=== PATIENT | female | born 1945 | race Caucasian/White ===

== ENCOUNTER → 2017-10-18 16:51 | Outpatient (CLI) | payer MEDICARE, OTHER, SELFPAY ==
--- NOTE | 2017-10-18 17:02 | XR_ITS ---
XR chest 2V Ordering Physician: Shama Field MD Patient Age: 72 years: Female HISTORY: ITS.REASON: BRONCHITIS TECHNIQUE: PA and lateral chest COMPARISON :April 2014 CXR FINDINGS Left chest. Stable no new findings. Right chest Mild accentuation markings right infrahilar region towards right lower lobe. There are chronic changes here but I question there possible very minimal wispy infiltrate distribution correlation clinically required. Question some mild airway thickening at the right suprahilar region as well which may reflect mild bronchitis.- Equivocal No pleural effusion. No pneumothorax Heart normal size. . T-spine Prominent marginal osteophytes progressed throughout the lower T-spine 2013. Now no particularly prominent focal marginal osteophyte T9/10 anteriorly into the right noted. This also is to the density posteriorly towards RLL IMPRESSION: ======== No prominent findings. No dense consolidation. No pleural effusion Only question possible very subtle wispy infiltrate towards RLL, superimposed upon chronic changes. Requires correlation Progressive degenerative changes T-spine Generous marginal osteophytes
== END ==
PROVIDERS: PCP Family Medicine; Visit Provider Family Medicine
DX: J40 Bronchitis, not specified as acute or chronic (principal)
CPT/HCPCS: 71046

== ENCOUNTER → 2018-01-17 06:11 | Outpatient (CLI) | payer MEDICARE, OTHER, SELFPAY ==
--- NOTE | 2018-01-17 06:23 | NM_ITS ---
CARDIOLITE SPECT MYOCARDIAL PERFUSION SCAN, REST AND STRESS: EXERCISE STRESS LOWER [facility] REVIEW QGS EF AND WALL MOTION EVALUATION: QPS - PERFUSION EVALUATION HISTORY: Chest pain, SOB, Palpitations DOSE: 10.30 mCi technetium 99m mibi intravenously at rest followed by 31.7 mCi technetium 99m mibi following the intravenous ministration of 0.4 mg of Lexiscan. Resting blood pressure is 192/85. Stress blood pressure 177/89. FINDINGS: Ejection fraction is calculated to be 71%. Stress images reveal severely decreased activity in the anterior and inferior wall while rest images reveal no significant change. Gated images calculated ejection fraction is 71% with normal wall motion. IMPRESSION: This is a high risk abnormal stress test. Although there is normal wall motion clearly anterior and inferior wall have severe decreased tracer activity suggesting significant pathology.. Clinical correlation is advised however this remains a high risk abnormal stress test
== END ==
PROVIDERS: Family Provider Family Medicine; PCP Family Medicine; Visit Provider Family Medicine
DX: R07.2 Precordial pain (principal)
CPT/HCPCS: 78452; 93017; A9502; J2785

== ENCOUNTER → 2018-05-27 15:47 | Outpatient (CLI) | payer MEDICARE, OTHER, SELFPAY ==
--- NOTE | 2018-05-27 15:54 | XR_ITS ---
XR chest 2V HISTORY: ITS.REASON: BRONCHITIS ORDERING PHYSICIAN: AUGIE Hansen PATIENT AGE: 73 years COMPARISON: None FINDINGS: The cardiomediastinal silhouette and pulmonary vascularity are within normal limits. The lungs are clear without infiltrates, suspicious nodules, or pleural effusions. The left hilum is slightly more prominent compared to the previous exam. This is of questionable clinical significance and could be related to some minimal patient rotation. Follow-up may confirm. There are degenerative changes in the right shoulder with subacromial stenosis. Degenerative change thoracic spine. IMPRESSION: 1. No acute finding. 2. Mild prominence of the left hilum. Consider follow-up to confirm stability
== END ==
PROVIDERS: PCP Family Medicine; Visit Provider Physician Assistant
DX: J40 Bronchitis, not specified as acute or chronic (principal)
CPT/HCPCS: 71046

== ENCOUNTER → 2018-06-07 15:02 | Outpatient (CLI) | payer MEDICARE, OTHER, SELFPAY ==
--- NOTE | 2018-06-07 15:09 | XR_ITS ---
XR chest 2V HISTORY: ITS.REASON: ABNORMAL CXR ORDERING PHYSICIAN: AUGIE Hansen PATIENT AGE: 73 years Technique: PA and lateral chest COMPARISON: 10/18/2017 PA and lateral chest. September 2017, May 27, 2018 FINDINGS: Lungs are well expanded and clear with no significant new findings. The previous question infiltrate at the right infrahilar region more so than left is no longer apparent.. Chest film is returned to baseline. Today's CXR compatible with prior studies from September 2017, May 27, 2018. Stable Tiny calcified granuloma towards left lung base.. . Heart owen and mediastinal structures satisfactory and stable. Chest wall T-spine unchanged stable. No pleural effusion or pneumothorax no focal pneumonia. Arthritic changes at both shoulders right greater than left. IMPRESSION. . Nothing definitely acute. Lungs clear. Minor chronic changes . Chest film has return to baseline with no significant findings
== END ==
PROVIDERS: PCP Family Medicine; Visit Provider Physician Assistant
DX: R93.89 Abnormal findings on diagnostic imaging of other specified body structures (principal)
CPT/HCPCS: 71046

== ENCOUNTER → 2019-07-11 12:17 | Outpatient (CLI) | payer MEDICARE, OTHER, SELFPAY ==
[2019-07-11 12:49] LABS: Erythrocyte Sedimentation Rate 57 mm/hr (0-30)
[2019-07-11 15:21] LABS: Aspartate Amino Transferase 23 U/L (15-37); Potassium 4.8 mmoL/L (3.5-5.1); Sodium 141 mmol/L (136-145); Total Protein,Serum 7.3 gm/dL (6.4-8.2)
[2019-07-11 16:00] LABS: Alanine Aminotransferase 19 U/L (12-78); Albumin Level 3.3 gm/dL (3.4-5.0); Albumin/Globulin Ratio 0.8 (1.1-1.8); Alkaline Phosphatase 128 U/L (46-116); Anion Gap 20.8 mEq/L (5-15); Bilirubin,Total 0.2 mg/dL (0.2-1.0); Blood Urea Nitrogen 26 mg/dL (7-18); Calcium 9.3 mg/dL (8.5-10.1); Carbon Dioxide 20 mmol/L (21.0-32.0); Chloride 105 mmol/L (98-107); Creatinine,Serum 0.93 mg/dL (0.55-1.02); Estimated Glomerular Filt Rate 59 ml/min (>60); GFR (African American) 72 ML/MIN (>60); Glucose 82 mg/dL (74-106)
== END ==
PROVIDERS: Visit Provider Family Medicine
DX: M06.9 Rheumatoid arthritis, unspecified (principal); K21.9 Gastro-esophageal reflux disease without esophagitis
CPT/HCPCS: 36415; 80053; 85651

== ENCOUNTER → 2019-07-11 13:48 | Outpatient (POV) | payer MEDICARE, OTHER, SELFPAY | PROVIDERS: Visit Provider Dermatology | DX: Z00.00 Encounter for general adult medical examination without abnormal findings (principal) ==

== ENCOUNTER → 2020-05-06 11:46 | Outpatient (CLI) | payer MEDICARE, OTHER, SELFPAY ==
--- NOTE | 2020-05-06 12:05 | ECG_ITS ---
APPROVED REPORT Exam: Resting ECG HR:78 bpm ECG Measurements Heart Rate 78 AXES WV 128 P 0 QRSd 74 QRS -7 QT 370 T 42 QTc 421 Conclusion Normal sinus rhythm Normal ECG Electronically signed by : Alexis Cano, 05/06/2020 21:06:04
== END ==
PROVIDERS: PCP Family Medicine; Visit Provider Nurse Practitioner Family
DX: I49.9 Cardiac arrhythmia, unspecified (principal)
CPT/HCPCS: 93005; 93225; 93226

== ENCOUNTER → 2020-05-22 09:47 | Outpatient (CLI) | payer MEDICARE, OTHER, SELFPAY | PROVIDERS: PCP Family Medicine; Visit Provider Urology | DX: M06.9 Rheumatoid arthritis, unspecified (principal); R00.2 Palpitations; R06.00 Dyspnea, unspecified; R55 Syncope and collapse; R94.31 Abnormal electrocardiogram [ECG] [EKG]; Z86.11 Personal history of tuberculosis | CPT/HCPCS: 93270 ==

== ENCOUNTER → 2020-05-30 07:11 | Outpatient (CLI) | payer MEDICARE, OTHER, SELFPAY ==
--- NOTE | 2020-05-30 | CA_ITS ---
APPROVED REPORT Exam: Pharmacologic Technologist: Audra Cherry, Ht: 5 ft 4 in Wt: 213 lbs BSA: 2.01 m2 HR: 79 bpm BP: 140/72 mmHg Rhythm: NSR,NORMAL Indications: SOA/FATIGUE Medical History Medical History: Hyperlipidemia Medications: Tramadol,,,,, MeLOXICAM,,,,, Esomeprazole,,,,, ICOSAPENT,,,,, RIfampin,,,,, Allergies: No known drug allergies Cardiac Risk Factors: FHX of CAD Stress Test Details Test: LEXISCAN HR Resting HR: 77 bpm Max Heart Rate (APMHR): 146 bpm Max HR Achieved: 104 bpm Target HR (85% APMHR): 124 bpm % of APMHR: 71 Recovery HR: 83 bpm BP Resting BP: 140.0/72 mmHg Max BP: 153/66 mmHg Recovery BP: 127.0/72.0 mmHg ECG Resting ECG: NSR,NORMAL Clinical Exercise duration: 04:03 min Highest Stage Achieved: Exercise capacity: 1.0 METs Stress ECG Conclusion DURING INFUSION PATIENT HAD SOA,MALAISE,HEADACHE, NO CP. OCC ISOLATED PVC, ONE VENTRICULAR COUPLET. NO SIGNIFICANT ST-T CHANGES. UNREMARKABLE LEXISCAN STRESS. MYOVIEW IMAGES REPORTED SEPARATELY. Electronically signed by : Chester Miller, 05/30/2020 12:07:59
--- NOTE | 2020-05-30 07:11 | NM_ITS ---
APPROVED REPORT Exam: Nuclear Stress Test Indication: SHORT OF BREATH..FATIGUE Patient Location: Outpatient Stress Tech: Wendi Lozoyankson NM Tech:TANJA Jones RT(R)(N) Ht: 5 ft 4 in Wt: 215 lbs Bra Size: 40C HR: 79 bpm BP: 140/72 mmHg BSA: 2.02 m2 BMI: 36.9 History: SHORT OF BREATH..FATIGUE Procedure: Patient received a 0.4 mg of intravenous Lexiscan, resting heart rate 79 bpm, resting blood pressure 140/72 mmHg, with Lexiscan maximum heart rate achived was 101 bpm which is Less than 85 resting electrocardiogram showed sinus rhythm, with Lexiscan % of the maximum predicted heart rate and blood pressure was 153/66 mmHg. With Lexiscan, patient denied any complaint of chest pain. Electrocardiogram Resting electrocardiogram showed sinus rhythm, with the Lexiscan there is less than 1.[address] segment depression noted from the baseline EKG. The EKG portion of the Lexiscan is nondiagnostic. Cardiac Stress and Resting SPECT Images: Cardiac Stress and Resting SPECT images were obtained using technetium 99m Myoview 31.7 mCi stress and 10.91 mCi at rest. Gated SPECT for analysis of segmental wall motion and calculation of the ejection fraction also done. Prone images were also obtained. Cardiac stress and rest SPECT images show uniform myocardial activity without segmental perfusion abnormality of ventricular ejection fraction is 58% with no regional wall motion abnormality, right ventricle is normal size and contractility. Conclusion: 1. The EKG portion of the Lexiscan is nondiagnostic. 2. No scintigraphic evidence of reversible ischemia seen, computer derived ejection fraction is 58% with no regional wall motion abnormality, right ventricle is normal size and contractility. 3. Normal Lexiscan Myoview study. Electronically signed by : Chester Miller, 05/30/2020 12:12:29
--- NOTE | 2020-05-30 09:04 | CA_ITS ---
APPROVED REPORT EXAM: Comprehensive 2D, Doppler, and color-flow Echocardiogram Public Health Assistant: Moriah Syed, RT(R) Ht: 5 ft 4 in Wt: 213lbs BSA: 2.01 BP: 174/88 mmHg Indications: SOA, palpitations, ABN holter, near syncope, SARABIA 2D Dimensions LVOT 2.10 cm (M/F) 1.5-2.5 M-Mode Dimensions RVDd 2.55 cm (0.9-2.6) LA Diam 2.44 cm (1.9-4.0) LVDd 3.65 cm (3.5-5.7) Ao Diam 2.25 cm (2.0-3.7) LVDs 2.43 cm (3.5-5.7) IVSd 0.87 cm (0.6-1.1) PWd 1.03 cm (0.6-1.1) EF (Teich) 63.10% FS 33.40% EDV (Teich) 56.30 mL ESV (Teich) 20.80 mL LV Diastology E Decel Time 150.00 (160-240 msec) E/A Ratio 0.8 MED E' 8.10 (< 7 cm/sec) E'/MED E' Ratio 8.05 (>14) LAT E' 6.90 (<10 cm/sec) E/LAT E' Ratio 9.45 (>14) Mitral Valve MV E Max Calderon. 65.00 (40-130 cm/s) MV A Velocity 83.00 (40-130 cm/s) E/A Ratio 0.79 MV Decel. Time 150.00 (160-240 ms) MV PHT 44.00 ms Left Ventricle Left atrium is mildly enlarged, left ventricle is normal size, left ventricle wall thickness is upper limit of normal, there is preserved left ventricular systolic function, visually estimated ejection fraction 55% with no regional wall motion abnormality, grade 1 diastolic dysfunction seen without tissue Doppler evidence of raise left atrial pressure. Right Ventricle Right atrium and right ventricle are normal size and contractility. Aortic Valve Aortic valve is minimally thickened and fibrosed, there is no aortic stenosis or aortic insufficiency. Mitral Valve Mitral valve is grossly normal, there is mild mitral regurgitation. Tricuspid Valve Tricuspid valve is grossly normal, there is mild tricuspid regurgitation. Tricuspid regurgitation jet velocity is inadequate for calculation of the right ventricular systolic pressure. Pulmonic Valve Pulmonic valve is poorly visualized. Great Vessels Aortic root is normal size. Inferior vena cava is not well-visualized. Pericardium No significant pericardial effusion noted. Conclusion 1. Mildly enlarged left atrium, normal left ventricular size, visually estimated ejection fraction 55% with no regional wall motion abnormality, grade 1 diastolic dysfunction seen without tissue Doppler evidence of raise left atrial pressure. 2. Mild mitral and tricuspid regurgitation. 3. No significant pericardial effusion noted. Electronically signed by : Chester Miller, 05/30/2020 16:34:29
== END ==
PROVIDERS: PCP Family Medicine; Visit Provider Urology
DX: M06.9 Rheumatoid arthritis, unspecified (principal); R00.2 Palpitations; R06.00 Dyspnea, unspecified; R55 Syncope and collapse; R94.31 Abnormal electrocardiogram [ECG] [EKG]; Z86.11 Personal history of tuberculosis
CPT/HCPCS: 78452; 93017; 93306; A9502; J2785

== ENCOUNTER → 2020-10-03 08:06 | Outpatient (CLI) | payer MEDICARE, OTHER, SELFPAY ==
--- NOTE | 2020-10-03 08:10 | MM_ITS ---
PROCEDURE: MM DIG SCREENING MAMM BI W/CAD Digital Breast Tomosynthesis Included CLINICAL INDICATION: SCREENING There breast cancer in the patient's paternal aunt there has been a previous biopsy left breast for benign disease. Diagnosed age 37 COMPARISON: MG DMSB DIGITAL MAMM-SCREEN BILATERAL from 12/07/2011 MG DMSB DIG MAMM-SCREEN TEE from 10/15/2015 MG DMSB DIG MAMM-SCREEN TEE W/CAD from 11/11/2016 TECHNIQUE: Standard CC and MLO images and 3D Tomosynthesis was obtained. R2 CAD reviewed. FINDINGS: Mild scattered fibroglandular densities are seen in both breast on a background of primarily fatty breast parenchyma. Again noted is the tiny metallic lower central portion right breast at the 6 o'clock position probably a broken piece of localizer wire previous biopsy. This was noted previously. CAD markings are seen in both breast and due to vascular calcification except for 1 marking projecting over a normal appearing node in the left axilla. There are scattered benign-appearing microcalcifications in each breast. There is no suspicious lesion and no suspicious microcalcifications. IMPRESSION: Fibrofatty parenchyma with no suspicious lesions seen BI-RAD Category: 2 Benign Finding(s) FOLLOW-UP: 1YR 1 Year Follow-up (A letter has been sent to the patient regarding results of the study.) Dictated by: Dr. Dalton Hall MD 10/04/2020 12:53 Dr. Dalton Hall MD in [place] 10/04/2020 12:53
--- NOTE | 2020-10-03 08:12 | XR_ITS ---
PROCEDURE: XR DEXA AXIAL SKELETON CLINICAL HISTORY: POST MENOPAUSAL COMPARISON: No exams were available for comparison FINDINGS: The right hip BMD is 0.779 with a T-score of -0.6. The left hip BMD is 0.801 with a T-score of -0.4. The left forearm BMD is 0.647 with a T-score of -0.8. IMPRESSION: Based on these results a follow-up exam is recommended in year. Dictated by: Hero Dillon MD 10/04/2020 01:53 Hero Dillon MD in [place] 10/04/2020 11:46
== END ==
PROVIDERS: PCP Family Medicine; Visit Provider Family Medicine
DX: Z12.31 Encounter for screening mammogram for malignant neoplasm of breast (principal); Z78.0 Asymptomatic menopausal state
CPT/HCPCS: 77063; 77067; 77080

== ENCOUNTER → 2020-11-06 11:18 | Outpatient (CLI) | payer MEDICARE, OTHER, SELFPAY | PROVIDERS: Visit Provider Internal Medicine Gastroenterology | DX: Z01.812 Encounter for preprocedural laboratory examination (principal); Z20.822 Contact with and (suspected) exposure to COVID-19; Z13.810 Encounter for screening for upper gastrointestinal disorder; Z12.11 Encounter for screening for malignant neoplasm of colon | CPT/HCPCS: U0003 ==

== ENCOUNTER 2020-11-08 06:58 | Day surgery (SDC) | payer MEDICARE, OTHER, SELFPAY ==
[2020-11-05 10:15] VITALS: BMI 34.3
[2020-11-08] VITALS (8 sets, daily range): BP systolic 95–137; BP diastolic 57–82; PULSE 68–89; RESP 18; TEMP 36.1–36.2; O2SAT 94–98
--- NOTE | 2020-11-08 07:56 | P.PCN_ITS ---
[facility] Procedure Note Procedure Note:: Upper Endoscopy Procedure Report: Esophagogastroduodenoscopy with cold biopsies and TTS balloon dilation Endoscopost: Joesph Aleman II, MD Referring Physician: Bartolo Yu MD Date of Procedure: November 08, 2020 Equipment: Olympus GIF 190 standard upper endoscope Sedation: MAC sedation Indications: Mrs. Sutton is a 75-year-old female with dysphagia and some dyspepsia. She has ongoing heartburn and acid reflux. She does take pantoprazole which does not fully control her symptoms. She reports epigastric abdominal discomfort and early satiety. She does report dysphagia primarily to solids (breads and meats) with some intermittent painful swallowing. She does feel that food hangs up in the lower retrosternal region. She reports no bloating, nausea or belching. She reports no melena or weight loss. She reports regular bowel function. Her recent hemoglobin 13.1 and hematocrit 39.4 were normal. Procedure: Prior to the procedure, a history and physical exam was performed, and patient's medications and allergies were reviewed. The risks, benefits and alternatives of the sedation and procedure were discussed with the patient. All questions were answered and informed consent was obtained. The patient was brought to the procedure room. Patient identification and proposed procedure were verified by the physician and the nurse. The patient was placed in a left lateral decubitus position and the scope was passed under direct vision. Throughout the procedure, the patient's blood pressure, pulse, and oxygen saturations were monitored continuously. The upper GI endoscopy was accomplished without difficulty. The patient tolerated the procedure well. Findings: The scope was passed directly into the upper esophagus and advanced to the third portion of the duodenum. The post bulbar duodenum and duodenal bulb were normal with normal mucosa and conniventes. The scope was withdrawn through a normal duodenal bulb and pylorus into the stomach. There was linear reactive gastropathy of the antrum of the stomach with some bile reflux. The remainder of the body and fundus of the stomach were grossly normal. Upon retroflexion there was a small sliding 1 to 2 cm hiatal hernia. 2 biopsies were taken in the antrum and along the lesser curvature for histology to rule out gastritis and/or H pylori. The scope was then withdrawn into the esophagus. There was no evidence of reflux esophagitis, Deshpande's or Schatzki's ring. There was some squamous mucosal changes with very mild corrugation within the esophagus. Cold biopsies were taken from the distal and proximal esophagus. There was evidence of moderate esophageal dysmotility. The entire esophagus was dilated to 54 F rench/18 mm with a TTS hydrostatic balloon. The remainder of the esophageal mucosa was normal. Impression: 1. Nonerosive GERD with moderate esophageal dysmotility and very small sliding hiatal hernia status post dilation to 18 mm 2. Mild linear reactive gastropathy with bile reflux Plan: I will follow-up the biopsies. The patient does have functional dyspepsia and functional GERD. We will discuss additional dietary measures and treatment options. I will proceed with diagnostic colonoscopy.
--- NOTE | 2020-11-08 08:26 | P.PCN_ITS ---
[facility] Procedure Note Procedure Note:: Colonoscopy Procedure Report: Colonoscopy with cold snare polypectomy Endoscopist: Joesph Aleman II, MD Referring physician: Bartolo Yu MD Date of Procedure: November 08, 2020 Equipment: Olympus 190 variable stiffness pediatric colonoscope Sedation: MAC sedation Indication: Mrs. Sutton is a 75-year-old female who is here for diagnostic colonoscopy secondary to dyspepsia and generalized abdominal pain. The patient reports no rectal bleeding, weight loss, change in her bowel habits or family history of colon cancer. She did have a colonoscopy with Dr. Gurmeet Santana in November 2015. She did have colon polyps. Her recent hemoglobin 13.1 and hematocrit 39.4 were normal. Procedure: Prior to the procedure, a history and physical exam was performed, and patient's medications and allergies were reviewed. The risks, benefits and alternatives of the sedation and procedure were discussed with the patient. All questions were answered and informed consent was obtained. The patient was brought to the procedure room. Patient identification and proposed procedure were verified by the physician and the nurse. The patient was placed in a left lateral decubitus position and the scope was passed under direct vision. Throughout the procedure, the patient's blood pressure, pulse, and oxygen saturations were monitored continuously. The colonoscopy was accomplished without difficulty. The patient tolerated the procedure well. Findings: On digital rectal examination there was normal rectal tone. There were no external hemorrhoids. The colonoscope was introduced through the anal canal to the rectum and advanced to the cecum. The ileocecal valve and appendiceal orifice were identified. The scope was advanced a short distance into the ileum which appeared grossly normal. The scope was then withdrawn into the colon. There were 3 polyps (cecum x1 (5 mm) and descending x2 (both 3 mm)) which were all removed via cold snare polypectomy. The remaining cecum, ascending and transverse colon and mucosa were grossly normal. There were scattered diverticuli throughout the descending and sigmoid colon (LEFT colon). The rectum itself was normal. Upon retroflexion within the rectum there were grade 1 internal hemorrhoids. The preparation was excellent throughout with [place] Preparation Score of 9. The cecal time was 12 minutes. Impression: 1. Diminutive colonic polyps x3 2. Left-sided diverticulosis 3. Grade 1 internal hemorrhoids Plan: I will follow up the polyp pathology and determine whether further surveillance is warranted. I would encourage a fiber bowel regimen on a long-term daily maintenance basis.
--- NOTE | 2020-11-08 17:24 | P.PN_ITS ---
[facility] Anesthesia Checklist - Patient Identification Patient Identification: Arm Band - Structural Data Admitted From: Home Planned Operative Procedure/s: EGD Consent for Planned Operative Procedure(s) Verified: Yes Verified Documents: Surgical Consent, History and Physical - NPO Status Verified Time NPO: 00:00 - Airway Assessment C-Spine Mobility Assessed: Yes TMJ Mobility Assessed: Yes Dentition: Good Dentition - Neurological Assessment Level of Consciousness: Awake, Alert - Anesthesia Plan Anesthesia Risk discussed: Yes Anesthesia Plan: Verified ASA Class: II Anesthesia Type: MAC [facility] History Medical History: Reports:: Cancer (skin cancer face and arms), Gastroesophageal Reflux Disease(GERD), Heart Murmur, Hyperlipidemia Denies:: Diabetes Mellitus Type 1, Diabetes Mellitus Type 2, Internal Pacemaker, MRSA, Seizures *Have you ever received a pneumonia vaccine?: No *Have you received a flu vaccine this season?: Yes Anesthesia experience/problems:: None Other Surgeries: Yes: Cardiac Catheterization. No: Pacemaker Amputation: No Fractures: No - *Social History Last grade of school completed: High school graduate Smoking Status: Never smoker Alcohol Intake: never Substance Use Type: denies use *Occupational Status:: employed, disabled Housing: house Household Members: none *Travel in the last 8 weeks: None Family Hx:: Coronary Artery Disease, Heart Attack, Stroke
== END 2020-11-08 09:35 | disposition home or self-care (01) ==
LOC: OUTP 07:00
PROVIDERS: PCP Family Medicine; Visit Provider Internal Medicine Gastroenterology
PROC: 0DJ08ZZ Inspection of Upper Intestinal Tract, Via Natural or Artificial Opening Endoscopic (ICD-10-PCS; CPT 43235; principal; 2020-11-08 08:00)
DX: K21.9 Gastro-esophageal reflux disease without esophagitis (principal); K44.9 Diaphragmatic hernia without obstruction or gangrene; K22.4 Dyskinesia of esophagus; K31.9 Disease of stomach and duodenum, unspecified; K63.5 Polyp of colon; K57.30 Diverticulosis of large intestine without perforation or abscess without bleeding; K64.0 First degree hemorrhoids; Z85.828 Personal history of other malignant neoplasm of skin; E78.5 Hyperlipidemia, unspecified; R01.1 Cardiac murmur, unspecified; Z82.3 Family history of stroke; Z82.49 Family history of ischemic heart disease and other diseases of the circulatory system
CPT/HCPCS: 43239; 43249; 45385; 88305; C1726

== ENCOUNTER → 2021-12-29 11:05 | Outpatient (CLI) | payer MEDICARE, OTHER, SELFPAY ==
--- NOTE | 2021-12-29 11:13 | XR_ITS ---
FINAL REPORT CLINICAL HISTORY: Pain in Rt calcaneus x 1 yr, worsened x 2-3 wks. NKT FINDINGS: RIGHT FOOT Three views of the right foot were obtained. There is no acute fracture or dislocation. Visualized joint spaces are normally aligned. There is a moderate size plantar spur. Soft tissues are unremarkable. IMPRESSION: No acute bony abnormality. Reviewed, Interpreted and Dictated by Arslan Jefferson MD Transcribed by Kristin Norman Authenticated and [facility][1]
== END ==
PROVIDERS: PCP Family Medicine; Visit Provider Nurse Practitioner Family
DX: M79.671 Pain in right foot (principal)
CPT/HCPCS: 73630

== ENCOUNTER → 2022-01-07 08:04 | Outpatient (CLI) | payer MEDICARE, OTHER, SELFPAY ==
--- NOTE | 2022-01-07 08:08 | MM_ITS ---
PROCEDURE INFORMATION: Exam: MG Bilateral Screening 3D Mammography Exam date and time: 01/07/2022 8:19 AM Age: 76 years old Clinical indication: Screening examination TECHNIQUE: Imaging protocol: Bilateral Screening tomosynthesis and 2D mammography including computer-aided detection (CAD) when performed. COMPARISON: 1. MG MM DIG SCREENING MAMM BI W/CAD 10/03/2020 8:29 AM 2. MG DMSB DIG MAMM-SCREEN TEE W/CAD 11/11/2016 4:24 PM 3. MG DMSB DIG MAMM-SCREEN TEE 10/15/2015 9:07 AM 4. MG DMSB DIGITAL MAMM-SCREEN BILATERAL 12/07/2011 4:03 PM FINDINGS: MAMMOGRAPHY: Breast composition: There are scattered areas of fibroglandular density. Mass: None. Architectural distortion: No new or suspicious architectural distortion. Calcifications: Stable benign-appearing calcifications are present. No new or suspicious cluster of microcalcifications have developed. Asymmetric density: No new or suspicious asymmetric density is present Skin thickening: None. Axillary adenopathy: None. IMPRESSION: No mammographic evidence of malignancy. Recommend annual screening mammography unless otherwise clinically indicated. ASSESSMENT: BI-RADS category 2: Benign
--- NOTE | 2022-01-07 08:09 | XR_ITS ---
FINAL REPORT TECHNIQUE: Bone mineral density was calculated of the left forearm and hip. CLINICAL HISTORY: . post menopausal screening COMPARISON: 10/03/2020 FINDINGS: DEXA BONE DENSITY AXIAL SKELETON Using the left forearm, the bone mineral density of the distal 1/3 is 0.636 g/cm2, corresponding to T-score of -1.0. Previously measured 0.647 g/cm2, corresponding to T-score of -0.8. Using the left hip, the bone mineral density of the femoral neck is 0.774 g/cm2, corresponding to a T-score of -0.7. Previously measured 0.801 g/cm2, corresponding to T-score of -0.4. NOTE: T-score: Standard deviation compared with peak bone mass of young adult mean. *Following the recommendations of the International Society of Bone densitometry, classification of hip BMD is based on the lower of two T-scores; total hip or femoral neck. IMPRESSION: Normal bone mineral density of the left forearm and hip. Reviewed, Interpreted and Dictated by Gabriele Ramírez III, MD Transcribed by Jeri Shaw Authenticated and [facility]
== END ==
PROVIDERS: PCP Family Medicine; Visit Provider Nurse Practitioner Family
DX: Z12.31 Encounter for screening mammogram for malignant neoplasm of breast (principal); Z78.0 Asymptomatic menopausal state
CPT/HCPCS: 77063; 77067; 77080

== ENCOUNTER → 2022-03-30 13:05 | Outpatient (CLI) | payer MEDICARE, OTHER, SELFPAY ==
[2022-03-30 15:10] LABS: Basophils # 0.1 K/mm3 (0-0.2); Basophils % 0.9 % (0.1-2.0); Eosinophils # 0.3 K/mm3 (0.0-0.4); Eosinophils % 2.7 % (0.1-12.0); Hematocrit 36.5 % (37.0-47.0); Hemoglobin 12.1 g/dL (12.2-16.2); Lymphocytes # 1.9 K/mm3 (0.7-4.5); Lymphocytes % 19.4 % (10-50); Mean Corpuscular HGB Conc 33.2 g/dL (31.8-35.4); Mean Corpuscular Hemoglobin 27.2 pg (27.0-31.2); Monocytes # 0.5 K/mm3 (0.1-1.0); Monocytes % 5.5 % (1.7-9.3); Neutrophils # 7.1 K/mm3 (1.8-7.8); Neutrophils % 71.6 % (37.0-80.0); Platelet Count 263 K/mm3 (142-424); Red Blood Count 4.45 M/mm3 (4.20-5.40); Red Cell Distribution Width 14.2 % (11.5-17.5); White Blood Count 9.9 K/mm3 (4.8-10.8)
[2022-03-30 15:14] LABS: Strep Scrn Group A (Rapid) Positive (Negative)
== END ==
PROVIDERS: PCP Family Medicine; Visit Provider Nurse Practitioner Family
DX: Z20.822 Contact with and (suspected) exposure to COVID-19 (principal); J02.0 Streptococcal pharyngitis; B95.0 Streptococcus, group A, as the cause of diseases classified elsewhere
CPT/HCPCS: 36415; 85025; 87275; 87276; 87430; C9803; U0003; U0005

== ENCOUNTER 2022-12-29 09:17 | Day surgery (SDC) | payer MEDICARE, OTHER, SELFPAY ==
[2022-12-29 09:40] VITALS: BP 136/62; PULSE 61; RESP 18; TEMP 36.6; O2SAT 94; BMI 32.5
[2022-12-29 10:15] VITALS: O2SAT 100
--- NOTE | 2022-12-29 10:46 | HMH.SCOPE ---
Procedure: Date: 12/29/22 Patient Date of :: 1945 Procedure Performed:: Colonoscopy Indications:: History of colon polyps Performing Provider:: Gurmeet Santana MD Referring Provider:: . Sedation:: Monitored anesthesia care Procedure:: After informed consent was obtained the patient was taken to the endoscopy suite. Sedation ensued after the patient was transferred to the left lateral decubitus position. Pulse, blood pressure, and oxygen saturation were monitored throughout the procedure. Digital rectal exam revealed no significant abnormality. The colonoscope was placed in position. The entire colon was evaluated. The colonoscope was carefully removed and the patient was transferred to recovery in stable condition. Please see findings and specimens below for detail. Findings:: Bowel preparation moderate Scattered diverticulosis Moderate spasticity/lack of relaxation Specimens:: None Recommendations:: Repeat colonoscopy in 3-5 years Complications:: No immediate Estimated blood obtained (mL): 0 Colonoscopy Component Colonoscopy Component Was a colonoscopy performed during today's procedure?: Yes Recommended follow up colonoscopy of at least 10 years?: No If no, follow up colonoscopy recommended in ___ years?: 3-5 years Reason for not recommending >/= 10 yr follow-up interval?: Moderate bowel prep; history of polyps
[2022-12-29 10:49] VITALS: BP 89/51; PULSE 56; RESP 14; TEMP 36.4; O2SAT 95
--- NOTE | 2022-12-29 10:55 | P.PN_ITS ---
[facility] Disclaimer: The information contained in this section may have been updated after the patient was seen, as this information can be updated by other users. Medical History (Updated 12/29/22 @ 09:38 by Garry Culver RN) HLD (hyperlipidemia) Morbid obesity Surgical History (Updated 12/29/22 @ 09:38 by Garry Culver RN) History of knee replacement History of lumbar surgery Family History (Updated 12/29/22 @ 09:39 by Garry Culver RN) Other Family history of cancer Family history of heart disease Social History (Updated 12/29/22 @ 09:39 by Garry Culver RN) Smoking Status: Never smoker second hand exposure: No alcohol intake: never substance use type: denies use current occupational status: retired and disabled Travel in the last 8 weeks: None household members: none housing: house caffeine: Yes [facility] Anesthesia Checklist Patient Identification Patient Identification: Arm Band and Family Structural Data Admitted From: Home Planned Operative Procedure/s: Colonocopy Consent for Planned Operative Procedure(s) Verified: Yes Verified Documents: Surgical Consent and History and Physical Additional verifications Anesthesia Reactions: No Blood Transfusion Reaction: No Cephalosporin Allergy: No Previous Colonoscopy: No Airway Assessment C-Spine Mobility Assessed: Yes TMJ Mobility Assessed: Yes Dentition: Edentulous Neurological Assessment Level of Consciousness: Awake, Alert, Appropriate and Follows Commands Hx Seizures: No Numbness or tingling in extremities: No Anesthesia Plan Anesthesia Risk discussed: Yes ASA Class: II Anesthesia Type: MAC Preoperative Comments Pre-Operative Comments: History of polyps years ago.
[2022-12-29 10:59] VITALS: BP 95/54; PULSE 57; RESP 14; O2SAT 95
[2022-12-29 11:09] VITALS: BP 100/72; PULSE 61; RESP 16; O2SAT 96
[2022-12-29 11:19] VITALS: BP 103/70; PULSE 64; RESP 16; TEMP 36.6; O2SAT 97
== END 2022-12-29 11:20 | disposition home or self-care (01) ==
PROVIDERS: PCP Family Medicine; Visit Provider Surgery
PROC: 0DJD8ZZ Inspection of Lower Intestinal Tract, Via Natural or Artificial Opening Endoscopic (ICD-10-PCS; principal; 2022-12-29 10:30)
DX: Z12.11 Encounter for screening for malignant neoplasm of colon (principal); Z86.010 Personal history of colon polyps; K57.90 Diverticulosis of intestine, part unspecified, without perforation or abscess without bleeding
CPT/HCPCS: G0105

== ENCOUNTER → 2023-01-08 12:53 | Outpatient (CLI) | payer MEDICARE, OTHER, SELFPAY ==
--- NOTE | 2023-01-08 12:57 | MM_ITS ---
PROCEDURE INFORMATION: Exam: MG Bilateral Screening 3D Mammography Exam date and time: 01/08/2023 12:52 PM Age: 77 years old Clinical indication: Screening examination; personal history of skin cancer. Family history of premenopausal breast cancer in aunt; Additional info: Routine screening TECHNIQUE: Imaging protocol: Bilateral Screening tomosynthesis and 2D mammography including computer-aided detection (CAD) when performed. COMPARISON: 1. MG MM DIG SCREENING MAMM BI W/CAD 01/07/2022 8:19 AM 2. MG MM DIG SCREENING MAMM BI W/CAD 10/03/2020 8:29 AM 3. MG DMSB DIG MAMM-SCREEN TEE W/CAD 11/11/2016 4:24 PM FINDINGS: MAMMOGRAPHY: Breast composition: The breasts are heterogeneously dense, which may obscure small masses. Mass: No suspicious masses. Architectural distortion: No suspicious distortion. Calcifications: No suspicious calcifications. Asymmetric density: None. Skin thickening: None. Axillary adenopathy: None. IMPRESSION: 1. No mammographic evidence of malignancy. Annual screening is recommended unless otherwise clinically indicated. 2. Given the reported risk factors for this patient, a breast cancer risk assessment may prove useful for further evaluation. ASSESSMENT: BI-RADS Category 1: Negative
== END ==
PROVIDERS: PCP Family Medicine; Visit Provider Family Medicine
DX: Z12.31 Encounter for screening mammogram for malignant neoplasm of breast (principal)
CPT/HCPCS: 77063; 77067

== ENCOUNTER 2023-09-22 15:30 | Outpatient (CLI) | payer MEDICARE, OTHER, SELFPAY ==
--- NOTE | 2023-09-22 15:40 | ECG_ITS ---
APPROVED REPORT Exam: Resting ECG HR:84 bpm ECG Measurements Heart Rate 84 AXES [place] 130 P 26 QRSd 88 QRS 20 QT 339 T 60 QTc 380 Conclusion SINUS RHYTHM NORMAL ECG UNCONFIRMED REPORT Electronically signed by : Alexis Cano MD 09/23/2023 13:46:44
[2023-09-22 16:03] LABS: Basophils # 0.1 K/mm3 (0-0.2); Basophils % 1.1 % (0.1-2.0); Eosinophils # 0.3 K/mm3 (0.0-0.4); Eosinophils % 4.5 % (0.1-12.0); Hematocrit 32.5 % (37.0-47.0); Hemoglobin 11.6 g/dL (12.2-16.2); Lymphocytes # 2.7 K/mm3 (0.7-4.5); Lymphocytes % 36.7 % (10-50); Mean Corpuscular HGB Conc 35.5 g/dL (31.8-35.4); Mean Corpuscular Hemoglobin 28.4 pg (27.0-31.2); Mean Corpuscular Volume 79.9 fl (81-99); Mean Platelet Volume 8.4 fl (7.4-10.4); Monocytes # 0.4 K/mm3 (0.1-1.0); Neutrophils # 3.9 K/mm3 (1.8-7.8); Neutrophils % 52.7 % (37.0-80.0); Platelet Count 267 K/mm3 (142-424); Red Blood Count 4.08 M/mm3 (4.20-5.40); Red Cell Distribution Width 15.8 % (11.5-17.5); White Blood Count 7.4 K/mm3 (4.8-10.8)
[2023-09-22 16:11] LABS: Chloride 110 mmol/L (98-107); Potassium 4.3 mmoL/L (3.5-5.1); Sodium 140 mmol/L (136-145)
[2023-09-22 16:13] LABS: Blood Urea Nitrogen 25 mg/dl (7-17)
[2023-09-22 16:14] LABS: Alanine Aminotransferase 22 U/L (12-78); Albumin/Globulin Ratio 1.1 (1.1-1.8); Alkaline Phosphatase 114 U/L (38-126); Anion Gap 10.3 mEq/L (5-15); Aspartate Amino Transferase 45 U/L (14-36); Bilirubin,Total 0.2 mg/dl (0.2-1.3); Calcium 9.5 mg/dl (8.4-10.2); Carbon Dioxide 24 mmol/L (22.0-30.0); Estimated Glomerular Filt Rate 44 ml/min (>60); GFR (African American) 53 ML/MIN (>60); Globulin 3.6 g/dL (1.3-3.2); Glucose 100 mg/dl (74-100); Total Protein,Serum 7.6 g/dl (6.3-8.2)
[2023-09-22 16:27] LABS: Troponin I < 0.01 ng/ml (0.00-0.034)
== END 2023-09-22 23:59 ==
LOC: RT 15:32
PROVIDERS: PCP Family Medicine; Visit Provider Physician Assistant
DX: R07.9 Chest pain, unspecified (principal)
CPT/HCPCS: 36415; 80053; 84484; 85025; 93005

== ENCOUNTER 2023-10-01 06:36 | Outpatient (CLI) | payer MEDICARE, OTHER, SELFPAY ==
--- NOTE | 2023-10-01 06:41 | NM_ITS ---
APPROVED REPORT Exam: Nuclear Stress Test Indication: HYPERLIPIDEMIA, FM HX, C.P., SOB, FATIGUE Patient Location: Outpatient Stress Tech: Breonna Tran MI Tech:TANJA Yusuf RT (R)(N)(M) Ht: 5 ft 4 in Wt: 194 lbs Bra Size: 40C HR: 66 bpm BP: 145/69 mmHg BSA: 1.93 m2 Rhythm: NSR TID: 1.13 BMI: 33.2 History: HYPERLIPIDEMIA, FM HX, C.P., SOB, FATIGUE Procedure: Patient received 0.4 mg of intravenous Lexiscan, resting heart rate 66 bpm, resting blood pressure 145/69 mmHg, with Lexiscan maximum heart rate achieved was 84 bpm which is % of the maximum predicted heart rate and blood pressure was 159/74 mmHg. With Lexiscan, patient denied any complaint of chest pain. Cardiac Stress and Resting SPECT Images: Cardiac Stress and Resting SPECT images were obtained using technetium 99m Myoview 31.7 mCi stress and 10.26 mCi at rest. Technically difficult study. This may affect the diagnostic interpretation of the study findings. Resting and stress imaging in supine and prone positions demonstrate a medium sized, moderate, predominantly fixed perfusion defect in the basal to mid anterior LV wall. There is also a medium sized, mild, predominantly fixed perfusion defect in the inferior LV wall. Regions of surrounding perfusion reversibility are also noted. Gated imaging demonstrates low normal global LV systolic function. There is mild hypokinesis of the basal anterior and inferior LV azar. LVEF is calculated at 53%. Conclusion: Medium sized, moderate, predominantly fixed perfusion defect in the basal to mid anterior LV wall. There is also a medium sized, mild, predominantly fixed perfusion defect in the inferior LV wall. Regions of surrounding perfusion reversibility are also noted. Gated imaging demonstrates low normal global LV systolic function. There is mild hypokinesis of the basal anterior and inferior LV azar. LVEF is calculated at 53%. Electronically signed by : Rhonda Quiroz MD 10/04/2023 14:25:03
[2023-10-01] MEDS: SODIUM CHLORIDE 0.9% 10ML SYR (RAD ONLY) 10 ML IV ×2 (06:50→08:30)
--- NOTE | 2023-10-01 07:25 | CA_ITS ---
APPROVED REPORT EXAM: Comprehensive 2D, Doppler, and color-flow Echocardiogram Salon Sales Consultant: Malissa Madsen CRT Ht: 5 ft 4 in Wt: 192lbs BSA: 1.92 BP: 180/96 mmHg Indications: Chest Pain, Obesity, Hyperlipidemia 2D Dimensions LA Volume 53.70 mL LA Volume Index 27.30 mL/m2 (M/F) 16-34 M-Mode Dimensions RVDd 2.83 cm (0.9-2.6) LA Diam 2.96 cm (1.9-4.0) LVDd 4.01 cm (3.5-5.7) LVDs 2.58 cm (3.5-5.7) IVSd 1.25 cm (0.6-1.1) PWd 1.22 cm (0.6-1.1) EF (Teich) 65.80% FS 35.70% EDV (Teich) 70.40 mL TAPSE 2.27 (<1.7) ESV (Teich) 24.10 mL LV Diastology E Decel Time 173 (160-240 msec) E/A Ratio 1.23 MED A' 9.70 cm/s LAT A' 8.80 cm/s Aortic Valve AO Peak GR. 3.80 mmHg Mitral Valve MV A Velocity 67.0 (40-130 cm/s) E/A Ratio 1.23 Pulmonary Valve PV Peak Velocity 122.0 (50-150 cm/s) Tricuspid Valve TR P. Velocity 249.00 cm/s RAP Estimate 10.00 mmHg RVSP 34.80 mmHg Left Ventricle The left ventricle is normal size. The left ventricular systolic function is normal. The left ventricular ejection fraction is within the normal range. There is normal left ventricular wall thickness. There is normal LV segmental wall motion. The left ventricular diastolic function is normal. LVEF is 60%. Right Ventricle Right ventricle is mildly dilated. The right ventricular systolic function is normal. Atria The left atrium size is normal. The right atrium size is normal. There is no Doppler evidence of interatrial shunt. Aortic Valve The aortic valve is mildly thickened. There is no aortic valvular stenosis. No aortic regurgitation is present. Mitral Valve The mitral valve leaflets are mildly thickened. No evidence of mitral valve stenosis. Trace mitral regurgitation. Tricuspid Valve The tricuspid valve leaflets are thin and pliable. Trace tricuspid regurgitation. There is insufficient TR jet to estimate RVSP. Pulmonic Valve The pulmonary valve is normal in structure. Trace pulmonic regurgitation. Great Vessels The aortic root is normal in size. The ascending aorta is not well-visualized. IVC is normal in size and collapses >50% with inspiration. Pericardium There is no pericardial effusion. Other Information Study Quality: Fair Conclusion Normal biventricular systolic function. Mild RV dilation. No significant valvular stenosis or regurgitation. Electronically signed by : Rhonda Quiroz MD 10/04/2023 12:52:10
[2023-10-01] MEDS: REGADENOSON 0.4MG/5ML SYRINGE 0.400000000000000022 MG IV (08:30)
--- NOTE | 2023-10-01 09:04 | CA_ITS ---
APPROVED REPORT Exam: Pharmacologic Technologist: Breonna Noyola, Ht: 5 ft 4 in Wt: 192 lbs BSA: 1.92 m2 HR: 62 bpm BP: 145/69 mmHg Rhythm: NSR Medical History Medications: Pantoprazole,,,,, Tramadol,,,,, Ibuprofen,,,,, Ezetimbe,,,,, Stress Test Details Test: LEXISCAN Reason for pharmacologic stress test: physical limitation. HR Resting HR: 66 bpm Max Heart Rate (APMHR): 143 bpm Max HR Achieved: 84 bpm Target HR (85% APMHR): 122 bpm % of APMHR: 59 Recovery HR: 72 bpm BP Resting BP: 145.0/69.0 mmHg Max BP: 159.0/74.0 mmHg Recovery BP: 159.0/74.0 mmHg ECG Resting ECG: NSR Stress ECG: No significant ST changes Arrhythmia: PVCs Clinical Exercise duration: 04:01 min Highest Stage Achieved: Stress ECG Conclusion Symptoms: Mild SOA, head discomfort. No CP. Arrhythmias/Ectopy: Occasional PVC. ST-T Changes: No significant ST changes. Conclusion: Unremarkable Lexiscan stress. Myoview images reported separately. Test Summary REST 03:18 . . 66 . 145/ 69 . . Stage 1 01:00 . . 74 . . . . Stage 2 01:00 . . 72 . 147/ 70 . . Stage 3 01:00 . . 74 . 143/ 70 . . Stage 4 01:00 . . 69 . 142/ 63 . . Stage 4 01:01 . . 70 . 142/ 63 . Stop exercise at 04:01 RECOVERY 01:00 . . 72 . . . . RECOVERY 02:00 . . 69 . 151/ 72 . . RECOVERY 03:00 . . 73 . 159/ 74 . . RECOVERY 03:23 . . 69 . 159/ 74 . . Electronically signed by : Rhonda Quiroz MD 10/04/2023 14:21:49
[2023-10-01] MEDS: ISOTOPE MYOVIEW (PER STUDY) 1 DOSE IV (10:00)
== END 2023-10-01 23:59 ==
LOC: RAD 06:36
PROVIDERS: PCP Family Medicine; Visit Provider Physician Assistant
DX: R07.9 Chest pain, unspecified (principal); R53.1 Weakness; M54.9 Dorsalgia, unspecified; G89.29 Other chronic pain; Z82.49 Family history of ischemic heart disease and other diseases of the circulatory system
CPT/HCPCS: 78452; 93017; 93018; 93306; A9502; J2785

== ENCOUNTER 2023-10-19 08:19 | Day surgery (SDC) | payer MEDICARE, OTHER, SELFPAY ==
[2023-10-19] VITALS (13 sets, daily range): BP systolic 126–151; BP diastolic 62–86; PULSE 53–67; RESP 16–18; TEMP 36.9; O2SAT 93–96; BMI 32.9
--- NOTE | 2023-10-19 07:14 | IR_ITS ---
APPROVED REPORT Patient Location: Outpatient PROCEDURES Left heart catheterization Left ventriculogram Selective coronary angiogram FFR angiogram to the LAD INDICATION Abnormal stress test, Proximal LAD disease Informed consent was obtained prior to the procedure. COMPLICATIONS NONE Estimated Blood Loss: LESS THAN 10 ML TECHNIQUE One percent lidocaine used to anesthetize the right anterior aspect of the wrist. The right radial artery was accessed via the Seldinger technique. A 6 [place] sheath was placed in the right radial artery. 2.5 mg of Verapamil, 800 mcg of nitroglycerin, 1mg Lidocaine and 5000 U Heparin were given through the arterial sheath. The papa catheter was also used to perform left heart catheterization, left ventriculogram and selective coronary angiogram. At the end the diagnostic angiogram cath works FFR angiography was performed. This revealed an FFR index of 0.95. At the end of the procedure the sheath was removed good hemostasis was achieved using Traclet band, patient was transferred to the postop holding area in stable condition. ANGIOGRAPHIC RESULTS The left main artery Normal The left anterior descending artery Has proximal eccentric 40% stenosis with remaining vessel being normal The circumflex artery Nondominant normal The right coronary artery Dominant normal The OCAMPO ventriculogram reveals Normal 65% The left ventricular end-diastolic pressure 20 to 22 mmHg IMPRESSION Moderate proximal LAD disease with hemodynamically insignificant FFR of 0.95 Normal ejection fraction Elevated LVEDP consistent with diastolic dysfunction PLAN 1. Risk factor modification Electronically signed by : Jonathon Orellana MD 10/19/2023 11:23:10
[2023-10-19 08:53] LABS: Basophils # 0.1 K/mm3 (0-0.2); Basophils % 0.9 % (0.1-2.0); Eosinophils # 0.4 K/mm3 (0.0-0.4); Hematocrit 33.9 % (37.0-47.0); Hemoglobin 10.9 g/dL (12.2-16.2); Lymphocytes # 2.3 K/mm3 (0.7-4.5); Lymphocytes % 38.3 % (10-50); Mean Corpuscular HGB Conc 32.1 g/dL (31.8-35.4); Mean Corpuscular Hemoglobin 25.3 pg (27.0-31.2); Mean Platelet Volume 8.3 fl (7.4-10.4); Monocytes # 0.3 K/mm3 (0.1-1.0); Monocytes % 4.9 % (1.7-9.3); Neutrophils # 2.9 K/mm3 (1.8-7.8); Neutrophils % 49.9 % (37.0-80.0); Platelet Count 251 K/mm3 (142-424); Red Cell Distribution Width 15.5 % (11.5-17.5); White Blood Count 5.9 K/mm3 (4.8-10.8)
[2023-10-19 09:03] LABS: Chloride 108 mmol/L (98-107); Sodium 138 mmol/L (136-145)
[2023-10-19 09:06] LABS: Blood Urea Nitrogen 17 mg/dl (7-17); Carbon Dioxide 25 mmol/L (22.0-30.0); Creatinine Clearance Estimated 65 mL/min (50-200); Estimated Glomerular Filt Rate 61 ml/min (>60); GFR (African American) 73 ML/MIN (>60)
[2023-10-19 09:07] LABS: Calcium 9.1 mg/dl (8.4-10.2); Glucose 92 mg/dl (74-100)
[2023-10-19] MEDS: 0.9 % SODIUM CHLORIDE 500 ML 25 ML IV (10:39)
[2023-10-19] MEDS: HEPARIN 1,000 UNITS/500ML NS (CATH LAB) 3000 UNIT IV (10:39)
[2023-10-19] MEDS: HEPARIN 1,000 UNITS/ML 10ML VIAL (CATH LAB) 10000 UNIT IV (10:40)
[2023-10-19] MEDS: NITROGLYCERIN 800MCG/8ML SYR (CATH LAB) 800 MCG IA (10:40)
[2023-10-19] MEDS: LIDOCAINE 1% 10ML MDV 20 ML IJ (10:40)
[2023-10-19] MEDS: VERAPAMIL 2.5MG/ML 2ML VIAL 2.5 MG IV (10:40)
[2023-10-19] MEDS: diphenhydrAMINE 50MG/ML VIAL 50 MG IV (10:40)
[2023-10-19] MEDS: FENTANYL 100MCG/2ML VIAL 50 MCG IV (11:07)
[2023-10-19] MEDS: MIDAZOLAM HCL 1MG/1ML 5ML VIAL 1 MG IV (11:07)
[2023-10-19] MEDS: IOPAMIDOL-370 (76%);100ML BOTTLE 50 ML IV (12:51)
== END 2023-10-19 14:37 | disposition home or self-care (01) ==
PROVIDERS: PCP Family Medicine; Visit Provider Internal Medicine
DX: R93.1 Abnormal findings on diagnostic imaging of heart and coronary circulation (principal); R07.9 Chest pain, unspecified; Z82.49 Family history of ischemic heart disease and other diseases of the circulatory system; I20.89 Other forms of angina pectoris; R53.1 Weakness; I10 Essential (primary) hypertension; Z79.899 Other long term (current) drug therapy
CPT/HCPCS: 80048; 85025; 93458; 93571; 99152; C1725; C1769; J1644; Q9967

== ENCOUNTER 2024-12-06 08:51 | Outpatient (CLI) | payer MEDICARE, OTHER, SELFPAY ==
--- OUTSIDE RECORDS SUMMARY | 2024-10-18 06:00 | XMS_ITS ---
Author Organization [facility] Address [address] [place] [id number] Care Team Providers Care Wood Casket Assembler Name Role Phone Alfonso Claire Primary Care Provider Cecelia Suazo Unavailable [phone] Allergies Allergen (clinical drug ingredient) Drug/Non Drug Allergy documented on EMR Reaction Allergy Type Onset Date Status gabapentin Neurontin weakness/trouble breathing Drug Allergy Active Substance with 2-zcmydbk-4-methylg lutaryl-coenzyme A reductase inhibitor mechanism of action [...] Normal Performing Lab: Notes/Report: Test performed by [employer], [employer] [address] [place] [address] , [address], [place] [address] Gabriel Gregory MD, Labor And Delivery Registered Nurse CLIA: [id number] Vitamin B12 110 354-4046 pg/mL P-Lyme Disease (B. burgodorf la), IgG/IgM, SOILA, Serum Reviewed date:10/20/2024 12:06:10 PM Interpretation: Normal Performing Lab: Notes/Report: Test performed by [employer] , [facility] C, [place] [address] Gabriel Gregory MD, Labor And Delivery Registered Nurse CLIA: [id number] B burgdorferi (Lyme Disease) IgG Negative Negative B burgdorferi (Lyme Disease) IgM Negative Negative P-Folate Reviewed date:10/20/2024 12:06:10 PM Interpretation: Normal Performing Lab: Notes/Report: Test performed by [facility] [employer] , [facility] C, [place] [address] Gabriel Gregory MD, Labor And Delivery Registered Nurse CLIA: [id number] Folate 18.40 >4.59 ng/mL P-Ferritin Reviewed date:10/20/2024 12:06:10 PM Interpretation: Normal Performing Lab: Notes/Report: Test performed by [facility] , [address], [place] [address] Gabriel Gregory MD, Labor And Delivery Registered Nurse CLIA: [id number] Ferritin 15.2 13.0-301.0 ng/mL P-Iron Reviewed date:10/20/2024 12:06:10 PM Interpretation:29 Performing Lab: Notes/Report: Test performed by [facility] , [facility] [place] [address] Gabriel Gregory MD, Labor And Delivery Registered Nurse CLIA: [id number] Iron 29 37-145 ug/dL P-Vitamin D 25-Hydroxy Reviewed date:10/20/2024 12:06:10 PM Interpretation: Normal Performing Lab: Notes/Report: Test performed by [facility], [facility] [address], [place] [address] Gabriel Gregory MD, Labor And Delivery Registered Nurse CLIA: [id number] Vitamin D 25-Hydroxy 36.7 30.0-100.0 ng/mL Interpretation [...] 81 MG 1 tablet Orally Once a day for 30 day(s) Active traMADol HCl 50 MG 1 tab(s) orally ever y 8 hours prn Active Ezetimibe 10 MG 1 tablet Orally Once a day 09/19/2023 Active Zithromax Z-Eduar 250 MG 2 pills first day then one daily for 4 days orally as directed for 5 days 10/18/2024 Active Benzonatate 200 MG 1 capsule Orally Thr ee times a day 10/18/2024 Active Ibuprofen 600 MG TAKE 1 TABLET BY JULIANO TH THREE TIMES DAILY for 90 Active Esomeprazole Magnesium 40 MG Take 1 capsule by mouth once daily for 90 Active Feosol Bifera 28 MG 1 tablet Orally Once a day for 30 day(s) 05/27/2024 Active Vital Signs Blood pressure systolic 128 mm Hg 10/19/19 25 Blood pressure diastolic 72 mm Hg 025 Heart Rate 81 /min 10/18/2024 Height 63 in 10/18/2024 Weight 193.0 lbs 10/18/2024 BMI 34.18 kg/m2 10/18/2024 Encounters Encounter Location Date Provider Diagnosis [facility] [address] [facility] [address] [place], [place] [id number] 10/18/2024 Cecelia Crowdy Bronchitis J40 ; Ane [...] one daily for 4 days orally as directed for 5 days 10/18/2024 Benzonatate 200 MG 1 capsule Orally Thr ee times a day 10/18/2024 Pending Test Test Name Order Date Hemoccult- IFOBT (in house) 10/18/2024 Next Appt Details Follow Up: via phone to repo rt test results, Reason: Progress Notes * LOINEENADOB:1945 (79 yo F)Acc No.[id number]:10/18/2024 Progress Notes Patient: NEENA MANZANO Provider: AUGIE Felix :1945 A ge:79 Y S ex:Female Date:10/18/2024 Address:[address] [place] [address], [facility], [id number] Pcp:Alfonso Claire Subjective: * Chief Complaints: * [...] Examination: E NT/Respiratory: General Appearance: N AD. Eyes: P ERRLA, sclera clear. Ears: a uditory canals normal bilaterally, TM's WNL. Nose : turbinates red, congested. Sinuses : tender maxillary sinuses bilaterally. Oral cavity : erythema without exudate on pharynx. Neck : n o cervical lymphadenopathy. Heart : R RR, normal S1 S2, no murmurs. Lungs: expiratory wheezes, no rales. Abdomen : BS present, soft, nontender. Extremities : no edema. Skin : bite naomy in the mid back. [...] p lat 326 100 - 400 * NoviMaeve rosario 10/18/2024 10 :04:53 AM > Provider reviewed results while patient in office.Cecelia Suazo 10/19/2024 08:23:56 AM > 2.?Anemia, unspecified type?LAB: Hemoccult- IFOBT (in house) ?LAB: P-Vitamin B12 (Collection Date & Time - 10/18/2024 09:26 AM)?Normal* Value Reference Range V itamin B12 024 914-6038 - pg/mL * Cassi De La O [...] G 2211 Complex e/[place], [address] Flu Test- Nasal Swab, Modifiers: QW , 64462 CAPILLARY BLOOD DRAW, 96545 CBC WITH AUTO DIFF, 3074F SYST BP LT 130 MM HG, 3078F DIAST BP < 80 MM HG * Follow Up: v ia phone to report test results * Billing Information: * Visit Code: 54363 Office Visit, Est Pt., Level 4. * Procedure Codes: G2211 Complex e/[place]. [address] Flu Test- Nasal Swab. Modifiers: QW 98952 CAPILLARY BLOOD DRAW. 49317 CBC WITH AUTO DIFF. 3074F SYST BP LT 130 MM HG. 3078F DIAST BP < 80 MM HG. * Electronic signature of AUGIE Douglas on 12/06/2024 at 08:56 AM EDT Sign off status: Pending * Provider: AUGIE Felix Date: 0 10/18/2024 Generated for Printi ng/Faxing/eTransmitting on: 0 12/06/2024 08:56 AM EDT History and Physical Notes [...]
--- OUTSIDE RECORDS SUMMARY | 2024-10-20 11:05 | XMS_ITS ---
Author Organization [facility] Address [address] [place] [phone] Care Team Providers Care State [employer] Police Officer Name Role Phone Alfonso Claire Primary Care Provider Cecelia Suazo Unavailable [phone] Results Component Value Reference Range Notes Hemoccult- [...] by mouth once daily for 90 Active Ibuprofen 600 MG TAKE 1 TABLET BY JULIANO TH THREE TIMES DAILY for 90 Active Albuterol Sulfate HFA 108 (90 Base) MCG/ACT 1 puff as needed Inhalation every 4 hrs, prn 10/18/2024 Active traMADol HCl 50 MG 1 tab(s) orally ever y 8 hours prn Active Feosol Bifera 28 MG 1 tablet Orally Once a day for 30 day(s) 05/27/2024 Active Ezetimibe 10 MG 1 tablet Orally Once a day 09/19/2023 Active Aspirin 81 81 MG 1 tablet Orally Once a day for 30 day(s) Active Vitamin D3 50 MCG (2000 UT) 1 capsule Or ally Once a day Active Encounters Encounter Location Date Provider Diagnosis Sal [address] [place] [phone] 10/20/2024 Cecelia Suazo Anemia D64.9 Assessments Encounter Date Diagnosis (ICD Code) Assessment Notes Treatment Notes Treatment Clinical Notes Section Notes 10/20/2024 Anemia (ICD-10 - D64.9) Plan Of Treatment No Information Progress Notes * NEENA SUTTONDOB:1945 (79 yo F)Acc No.[id number]:10/20/2024 Patient: NEENA MANZANO Provider: AUGIE Felix :1945 A ge:79 Y S ex:Female Date:10/20/2024 Address:[address] [place] [address], [place], [id number] Pcp:Alfonso Claire Subjective: * Chief Complaints: * [...] TEST FOR BLOOD, FECAL, Modifiers: QW * Billing Information: * Visit Code: * Procedure Codes: 34373 ASSAY TEST FOR BLOOD, FECAL. Modifiers: QW * Electronic signature of AUGIE Douglas on 12/06/2024 at 08:56 AM EDT Sign off status: Pending * Provider: AUGIE Felix Date: 0 10/20/2024 Generated for Florinda phan/Johnie/eTransmitting on: 0 12/06/2024 08:56 AM EDT
--- OUTSIDE RECORDS SUMMARY | 2024-11-09 11:45 | XMS_ITS ---
Author Organization [facility] Address [address] [facility] [address] [place] [phone] Care Team Providers Care In Flight Refueling System Repairer Name Role Phone Alfonso Claire Primary Care Provider Jordon Yu [phone] Allergies Allergen (clinical drug ingredient) Drug/Non Drug Allergy documented on EMR Reaction Allergy Type Onset Date Status gabapentin Neurontin weakness/trouble breathing Drug Allergy Active Substance with 8-jacxpem-4-methylg lutaryl-coenzyme A reductase inhibitor mechanism of action [...] Growth Performing Lab: Notes/Report: Test performed by [facility] [address] [place] [address] , [address], [place] [address] Gabriel Gregory MD, Dough Brake Machine Operator CLIA: [id number] Specimen Source Urine - Void Culture, Urine See Below Final Report : No Significant Growth REASON FOR VISIT referral for bone density [...] a day for 30 day(s) 05/27/2024 Active Benzonatate 200 MG 1 capsule Orally Thr ee times a day 10/18/2024 Not-Taking Zithromax Z-Eduar 250 MG 2 pills first day then one daily for 4 days orally as directed for 5 days 10/18/2024 Not-Taking Albuterol Sulfate HFA 108 (90 Base) MCG/ACT 1 puff as needed Inhalation every 4 hrs, prn 10/18/2024 Active Aspirin 81 81 MG 1 tablet Orally Once a day for 30 day(s) Active Ciprofloxacin HCl 500 MG 1 tablet Orally every 12 hrs 11/09/2024 Active Ibuprofen 600 MG TAKE 1 TABLET BY JULIANO TH THREE TIMES DAILY for 90 Active Vital Signs Blood pressure systolic 120 mm Hg 11/10/19 25 Blood pressure diastolic 64 mm Hg 025 Heart Rate 54 /min 11/09/2024 Height 63 in 11/09/2024 Weight 193.2 lbs 11/09/2024 BMI 34.22 kg/m2 11/09/2024 Encounters Encounter Location Date Provider Diagnosis [facility] [address] [facility] [address] [place] [id number] 11/09/2024 Jordno Yu UTI (lower urinary tract infection) N39.0 [...] 1 tablet Orally every 12 hrs 10/20 Pending Test Test Name Order Date Bone density 11/09/2024 Next Appt Details Follow Up: via phone to repo rt test results, Reason: Progress Notes * NEENA SUTTONDOB:1945 (79 yo F)Acc No.[id number]:11/09/2024 Progress Notes Patient: NEENA MANZANO Provider: Jordon Yu M.D. :1945 A ge:79 Y S ex:Female Date:11/09/2024 Address:[address] [place] [address], [place], [id number] Pcp:Alfonso Claire Subjective: * Chief Complaints: * 1 . Referral for bone density. * HPI: R heumatology: She continues to follow with rheumatology for her rheumatoid arthritis. They have requested that she have a bone density test but she did not want to return to [place] for the study and would like to have it arranged at [facility]. U rology: She recently started with urinary [...] with Cancer. M other: 70 yrs, of [place], diagnosed with Heart Disease. P aternal Grand [...] Temp: p97.9, BP: 120/64, HR: 54, Nurse: [facility], Ht: 63, BMI:34.22. * Examination: G eneral Examination: General Appearance: N AD. Abdomen: s oft , not distended , soft and nontender , no CVA tenderness. Assessment: * Assessment: 1. U TI (lower urinary tract infection) - N39.0 (Primary) 2 . S creening for osteoporosis - Z13.820 3 . D yslipidemia - E78.5 4 . R heumatoid arthritis - M06.9 5 . B [place] 34.0-34.9,adult - Z68.34 Plan: * Treatment: Value [...] ysabel neg * G leni neg * Pushpa Na 11/09/2024 03:3 9:09 PM > Provider reviewed results while patient in office. 2.?Screening for osteoporosis?Imaging: Bone density* Brandy Spence 11/10/2024 08:2 1:07 AM > faxed to [facility] Scheduling * Procedure Codes: G 2211 Complex e/[place], [address] Urinalysis, no micro, 3074F SYST BP LT 130 MM HG, 3078F DIAST BP < 80 MM HG * Follow Up: v ia phone to report test results * Billing Information: * Visit Code: 49464 Office Visit, Est Pt., Level 4. * Procedure Codes: G2211 Complex e/[place]. [address] Urinalysis, no micro. 3074F SYST BP LT 130 MM HG. 3078F DIAST BP < 80 MM HG. * Electronic signature of Jordon Yu MD on 12/06/2024 at 08:55 AM EDT Sign off status: Pending * Provider: Jordon Yu M.D. Date: 0 11/09/2024 Generated for Florinda phan/Johnie/Paula on: 0 12/06/2024 08:55 AM EDT History and Physical Notes [...] she did not want to return to [place] for the study and would like to have it arranged at [facility]. Examination Category Sub-Category Detail Notes Category Not es General Examination Abdomen: soft , not d istended , soft and nontender , no CVA tenderness General Appearance: NAD
--- OUTSIDE RECORDS SUMMARY | 2024-12-06 08:55 | XMS_ITS | Data Portability ---
Author Organization [facility] LOLI Woodson DAPHNE CLOSED Address [address] [address] [place] [address] Care Team Providers Care Superintendent Job Name Role Phone SUSAN CHRIS Primary Care Provider [phone] Assessment Encounter Date Assessment Date Assessment LastModified by Organization Details LastModified Time 08/04/2016 08/04/2016 Ms. Sutton continues to do well 6 months post-op from her L4-S1 fusion. Her films look good. A copy of the images were given to her to take home. While she gets occassional right leg pain, it is tolerable. Suspect this will continue to improve with time. Discussed that she may follow up with us now as needed, but we could have her come back for a 12 month post-op visit if she wants. She will plan for PRN follow up. She may call us at anytime for any changes in her back or leg symptoms. Not available 08/04/2016 13:23:34 Plan of Treatment Reminders Order Date Submit Date Provider Last Modified By Organization Details Last Modified Time Details Appointments None recorded. Lab None recorded. Referral None recorded. Procedures None recorded. Surgeries None recorded. Imaging XR, knee, 3 view 2019 020 [facility] Radiology [facility], [address] [place], [address], 0 10:18:22 XR, joint, multiple, 1 view 2019 020 [facility]iology [facility], [address] [place], [address], 0 10:16:32 Medication Orders Celebrex 200 mg capsule 2019 020 INTERFACE [facility], [address], [place], [address], 0 09:19:01 Patient TargetsNo targets recorded. Patient Instructions Encounter Date Encounter Id Patient Instructions Last Modified By Organization Details Last Modified Time 08/04/2016 [id number] AP/Lat Lumbar XR -s/p L4-S1 fusion -No breakage of rods or screws -No evidence of loosening of screws Not available 08/04/2016 13:05:40 12/06/2019 [id number] osteoarthritis: care instructions [email or web address] Not available 12/06/2019 09:18:45 Reason for Referral None Reported. Results Created Date Observation Date Name Description Value Unit Range Abnormal Flag Note LastModifiedBy Organization Detail LastModifiedTime 08/04/19 17 08/04/2016 XR, lumbo sacra l spine , 2 or [address] [address] Sunny carlton Name: LONA carlton : [birth year] [place] 7 Orderi ng Provid er: TRI PEREZ PS EXAM DATE: 2016 EXAM: XR LUMBAR AP/LAT CLINIC AL INFORM ATION: Postop erativ e. IMAGES PROVID ED: AP, latera l, and coned- down views of the lumbar spine. COMPAR JEAN PIERRE: None. FINDIN GS AND IMPRES MARY: Spinal fusion is noted at L4-S1 level with pedicu lar screws and connec ting rods. Surgic al hardwa re is satisf actori ly placed . No eviden ce of loosen ing or infect ion is seen. Other levels are normal . Interp reted By: Lucretia Townsend MD Electr onical ly Signed By: Lucretia Townsend MD on 017 1:44 PM [email or web address] [facility] Radiology [address], [address], 08/05/2016 09:18:24 12/06/19 20 12/06/2019 XR, joint , multi ple, [address] [place] [address] Pat[place]azanin t Name: LONA carlton : [birth year] [place] 7 Orderi ng Provid er: [facility] EXAM DATE: 2019 EXAM: XR TEE HANDS, AP VIEW HISTOR Y: Bilate ral hand pain COMPAR JEAN PIERRE: 014 FINDIN GS: Regard ing right hand, there is diffus e arthro wan most notabl e at the first carpom etacar pal joint. There is also signif icant findin gs at the PIP joint fifth finger . No gross change from prior study. No fractu re is noted. Orderi ng left hand, there is diffus e arthro wan which is severe at the first carpom etacar pal joint or thumb base. No fractu re or disloc ation is presen t. IMPRES MARY: 1. Little change from prior exam. There is diffus e osteoa rthrit is of the hands, severe at the thumb base region Interp reted By: Garry Dean MD Electr onical ly Signed By: Garry Dean MD on 020 10:[address] Radiology [facility] [address] [place] [address], [place], [address], 12/06/2019 10:40:06 12/06/19 20 12/06/2019 [facility] [address] [place] [address] Patinazanin t Name: LONA carlton : [birth year] Pat[place] t 7 Orderi ng Provid er: [facility] EXAM DATE: 2019 EXAM: XR TEE KNEES 3 VIEWS HISTOR Y: Bilate ral knee pain COMPAR JEAN PIERRE: None. FINDIN GS: Narrow ing the medial compar tments bilate rally, greate r on the left. Bilate ral degene rative spurri ng. Alignm ent normal includ ing the patell ofemor al joints . No fractu re or disloc ation. IMPRES MARY: 1. Severe DJD left knee, modera te DJD right knee Interp reted By: Garry Dean MD Electr onical ly Signed By: Garry Dean MD on 020 10:13 AM [email or web address] [facility] Radiology [address], [address], 12/06/2019 10:40:05 Result Notes Documentation Provider Name and Address Organization Details Recorded Time Xr, Lumbosacral Spine, 2 Or 3 View : [place] [address] Patient Name: LONA SUTTON Patient : 1945 Patient Ordering Provider: VIRGIL COSME EXAM DATE: 08/04/2016 EXAM: XR LUMBAR AP/LAT CLINICAL INFORMATION: Postoperative. IMAGES PROVIDED: AP, lateral, and coned-down views of the lumbar spine. COMPARISON: None. FINDINGS AND IMPRESSION: Spinal fusion is noted at L4-S1 level with pedicular screws and connecting rods. Surgical hardware is satisfactorily placed. No evidence of loosening or infection is seen. Other levels are normal. Interpreted By: David Townsend MD [place] COSME MD [address] [place] [address], [address], [facility] 08/05/2016 09:18:24 Xr, Joint, Multiple, 1 View : [place] [address] Patient Name: LONA SUTTON Patient : 1945 Patient Ordering Provider: DONNA CH EXAM DATE: 12/06/2019 EXAM: XR TEE HANDS, AP VIEW HISTORY: Bilateral hand pain COMPARISON: 01/17/2014 FINDINGS: Regarding right hand, there is diffuse arthropathy most notable at the first carpometacarpal joint. There is also significant findings at the PIP joint fifth finger. No gross change from prior study. No fracture is noted. Ordering left hand, there is diffuse arthropathy which is severe at the first carpometacarpal joint or thumb base. No fracture or dislocation is present. IMPRESSION: 1. Little change from prior exam. There is diffuse osteoarthritis of the hands, severe at the thumb base region Interpreted By: Garry Dean MD CH MD [address] [place] [address], [address], [facility] 12/06/2019 10:40:06 Xr, Knee, 3 View : [address] [address] Patient Name: LONA SUTTON Patient : 1945 Patient Ordering Provider: DONNA CH EXAM DATE: 12/06/2019 EXAM: XR TEE KNEES 3 VIEWS HISTORY: Bilateral knee pain COMPARISON: None. FINDINGS: Narrowing the medial compartments bilaterally, greater on the left. Bilateral degenerative spurring. Alignment normal including the patellofemoral joints. No fracture or dislocation. IMPRESSION: 1. Severe DJD left knee, moderate DJD right knee Interpreted By: Garry Dean MD CH MD [address] [place] [address], [phone], [facility] 12/06/2019 10:40:05 Problems Name Problem SNOMED Code Status Onset Date Resolution Date Notes Provider Name and Address Organization Details Recorded Time Lumbosacr al radiculop athy 9111348 Active 2015 From Automated Load;Provi geneva: Virgil Cosme;St atus: Active Not Available [facility] 6 00:28:20 Spondylol isthesis 786797668 Active 2015 From Automated Load;Provi geneva: Virgil Cosme;St atus: Active Not Available [facility] 6 00:28:20 Spinal stenosis of lumbar region 23272504 Active 2015 From Automated Load;Provi geneva: Virgil Cosme;St atus: Active Not Available [facility] 6 00:28:20 Spondylol ysis 350423145 Active 2015 From Automated Load;Provi geneva: Virgil Cosme;St atus: Active Not Available [facility] 6 00:28:20 Low back pain 506122404 Active 2015 Provider: Molly CosmeSt atus: Active Not Available [facility] 6 00:28:20 Problem Notes None recorded. Procedures Surgical History Date Name Laterality Status Provider Name and Address Organization Details Recorded Time 0 Injection Joint/Bursa, Major, w/o US completed ROLO CH MD [address] [place], [address], [place] [facility] 12/06/2019 09:30:24 Imaging Results None recorded. Procedure Notes None recorded. Medical Equipment None Reported. Allergies Allergen ID Allergen Name Allergen Category Reaction Reaction Severity Criticality Documentation Date Start Date Code Code System Note Provider Name and Address Organization Details Recorded Time 932682 Product containin g 3-hydroxy -3-methyl glutaryl- coenzyme A reductase inhibitor (product) medicatio n dizziness severe Not available 12/06/2019 56877 009 SNOMED Brenda Retana [facility] 0 08:54:44 Medications Name Sig Start Date Stop Date Status Note LastModified by Organization Details LastModified Time Percocet 7.5 mg-325 mg tablet Every six to eight hours 12/05 completed Duration : 30 days;Ins truction s: Take with URBAN 250mg BID;Freq uency: q6-8h;Al t Frequenc y: prn pain;Med ication Descript ion: acetamin ophen-ox ycodone; Dosage:1 ; Route:or al; refills: 0; Quantity :90 tablet Not Available Not Available Not Available ibuprofen 800 mg tablet Take 1 tablet 3 times a day by oral route. 12/05 completed Not Available Not Available Not Available Celebrex 200 mg capsule Take 1 capsule twice a day by oral route for 30 days. 2019 active Not Available Not Available Not Avai lable Valium 5 mg tablet Two times a day 12/05 completed Duration : 20 days;Abrahan quency: bid;Medi cation Descript ion: diazepam ; Dosage:1 ; Route:or al; refills: 0; Quantity :40 tablet Not Available Not Available Not Available esomepraz ole magnesium 40 mg capsule,d elayed release Take 1 capsule every day by oral route. active Not Available Not Available No t Available omeprazol e 12/05 completed Medicati on Descript ion: omeprazo le; refills: 0 Not Available Not Available Not Available tramadol ER 300 mg tablet,ex tended release 24 hr 12/05 completed Medicati on Descript ion: tramadol ; Route:or al; refills: 0 Not Available Not Available Not Available Vitals Date Recorded Body height Body weight Body mass index (BMI) Heart rate Systolic blood pressure Diastolic blood pressure Provider Name and Address Organization Details Last Updated DateTime 7 162.56 cm 21493.4 g 36 kg/m2 78 /min 140 mm[Hg] 78 mm[Hg] Christine Smith [facility] 7 13:11:59 Date Recorded Body weight Heart rate Respiratory rate Systolic blood pressure Diastolic blood pressure Provider Name and Address Organization Details Last Updated DateTime 12/06/2019 107334. 69 g 80 /min 18 /min 156 mm[Hg] 92 mm[Hg] Brenda Retana [facility] 0 08:54:18 Social History Question Answer Notes LastModified by Organizat ion Details LastModified Time Tobacco Smoking Status Never Smoker Brenda Retana [facility] 12/06/2019 08:56:24 How Much Tobacco Do You Chew? None Information not available 12/06/2019 What Was The Date Of Your Most Recent Tobacco Screening? 12/06/2019 Information not available 12/06/2019 How Much Tobacco Do You Smoke? No Information not available 12/06/2019 How Many Years Have You Smoked Tobacco? 0 Information not available 12/06/2019 Sex: Unknown Functional Status Question Answer Note LastModified by Organizat [employer] Details LastModified Time Do you or have you ever used smokeless tobacco? Never used smokeless tobacco Information not available 12/06/2019 Do you or have you ever used e-cigarettes or vape? Never used electronic cigarettes Information not available 12/06/2019 Mental Status None recorded. Family History Nothing Reported. Medical History No medical history recorded. Gynecological HistoryNo gynecological history recorded. Obstetrics History GPAL:G 0 P 0 0 0 0 Past Encounters Encounter ID Performer Location Encounter Start Date Encounter Closed Date Diagnosis/Indication Diagnosis SNOMED-CT Code Diagnosis ICD10 Code Diagnosis Note [id number] TATIANNA HAQ PA-C [facility] CLOSED [address] [place] [address] 08/04/2016 12:46:15 08/04/2016 14:07:45 Postoperative visit [id number] Z09 [id number] ROLO CH MD RHEUMATOL [facility] [address] [place] [address] 12/06/2019 08:47:21 12/06/2019 10:00:35 Generalized osteoarthritis 643991435 M15.9 74-year-ol d female with generalize d osteoarthr itis. Severe deformitie s of the hands especially the right hand with Jorge Luis and Heberden nodules along with severe first CMC osteoarthr itis. 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 Severe deformitie s of bilateral knee joints. Further restricted mobility of the lumbosacra l spine without any radiculopa thy or myelopathy . Proximal muscle strength is physiologi c. No features of inflammato ry joint disease such as rheumatoid noted. I have reviewed the medical records from 2013 and 2014. She has had negative rheumatoid factor and a negative anti-CCP antibodies . Inflammato ry studies including ESR and C-reactive proteins were physiologi c. Imaging studies were significan t for diffuse degenerati ve arthritis. Discussed with the patient in detail. I suggested her to discontinu e ibuprofen because of the gastrointe stinal side effects. Especially with her age the risk for GI bleed is much higher. She can take Celebrex 200 mg twice a day. I also encouraged her to work on weight loss. Today both knees were given intra-samina cular steroid injection. I have also obtained x-rays of bilateral hands and knees. We plan to see her in 3 months. Health Concerns Section Related Observation LastModified by Organization Detai ls LastModified Time None Recorded Concern Status LastModified by Organization Details LastModified Time None Recorded Advance Directives Directive None Recorded Payers Insurance Date Sequence Insurance Name Policy Number Policy Cuellar Covered Member ID Cuellar Member ID Guarantor Name 12/03/2019 2 [facility] [id number] Holamelonie Flory Sutton [id number] Holamelonie Flory Sutton 12/06/2019 1 [place] Lona Flory Sutton [id number] Lona Sutton 08/13/2016 2 [facility] Lona Sutton Notes Date Note Type Note Provider Name and Address Organization Details Recorded Time 08/04/2016 text/html Ms. Sutton presents for 6 month post-op visit. She is s/p L4-S1 fusion on 02/27/[address] Cosme. She continues to do well. Has occassional right leg pain, but is infrequent and tolerable. She continues to walk for exercise without issue. TATIANNA HAQ PA-C [address] [place] [address], [phone], [facility] 08/04/2016 13:23:46 12/06/2019 text/html 74-year-old fema le seen today as a new patient. She has chronic joint pains. She has had evaluation with the rheumatology clinic about 5 years ago and was followed by Dr. Randolph. She has had negative rheumatoid profile including negative rheumatoid factor and a negative anti-CCP antibodies. The inflammatory studies were also physiologic. Imaging studies were consistent with degenerative joint disease. She is currently on ibuprofen 800 mg 3 times a day. She also takes a PPI. She denies any recent rashes, fevers, chills, chest pain or shortness of breath. She does not smoke cigarettes. She does not drink alcohol. Currently she has pain in her hands, lower back and bilateral knee joints. ROLO CH MD [address] [place] [address], [phone], [facility] 12/06/2019 09:35:05 OBGyn Episode No OBEpisode recorded.
--- NOTE | 2024-12-06 08:56 | XR_ITS ---
FINAL REPORT CLINICAL HISTORY: SCREENING COMPARISON: 01/07/2022 FINDINGS: Using right forearm, the bone mineral density of the mid is 0.4-0 g/cm2, corresponding to T-score of -3.4. Using the left hip, the bone mineral density of the femoral neck is 0.925 g/cm2, corresponding to a T-score of -0.1. Using the right hip, the bone mineral density of the femoral neck is 0.769 g/cm2, corresponding to a T-score of -0.7. NOTE: T-score: Standard deviation compared with peak bone mass of young adult mean. *Following the recommendations of the International Society of Bone densitometry, classification of hip BMD is based on the lower of two T-scores; total hip or femoral neck. IMPRESSION: Normal bone mineral density of the bilateral hips. Diminished bone mineral density of the right forearm, consistent with osteoporosis. Reviewed, Interpreted and Dictated by Arslan Jefferson MD Transcribed by Arminda eMza Authenticated and [facility]
--- OUTSIDE RECORDS SUMMARY | 2024-12-06 08:56 | XMS_ITS ---
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
--- OUTSIDE RECORDS SUMMARY | 2024-12-06 08:56 | XMS_ITS | Referral Summary ---
Author Organization [employer] Address [address] [place] [address] Care Team Providers Care Marina Manager Name Role Phone Unavailable Primary Care Provider Unavailabl e Social History Tobacco Use Types Packs/Day Years Used Date Smoking Tobacco: Never Assessed Comments Unknown Sex and Gender Information Value Date Recorded Sex Assigned at Not on file Legal Sex Female 3:14 PM CDT Gender Identity Not on file Sexual Orientation Not on file Plan of Treatment Not on file
--- OUTSIDE RECORDS SUMMARY | 2024-12-06 08:56 | XMS_ITS | Patient Health Record ---
Author Organization [facility] Address [address] [facility] [address] [place] [id number] Care Team Providers Care Director Of Strategic Communications Name Role Phone Alethea Alfonso Primary Care Provider [phone] Jordon Yu Unavailable [phone] Urvashi Ibrahim Unavailable [phone] Cecelia Suazo Unavailable [phone] Allergies Allergen (clinical drug ingredient) Drug/Non Drug Allergy documented on EMR Reaction Allergy Type Onset Date Status gabapentin Neurontin weakness/trouble breathing Drug Allergy Active Substance with 7-cjgutqe-4-methylg lutaryl-coenzyme A reductase inhibitor mechanism of action [...] Growth Performing Lab: Notes/Report: Test performed by [facility] [address] [place] [address] , [address], [place] [address] Gabriel Gregory MD, Instrumentation And Controls Designer CLIA: [id number] Specimen Source Urine - Void Culture, Urine See Below Final Report : No Significant Growth Hemoccult- IFOBT (in house) Reviewed date:10/27/2024 10:24:51 AM Interpretation: Performing Lab: Notes/Report: results Neg P-Culture, Urine Reviewed date:05/25/2024 01:36:17 PM Interpretation: Performing Lab: Notes/Report: Test performed by [facility] [address] [facility] , [address], [place] [address] Gabriel Gregory MD, Instrumentation And Controls Designer REJI: [id number] Specimen Source Urine - Void Culture, Urine See Below See Microbiol ogy Report Escherichia coli 25,000-50,000 CFU/ml Escherichia coli Sensitivity Panel See Below Organism E. coli Antibiotic INTERP Amikacin S Ampicillin R Aztreonam S Cefepime S Cefoxitin S Ceftazidime S Ceftriaxone S Cefuroxime S Ciprofloxacin S Ertapenem S Gentamicin S Imipenem S Levofloxacin S Meropenem S Nitrofurantoin S Piperacillin/Tazo S Tetracycline S Tobramycin S Trimeth/Sulfa S S=SUSCEPTIBLE I=INTERMEDIATE R=RESISTANT Urinalysis - Inhouse Reviewed date:05/22/2024 07:54:58 PM Interpretation: Performing Lab: Notes/Report: Color/Clarity yellow/clear Leuk 1+ Nitrite neg Urobili 3.2 Protein 2+ pH 6.0 Blood trace intact Sp. Gr. 1.020 Ketone neg Bili neg Gluc neg P-Vitamin D 25-Hydroxy Reviewed date:05/07/2024 07:59:27 PM Interpretation: Performing Lab: Notes/Report: Test performed by [facility] [address] [place] [address] [address], [place] [address] Gabriel Gregory MD, Instrumentation And Controls Designer CLIA: [id number] Vitamin D 25-Hydroxy 40.1 30.0-100.0 ng/mL Interpretation of Vitamin D 25 OH: < 20 ng/mL - Deficiency 20 - 29 ng/mL - Insufficiency 30 - 100 ng/mL - Sufficiency > 100 ng/mL - Super-therapeutic- toxicity may occur above this level. Clinical correlation required. P-Lipid Panel Reviewed date:05/07/2024 07:59:27 PM Interpretation: Performing Lab: Notes/Report: Test performed by [facility] [address] [place] [address] , [address], [place] [address] Gabriel Gregory MD, Instrumentation And Controls Designer CLIA: [id number] Cholesterol 211 <200 mg/dL Triglycerides 192 <150 [...] Results: 138 Units: mg/dL % Change: -8% P-Comprehensive Metabolic Pa german (CMP) Reviewed date:05/07/2024 07:59:27 PM Interpretation: Performing Lab: Notes/Report: Test performed by [facility] [address] [place] [address] , [address], [place] [address] Gabriel Gregory MD, Instrumentation And Controls Designer CLIA: [id number] Sodium 139 135-145 mmol/L Potassium 4.6 3.5-5.3 [...] <0.2 <0.2-1.2 mg/dL A/G Ratio 1.3 1.1-2.5 Glycohemoglobin A1c (in hous e) Reviewed date:05/07/2024 07:59:27 PM Interpretation:6.1% Performing Lab: Notes/Report: 6.1% glycohemoglobin 6.1% 5 - 6.5 % P-Urine Drug Screen with Ref aj to Confirmation Reviewed date:12/15/2023 10:34:30 AM Interpretation:Negative Performing Lab: Notes/Report: Test performed by [facility] [address] [place] [address] , [address], [place] [address] Gabriel Gregory MD, Instrumentation And Controls Designer CLIA: [id number] Amphetamines NEGATIVE NEGATIVE Barbiturates NEGATIVE NEGATIVE Benzodiazepines NEGATIVE NEGATIVE Cannabinoids NEGATIVE NEGATIVE Cocaine Metabolites NEGATIVE NEGATIVE Oxycodone NEGATIVE NEGATIVE Methadone NEGATIVE NEGATIVE Opiates NEGATIVE NEGATIVE Phencyclidine NEGATIVE NEGATIVE Propoxyphene NEGATIVE NEGATIVE Immunoassay Drug Screen [place] Values See Below Please see the Directory of Services for cut-off concentrations. Urine drug screen results are for medical decision making and are not to be used for medical/legal evaluation. Influenza Screen (in house) Reviewed date:10/19/2024 08:23:46 [...] Normal Performing Lab: Notes/Report: Test performed by [facility] [address] [place] [address] [address], [address], [place] [address] Gabriel Gregory MD, Instrumentation And Controls Designer CLIA: [id number] Vitamin B12 914 996-9450 pg/mL P-Lyme Disease (B. burgodorf la), IgG/IgM, SOILA, Serum Reviewed date:10/20/2024 12:06:10 PM Interpretation: Normal Performing Lab: Notes/Report: Test performed by [facility] [address] [place] [address] , [address], [place] [address] Gabriel Gregory MD, Instrumentation And Controls Designer CLIA: [id number] B burgdorferi (Lyme Disease) IgG Negative Negative B burgdorferi (Lyme Disease) IgM Negative Negative P-Folate Reviewed date:10/20/2024 12:06:10 PM Interpretation: Normal Performing Lab: Notes/Report: Test performed by [facility] [address] , [address], [place] [address] Gabriel Gregory MD, Instrumentation And Controls Designer CLIA: [id number] Folate 18.40 >4.59 ng/mL P-Ferritin Reviewed date:10/20/2024 12:06:10 PM Interpretation: Normal Performing Lab: Notes/Report: Test performed by [facility] [address] , [address], [place] [address] Gabriel Gregory MD, Instrumentation And Controls Designer CLIA: [id number] Ferritin 15.2 13.0-301.0 ng/mL P-Iron Reviewed date:10/20/2024 12:06:10 PM Interpretation:29 Performing Lab: Notes/Report: Test performed by [facility] [address] , [address], [place] [address] Gabriel Gregory MD, Instrumentation And Controls Designer CLIA: [id number] Iron 29 37-145 ug/dL P-Vitamin D 25-Hydroxy Reviewed date:10/20/2024 12:06:10 PM Interpretation: Normal Performing Lab: Notes/Report: Test performed by [facility] [address] , [address], [place] [address] Gabriel Gregroy MD, Instrumentation And Controls Designer CLIA: [id number] Vitamin D 25-Hydroxy 36.7 30.0-100.0 ng/mL Interpretation of Vitamin D 25 OH: < 20 ng/mL - Deficiency 20 - 29 ng/mL - Insufficiency 30 - 100 ng/mL - Sufficiency > 100 ng/mL - Super-therapeutic- toxicity may occur above this level. Clinical correlation required. Influenza Screen (in house) Reviewed date:05/29/2024 09:03:54 [...] AM Interpretation: Performing Lab: Notes/Report: Result: Neg Rapid Strep- Inhouse Reviewed date:05/29/2024 03:28:49 PM [...] - 38 plat 255 100 - 400 Medications Medication SIG (Take, Route, Frequency, Duration) Notes Start Date End Date Status Benzonatate 200 MG 1 capsule Orally Thr ee times a day 10/18/2024 Not-Taking Zithromax Z-Eduar 250 MG 2 pills first day then one daily for 4 days orally as directed for 5 days 10/18/2024 Not-Taking Esomeprazole Magnesium 40 MG Take 1 capsule by mouth once daily for 90 Active Albuterol Sulfate HFA 108 (90 Base) MCG/ACT 1 puff as needed Inhalation every 4 hrs, prn 10/18/2024 Active Vitamin D3 50 MCG (2000 UT) 1 capsule Orally Once a day Active Aspirin 81 81 MG 1 tablet Orally Once a day for 30 day(s) Active traMADol HCl 50 MG 1 tab(s) orally ever y 8 hours prn Active Ciprofloxacin HCl 500 MG 1 tablet Orally every 12 hrs 11/09/2024 Active Ezetimibe 10 MG 1 tablet Orally Once a day 09/19/2023 Active Feosol Bifera 28 MG 1 tablet Orally Once a day for 30 day(s) 05/27/2024 Active Ibuprofen 600 MG TAKE 1 TABLET BY THREE TIMES DAILY for 90 Active Immunizations Vaccine Route Administration Date Status Comme nts uQnagdqf-fhpwhzqhe-cbhdelv e pts. IM Intramuscular 02/25/2011 Administered nUynunjm-wyukwgumi-voaasel e pts. IM Intramuscular 02/10/2012 Administered xFluzone High Dose-private (65yr&older) Unknown 03/01/2017 Administered xFluzone High Dose-private (65yr&older) Unknown 03/11/2019 Administered xFluzone (6mos and older)-trivalent IM Intramuscular 03/27/2010 Administered xFluzone (6mos and older)-trivalent IM Intramuscular 05/12/2013 Administered xFlu shot-36 months and older IM Intramuscular 04/09/2008 Administered xFlu shot-36 months and older IM Intramuscular 02/28/2009 Administered xAdministration of injection im 06/20/2010 Administered Tetanus Tdap-Adacel (over 7yrs) IM Intramuscular 02/10/2012 Administered Tetanus Tdap-Adacel (over 7yrs) Unknown 10/20/2022 Administered Shingrix Unknown 10/20/2022 Administered Shingrix Unknown 01/27/2023 Administered Prevnar (PCV13) IM Intramuscular 01/14/2015 Administered PNEUMOVAX 23 VACCINE IM Intramuscular 04/25/2021 Administe red Fluzone PF Quad (6-35 months) Unknown 02/29/2016 Administered Fluzone High Dose (65yr and older) IM Intramuscular 05/01/2014 Administered Fluzone High Dose (65yr and older) Unknown 02/23/2020 Administered Fluzone High Dose (65yr and older) IM Intramuscular 04/25/2021 Administered Fluzone High Dose (65yr and older) Unknown 03/23/2023 Administered DT, 7 YEARS OR OLDER Unknown 04/22/1999 Administered COVID 19 Moderna Unknown 07/24/2020 Administered COVID 19 Moderna Unknown 08/21/2020 Administered COVID 19 Moderna Unknown 05/30/2021 Administered Problems Problem Type SNOMED Code ICD Code Onset Dates Problem Status W/U Status Risk Notes Problem Gastroesophageal reflux disease (041206592) GERD (gastroesophageal reflux disease) (K21.9) Active confirmed Problem Vitamin D deficiency (59681882) Vitamin D deficiency (E55.9) Active confirmed Problem Cardiac dysrhythmia (202830081) Cardiac dysrhythmia (I49.9) Active confirmed Problem Osteoarthritis (718019089) Osteoarthritis (M19.90) Active confirmed Problem 155020796 Impaired fasting glucose (R73.01) Active confirmed Problem 017131784 Primary generalized (osteo)arthritis (M15.0) Active confirmed Problem Dysphagia (94580508) Dysphagia (R13.10) Active confirmed Problem 163639671 Mixed hyperlipidemia (E78.2) Active confirmed Problem Presbycusis (79785119) Presbycusis, bilateral (H91.13) Active confirmed Problem 580190973517 Presence of left artificial knee joint (Z96.652) Active confirmed Problem Gastroesophageal reflux disease (359096876) GERD without esophagitis (K21.9) Active confirmed Problem Obese class II (204531510733744) BMI 35.0-35.9,adult (Z68.35) Active confirmed Problem Obesity (085894580) Non morbid o besity due to excess calories (E66.09) Active confirmed Problem History of polyp of colon (situation) (068198922) Hx of colonic polyps (Z86.010) Active confirmed Problem 714907253 Gastroesophageal reflux disease, esophagitis presence not specified (K21.9) Active confirmed Problem 92283099 Spinal stenosis, lumbar (M48.06) Active confirmed Problem 998462392 Lumbar facet arthropathy (M46.96) Active confirmed Problem Polyarthritis (585495181) Polyarthritis (M13.0) Active confirmed Problem 954231157 Anemia, unspecified type (D64.9) Active confirmed Problem Rheumatoid arthritis (57356692) Rheumatoid arthritis (M06.9) Active confirmed Problem 035248985 Rheumatoid arthritis involving multiple sites, unspecified rheumatoid factor presence (M06.9) Active confirmed Problem Body mass index 30.00 to 34.99 (141951682255683) BMI 34.0-34.9,adult (Z68.34) Active confirmed Problem 116855269 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) Active confirmed Problem 629144421 Dyslipidemia (E78.5) Active confirmed Problem 14062013 Seasonal allergi c rhinitis due to pollen (J30.1) Active confirmed Problem 859889675 Aftercare following joint replacement surgery, unspecified joint (Z47.1) Active confirmed Vital Signs Heart Rate 54 /min 11/09/2024 Blood pressure diastolic 64 mm Hg 11/09/2024 Height 63 in 11/09/2024 Blood pressure systolic 120 mm Hg 11/09/2024 Weight 193.2 lbs 11/09/2024 BMI 34.22 kg/m2 11/09/2024 Encounters Encounter Location Date Provider Diagnosis Sal [address] [facility] [address] [place] [id number] 12/10/2023 Alfonso Hillister Opioid use F11.90 [facility] [address] [place] [id number] 05/04/2024 R Bartolo Yu Cardiac dysrhythmia I49.9 ; Impaired fasting glucose R73.01 ; Dyslipidemia E78.5 ; GERD (gastroesophageal reflux disease) K21.9 ; Iron deficiency E61.1 ; Vitamin D deficiency E55.9 ; Presence of left artificial knee joint Z96.652 ; Rheumatoid arthritis involving multiple sites, unspecified rheumatoid factor presence M06.9 and Presbycusis, bilateral H91.13 [facility] [address] [place] [id number] 05/22/2024 Urvashi Irbahim Right shoulder pain M25.511 and Urinary [facility] R35.0 [facility] [address] [place] [id number] 05/27/2024 Alfonso Hillister Acute UTI N39.0 ; Fever, unspecified R50.9 and Anemia, unspecified type D64.9 [facility] 0 [facility] [address] [place] [id number] 05/29/2024 Urvashi Ibrahim Bronchitis J40 [facility] [facility] [address] [place], [place] [id number] 10/18/2024 Cecelia Crowdy Bronchitis J40 ; Anemia, unspecified type D64.9 ; Insect bite (nonvenomous) of lower back and pelvis, initial encounter S30.860A ; Bitten or stung by nonvenomous insect and other nonvenomous arthropods, initial encounter W57.XXXA and BMI 34.0-34.9,adult Z68.34 [facility] 0 [facility] [address] [place] [id number] 10/20/2024 Cecelia Crowdy Anemia D64.9 [facility] [address] [facility] [address] [place] [id number] 11/09/2024 R Bartolo Gigi UTI (lower urinary tract infection) N39.0 ; Screening for osteoporosis Z13.820 ; Dyslipidemia E78.5 ; Rheumatoid arthritis M06.9 and BMI 34.0-34.9,adult Z68.34 [facility] 1210 [facility] [address] [place] [id number] 05/07/2024 R Bartolo Jineet [facility] 12[address] [facility] [address] [place] [id number] 05/25/2024 [facility]ashi Ibrahim [facility] [address] [place] [id number] 10/20/2024 Cecelia Crowdy Anemia, unspecified type D64.9 Assessments Encounter Date Diagnosis (ICD Code) Assessment Notes Treatment Notes Treatment Clinical Notes Section Notes 05/04/2024 Cardiac dysrhythmia (ICD-10 - I49.9) 05/04/2024 Impaired fasting glucose (ICD-10 - R73.01) 05/22/2024 Urinary frequency (ICD-10 - R35.0) good water intake; pending culture 05/22/2024 Right shoulder pain (ICD-10 - M25.511) orthoped referral 05/27/2024 Fever, unspecified (ICD-10 - R50.9) 05/27/2024 Acute UTI (ICD-10 - N39.0) Patient needs to start Macrobid today 05/29/2024 Bronchitis (ICD-10 - J40) fluids, rest, supportive measures for fever/symptom relief 10/20/2024 Anemia, unspecified type (ICD-10 - D64.9) 10/20/2024 Anemia (ICD-10 - D64.9) 11/09/2024 UTI (lower urinary tract infection) (ICD-10 - N39.0) 11/09/2024 Screening for osteoporosis (ICD-10 - Z13.820) 10/18/2024 Bronchitis (ICD-10 - J40) 10/18/2024 Anemia, unspecified type (ICD-10 - D64.9) 11/09/2024 Dyslipidemia (ICD-10 - E78.5) 10/18/2024 Insect bite (nonvenomous) of lower back and pelvis, initial encounter (ICD-10 - S30.860A) 05/27/2024 Anemia, unspecified type (ICD-10 - D64.9) Plan to recheck H/H at f/u visit 05/04/2024 Dyslipidemia (ICD-10 - E78.5) 12/10/2023 Opioid use (ICD-10 - F11.90) 05/04/2024 GERD (gastroesophageal reflux disease) (ICD-10 - K21.9) 10/18/2024 Bitten or stung by nonvenomous insect and other nonvenomous arthropods, initial encounter (ICD-10 - W57.XXXA) 11/09/2024 Rheumatoid arthritis (ICD-10 - M06.9) 11/09/2024 BMI 34.0-34.9,adult (ICD-10 - Z68.34) 10/18/2024 BMI 34.0-34.9,adult (ICD-10 - Z68.34) 05/04/2024 Iron deficiency (ICD-10 - E61.1) 05/04/2024 Vitamin D deficiency (ICD-10 - E55.9) 05/04/2024 Presence of left artificial knee joint (ICD-10 - Z96.652) 05/04/2024 Rheumatoid arthritis involving multiple sites, unspecified rheumatoid factor presence (ICD-10 - M06.9) 05/04/2024 Presbycusis, bilateral (ICD-10 - H91.13) Plan Of Treatment Pending Test Test Name Order Date Bone density 11/09/2024 Hemoccult- IFOBT (in house) 10/18/2024 Insurance Providers Payer Name Payer Address Payer Phone Subscriber Number Group Number Insured Name Patient Relationship to Insured Coverage Start Date Coverage End Date MEDICARE PART B [address] [address] [place] [address] [id number] NEENA SUTTON Self - patient is the insured [facility] [address] [place] [id number] NEENA SUTTON Self - patient is the insured Medications Administered Medication Instructions Date of Administration Dosage Notes Dexamethasone 08/19/2005 1 mL Medical (General) History Medical History History ICD Code Rheumatoid Arthritis hyperlipidemia, patient declines treatme nt 2013 Gastroesophageal reflux disease, esophag itis presence not specified K21.9 Chronic right-sided low back pain with r ight-sided sciatica M54.41 Impaired fasting glucose R73.01 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 Love 02/2016 Total Knee Replacement, Left / Dr. Merritt tt 03/2021
--- OUTSIDE RECORDS SUMMARY | 2024-12-06 08:56 | XMS_ITS | Clinical Summary ---
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 R76.12 (ICD-10-CM ) Active Hoa Levi 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 Medications Medication Instructions Start Date Stop Date Generic Name ND Provider RIFAMPIN 300 MG CAPS 2 by mouth daily 4 months RIFAMPIN [id number] David Jordan MD FLUCONAZOLE 150 MG TABS TAKE ONE TABLET BY MOUTH A ONE TIME DOSE 01/25 FLUCONAZOLE [id number] Douglas Echeverria CELECOXIB 200 MG CAPS TAKE 1 CAPSULE BY MOUTH TWICE DAILY FOR 30 DAYS 12/05 CELECOXIB [id number] Douglas D VITAMIN D (ERGOCALCIFEROL) 1.25 MG (95151 UT) CAPS TAKE 1 CAPSULE BY MOUTH ONCE A WEEK 03/20 ERGOCALCIFEROL [id number] Douglas Echeverria VASCEPA 1 GM CAPS TAKE 2 CAPSULES BY MOUTH TWICE DAILY 01/30 ICOSAPENT ETHYL [id number] Douglas Echeverria FLUZONE HIGH-DOSE QUADRIVALENT 0.7 ML INTRAMUSCULAR SUSPENSION PREFILLED SYRINGE PHARMACIST ADMINISTERED IMMUNIZATION ADMINISTERED AT TIME OF DISPENSING 02/22 INFLUENZA VAC HIGH-DOSE QUAD [id number] Douglas D ESOMEPRAZOLE MAGNESIUM 40 MG CPDR TAKE 1 CAPSULE BY MOUTH ONCE DAILY 10/18 ESOMEPRAZOLE MAGNESIUM [id number] Douglas D TRAMADOL HCL 50 MG TABS TAKE 1 TABLET BY MOUTH 4 TIMES DAILY NEEDED 03/07 TRAMADOL HCL [id number] Douglas D MELOXICAM 15 MG TABS TAKE 1 TABLET BY MOUTH ONCE DAILY 02/21 MELOXICAM [id number] Douglas D HYDROXYCHLOROQUINE SULFATE 200 MG TABS TAKE 1 TABLET BY MOUTH TWICE DAILY 03/20 HYDROXYCHLOROQUINE SULFATE [id number] Douglas D Medications Administered No information available. Allergies, Adverse Reactions, Alerts Allergy Name Reaction Description Start Date Severity Statu s Provider GABAPENTIN Mild Active Douglas D CHOLESTIN Mild Active Douglas D STATINS Mild Active Douglas D Results Date Name Value Unit Range Flag Description Lab Report: COMPREHENSIVE ME TABOLIC PANEL, CBC (INCLUDES DIFF/PLT), C-RE ... CRP 22.0 MG/L <8.0 H C reactive pr otein [Mass/volume] in Serum or Plasma BASOPHIL % 0.6 % N Basophils/ 100 leukocytes in Blood by Manual count EOSINOPHIL % 3.5 % N Eosinoph ils/100 leukocytes in Blood by Manual count LYMPHS % 40.0 % N Lymphocytes/ 100 leukocytes in Blood by Automated count PMN % 48.7 % N Neutrophils/1 00 leukocytes in Blood by Automated count MPV 11.4 fL 7.5-12.5 N Platelet lilia n volume [Entitic volume] in Blood by Myriam A/G RATIO 1.1 (calc) 1.0-2.5 N Albumin/ Globulin [Mass Ratio] in Serum or Plasma GLOBULIN 3.6 1.9-3.7 N Globulin [Mass/volume] in Serum EGFR IF AFA 54 mL/min/1. 73m2 > OR = 60 L Glomerular filtration rate/1.73 sq M.predicted among blacks [Volume Rate/Area] in Serum, Plasma or Blood by Creatinine-based formula (MDRD) EGFR 46 mL/min/1. 73m2 > OR = 60 L Glomerular filtration rate/1.73 sq M.predicted [Volume Rate/Area] in Serum, Plasma or Blood by Creatinine-based formula (MDRD) Lab Report: CBC WITH AUTO DI FFERENTIAL ZZ-GE-[id number] 0.0 /100 WBC 0.0-0.2 GE use only - fo r [employer] import when terms are not otherwise specified IMMATUREGRAN 0.04 10*3/MM3 0.00-0.05 Immature granulocytes [#/volume] in Blood BASO# 0.05 10*3/mm3 0.00-0.20 Basophils [#/vol ume] in Blood EOS ABSLT 0.18 10*3/uL 0.00-0.40 Eosinophi ls [#/volume] in Blood MONOSCT AUTO 0.38 10*3/uL 0.10-0.90 Monocy mahogany [#/volume] in Blood by Automated count LYMPHCT AUTO 2.17 10*3/mm3 0.70-3.10 Lymph ocytes [#/volume] in Blood by Automated count ABS NEUTROPH 4.35 10*3/uL 1.70-7.00 Neutro phils [#/volume] in Blood IMM GRANU % 0.6 % 0.0-0.5 H Immature granulocytes/100 leukocytes in Blood % EOS AUTO 2.5 % 0.3-6.2 Eosinophil s/100 leukocytes in Blood by Automated count MONOCYTE % 5.3 % 5.0-12.0 Monocytes /100 leukocytes in Blood by Automated count LYMPHOCY BF 30.3 % 19.6-45.3 lymphoc ytes as percent of body fluid leukocytes NEUTROP BF 60.6 % 42.7-76.0 Neutroph ils/100 leukocytes in Body fluid PLATELETS 264 10*3/mm3 140-450 Platelets [#/volume] in Blood by Automated count RDW_ 16.7 12.3-15.4 H RDW, no uni ts MCHC 30.8 G/DL 31.5-35.7 L MCHC [Mass/ volume] by Automated count MCH 24.2 pg 26.6-33.0 L MCH [Entiti c mass] by Automated count MCV 78.5 fL 79.0-97.0 L MCV [Entiti c volume] by Automated count HCT 40.2 % 34.0-46.6 Hematocrit [Volume Fraction] of Blood by Automated count HGB 12.4 g/dL 12.0-15.9 Hemoglobin [Mass/volume] in Blood RBC 5.12 10*6/mm3 3.77-5.28 Erythrocyt es [#/volume] in Blood by Automated count WBC 7.17 10*3/mm3 3.40-10.8 0 Leukocytes [#/volume] in Blood by Automated count Lab Report: COMPREHENSIVE ME TABOLIC PANEL ANIONGAP 11.0 mmol/L 5.0-15.0 anion gap, serum BUN/CREAT 21.3 7.0-25.0 Urea nitrogen/Creatinine [Mass Ratio] in Serum or Plasma GFRC 70 mL/min/1. 73m2 >60 Glomerular Filtration Rate Calculation BILI TOTAL <0.2 mg/dL 0.0-1.2 Bilirubin. total [Mass/volume] in Serum or Plasma ALK PHOS 136 U/L 39-117 H Alkaline rosalio sphatase [Enzymatic activity/volume] in Blood SGOT (AST) 21 U/L 1-32 Aspartate aminotransferase [Enzymatic activity/volume] in Serum or Plasma SGPT (ALT) 19 U/L 1-33 Alanine aminotransferase [Enzymatic activity/volume] in Serum or Plasma ALBUMIN 3.70 g/dL 3.50-5.20 Albumin [Mass/volume] in Serum or Plasma PROTEIN, TOT 7.5 g/dL 6.0-8.5 Protein [Mass/volume] in Serum or Plasma CALCIUM 9.6 mg/dL 8.6-10.5 Calcium [Moles/volume] in Serum or Plasma CO2 23.0 mmol/L 22.0-29.0 Carbon diox victorino, total [Moles/volume] in Venous blood CHLORIDE 103 mmol/L 98-107 Chloride [Moles/volume] in Serum or Plasma POTASSIUM 4.3 mmol/L 3.5-5.2 Potassium [Moles/volume] in Serum or Plasma SODIUM 137 mmol/L 136-145 Sodium [Moles/volume] in Serum or Plasma CREATININE 0.80 mg/dL 0.57-1.00 Creatini ne [Mass/volume] in Serum or Plasma BUN 17 mg/dL 8-23 Urea nitrogen [Mass/volume] in Serum or Plasma GLUCOSE SER 91 mg/dL 65-99 Glucose [Mass/volume] in Serum or Plasma Office Visit: 4 MEDS REVIEW Done Documenta tion of current medications (procedure) ORALTOBACUSE Never Tobacco smoking status SMOK STATUS Never smoker Tobacco smoking status Plan of Care Type Date Detail Pending order STAT Labs Pending order Continue oral an tibiotics Pending order CMP Pending order CBC with Differe ntial Pending order Continue oral an tibiotics Pending order STAT Labs Pending order CMP Pending order CBC with Differe ntial Pending order Continue oral an tibiotics Pending order STAT Labs Pending order CMP Pending order CBC with Differe ntial Pending order C- reactive prot ein Pending order New Oral Antibio tic Patient education Medications Procedures Code Procedure Name Date Entry Date CPT-sl STAT Labs CPT-Cooral Continue oral antibiotics 11/07/19 CPT-52024 CMP [id number] CBC with Differential 2019 CPT-Cooral Continue oral antibiotics 09/06/16 CPT-sl STAT Labs CPT-81358 CMP [id number] CBC with Differential 2019 CPT-Cooral Continue oral antibiotics 10/05/18 CPT-sl STAT Labs CPT-49989 CMP [id number] CBC with Differential 2019 CPT-74996 C- reactive protein CPT-farzaneh New Oral Antibiotic Vital Signs Date Name Value Unit Description BMI (Body Mass Index) 36.04 kg/m2 Bod y Mass Index (Ratio) Body Temperature 96.9 [degF] temperat ure E&M BP Diastolic 76 mm[Hg] blood pressu re, diastolic BP Systolic 130 mm[Hg] blood pressur e, systolic Heart Rate 80 /min pulse rate Respiratory Rate 16 /min respirat ory rate E&M Weight Measured 210 [lb_av] weight E& M Weight Measured 210 [lb_av] weight E& M Height 64 [in_us] height E&M Immunizations No information available. Advance Directives Directive Description Start Date LIVING WILL ON FILE
--- OUTSIDE RECORDS SUMMARY | 2024-12-06 08:57 | XMS_ITS | Clinical Summary ---
Author Organization [facility] Address [address] [place] [id number] Care Team Providers Care Campus Ambassador Name Role Phone Unavailable Primary Care Provider Unavailabl e Social History Tobacco Use Types Packs/Day Years Used Date Smoking Tobacco: Never Assessed Comments Unknown Sex and Gender Information Value Date Recorded Sex Assigned at Not on file Legal Sex Female 3:14 PM CDT Gender Identity Not on file Sexual Orientation Not on file Plan of Treatment Health Maintenance Due Date Last Done Comments DXA SCAN 1945 Depression Screening (12+) 1958 Tobacco Cessation Counseling and Screening (12+) 1958 Hepatitis C Screening 01/21/1964 Respiratory Syncytial Virus (RSV) Adult or (1 - 1-dose 75+ series) 2021 Pneumococcal 50+ years (2 of 2 - PCV) 04/25/2022 04/25/2021 COVID-19 VACCINE ( - 2023-2 5 season) 2024 05/30/2021, 08/21/2020, 08/08/2020, Additional history exists Falls Risk Screening 06/21/2024 Influenza Vaccine (Season Ended) 2025 03/23/2023, 04/25/2021, 02/23/2020 DTAP/TDAP/TD VACCINES (3 - T d or Tdap) 10/20/2032 10/20/2022, 04/22/1999 Shingles Vaccine (Zoster) Completed 01/27/2023, 07/2022
== END 2024-12-06 23:59 | disposition home or self-care (01) ==
LOC: RAD 08:52
PROVIDERS: PCP Family Medicine; Visit Provider Family Medicine
DX: M81.0 Age-related osteoporosis without current pathological fracture (principal)
CPT/HCPCS: 77080

== ENCOUNTER 2025-03-12 15:39 | Outpatient (CLI) | payer MEDICARE, OTHER, SELFPAY ==
--- OUTSIDE RECORDS SUMMARY | 2024-05-29 10:30 | XMS_ITS ---
Author Organization [facility] Address [address] [facility] [address] [place] [phone] Care Team Providers Care Fire Observer Name Role Phone Alfonso Claire Primary Care Provider Urvashi Ibrahim Unavailable [phone] Allergies Allergen (clinical drug ingredient) Drug/Non Drug Allergy documented on EMR Reaction Allergy Type Onset Date Status gabapentin Neurontin weakness/trouble breathing Drug Allergy Active Substance with 1-hrotwji-1-methylg lutaryl-coenzyme A reductase inhibitor mechanism of action [...] 05/29/2024 Encounters Encounter Location Date Provider Diagnosis [facility] [address] [facility] [address] [place] [id number] 05/29/2024 Urvashi Ibrahim Bronchitis J4 0 Assessments [...] Follow Up: prn, Reason: Provider Name:Urvashi kumar, 03/19/2025 01:30:00 PM, [address] [facility], [address], [place], [phone], Progress Notes * NEENA SUTTONDOB:1945 (80 yo F)Acc No.[id number]:05/29/2024 Progress Notes Patient: NEENA MANZANO Provider: LARISSA Daigle :1945 A ge:79 Y S ex:Female Date:05/29/2024 Address:[address] [place] [address] D[place] J[place]OME, [id number] Pcp:Alfonso Claire Subjective: * Chief Complaints: * [...] with Cancer. M other: 70 yrs, of [place], diagnosed with Heart Disease. P aternal Grand [...] G 2211 Complex e/[place], [address] STREP A ASSAY W/OPTIC, Modifiers: QW , 20143 CAPILLARY BLOOD DRAW, 34455 CBC WITH AUTO DIFF * Follow Up: p rn * Images: Billing Information: * Visit Code: 82409 Office Visit, Est Pt., Level 3. * Procedure Codes: G2211 Complex e/[place]. [address] STREP A ASSAY W/OPTIC. Modifiers: QW 39191 CAPILLARY BLOOD DRAW. 71362 CBC WITH AUTO DIFF. 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
--- OUTSIDE RECORDS SUMMARY | 2024-10-18 06:00 | XMS_ITS ---
Author Organization [facility] Address [address] [facility] [address] [place] [id number] Care Team Providers Care Marble Mason Name Role Phone Alfonso Claire Primary Care Provider Cecelia uSazo Unavailable [phone] Allergies Allergen (clinical drug ingredient) Drug/Non Drug Allergy documented on EMR Reaction Allergy Type Onset Date Status gabapentin Neurontin weakness/trouble breathing Drug Allergy Active Substance with 1-kxmunmc-2-methylg lutaryl-coenzyme A reductase inhibitor mechanism of action [...] 12:06:10 PM Interpretation: Normal Performing Lab: Notes/Report: CLIA: [id number] Gabriel Gregory MD, Transformer Assembler [address] [place] [address] , [address], [place] [address] Test performed by [facility], [employer] Vitamin B12 347 755-9455 pg/mL P-Lyme Disease (B. burgodorf la), IgG/IgM, SOILA, Serum Reviewed date:10/20/2024 12:06:10 PM Interpretation: Normal Performing Lab: Notes/Report: Test performed by [facility] , [facility] C, [place] [address] Gabriel Gregory MD, Transformer Assembler CLIA: [id number] B burgdorferi (Lyme Disease) IgG Negative Negative B burgdorferi (Lyme Disease) IgM Negative Negative P-Folate Reviewed date:10/20/2024 12:06:10 PM Interpretation: Normal Performing Lab: Notes/Report: Test performed by [facility] , [facility] C, [place] [address] Gabriel Gregory MD, Transformer Assembler CLIA: [id number] Folate 18.40 >4.59 ng/mL P-Ferritin Reviewed date:10/20/2024 12:06:10 PM Interpretation: Normal Performing Lab: Notes/Report: Test performed by [facility] , [address], [place] [address] Gabriel Gregory MD, Transformer Assembler CLIA: [id number] Ferritin 15.2 13.0-301.0 ng/mL P-Iron Reviewed date:10/20/2024 12:06:10 PM Interpretation:29 Performing Lab: Notes/Report: Test performed by [facility] , [facility] [place] [address] Gabriel Gregory MD, Transformer Assembler CLIA: [id number] Iron 29 37-145 ug/dL P-Vitamin D 25-Hydroxy Reviewed date:10/20/2024 12:06:10 PM Interpretation: Normal Performing Lab: Notes/Report: Test performed by [facility], [facility] C, [place] [address] Gabriel Gregory MD, Transformer Assembler CLIA: [id number] Vitamin D 25-Hydroxy 36.7 30.0-100.0 ng/mL Interpretation [...] 10/18/2024 Encounters Encounter Location Date Provider Diagnosis [facility] [address], [place] [id number] 10/18/2024 Cecelia Crowdy Bronchitis J40 ; Ane [...] rt test results, Reason: Provider Name:Urvashi santossavana, 03/19/2025 01:30:00 PM, [address] [facility] 36 [facility], [address], [place], [place], [id number], Progress Notes * LOI NEENADOB:1945 (80 yo F)Acc No.[id number]:10/18/2024 Progress Notes Patient: NEENA MANZANO Provider: AUGIE Felix :1945 A ge:79 Y S ex:Female Date:10/18/2024 Address:[address] [place] [address], [place], [id number] Pcp:Alfonso Claire Subjective: * Chief Complaints: [...] with Cancer. M other: 70 yrs, of [place], diagnosed with Heart Disease. P aternal Grand [...] initial encounter - W57.XXXA 5 . B [place] 34.0-34.9,adult - Z68.34 Plan: * Treatment: Value [...] AM)?Normal* Value Reference Range V itamin B12 554 658-5670 - pg/mL * Cassi De La O [...] G 2211 Complex e/[place], [address] Flu Test- Nasal Swab, Modifiers: QW , 50645 CAPILLARY BLOOD DRAW, 45758 CBC WITH AUTO DIFF, 3074F SYST BP LT 130 MM HG, 3078F DIAST BP < 80 MM HG * Follow Up: v ia phone to report test results * Images: Billing Information: * Visit Code: 41089 Office Visit, Est Pt., Level 4. * Procedure Codes: G2211 Complex e/[place]. [address] Flu Test- Nasal Swab. Modifiers: QW 19273 CAPILLARY BLOOD DRAW. 69383 CBC WITH AUTO DIFF. 3074F SYST BP LT 130 MM HG. 3078F DIAST BP < 80 MM HG. * Electronic signature of AUGIE Douglas on 03/12/2025 at 03:42 PM EDT Sign off status: Pending * Provider: AUGIE Felix Date: 0 10/18/2024 Generated for Florinda ng/Faxing/eTransmitting on: 0 03/12/2025 03:42 PM EDT History and Physical Notes * [...]
--- OUTSIDE RECORDS SUMMARY | 2024-10-20 11:05 | XMS_ITS ---
Author Organization [facility] Address [address] [place] [phone] Care Team Providers Care [facility] Name Role Phone Alfonso Claire Primary Care Provider Cecelia Suazo Unavailable [phone] Results Component Value Reference Range Notes Hemoccult- [...] Provider Diagnosis Sal [address] [facility] [address] [place] [id number] 10/20/2024 Cecelia Lakeisha Anemia D64.9 Assessments Encounter Date Diagnosis (ICD Code) Assessment Notes Treatment Notes Treatment Clinical Notes Section Notes 10/20/2024 Anemia (ICD-10 - D64.9) Plan Of Treatment Next Appt Details Provider Name:Urvashi kumar, 03/19/2025 01:30:00 PM, [facility] [facility], [address], [place], [phone], Progress Notes * NEENA SUTTONDOB:1945 (80 yo F)Acc No.[id number]:10/20/2024 Patient: NEENA MANZANO Provider: AUGIE Felix :1945 A ge:79 Y S ex:Female Date:10/20/2024 Address:[address] [place] [address], [place], [id number] Pcp:Alfonso Claire Subjective: * Chief Complaints: [...] Information: * Visit Code: * Procedure Codes: 12043 ASSAY TEST FOR BLOOD, FECAL. Modifiers: QW * Electronic signature of AUGIE Douglas on 03/12/2025 at 03:42 PM EDT Sign off status: Pending * Provider: AUGIE Felix Date: 0 10/20/2024 Generated for Florinda phan/Johnie/Paula on: 0 03/12/2025 03:42 PM EDT
--- OUTSIDE RECORDS SUMMARY | 2024-11-09 11:45 | XMS_ITS ---
Author Organization [facility] Address [address] [facility] [address] [place] [phone] Care Team Providers Care Health And Wellness Director Name Role Phone Alfonso Claire Primary Care Provider Jordon Yu [phone] Allergies Allergen (clinical drug ingredient) Drug/Non Drug Allergy documented on EMR Reaction Allergy Type Onset Date Status gabapentin Neurontin weakness/trouble breathing Drug Allergy Active Substance with 5-clsoyix-2-methylg lutaryl-coenzyme A reductase inhibitor mechanism of action [...] PM Interpretation:No Significant Growth Performing Lab: Notes/Report: CLIA: [id number] Gabriel Gregory MD, Ball Assembler [address] [place] [address] , [address], [place] [address] Test performed by [facility] Specimen Source Urine - Void Culture, Urine [...] Encounter Location Date Provider Diagnosis [facility] [address] [id number] 11/09/2024 Jordon Yu UTI (lower urinary tract [...] rt test results, Reason: Provider Name:Urvashi kumar, 03/19/2025 01:30:00 PM, [address], [address], [place], [place], [phone], Progress Notes * NEENA SUTTONDOB:1945 (80 yo F)Acc No.[id number]:11/09/2024 Progress Notes Patient: NEENA MANZANO Provider: Jordon Yu M.D. :1945 A ge:79 Y S ex:Female Date:11/09/2024 Address:[address] [place] [address], [facility], [id number] Pcp:Alfonso Claire Subjective: * Chief Complaints: * 1 . Referral for bone density. * HPI: R heumatology: She continues to follow with rheumatology for her rheumatoid arthritis. They have requested that she have a bone density test but she did not want to return to [place] for the study and would like to have it arranged at [facility]. U rology: She recently started with [...] heumatoid arthritis - M06.9 5 . B [place] 34.0-34.9,adult - Z68.34 Plan: * Treatment: Value [...] 11/10/2024 08:2 1:07 AM > faxed to [facility] Jordon Tinoco 12/28/2024 05:22:10 PM EDT > please fax this report to her railroad worker, Cassi Calderon 01/19/2025 11:28:32 AM EDT > faxed report to [phone] * Procedure Codes: G 2211 Complex e/[place], [address] Urinalysis, no micro, 3074F SYST BP LT 130 MM HG, 3078F DIAST BP < 80 MM HG * Follow Up: v ia phone to report test results * Images: Billing Information: * Visit Code: 68957 Office Visit, Est Pt., Level 4. * Procedure Codes: G2211 Complex e/[place]. [address] Urinalysis, no micro. 3074F SYST BP LT 130 MM HG. 3078F DIAST BP < 80 MM HG. * Electronic signature of Jordon Yu MD on 03/12/2025 at 03:42 PM EDT Sign off status: Pending * Provider: Jordon Yu M.D. Date: 11/09/2024 Generated for Maricarmeni emilie/Johnie/eTransmitting on: 0 03/12/2025 03:42 PM EDT History [...] she did not want to return to [place] for the study and would like to have it arranged at [facility]. Examination Category Sub-Category Detail Notes Category Not es General Examination Abdomen: soft , not d istended , soft and nontender , no CVA tenderness General Appearance: NAD
--- OUTSIDE RECORDS SUMMARY | 2025-03-12 15:42 | XMS_ITS | Clinical Summary ---
Author Organization [facility] Address [address] [place] [address] Care Team Providers Care Screen Printing Stencil Preparer Name Role Phone Gagan Yu MD Primary Care Provider Allergies Active Allergy Reactions Criticality Noted Date Comments Gabapentin Myalgia Low 12/06/2023 Hydroxychloroquine Sulfate Itching,Rash Low 024 DRY MOUTH ALSO Oxycodone Itching Low 04/07/2021 Itching on face and nose Statins Unknown - Low Severity 10/14/2023 Medications aspirin 81 MG EC tablet Take 1 tablet by mouth Every 12 (Twelve) Hours. For 1 month 60 tablet 1 Active ibuprofen (ADVIL,MOTRIN) 600 MG tablet Take 200 mg by mouth Every 8 (Eight) Hours As Needed for Mild Pain. Active Ferrous Sulfate (IRON PO) Take 1 tablet by mouth Daily. Active esomeprazole (nexIUM) 40 MG capsule Take 1 capsule by mouth Daily. 4 Active traMADol (ULTRAM) 50 MG tabletIndications:S eropositive rheumatoid arthritis,Primary osteoarthritis involving multiple joints,Encounter for therapeutic drug monitoring,Positive QuantiFERON-TB Gold test Take 1 tablet by mouth Every 6 (Six) Hours As Needed for Moderate Pain. 120 tablet 5 5 Active alendronate (FOSAMAX) 70 MG tablet Take 1 tablet by mouth Every 7 (Seven) Days. 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 Jameel Ryan (Field Associate) in 2007, Tylenol, etodolac, indomethacin, Celebrex, ibuprofen, shoulder injection, back surgery, she has done some physical therapy, prednisone, gabapentin, She saw Dr. Randolph (Field Associate), she saw Dr. Perera (Field Associate), cortisone injections in her knees, meloxicam, Plaquenil, Tramadol, Arava * 12/06/19: Knee x-rays: Severe DJD left knee, moderate right knee DJD * 12/06/19 hand x-rays: Diffuse osteoarthritis of the hands, severe at the thumb base region. * 01/26/20: KYUNG positive, CMP was fine, ESR 5.0, RF weak positive, Uric acid * 07/11/19: ESR 57.0 * 03/07/20 RF test positive 1. She tried and failed Plaquenil. This caused rash and itching. 2. Continue Tramadol PRN/refill today 3. She stopped Arava mid-2020 due to side effects. 4. She does not want to go back on DMARD or biologic agents at this time. 5. Follow up in 6 months 6. Today she rates her pain as 5/10 in severity. 7. We gave her a handout on OA to take home and review Assessment & Plan (04/20/2024 2:29 PM EDT): * Medications/treatments/interventions tried include: She saw Dr. Jameel Ryan (Field Associate) in 2007, Tylenol, etodolac, indomethacin, Celebrex, ibuprofen, shoulder injection, back surgery, she has done some physical therapy, prednisone, gabapentin, She saw Dr. Randolph (Field Associate), she saw Dr. Perera (Field Associate), cortisone injections in her knees, meloxicam, Plaquenil, Tramadol, Arava * 12/06/19: Knee x-rays: Severe DJD left knee, moderate right knee DJD * 12/06/19 hand x-rays: Diffuse osteoarthritis of the hands, severe at the thumb base region. * 01/26/20: KYUNG positive, CMP was fine, ESR 5.0, RF weak positive, Uric acid * 07/11/19: ESR 57.0 * 03/07/20 RF test positive 1. She tried and failed Plaquenil. This caused rash and itching. 2. Continue Tramadol PRN/refill today 3. She stopped Arava mid-2020 due to side effects. 4. She does not want to go back on DMARD or biologic agents at this time. 5. Follow up in 6 months 6. Today she rates her pain as 5.5/10 in severity. 7. We gave her a handout on RA to take home and review Assessment & Plan (12/08/2023 4:42 PM EDT): * Medications/treatments/interventions tried include: She saw Dr. Jameel Ryan (Field Associate) in 2007, Tylenol, etodolac, indomethacin, Celebrex, ibuprofen, shoulder injection, back surgery, she has done some physical therapy, prednisone, gabapentin, She saw Dr. Randolph (Field Associate), she saw Dr. Perera (Field Associate), cortisone injections in her knees, meloxicam, Plaquenil, Tramadol, Arava * 12/06/19: Knee x-rays: Severe DJD left knee, moderate right knee DJD * 12/06/19 hand x-rays: Diffuse osteoarthritis of the hands, severe at the thumb base region. * 01/26/20: KYUNG positive, CMP was fine, ESR 5.0, RF weak positive, Uric acid * 07/11/19: ESR 57.0 * 03/07/20 RF test positive 1. She tried and failed Plaquenil. This caused rash and itching. 2. Continue Tramadol PRN/refill today 3. She stopped Arava mid-2020 due to side effects. 4. She does not want to go back on DMARD or biologic agents at this time. 5. Follow up in 6 months 6. Today she rates her pain as 8/10 in severity. Her prognosis seems guarded 7. We gave her a handout on RA to take home and review Encounter for therapeutic drug monitoring 2023 Assessment & Plan (10/18/2024 3:48 PM EDT): * Tramadol 50 mg every 6 hours PRN for pain * Controlled substance agreement updated 12/08/23 Check RICK and Drug screen as required. Drug screen ordered today Assessment & Plan (04/20/2024 2:29 PM EDT): * Tramadol 50 mg every 6 hours PRN for pain * Controlled substance agreement updated 12/08/23 Check RICK and Drug screen as required. Drug screen ordered today Assessment & Plan (12/08/2023 4:42 PM EDT): * Tramadol 50 mg every 6 hours PRN for pain * Controlled substance agreement signed 12/08/23 Check RICK and Drug screen as required. Drug screen ordered today Positive QuantiFERON-TB Gold test 12/08/2023 Assessment & Plan (10/18/2024 3:48 PM EDT): * 03/07/20 TB test positive Her TB test was positive 02/2020. 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 CXR was clear Assessment & Plan (04/20/2024 2:29 PM EDT): * 03/07/20 TB test positive Her TB test was positive 02/2020. 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 CXR was clear Assessment & Plan (12/08/2023 4:42 PM EDT): * 03/07/20 TB test positive Her TB test was positive 02/2020. 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 CXR was clear Osteoarthritis 12/06/2023 Assessment & Plan (10/18/2024 3:48 PM EDT): 1. Tylenol PRN is ok as directed. 2. She has taken NSAIDS like ibuprofen PRN 3. She had a cortisone injection in her shoulder. 4. She has had cortisone injections in her knees. 5. Weight loss would be helpful. 6. She has done some physical therapy. 7. She has had back surgery. 8. Continue/refill Tramadol PRN every 6 hours Assessment & Plan (04/20/2024 2:29 PM EDT): 1. Tylenol PRN is ok as directed. 2. She has taken NSAIDS like ibuprofen PRN 3. She had a cortisone injection in her shoulder. 4. She has had cortisone injections in her knees. 5. Weight loss would be helpful. 6. She has done some physical therapy. 7. She has had back surgery. 8. Continue/refill Tramadol PRN every 6 hours Assessment & Plan (12/08/2023 4:42 PM EDT): 1. Tylenol PRN is ok as directed. 2. She has taken NSAIDS like ibuprofen PRN 3. She had a cortisone injection in her shoulder. 4. She has had cortisone injections in her knees. 5. Weight loss would be helpful. 6. She has done some physical therapy. 7. She has had back surgery. 8. Continue/refill Tramadol PRN every 6 hours Status post total left knee replacement 04/02/20 21 GERD (gastroesophageal reflux disease) 1 Elevated hemoglobin A1c 04/02/2021 Primary osteoarthritis of both knees 01/31/2021 Resolved Problems Problem Noted Date Diagnosed Date Resolved Date KYUNG positive 12/06/2023 10/18/2024 Encounters Date Type Department Care Team Description 01/22/2025 Results Follow-Up [facility] [address] [place] [phone] Mor Dash DO from Last 3 Months Immunizations Immunization Administration Dates Next Due COVID-19 (UNSPECIFIED) 08/08/2020 Influenza, Unspecified 04/08/2020 Family History Medical History Relation Name Comments Aneurysm Father BRAIN Cancer Father Cancer Mother Heart attack Mother Osteoarthritis Mother Gout Sister Hypertension Sister Osteoporosis Sister Scleroderma Sister Scoliosis Sister Relation Name Status Comments Father Mother Sister Social History Tobacco Use Types Packs/Day Years Used Date Smoking Tobacco: Never Smokeless Tobacco: Never Tobacco Cessation:Counseling Given: Not Answered Alcohol Use Standard Drinks/Week Comments Never 0 (1 standard drink = 0.6 oz pur e alcohol) AUDIT-C Answer Date Recorded Q1: How often do you have a drink containing alcohol? Never 08/18/2024 Q2: How many drinks containi ng alcohol do you have on a typical day when you are drinking? Patient does not drink Q3: How often do you have si x or more drinks on one occasion? Never 08/18/2024 Abuse Screen Answer Date Recorded Feels Unsafe at Home or Work/School no 08/18/2024 Feels Threatened by Someone no 07/23 Does Anyone Try to Keep You From Having Contact with Others or Doing Things Outside Your Home? no 08/18/2024 Physical Signs of Abuse Present no 08/18/2024 Housing Stability Answer Date Recorded Current Living Arrangements home 07/23 Potentially Unsafe Housing Conditions Not on bruce e 08/18/2024 Disabilities Answer Date Recorded Difficulty Concentrating, Remembering or Making Decisions no 08/18/2024 Difficulty Managing Errands Independently no 08/18/2024 Education Answer Date Recorded Help with school or training? Not on file Preferred Language Malawian 08/08/2024 Comments No Sex and Gender Information Value Date Recorded Sex Assigned at Not on file Legal Sex Female 12:49 PM EST Gender Identity Not on file Sexual Orientation Not on file Last Filed Vital Signs Vital Sign Reading Time Taken Comments Blood Pressure 134/70 10/18/2024 3:33 PM EDT Pulse 78 10/18/2024 3:33 PM EDT Temperature 36.2 C (97.1 F) 10/18/2024 3:33 PM EDT Respiratory Rate 16 08/19/2024 6:54 AM EST Oxygen Saturation 95% 08/19/2024 6:54 AM EST Inhaled Oxygen Concentration - - Weight 87.8 kg (193 lb 9.6 oz) 10/18/2024 3:33 P M EDT Height 162.6 cm (5' 4.02 ) 10/18/2024 3:33 PM ED T Body Mass Index 33.21 10/18/2024 3:33 PM EDT Plan of Treatment Upcoming Encounters Date Type Department Care Team (Late st Contact Info) Description 04/19/2025 3:45 PM EDT Office Visit [facility] [address] [place] [phone] Mor Dash, [address] [place] [address] Health Maintenance Due Date Last Done Comments RSV Vaccine - Adults (1 - 1- dose 75+ series) 2021 ANNUAL WELLNESS VISIT 01/31/2021 HEPATITIS C SCREENING 01/31/2021 INFLUENZA VACCINE 01/19/2025 04/05/2024, , 04/25/2021, Additional history exists COVID-19 Vaccine (2023-2 5 season) 2025 04/10/2024, 04/06/2023, 05/30/2021, Additional history exists DXA SCAN 12/06/2026 12/06/2024 TDAP/TD VACCINES (3 - Td or Tdap) 10/20/2032 023, 04/22/1999 ZOSTER VACCINE Completed 01/27/2023, 10/20/2022 Pneumococcal Vaccine 50+ Completed 08/11/2024, 10/2020 Medical Devices Implanted Type Area Surveyor Rod Helper Device Identifier Shelf Expiration Date Model / Serial / Lot Pat Triath Tritanium [id number] - [id number] Implanted:Qt y: 1 on 04/02/2021 by Jonathon Tobin MD at [facility] Implant Left: Knee MARIANELA KAELA 01/18/2026 [id number] / / [id number] Comp Fem Triath Cr Cmtls Sz4 Lt - [id number] Implanted:Qt y: 1 on 04/02/2021 by Jonathon Tobin MD at [facility] Implant Left: Knee MARIANELA KAELA 08/30/2025 [id number] / / [id number] Baseplt Tib Triath Tritanium Sz5 - [id number] Implanted:Qt y: 1 on 04/02/2021 by Jonathon Tobin MD at [facility] Implant Left: Knee MARIANELA KAELA 12/08/2025 [id number] / / [id number] Insrt Tib/Kn Triathlon Condy/Stbl X3 Sz5 9mm - [id number] Implanted:Qt y: 1 on 04/02/2021 by Jonathon Tobin MD at [facility] Implant Left: Knee MARIANELA KAELA 01/06/2026 [id number] / / [id number] Dev Contrl Tiss Stratafix Spiral Pdo Bidir 1 [id number] - [id number] Implanted:Qt y: 1 on 04/02/2021 by Jonathon Tobin MD at [facility] Implant Left: Knee [employer] DIV OF J AND J [id number] / / Cap Total Kn Cmtls 4 Pc - [id number] Implanted:Qt y: 1 on 04/02/2021 by Jonathon Tobin MD at [facility] Implant Left: Knee MARIANELA KAELA CAPKNCEMENTLESS4 P IECE / / Baseplt Shldr Aequalis 1/2 Wedge Aug 35d 25mm - [id number] - [id number] Implanted:Qt y: 1 on 08/18/2024 by Marcelo Howard MD at [facility] Implant Right: Shoulder TORNIER [id number] 11/26/2027 [id number] / [id number] / LR Glenosphere Shldr Aequalis Perform Lat Pls3mm 36mm - [id number] - [id number] Implanted:Qt y: 1 on 08/18/2024 by Marcelo Howard MD at [facility] Implant Right: Shoulder TORNIER [id number] 10/17/2028 [id number] / [id number] / Scrw Aequalis Perform Centrl 6.5x30mm - [id number] Implanted:Qt y: 1 on 08/18/2024 by Marcelo Howard MD at [facility] Implant Right: Shoulder TORNIER [id number] / / N/A Scrw Aequalis Perform Periph 5x22mm - [id number] Implanted:Qt y: 2 on 08/18/2024 by Marcelo Howard MD at [facility] Implant Right: Shoulder TORNIER [id number] / / N/A Scrw Aequalis Perform Periph 5x30mm - [id number] Implanted:Qt y: 1 on 08/18/2024 by Marcelo Howard MD at [facility] Implant Right: Shoulder TORNIER [id number] / / N/A Scrw Periph 5x34mm - [id number] Implanted:Qt y: 1 on 08/18/2024 by Marcelo Howard MD at [facility] Implant Right: Shoulder TORNIER [id number] / / N/A Insrt Hum/Shldr Rev Preform Sz1/2 Pls0 10deg 36mm - [id number] - [id number] Implanted:Qt y: 1 on 08/18/2024 by Marcelo Howard MD at [facility] Implant Right: Shoulder TORNIER [id number] 06/08/2028 [id number] / [id number] / Stem Hum/Shldr Preform Lng Pls Sz2 [id number] - [id number] - [id number] Implanted:Qt y: 1 on 08/18/2024 by Marcelo Howard MD at [facility] Implant Right: Shoulder TORNIER [id number] 01/26/2029 [id number] / [id number] / Cp Totl Rev Shldr Perform Stem Rsa Perf Rev Lat/Aug - [id number] Implanted:Qt y: 1 on 08/18/2024 by Marcelo Howard MD at [facility] Implant Right: Shoulder TORNIER CAPTORNIERTOTLSH L DREVPERFSTEMRSAPE RFLATAUG / / Cp Shldr Modifier Lng Stem - [id number] Implanted:Qt y: 1 on 08/18/2024 by Marcelo Howard MD at [facility] Implant Right: Shoulder TORNIER CAPTORNIERSHLDRM O DLONGSTEM / / Hemost Abs Surgicel Orig 4x8in Strl - [id number] Implanted:Qt y: 1 on 08/18/2024 by Marcelo Howard MD at [facility] Implant Right: Shoulder ETHICON DIV OF J AND J [id number] 12/18/2028 [id number] / / [id number] Back Hardware From Spinal Surgery Explanted Type Area Surveyor Rod Helper Device Identifier Shelf Expiration Date Model / Serial / Lot Guidepin Hum Preform [id number] - [id number] Explanted:Qty : 1 on 08/18/2024 by Marcelo Howard MD at [facility] Implant Right: Shoulder TORNIER [id number] 06/09/2029 [id number] / / [id number] Procedures Procedure Name Priority Date/Time Associated Diagnosis Comments SCANNED - DEXA 12/06/2024 from Last 3 Months or Most Recently Relevant to Health Maintenance Results * DEXA Scan (12/06/2024) Anatomical Region Laterality Modality Other Mor Dash DO CHART REVIEW TABS F inal Result from Last 3 Months or Most Recently Relevant to Health Maintenance Insurance MEDICARE A & B Member Subscriber Plan / Payer (Ef fective 2011-Present) Name:Lona Sutton Member ID:[id number] Relation to Subscriber:Self Name:Lona Sutton Subscriber ID:[id number] Payer ID:[id number] Group ID:Not on file Type:Not on file Address: [address] [place] [id number] [facility] Advance Directives * CPR (Attempt to Resuscitate) (Latest Code Status on File) Date Activated Date Inactivated Comments 04/02/2021 2:08 PM 04/02/2021 8:10 PM Question Answer Comments Code Status (Patient has no pulse and is not breathing): CPR (Attempt to Resuscitate) Medical Interventions (Patie nt has pulse or is breathing): Full Healthcare Agents on File Name Relationship Healthcare Agent [facility] p Communication [facility] Surrogate Care Teams Screen Printing Stencil Preparer Relationship Specialty Start Date End Date Gagan Yu MD [address] [place] [address] [address] [facility] [address] [place] [id number] PCP - General Family Medicine 07/10/20
--- OUTSIDE RECORDS SUMMARY | 2025-03-12 15:42 | XMS_ITS | Encounter Summary ---
Author Organization [facility] Address [address] [place] [address] Care Team Providers Care Transfusion Aide Name Role Phone Gagan Yu MD Primary Care Provider Encounter Details Date Type Department Care Team (Late st Contact Info) Description 01/22/2025 Results Follow-Up [facility] [address] [phone] Mor Dash, [address] [place] [address] Social History Tobacco Use Types Packs/Day Years Used Date Smoking Tobacco: Never Smokeless Tobacco: Never Alcohol Use Standard Drinks/Week Comments Never 0 [...] or training? Not on file Preferred Language Cymraes 08/08/2024 Comments No Sex and Gender Information Value Date Recorded Sex Assigned at Not on file Legal Sex Female 12:49 PM EST Gender Identity Not on file Sexual Orientation Not on file documented as of this encounter Plan of Treatment Upcoming Encounters Date Type Department Care Team (Late st Contact Info) Description 04/19/2025 3:45 PM EDT Office Visit [facility] [address] [phone] Mor Dash DO [address] [address] documented as of this encounter Visit Diagnoses Not on filedocumented in this encounter Care Teams Transfusion Aide Relationship Specialty Start Date End Date Gagan Yu MD [address] [facility] [address] [facility] [address] [place] [address] PCP - General Family Medicine 07/10/20 documented as of this encounter
--- OUTSIDE RECORDS SUMMARY | 2025-03-12 15:43 | XMS_ITS | Patient Health Record ---
Author Organization [facility] Address [address] [place] [id number] Care Team Providers Care Securities Clerk Name Role Phone Sanjiv Claireian Primary Care Provider [phone] Jordon Yu Unavailable [phone] Urvashi Ibrahim Unavailable [phone] Cecelia Suazo Unavailable [phone] Allergies Allergen (clinical drug ingredient) Drug/Non Drug Allergy documented on EMR Reaction Allergy Type Onset Date Status gabapentin Neurontin weakness/trouble breathing Drug Allergy Active Substance with 8-iyqmfgc-0-methylg lutaryl-coenzyme A reductase inhibitor mechanism of action [...] date:05/25/2024 01:36:17 PM Interpretation: Performing Lab: Notes/Report: CLIA: [id number] Gabriel Gregory MD, Medical Dermatologist [facility]0 [facility] , [place] [address] Test performed by [facility] Specimen Source Urine - Void Culture, Urine [...] Tobramycin S Trimeth/Sulfa S S=SUSCEPTIBLE I=INTERMEDIATE R=RESISTANT Rapid Strep- Inhouse Reviewed date:05/29/2024 03:28:49 PM [...] - 38 plat 255 100 - 400 Influenza Screen (in house) Reviewed date:10/19/2024 08:23:46 [...] Normal Performing Lab: Notes/Report: Test performed by [facility] [address] , [address], [place] [address] Gabrile Gregory MD, Medical Dermatologist CLIA: [id number] Vitamin B12 965 921-3848 pg/mL P-Lyme Disease (B. burgodorf la), IgG/IgM, SOILA, Serum Reviewed date:10/20/2024 12:06:10 PM Interpretation: Normal Performing Lab: Notes/Report: Test performed by [facility] [address] , [place] [address] Gabriel Gregory MD, Medical Dermatologist CLIA: [id number] B burgdorferi (Lyme Disease) IgG Negative Negative B burgdorferi (Lyme Disease) IgM Negative Negative P-Folate Reviewed date:10/20/2024 12:06:10 PM Interpretation: Normal Performing Lab: Notes/Report: Test performed by [facility] [address] , [place] [address] Gabriel Gregory MD, Medical Dermatologist CLIA: [id number] Folate 18.40 >4.59 ng/mL P-Ferritin Reviewed date:10/20/2024 12:06:10 PM Interpretation: Normal Performing Lab: Notes/Report: Test performed by [facility] [address] [place] [address] , [address], [place] [address] Gabriel Gregory MD, Medical Dermatologist CLIA: [id number] Ferritin 15.2 13.0-301.0 ng/mL P-Iron Reviewed date:10/20/2024 12:06:10 PM Interpretation:29 Performing Lab: Notes/Report: Test performed by [facility] [address] , [address], [place] [address] Gabriel Gregory MD, Medical Dermatologist CLIA: [id number] Iron 29 37-145 ug/dL P-Vitamin D 25-Hydroxy Reviewed date:10/20/2024 12:06:10 PM Interpretation: Normal Performing Lab: Notes/Report: Test performed by [facility] [address] [place] [address] , [address], [place] [address] Gabriel Greogry MD, Medical Dermatologist CLIA: [id number] Vitamin D 25-Hydroxy 36.7 30.0-100.0 ng/mL Interpretation of Vitamin D 25 OH: < 20 ng/mL - Deficiency 20 - 29 ng/mL - Insufficiency 30 - 100 ng/mL - Sufficiency > 100 ng/mL - Super-therapeutic- toxicity may occur above this level. Clinical correlation required. Urinalysis - Inhouse Reviewed date:11/10/2024 09:46:25 AM Interpretation: Performing Lab: Notes/Report: Color/Clarity yellow/clear Leuk 1+ Nitrite neg Urobili 3.2 Protein neg pH 6.5 Blood neg Sp. Gr. 1.010 Ketone neg Bili neg Gluc neg P-Culture, Urine Reviewed date:11/16/2024 10:04:55 PM Interpretation:No Significant Growth Performing Lab: Notes/Report: Test performed by [facility] [address] [place] [address] , [address] , [place] [address] Gabriel Gregory MD, Medical Dermatologist CLIA: [id number] Specimen Source Urine - Void Culture, Urine See Below Final Report : No Significant Growth Bone density Reviewed date:01/19/2025 11:28:45 AM Interpretation:osteoporosis Performing Lab: Notes/Report: osteoporosis CBC Venipuncture (in house) (Not yet reviewed by provider) Interpretation: Performing Lab: Notes/Report: wbc 6.0 3.5 - 10 lymph 31.4% 15 - 50 mid 6.8% 2 - 15 gran 61.8% 35 - 80 rbc 4.31 3.5 - 5.5 hgb 9.4 11.5 - 16.5 hct 29.3 35 - 55 mcv 68.1 75 - 100 mch 21.8 25 - 35 mchc 32.0 31 - 38 platlet 303 100 - 400 Hemoccult- IFOBT (in house) Reviewed date:10/27/2024 10:24:51 AM Interpretation: Performing Lab: Notes/Report: results Neg Covid test (in house) Reviewed date:05/29/2024 09:04:09 AM Interpretation: Performing Lab: Notes/Report: Result: Neg CBC Fingerstick (in house) Reviewed date:05/29/2024 [...] - 38 plat 238 100 - 400 Influenza Screen (in house) Reviewed date:05/29/2024 09:03:54 AM Interpretation: Performing Lab: Notes/Report: results Neg Glycohemoglobin A1c (in hous e) Reviewed date:05/07/2024 07:59:27 PM Interpretation:6.1% Performing Lab: Notes/Report: 6.1% glycohemoglobin 6.1% 5 - 6.5 % P-Comprehensive Metabolic Pa german (CMP) Reviewed date:05/07/2024 07:59:27 PM Interpretation: Performing Lab: Notes/Report: Test performed by [facility] [address] [place] [address] , [address], [place] [address] Gabriel Gregory MD, Medical Dermatologist CLIA: [id number] Sodium 139 135-145 mmol/L Potassium 4.6 3.5-5.3 [...] Interpretation: Performing Lab: Notes/Report: Test performed by [facility] [address], [place] [address] Gabriel Gregory MD, Medical Dermatologist CLIA: [id number] Cholesterol 211 <200 mg/dL Triglycerides 192 <150 [...] Interpretation: Performing Lab: Notes/Report: Test performed by [facility], [address] , [address] , [place] [address] Gabriel Gregory MD, Medical Dermatologist CLIA: [id number] Vitamin D 25-Hydroxy 40.1 30.0-100.0 ng/mL Interpretation of Vitamin D 25 OH: < 20 ng/mL - Deficiency 20 - 29 ng/mL - Insufficiency 30 - 100 ng/mL - Sufficiency > 100 ng/mL - Super-therapeutic- toxicity may occur above this level. Clinical correlation required. Medications Medication SIG (Take, Route, Frequency, Duration) [...] Once a day; Duration: 30 day(s) Active Esomeprazole Magnesium 40 MG Take 1 capsule by mouth once daily; Duration: 90 Active Ibuprofen 600 MG 1 tablet with food o r milk as needed Orally Three times a day; Duration: 90 days Active Immunizations Vaccine Route Administration Date Status Comme nts COVID 19 Moderna Unknown 07/24/2020 Administered COVID 19 Moderna Unknown 08/21/2020 Administered COVID 19 Moderna Unknown 05/30/2021 Administered DT, 7 YEARS OR OLDER Unknown 04/22/1999 Administered Fluzone High Dose (65yr and older) IM Intramuscular 05/01/2014 Administered Fluzone High Dose (65yr and older) Unknown 02/23/2020 Administered Fluzone High Dose (65yr and older) IM Intramuscular 04/25/2021 Administered Fluzone High Dose (65yr and older) Unknown 03/23/2023 Administered Fluzone PF Quad (6-35 months) Unknown 02/29/2016 Administered PNEUMOVAX 23 VACCINE IM Intramuscular 04/25/2021 Administe red Prevnar (PCV13) IM Intramuscular 01/14/2015 Administered Shingrix Unknown 10/20/2022 Administered Shingrix Unknown 01/27/2023 Administered Tetanus Tdap-Adacel (over 7yrs) IM Intramuscular 02/10/2012 Administered Tetanus Tdap-Adacel (over 7yrs) Unknown 10/20/2022 Administered xAdministration of injection im 06/20/2010 Administered xFlu shot-36 months and older IM Intramuscular 04/09/2008 Administered xFlu shot-36 months and older IM Intramuscular 02/28/2009 Administered xFluzone (6mos and older)-trivalent IM Intramuscular 03/27/2010 Administered xFluzone (6mos and older)-trivalent IM Intramuscular 05/12/2013 Administered xFluzone High Dose-private (65yr&older) Unknown 03/01/2017 Administered xFluzone High Dose-private (65yr&older) Unknown 03/11/2019 Administered zBcrnizy-vmjytrnpg-hwinmto e pts. IM Intramuscular 02/25/2011 Administered gMhjuntq-ralexzxqh-pcopbwh e pts. IM Intramuscular 02/10/2012 Administered Problems Problem Type SNOMED Code ICD Code Onset Dates Problem Status W/U Status Risk Notes Problem Gastroesophageal reflux disease (545800915) GERD (gastroesophageal reflux disease) (K21.9) Active confirmed Problem Vitamin D deficiency (19914163) Vitamin D deficiency (E55.9) Active confirmed Problem Anemia (905669446) Anemia (D64.9) Active confir med Problem Cardiac dysrhythmia (493316568) Cardiac dysrhythmia (I49.9) Active confirmed Problem Osteoarthritis (867408604) Osteoarthritis (M19.90) Active confirmed Problem Impaired fasting glucose (708782390) Impaired fasting glucose (R73.01) Active confirmed Problem Primary generalised osteoarthritis (046747545) Primary generalized (osteo)arthritis (M15.0) Active confirmed Problem Dysphagia (32958722) Dysphagia (R13.10) Active confirmed Problem Mixed hyperlipidemia (448726365) Mixed hyperlipidemia (E78.2) Active confirmed Problem Presbycusis (32313129) Presbycusis, bilateral (H91.13) Active confirmed Problem Artificial knee joint present (183694905509) Presence of left artificial knee joint (Z96.652) Active confirmed Problem Gastroesophageal reflux disease (817388062) GERD without esophagitis (K21.9) Active confirmed Problem Obese class II (999098713744528) BMI 35.0-35.9,adult (Z68.35) Active confirmed Problem Obesity (145536958) Non morbid o besity due to excess calories (E66.09) Active confirmed Problem History of polyp of colon (situation) (209617712) Hx of colonic polyps (Z86.010) Active confirmed Problem Gastroesophageal reflux disease (017906328) Gastroesophageal reflux disease, esophagitis presence not specified (K21.9) Active confirmed Problem Lumbar spinal stenosis (79739202) Spinal stenosis, lumbar (M48.06) Active confirmed Problem Arthropathy of lumbar facet joint (913132707) Lumbar facet arthropathy (M46.96) Active confirmed Problem Polyarthritis (815679441) Polyarthritis (M13.0) Active confirmed Problem Anemia (106628464) Anemia, unspecified type (D64.9) Active confirmed Problem Rheumatoid arthritis (69457419) Rheumatoid arthritis (M06.9) Active confirmed Problem Rheumatoid arthritis (41443148) Rheumatoid arthritis involving multiple sites, unspecified rheumatoid factor presence (M06.9) Active confirmed Problem Body mass index 30.00 to 34.99 (351801209891068) BMI 34.0-34.9,adult (Z68.34) Active confirmed Problem Sciatica (43775865) 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) Active confirmed Problem Dyslipidemia (339720115) Dyslipidemia (E78.5) Active confirmed Problem Allergic rhinitis caused by pollen (97421086) Seasonal allergic rhinitis due to pollen (J30.1) Active confirmed Problem Aftercare following joint replacement surgery, unspecified joint (Z47.1) Active confirmed Vital Signs Heart Rate 81 /min 03/12/2025 Blood pressure diastolic 60 mm Hg 03/12/2025 Height 63 in 03/12/2025 Blood pressure systolic 102 mm Hg 03/12/2025 Weight 183.2 lbs 03/12/2025 BMI 32.45 kg/m2 03/12/2025 Encounters Encounter Location Date Provider Diagnosis [place] [place] [facility] [address] [place], [place] [id number] 05/04/2024 Jordon Yu Cardiac dysrhythmia I49.9 ; Impaired fasting glucose R73.01 ; Dyslipidemia E78.5 ; GERD (gastroesophageal reflux disease) K21.9 ; Iron deficiency E61.1 ; Vitamin D deficiency E55.9 ; Presence of left artificial knee joint Z96.652 ; Rheumatoid arthritis involving multiple sites, unspecified rheumatoid factor presence M06.9 and Presbycusis, bilateral H91.[address] [facility] [address] [facility] [address] [place], [place] [id number] 05/22/2024 Urvashi Ibrahim Right shoulder pain M25.511 and Urinary frequency R35.0 [facility] [address] [facility] [address] [place], [place] [id number] 05/27/2024 Alfonso Naponee Acute UTI N39.0 ; Fever, unspecified R50.9 and Anemia, unspecified type D64.9 [facility] [address] [facility] [address] [place], [place] [id number] 05/29/2024 Urvashi Ibrahim Bronchitis J40 [facility] [address] [facility] [address] [place], [place] [id number] 10/18/2024 Cecelia Crowdy Bronchitis J40 ; Anemia, unspecified type D64.9 ; Insect bite (nonvenomous) of lower back and pelvis, initial encounter S30.860A ; Bitten or stung by nonvenomous insect and other nonvenomous arthropods, initial encounter W57.XXXA and BMI 34.0-34.9,adult Z68.34 [facility] [address] [facility] [address] [place], [place] [id number] 10/20/2024 Cecelia Crowdy Anemia D64.9 [facility] [address] [facility] [address] [place], [place] [id number] 11/09/2024 Jordno Yu UTI (lower urinary tract infection) N39.0 ; Screening for osteoporosis Z13.820 ; Dyslipidemia E78.5 ; Rheumatoid arthritis M06.9 and BMI 34.0-34.9,adult Z68.34 [facility] [address] [facility] [address] [place], [place] [id number] 03/12/2025 Urvashi Ibrahim Shortness of breath R06.02 ; Itching L29.9 ; Fatigue 780.79 ; Anemia D64.9 and Iron deficiency E61.1 [facility] [address] [place], [place] [id number] 05/07/2024 Jordon Yu [facility] [address] [facility] [place], [place] [id number] 05/25/2024 Urvashi Ibrahim [facility] [address] [place], [place] [id number] 10/20/2024 Cecelia Suazo Anemia, unspecified type D64.9 Assessments Encounter Date [...] 10/18/2024 Anemia, unspecified type (ICD-10 - D64.9) 03/12/2025 Shortness of breath (ICD-10 - R06.02) 03/12/2025 Itching (ICD-10 - L29.9) antihistamin of choice 11/09/2024 Dyslipidemia (ICD-10 - E78.5) 03/12/2025 Fatigue (ICD9-CM - 780.79) feel cause may be her persistent anemia; Iron study pending 10/18/2024 Insect bite (nonvenomous) of lower back and pelvis, initial encounter (ICD-10 - S30.860A) 05/27/2024 Anemia, unspecified type (ICD-10 - D64.9) Plan to recheck H/H at f/u visit 05/04/2024 Dyslipidemia (ICD-10 - E78.5) 05/04/2024 GERD (gastroesophageal reflux disease) (ICD-10 - K21.9) 10/18/2024 Bitten or stung by nonvenomous insect and other nonvenomous arthropods, initial encounter (ICD-10 - W57.XXXA) 03/12/2025 Anemia (ICD-10 - D64.9) 11/09/2024 Rheumatoid arthritis (ICD-10 - M06.9) 11/09/2024 BMI 34.0-34.9,adult (ICD-10 - Z68.34) 10/18/2024 BMI 34.0-34.9,adult (ICD-10 - Z68.34) 03/12/2025 Iron deficiency (ICD-10 - E61.1) 05/04/2024 Iron deficiency (ICD-10 - E61.1) 05/04/2024 Vitamin D deficiency (ICD-10 - E55.9) 05/04/2024 Presence of left artificial knee joint (ICD-10 - Z96.652) 05/04/2024 Rheumatoid arthritis involving multiple sites, unspecified rheumatoid factor presence (ICD-10 - M06.9) 05/04/2024 Presbycusis, bilateral (ICD-10 - H91.13) Plan Of Treatment Pending Test Test Name Order Date EKG 03/12/2025 CXR 03/12/2025 CBC Venipuncture (in house) 03/12/2025 Hemoccult- IFOBT (in house) 10/18/2024 P-Comprehensive Metabolic Panel (CMP) P-Iron 03/12/2025 Next Appt Details Provider Name:Urvashi kumar, 03/19/2025 01:30:00 PM, [address], [address], [place], [id number], Insurance Providers Payer Name Payer Address Payer Phone Subscriber Number Group Number Insured Name Patient Relationship to Insured Coverage Start Date Coverage End Date MEDICARE PART B [address] [address] [place] [id number] NEENA SUTTON Self - patient is the insured [facility] [address] [place] [id number] NEENA SUTTON Self - patient is the [...] months of rifampin treatment per infectious disease ASCVD Surgical History Surgery Date(Month/Year) L4-5,L5-S1 posterior lumbar fusion/ Dr. Love 02/2016 Total Knee Replacement, Left / Dr. Merritt tt 03/2021
--- NOTE | 2025-03-12 15:59 | ECG_ITS ---
APPROVED REPORT Exam: Resting ECG HR:72 bpm ECG Measurements Heart Rate 72 AXES VA 135 P 2 QRSd 85 QRS -9 QT 389 T 46 QTc 413 Conclusion SINUS RHYTHM WITH FREQUENT SUPRAVENTRICULAR PREMATURE COMPLEXES LOW QRS VOLTAGE IN PRECORDIAL LEADS [QRS DEFLECTION < 1.0 mV IN CHEST LEADS] ABNORMAL RHYTHM ECG UNCONFIRMED REPORT Electronically signed by : Alexis Cano MD 03/13/2025 20:26:19
--- NOTE | 2025-03-12 16:05 | XR_ITS ---
FINAL REPORT CLINICAL HISTORY: Shortness of breath COMPARISON: 03/18/2020 FINDINGS: PA and lateral views of the chest were obtained. The cardiac and mediastinal silhouettes are within normal limits. The lungs are clear. There is no pleural effusion or pneumothorax. No acute osseous abnormality is identified. IMPRESSION: No radiographic evidence of acute cardiac or pulmonary disease. Reviewed, Interpreted and Dictated by Lakshmi Mohan MD Transcribed by Lori Platt Authenticated and [facility]
== END 2025-03-12 23:59 | disposition home or self-care (01) ==
LOC: RT 15:40
PROVIDERS: PCP Nurse Practitioner Family; Visit Provider Nurse Practitioner Family
DX: I49.1 Atrial premature depolarization (principal); R94.31 Abnormal electrocardiogram [ECG] [EKG]
CPT/HCPCS: 71046; 93005

== ENCOUNTER 2025-03-19 10:42 | Outpatient (CLI) | payer MEDICARE, OTHER, SELFPAY ==
--- OUTSIDE RECORDS SUMMARY | 2024-05-29 10:30 | XMS_ITS ---
Author Organization [facility] Address [address] [facility] [address] [place] [place] [phone] Care Team Providers Care Homemaking Rehabilitation Consultant Name Role Phone Alfonso Claire Primary Care Provider Urvashi Ibrahim Unavailable [phone] Allergies Allergen (clinical drug ingredient) Drug/Non Drug Allergy documented on EMR Reaction Allergy Type Onset Date Status gabapentin Neurontin weakness/trouble breathing Drug Allergy Active Substance with 8-matupgs-3-methylg lutaryl-coenzyme A reductase inhibitor mechanism of action [...] 05/29/2024 Encounters Encounter Location Date Provider Diagnosis [facility] [address] [facility] [address] [place] [id number] 05/29/2024 Urvashi Ibrahim Bronchitis J4 0 Assessments [...] Follow Up: prn, Reason: Provider Name:Urvashi kumar, 03/26/2025 10:30:00 AM, [address] [facility], [address], [place], [phone], Progress Notes * NEENA SUTTONDOB:1945 (80 yo F)Acc No.[id number]:05/29/2024 Progress Notes Patient: NEENA MANZANO Provider: LARISSA Daigle :1945 A ge:79 Y S ex:Female Date:05/29/2024 Address:[address] [place] [address] DION[place] J[place]OME, [id number] Pcp:Alfonso Claire Subjective: * Chief Complaints: * [...] G 2211 Complex e/[place], [address] STREP A ASSAY W/OPTIC, Modifiers: QW , 60617 CAPILLARY BLOOD DRAW, 21419 CBC WITH AUTO DIFF * Follow Up: p rn * Images: Billing Information: * Visit Code: 02257 Office Visit, Est Pt., Level 3. * Procedure Codes: G2211 Complex e/[place]. [address] STREP A ASSAY W/OPTIC. Modifiers: QW 60143 CAPILLARY BLOOD DRAW. 08076 CBC WITH AUTO DIFF. 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
--- OUTSIDE RECORDS SUMMARY | 2024-10-18 06:00 | XMS_ITS ---
Author Organization [facility] Address [address] [facility] [address] [place] [id number] Care Team Providers Care Home Stager Name Role Phone Alfonso Claire Primary Care Provider Cecelia Suazo Unavailable [phone] Allergies Allergen (clinical drug ingredient) Drug/Non Drug Allergy documented on EMR Reaction Allergy Type Onset Date Status gabapentin Neurontin weakness/trouble breathing Drug Allergy Active Substance with 2-egqfdre-4-methylg lutaryl-coenzyme A reductase inhibitor mechanism of action [...] PM Interpretation: Normal Performing Lab: Notes/Report: CLIA: [id number] Gabriel Gregory MD, Electrician Maintenance [address] [place] [address] , [address], [place] [address] Test performed by [employer], [email or web address] Vitamin B12 302 028-6998 pg/mL P-Lyme Disease (B. burgodorf la), IgG/IgM, SOILA, Serum Reviewed date:10/20/2024 12:06:10 PM Interpretation: Normal Performing Lab: Notes/Report: Test performed by [facility] , [facility] C, [place] [address] Gabriel Gregory MD, Electrician Maintenance CLIA: [id number] B burgdorferi (Lyme Disease) IgG Negative Negative B burgdorferi (Lyme Disease) IgM Negative Negative P-Folate Reviewed date:10/20/2024 12:06:10 PM Interpretation: Normal Performing Lab: Notes/Report: Test performed by [facility] [employer] , [facility] C, [place] [address] Gabriel Gregory MD, Electrician Maintenance CLIA: [id number] Folate 18.40 >4.59 ng/mL P-Ferritin Reviewed date:10/20/2024 12:06:10 PM Interpretation: Normal Performing Lab: Notes/Report: Test performed by [facility] , [address], [place] [address] Gabriel Gregory MD, Electrician Maintenance CLIA: [id number] Ferritin 15.2 13.0-301.0 ng/mL P-Iron Reviewed date:10/20/2024 12:06:10 PM Interpretation:29 Performing Lab: Notes/Report: Test performed by [facility] , [facility] [place] [address] Gabriel Gregory MD, Electrician Maintenance CLIA: [id number] Iron 29 37-145 ug/dL P-Vitamin D 25-Hydroxy Reviewed date:10/20/2024 12:06:10 PM Interpretation: Normal Performing Lab: Notes/Report: Test performed by [facility], [facility] C, [place] [address] Gabriel Gregory MD, Electrician Maintenance CLIA: [id number] Vitamin D 25-Hydroxy 36.7 30.0-100.0 ng/mL Interpretation [...] 10/18/2024 Encounters Encounter Location Date Provider Diagnosis [facility] [address], [place] [id number] 10/18/2024 Cecelia Crowdy Bronchitis J40 ; Ane [...] rt test results, Reason: Provider Name:Urvashi santossavana, 03/26/2025 10:30:00 AM, [address] [facility] [address] [facility], [address], [place], [place], [id number], Progress Notes * LOI NEENADOB:1945 (80 yo F)Acc No.[id number]:10/18/2024 Progress Notes Patient: NEENA MANZANO Provider: AUGIE Felix :1945 A ge:79 Y S ex:Female Date:10/18/2024 Address:[address] [place] [address], [place], [id number] Pcp:Alfonso Claire Subjective: * Chief Complaints: [...] initial encounter - W57.XXXA 5 . B [place] 34.0-34.9,adult - Z68.34 Plan: * Treatment: Value [...] AM)?Normal* Value Reference Range V itamin B12 189 573-6704 - pg/mL * Cassi De La O [...] G 2211 Complex e/[place], [address] Flu Test- Nasal Swab, Modifiers: QW , 70133 CAPILLARY BLOOD DRAW, 08252 CBC WITH AUTO DIFF, 3074F SYST BP LT 130 MM HG, 3078F DIAST BP < 80 MM HG * Follow Up: v ia phone to report test results * Images: Billing Information: * Visit Code: 75557 Office Visit, Est Pt., Level 4. * Procedure Codes: G2211 Complex e/[place]. [address] Flu Test- Nasal Swab. Modifiers: QW 95421 CAPILLARY BLOOD DRAW. 96942 CBC WITH AUTO DIFF. 3074F SYST BP LT 130 MM HG. 3078F DIAST BP < 80 MM HG. * Electronic signature of AUGIE Douglas on 03/19/2025 at 10:59 AM EDT Sign off status: Pending * Provider: AUGIE Felix Date: 0 10/18/2024 Generated for Florinda ng/Faxing/eTransmitting on: 0 03/19/2025 10:59 AM EDT History and Physical Notes * [...]
--- OUTSIDE RECORDS SUMMARY | 2024-10-20 11:05 | XMS_ITS ---
Author Organization [facility] Address [address] [place] [phone] Care Team Providers Care Manager Case Management Name Role Phone Alfonso Claire Primary Care Provider Cecelia Suazo Unavailable [phone] Results Component Value Reference Range Notes Hemoccult- [...] Diagnosis Sal [address] [facility] [address] [place] [id number] 10/20/2024 Cecelia Lakeisha Anemia D64.9 Assessments Encounter Date Diagnosis (ICD Code) Assessment Notes Treatment Notes Treatment Clinical Notes Section Notes 10/20/2024 Anemia (ICD-10 - D64.9) Plan Of Treatment Next Appt Details Provider Name:Urvashi kumar, 03/26/2025 10:30:00 AM, [facility], [address], [place], [phone], Progress Notes * NEENA SUTTONDOB:1945 (80 yo F)Acc No.[id number]:10/20/2024 Patient: NEENA MANZANO Provider: AUGIE Felix :1945 A ge:79 Y S ex:Female Date:10/20/2024 Address:[address] [place] [address], [place], [id number] Pcp:Alfonso Claire Subjective: * Chief Complaints: [...] Information: * Visit Code: * Procedure Codes: 59760 ASSAY TEST FOR BLOOD, FECAL. Modifiers: QW * Electronic signature of AUGIE Douglas on 03/19/2025 at 11:00 AM EDT Sign off status: Pending * Provider: AUGIE Felix Date: 0 10/20/2024 Generated for Florinda phan/Johnie/Paula on: 0 03/19/2025 11:00 AM EDT
--- OUTSIDE RECORDS SUMMARY | 2024-11-09 11:45 | XMS_ITS ---
Author Organization [facility] Address [address] [facility] [address] [place] [phone] Care Team Providers Care Manufacturing Plant Controller Name Role Phone Alfonso Claire Primary Care Provider Jordon Yu [phone] Allergies Allergen (clinical drug ingredient) Drug/Non Drug Allergy documented on EMR Reaction Allergy Type Onset Date Status gabapentin Neurontin weakness/trouble breathing Drug Allergy Active Substance with 7-yqhjhfa-7-methylg lutaryl-coenzyme A reductase inhibitor mechanism of action [...] Growth Performing Lab: Notes/Report: Test performed by [facility] [address] [place] [address] , [address], [place] [address] Gabriel Gregory MD, Provider Network Mgr CLIA: [id number] Specimen Source Urine - Void Culture, Urine [...] Encounter Location Date Provider Diagnosis [facility] [address] [id number] 11/09/2024 Jordon Yu UTI (lower urinary tract [...] rt test results, Reason: Provider Name:Urvashi kumar, 03/26/2025 10:30:00 AM, [address], [address], [place], [place], [id number], Progress Notes * NEENA SUTTONDOB:1945 (80 yo F)Acc No.[id number]:11/09/2024 Progress Notes Patient: NEENA MANZANO Provider: Jordon Yu M.D. :1945 A ge:79 Y S ex:Female Date:11/09/2024 Address:[address] [place] [address], [place], [place] Pcp:Alfonso Claire Subjective: * Chief Complaints: * 1 . Referral for bone density. * HPI: R heumatology: She continues to follow with rheumatology for her rheumatoid arthritis. They have requested that she have a bone density test but she did not want to return to [place] for the study and would like to have it arranged at [facility]. U rology: She recently started with [...] heumatoid arthritis - M06.9 5 . B [place] 34.0-34.9,adult - Z68.34 Plan: * Treatment: Value [...] 11/10/2024 08:2 1:07 AM > faxed to [facility] Jordon Tinoco 12/28/2024 05:22:10 PM EDT > please fax this report to her java programmer, Cassi Calderon 01/19/2025 11:28:32 AM EDT > faxed report to [phone] * Procedure Codes: G 2211 Complex e/[place], [address] Urinalysis, no micro, 3074F SYST BP LT 130 MM HG, 3078F DIAST BP < 80 MM HG * Follow Up: v ia phone to report test results * Images: Billing Information: * Visit Code: 64105 Office Visit, Est Pt., Level 4. * Procedure Codes: G2211 Complex e/[place]. [address] Urinalysis, no micro. 3074F SYST BP LT 130 MM HG. 3078F DIAST BP < 80 MM HG. * Electronic signature of Jordon Yu MD on 03/19/2025 at 10:59 AM EDT Sign off status: Pending * Provider: Jordon Yu M.D. Date: 0 11/09/2024 Generated for Maricarmeni emilie/Johnie/eTransmitting on: 0 03/19/2025 10:59 AM EDT History [...] she did not want to return to [place] for the study and would like to have it arranged at [facility]. Examination Category Sub-Category Detail Notes Category Not es General Examination Abdomen: soft , not d istended , soft and nontender , no CVA tenderness General Appearance: NAD
--- OUTSIDE RECORDS SUMMARY | 2025-03-12 09:45 | XMS_ITS ---
Author Organization [facility] Address [address] [place] [id number] Care Team Providers Care Tow Operator Name Role Phone Alfonso Claire Primary Care Provider Urvashi Ibrahim Unavailable [phone] Allergies Allergen (clinical drug ingredient) Drug/Non Drug Allergy documented on EMR Reaction Allergy Type Onset Date Status gabapentin Neurontin weakness/trouble breathing Drug Allergy Active Substance with 7-qxyneuq-0-methylg lutaryl-coenzyme A reductase inhibitor mechanism of action [...] date:03/15/2025 04:10:53 PM Interpretation: Performing Lab: Notes/Report: CLIA: [id number] Gabriel Gregory MD, Loss Prevention And Safety Manager [facility] , [address], [place] [address] Test performed by [employer], [facility] Sodium 141 135-145 mmol/L Potassium 4.9 3.5-5.3 [...] Interpretation:18 Performing Lab: Notes/Report: Test performed by [employer], [employer] [address] [place] [address] , [address], [place] [address] Gabriel Gregory MD, Loss Prevention And Safety Manager CLIA: [id number] Iron 18 37-145 ug/dL EKG Reviewed date:03/15/2025 [...] Status W/U Status Risk Notes Problem Anemia (668717850) Anemia (D64.9) Active confirmed Vital Signs Blood pressure systolic 102 mm Hg 03/12/20 25 Blood pressure diastolic 60 mm Hg 025 Heart Rate 81 /min 03/12/2025 Height 63 in 03/12/2025 Weight 183.2 lbs 03/12/2025 BMI 32.45 kg/m2 03/12/2025 Encounters Encounter Location Date Provider Diagnosis [facility] [address] [facility] [address] [facility] [address] [place] [id number] 03/12/2025 Urvashisana Ibrahim Shortness of breath R06.02 ; Itching L29.9 ; Fatigue 780.79 ; Anemia D64.9 and Iron deficiency E61.1 Assessments Encounter Date Diagnosis (ICD Code) Assessment Notes Treatment Notes Treatment Clinical Notes Section Notes 03/12/2025 Shortness of breath (ICD-10 - R06.02) 03/12/2025 Itching (ICD-10 - L29.9) antihistamin of choice 03/12/2025 Fatigue (ICD9-CM - 780.79) feel cause may be her persistent anemia; Iron study pending 03/12/2025 Anemia (ICD-10 - D64.9) 03/12/2025 Iron deficiency (ICD-10 - E61.1) Plan Of Treatment Treatment Notes Assessment Notes Itching antihistamin of ashraf ce Fatigue feel cause may be he r persistent anemia; Iron study pending Next Appt Details Follow Up: 1 Week, Reason: Provider Name:Urvashi kumar, 03/26/2025 10:30:00 AM, 12[address] [facility] [address] [facility], [address], [place], [phone], Progress Notes * NEENA SUTTONDOB:1945 (80 yo F)Acc No.[id number]:03/12/2025 Progress Notes Patient: NEENA MANZANO Provider: ALRISSA Daigle :1945 A ge:80 Y S ex:Female Date:03/12/2025 Address:[address] [place] [address], [id number] Pcp:Alfonso Claire Subjective: * Chief Complaints: * [...] OK; nothing tastes right; did go to [employer] last week and walked alot; shortness of [...] 08/18/2024. * Hospitalization/Major Diagno stic Procedure: B [facility]-right reverse total shoulder TSA 08/18/2024. * Family [...] :chest,arms,back and all over 3 . F atigue - 780.79 4 . A nemia - D64.9 5 [...] > See phone encounter Notes: antihistamin of choice??3.?Fatigue? Notes: feel cause may be her persistent anemia; Iron study pending??4.?Iron deficiency?LAB: P-Iron (Collection Date & Time - 03/12/2025 01:52 PM)?18* Value Reference Range I chilango 18 L 37-145 - ug/dL * Urvashi Ibrahim 03/15/2025 04:09:56 PM EDT > See phone encounter * Procedure Codes: 8 5025 CBC WITH AUTO DIFF, 00387 VENIPUNCT, ROUTINE* * Follow Up: 1 Week * Images: Billing Information: * Visit Code: 34465 Office Visit, Est Pt., Level 4. * Procedure Codes: 38449 CBC WITH AUTO DIFF. 50570 VENIPUNCT, ROUTINE*. * Electronic signature of Aubrie Ibrahim APRN on 03/19/2025 at 10:59 AM EDT Sign off status: Pending * Provider: LARISSA Daigle Date: 0 03/12/2025 Generated for Florinda phan/Johnie/eTransmitting on: 0 03/19/2025 10:59 AM EDT History [...]
--- OUTSIDE RECORDS SUMMARY | 2025-03-19 10:59 | XMS_ITS | Clinical Summary ---
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 (ICD-10-CM ) Active Hoa Levi 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 Medications Medication Instructions Start Date Stop Date Generic Name ND Provider RIFAMPIN 300 MG CAPS 2 by mouth daily 4 months RIFAMPIN [id number] David Jordan MD FLUCONAZOLE 150 MG TABS TAKE ONE TABLET BY MOUTH A ONE TIME DOSE 01/25 FLUCONAZOLE [id number] Douglas Echeverria CELECOXIB 200 MG CAPS TAKE 1 CAPSULE BY MOUTH TWICE DAILY FOR 30 DAYS 12/05 CELECOXIB [id number] Douglas D VITAMIN D (ERGOCALCIFEROL) 1.25 MG (20963 UT) CAPS TAKE 1 CAPSULE BY MOUTH ONCE A WEEK 03/20 ERGOCALCIFEROL [id number] Douglas Echeverria VASCEPA 1 GM CAPS TAKE 2 CAPSULES BY MOUTH TWICE DAILY 01/30 ICOSAPENT ETHYL 89871979415 Douglas Echeverria FLUZONE HIGH-DOSE QUADRIVALENT 0.7 ML INTRAMUSCULAR SUSPENSION PREFILLED SYRINGE PHARMACIST ADMINISTERED IMMUNIZATION ADMINISTERED AT TIME OF DISPENSING 02/22 INFLUENZA VAC HIGH-DOSE QUAD [id number] Douglas D ESOMEPRAZOLE MAGNESIUM 40 MG CPDR TAKE 1 CAPSULE BY MOUTH ONCE DAILY 10/18 ESOMEPRAZOLE MAGNESIUM [id number] Douglas D TRAMADOL HCL 50 MG TABS TAKE 1 TABLET BY MOUTH 4 TIMES DAILY NEEDED 03/07 TRAMADOL HCL 24716275005 Douglas D MELOXICAM 15 MG TABS TAKE 1 TABLET BY MOUTH ONCE DAILY 02/21 MELOXICAM [id number] Douglas D HYDROXYCHLOROQUINE SULFATE 200 MG TABS TAKE 1 TABLET BY MOUTH TWICE DAILY 03/20 HYDROXYCHLOROQUINE SULFATE 97209757997 Douglas D Medications Administered No information available. [...] STAT Labs CPT-Cooral Continue oral antibiotics 11/07/19 CPT-40119 CMP [id number] CBC with Differential 2019 CPT-[facility]oor[facility] Continue oral antibiotics 09/06/16 CPT-sl STAT Labs CPT-38355 CMP [id number] CBC with Differential 2019 CPT-[place]ooral Continue oral antibiotics 10/05/18 CPT-sl STAT Labs CPT-89127 CMP [id number] CBC with Differential 2019 CPT-74197 C- reactive protein CPT-farzaneh New Oral Antibiotic [...]
--- OUTSIDE RECORDS SUMMARY | 2025-03-19 11:00 | XMS_ITS | Clinical Summary ---
[facility] Organization [facility] Address [address] [place] [address] Care Team Providers Care Credit Review Manager Name Role Phone Gagan Yu MD Primary [...] tried include: She saw Dr. Jameel Ryan (Video Specialist) in 2007, Tylenol, etodolac, indomethacin, Celebrex, ibuprofen, shoulder injection, back surgery, she has done some physical therapy, prednisone, gabapentin, She saw Dr. Randolph (Video Specialist), she saw Dr. Perera (Video Specialist), cortisone injections in her knees, meloxicam, Plaquenil, [...] tried include: She saw Dr. Jameel Ryan (Video Specialist) in 2007, Tylenol, etodolac, indomethacin, Celebrex, ibuprofen, shoulder injection, back surgery, she has done some physical therapy, prednisone, gabapentin, She saw Dr. Randolph (Video Specialist), she saw Dr. Perera (Video Specialist), cortisone injections in her knees, meloxicam, Plaquenil, [...] tried include: She saw Dr. Jameel Ryan (Video Specialist) in 2007, Tylenol, etodolac, indomethacin, Celebrex, ibuprofen, shoulder injection, back surgery, she has done some physical therapy, prednisone, gabapentin, She saw Dr. Randolph (Video Specialist), she saw Dr. Perera (Video Specialist), cortisone injections in her knees, meloxicam, Plaquenil, [...] Department Care Team Description 01/22/2025 Results Follow-Up [facility] [address] [place] [phone] Mor Dash DO from Last 3 [...] or training? Not on file Preferred Language Welsh 08/08/2024 Comments No Sex and Gender Information [...] Description 04/19/2025 3:45 PM EDT Office Visit [facility] [address] [place] [phone] Mor Dash, [address] [place] [address] Health Maintenance Due Date Last Done Comments [...] 08/11/2024, 10/2020 Medical Devices Implanted Type Area Bindery Leadperson Device Identifier Shelf Expiration Date Model / Serial / Lot Pat Triath Tritanium [id number] - [id number] Implanted:Qt y: 1 on 04/02/2021 by Jonathon Tobin MD at [facility] Implant Left: Knee MARIANELA KAELA 01/18/2026 [id number] / / [id number] Comp Fem Triath Cr Cmtls Sz4 Lt - [id number] Implanted:Qt y: 1 on 04/02/2021 by Jonathon Tobin MD at [facility] Implant Left: Knee MARIANELA KAELA 08/30/2025 [id number] / / [id number] Baseplt Tib Triath Tritanium Sz5 - [id number] Implanted:Qt y: 1 on 04/02/2021 by Jonathon Tobin MD at [facility] Implant Left: Knee MARIANELA KAELA 12/08/2025 [id number] / / [id number] Insrt Tib/Kn Triathlon Condy/Stbl X3 Sz5 9mm - [id number] Implanted:Qt y: 1 on 04/02/2021 by Jonathon Tobin MD at [facility] Implant Left: Knee MARIANELA KAELA 01/06/2026 [id number] / / [id number] Dev Contrl Tiss Stratafix Spiral Pdo Bidir 1 89x35vo - [id number] Implanted:Qt y: 1 on 04/02/2021 by Jonathon Tobin MD at [facility] Implant Left: Knee [employer] DIV OF J AND J [id number] / / Cap Total Kn Cmtls 4 Pc - [id number] Implanted:Qt y: 1 on 04/02/2021 by Jonathon Tobin MD at [facility] Implant Left: Knee MARIANELA KAELA CAPKNCEMENTLESS4 P IECE / / Baseplt Shldr Aequalis 1/2 Wedge Aug 35d 25mm - [id number] - [id number] Implanted:Qt y: 1 on 08/18/2024 by Marcelo Howard MD at [facility] Implant Right: Shoulder TORNIER [id number] 11/26/2027 [id number] / [id number] / LR Glenosphere Shldr Aequalis Perform Lat Pls3mm 36mm - [id number] - [id number] Implanted:Qt y: 1 on 08/18/2024 by Marcelo Howard MD at [facility] Implant Right: Shoulder TORNIER [id number] 10/17/2028 [id number] / [id number] / Scrw Aequalis Perform Centrl 6.5x30mm - [id number] Implanted:Qt y: 1 on 08/18/2024 by Marcelo Howard MD at [facility] Implant Right: Shoulder TORNIER [id number] / / N/A Scrw Aequalis Perform Periph 5x22mm - [id number] Implanted:Qt y: 2 on 08/18/2024 by Marcelo Howard MD at [facility] Implant Right: Shoulder TORNIER [id number] / / N/A Scrw Aequalis Perform Periph 5x30mm - [id number] Implanted:Qt y: 1 on 08/18/2024 by Marcelo Howard MD at [facility] Implant Right: Shoulder TORNIER [id number] / / N/A Scrw Periph 5x34mm - [id number] Implanted:Qt y: 1 on 08/18/2024 by Marcelo Howard MD at [facility] Implant Right: Shoulder TORNIER [id number] / / N/A Insrt Hum/Shldr Rev Preform Sz1/2 Pls0 10deg 36mm - [id number] - [id number] Implanted:Qt y: 1 on 08/18/2024 by Marcelo Howard MD at [facility] Implant Right: Shoulder TORNIER [id number] 06/08/2028 [id number] / [id number] / Stem Hum/Shldr Preform Lng Pls Sz2 00n48d5aj - [id number] - [id number] Implanted:Qt y: 1 on 08/18/2024 by Marcelo Howard MD at [facility] Implant Right: Shoulder TORNIER [id number] 01/26/2029 [id number] / [id number] / Cp Totl Rev Shldr Perform Stem Rsa Perf Rev Lat/Aug - [id number] Implanted:Qt y: 1 on 08/18/2024 by Marcelo Howard MD at [facility] Implant Right: Shoulder TORNIER CAPTORNIERTOTLSH L DREVPERFSTEMRSAPE RFLATAUG / / Cp Shldr Modifier Lng Stem - [id number] Implanted:Qt y: 1 on 08/18/2024 by Marcelo Howard MD at [facility] Implant Right: Shoulder TORNIER CAPTORNIERSHLDRM O DLONGSTEM / / Hemost Abs Surgicel Orig 4x8in Strl - [id number] Implanted:Qt y: 1 on 08/18/2024 by Marcelo Howard MD at [facility] Implant Right: Shoulder ETHICON DIV OF J AND J [id number] 12/18/2028 [id number] / / [id number] Back Hardware From Spinal Surgery Explanted Type Area Bindery Leadperson Device Identifier Shelf Expiration Date Model / Serial / Lot Guidepin Hum Preform 6a208tc - [id number] Explanted:Qty : 1 on 08/18/2024 by Marcelo Howard MD at [facility] Implant Right: Shoulder TORNIER [id number] 06/09/2029 [id number] / / [id number] Procedures Procedure Name Priority Date/Time Associated Diagnosis [...] Payer (Ef fective 2011-Present) Name:Lona Sutton Member ID:[id number] Relation to Subscriber:Self Name:Lona Sutton Subscriber ID:[id number] Payer ID:[id number] Group ID:Not on file Type:Not on file Address: [address] [place] [id number] [facility] Advance Directives * CPR (Attempt to Resuscitate) (Latest Code Status on File) Date Activated Date Inactivated Comments 04/02/2021 2:08 PM 04/02/2021 8:10 PM Question Answer Comments Code Status (Patient has no pulse and is not breathing): CPR (Attempt to Resuscitate) Medical Interventions (Patie nt has pulse or is breathing): Full Healthcare Agents on File Name Relationship Healthcare Agent [facility] p Communication [facility] Surrogate Care Teams Credit Review Manager Relationship Specialty Start Date End Date Gagan Yu MD [address] [place] [address] [address] [facility] [address] [place] [address] PCP - General Family Medicine 07/10/20
--- OUTSIDE RECORDS SUMMARY | 2025-03-19 11:00 | XMS_ITS | Encounter Summary ---
Author Organization [facility] Address [address] [place] [address] Care Team Providers Care Sustainability Coach Name Role Phone Gagan Yu MD Primary Care Provider Encounter Details Date Type Department Care Team (Late st Contact Info) Description 01/22/2025 Results Follow-Up [facility] [address] [phone] Mor Dash, [address] [place] [address] Social History Tobacco Use Types Packs/Day Years [...] or training? Not on file Preferred Language Tristanian 08/08/2024 Comments No Sex and Gender Information Value Date Recorded Sex Assigned at Not on file Legal Sex Female 12:49 PM EST Gender Identity Not on file Sexual Orientation Not on file documented as of this encounter Plan of Treatment Upcoming Encounters Date Type Department Care Team (Late st Contact Info) Description 04/19/2025 3:45 PM EDT Office Visit [facility] [address] [phone] Mor Dash DO [address] [address] documented as of this encounter Visit Diagnoses Not on filedocumented in this encounter Care Teams Sustainability Coach Relationship Specialty Start Date End Date Gagan Yu MD [address] [facility] [address] [facility] [address] [place] [address] PCP - General Family Medicine 07/10/20 documented as of this encounter
--- OUTSIDE RECORDS SUMMARY | 2025-03-19 11:01 | XMS_ITS | Patient Health Record ---
Author [facility] Address [address] [place] [id number] Care Team Providers Care Financial Services Associate Name Role Phone Alfonso Claire Primary Care Provider Jordon Yu Unavailable [phone] Urvashi Ibrahim Unavailable [phone] Cecelia Suazo Unavailable [phone] Allergies Allergen (clinical drug ingredient) Drug/Non Drug Allergy documented on EMR Reaction Allergy Type Onset Date Status gabapentin Neurontin weakness/trouble breathing Drug Allergy Active Substance with 5-nufstvo-8-methylg lutaryl-coenzyme A reductase inhibitor mechanism of action [...] Normal Performing Lab: Notes/Report: Test performed by [facility] [address] [place] [address] , [address], [place] [address] Gabriel Gregory MD, [facility] CLIA: [id number] Vitamin B12 899 428-3156 pg/mL P-Lyme Disease (B. burodetterf la), IgG/IgM, SOILA, Serum Reviewed date:10/20/2024 12:06:10 PM Interpretation: Normal Performing Lab: Notes/Report: Test performed by [facility] [address] , [address], [place] [address] Gabriel Gregory MD, [facility]cher CLIA: [id number] B burgdorferi (Lyme Disease) IgG Negative Negative B burgdorferi (Lyme Disease) IgM Negative Negative P-Folate Reviewed date:10/20/2024 12:06:10 PM Interpretation: Normal Performing Lab: Notes/Report: Test performed by [facility] [address] [place] [address] , [address], [place] [address] Gabriel Gregory MD, [facility]cher CLIA: [id number] Folate 18.40 >4.59 ng/mL P-Ferritin Reviewed date:10/20/2024 12:06:10 PM Interpretation: Normal Performing Lab: Notes/Report: Test performed by [facility] [address] [place] [address] [address], [address], [place] [address] Gabriel Gregory MD, [facility]cher CLIA: [id number] Ferritin 15.2 13.0-301.0 ng/mL P-Iron Reviewed date:10/20/2024 12:06:10 PM Interpretation:29 Performing Lab: Notes/Report: Test performed by [facility], [address] , [address], [place] [address] Gabriel Gregory MD, Centerpuncher CLIA: [id number] Iron 29 37-145 ug/dL P-Vitamin D 25-Hydroxy Reviewed date:10/20/2024 12:06:10 PM Interpretation: Normal Performing Lab: Notes/Report: Test performed by [facility] [address] [place] [address] , [address], [place] [address] Gabriel Gregory MD, [facility]cher CLIA: [id number] Vitamin D 25-Hydroxy 36.7 30.0-100.0 ng/mL Interpretation [...] Growth Performing Lab: Notes/Report: Test performed by [facility] [address] [place] [address] , [address], [place] [id number] Gabriel Gregory MD, [facility]cher CLIA: [id number] Specimen Source Urine - Void Culture, Urine See Below Final Report : No Significant Growth Bone density Reviewed date:01/19/2025 11:28:45 AM Interpretation:osteoporosis Performing Lab: Notes/Report: osteoporosis CBC Venipuncture (in house) Reviewed date:03/15/2025 04:10:20 [...] Interpretation: Performing Lab: Notes/Report: Test performed by [facility] [address] [place] [address] , [address], [place] [address] Gabriel Gregory MD, [facility]cher CLIA: [id number] Sodium 141 135-145 mmol/L Potassium 4.9 3.5-5.3 [...] Interpretation:18 Performing Lab: Notes/Report: Test performed by [facility] [address] [place] [address] , [address], [place] [address] Gabriel Gregory MD, Centerpuncher CLIA: [id number] Iron 18 37-145 ug/dL EKG Reviewed date:03/15/2025 04:09:45 PM Interpretation:NSR with frequent SV premature beats Performing Lab: Notes/Report: NSR with frequent SV premature beats CXR Reviewed date:03/15/2025 04:09:18 PM Interpretation:no acute CP disese Performing Lab: Notes/Report: no acute CP disese Covid test (in house) Reviewed date:05/29/2024 09:04:09 [...] - 6.5 % P-Comprehensive Metabolic Pa german ([facility]) Reviewed date:05/07/2024 07:59:27 PM Interpretation: Performing Lab: Notes/Report: CLIA: [id number] Gabriel Gregory MD, [facility]cher [address] [place] [address] , [address], [place] [address] Test performed by [facility] Sodium 139 135-145 mmol/L Potassium 4.6 3.5-5.3 [...] Interpretation: Performing Lab: Notes/Report: Test performed by [facility] [address] [place] [address] , [address], [place] [address] Gabriel Gregory MD, [facility]cher CLIA: [id number] Cholesterol 211 <200 mg/dL Triglycerides 192 <150 [...] Interpretation: Performing Lab: Notes/Report: Test performed by [facility] [address] [place] [address] , [address], [place] [address] Gabriel Gregory MD, [facility]cher CLIA: [id number] Vitamin D 25-Hydroxy 40.1 30.0-100.0 ng/mL Interpretation of Vitamin D 25 OH: < 20 ng/mL - Deficiency 20 - 29 ng/mL - Insufficiency 30 - 100 ng/mL - Sufficiency > 100 ng/mL - Super-therapeutic- toxicity may occur above this level. Clinical correlation required. Urinalysis - Inhouse Reviewed date:05/22/2024 07:54:58 PM Interpretation: Performing Lab: Notes/Report: Color/Clarity yellow/clear Leuk 1+ Nitrite neg Urobili 3.2 Protein 2+ pH 6.0 Blood trace intact Sp. Gr. 1.020 Ketone neg Bili neg Gluc neg P-Culture, Urine Reviewed date:05/25/2024 01:36:17 PM Interpretation: Performing Lab: Notes/Report: Test performed by [facility] [address] [place] [address] [address], [place] [address] Gabriel Gregory MD, [facility] CLIA: [id number] Specimen Source Urine - Void Culture, Urine [...] Tobramycin S Trimeth/Sulfa S S=SUSCEPTIBLE I=INTERMEDIATE R=RESISTANT Hemoccult- IFOBT (in house) Reviewed date:10/27/2024 10:24:51 AM Interpretation: Performing Lab: Notes/Report: results Neg Medications Medication SIG (Take, Route, Frequency, Duration) Notes Start Date End Date Status Feosol Bifera 28 MG 1 tablet Orally Once a day; Duration: 30 day(s) 05/27/2024 Active traMADol HCl 50 MG 1 tab(s) orally ever y 8 hours prn Active Vitamin D3 50 MCG (2000 UT) [...] xFluzone High Dose-private (65yr&older) Unknown 03/11/2019 Administered kCmrckic-bcrojgwpk-letehwa e pts. IM Intramuscular 02/25/2011 Administered xTllvdyg-nuhacgzrb-zplcvvz e pts. IM Intramuscular 02/10/2012 Administered Problems Problem Type SNOMED Code ICD Code Onset Dates Problem Status W/U Status Risk Notes Problem Gastroesophageal reflux disease (931842088) GERD (gastroesophageal reflux disease) (K21.9) Active confirmed Problem Vitamin D deficiency (63038878) Vitamin D deficiency (E55.9) Active confirmed Problem Anemia (107313347) Anemia (D64.9) Active confir med Problem Cardiac dysrhythmia (358762354) Cardiac dysrhythmia (I49.9) Active confirmed Problem Osteoarthritis (060459132) Osteoarthritis (M19.90) Active confirmed Problem Impaired fasting glucose (452609435) Impaired fasting glucose (R73.01) Active confirmed Problem Primary generalised osteoarthritis (590793558) Primary generalized (osteo)arthritis (M15.0) Active confirmed Problem Dysphagia (55343875) Dysphagia (R13.10) Active confirmed Problem Mixed hyperlipidemia (996142010) Mixed hyperlipidemia (E78.2) Active confirmed Problem Presbycusis (61690866) Presbycusis, bilateral (H91.13) Active confirmed Problem Artificial knee joint present (544333408071) Presence of left artificial knee joint (Z96.652) Active confirmed Problem Gastroesophageal reflux disease (650658742) GERD without esophagitis (K21.9) Active confirmed Problem Obese class II (337683021814618) BMI 35.0-35.9,adult (Z68.35) Active confirmed Problem Obesity (264342468) Non morbid o besity due to excess calories (E66.09) Active confirmed Problem History of polyp of colon (situation) (071286447) Hx of colonic polyps (Z86.010) Active confirmed Problem Gastroesophageal reflux disease (554223534) Gastroesophageal reflux disease, esophagitis presence not specified (K21.9) Active confirmed Problem Lumbar spinal stenosis (22189804) Spinal stenosis, lumbar (M48.06) Active confirmed Problem Arthropathy of lumbar facet joint (125167514) Lumbar facet arthropathy (M46.96) Active confirmed Problem Polyarthritis (302117261) Polyarthritis (M13.0) Active confirmed Problem Anemia (452807287) Anemia, unspecified type (D64.9) Active confirmed Problem Rheumatoid arthritis (06392090) Rheumatoid arthritis (M06.9) Active confirmed Problem Rheumatoid arthritis (29551214) Rheumatoid arthritis involving multiple sites, unspecified rheumatoid factor presence (M06.9) Active confirmed Problem Body mass index 30.00 to 34.99 (312535564695054) BMI 34.0-34.9,adult (Z68.34) Active confirmed Problem Sciatica (71615897) 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) Active confirmed Problem Dyslipidemia (959596730) Dyslipidemia (E78.5) Active confirmed Problem Allergic rhinitis caused by pollen (03477057) Seasonal allergic rhinitis due to pollen (J30.1) Active confirmed Problem Aftercare following joint replacement surgery, unspecified joint (Z47.1) Active confirmed Vital Signs Heart Rate 81 /min 03/12/2025 Blood pressure diastolic 60 mm Hg 03/12/2025 Height 63 in 03/12/2025 Blood pressure systolic 102 mm Hg 03/12/2025 Weight 183.2 lbs 03/12/2025 BMI 32.45 kg/m2 03/12/2025 Encounters Encounter Location Date Provider Diagnosis [facility] [address] [place] [id number] 05/04/2024 R Bartolo Yu Cardiac dysrhythmia I49.9 ; Impaired fasting glucose R73.01 ; Dyslipidemia E78.5 ; GERD (gastroesophageal reflux disease) K21.9 ; Iron deficiency E61.1 ; Vitamin D deficiency E55.9 ; Presence of left artificial knee joint Z96.652 ; Rheumatoid arthritis involving multiple sites, unspecified rheumatoid factor presence M06.9 and Presbycusis, bilateral H91.13 [facility] [address] [facility] [address] [place], [place] [id number] 05/22/2024 Urvashi Ibrahim Right shoulder pain M25.511 and Urinary frequency R35.0 [facility] [address] [place], [place] [id number] 05/27/2024 Alfonso [place] Acute UTI N39.0 ; Fever, unspecified R50.9 and Anemia, unspecified type D64.9 [facility] [address] [place], [place] [id number] 05/29/2024 Urvashi Ibrahim Bronchitis J40 [facility] [address] [place] [address] [place] [id number] 10/18/2024 Cecelia Crowdy Bronchitis J40 ; Anemia, unspecified type D64.9 ; Insect bite (nonvenomous) of lower back and pelvis, initial encounter S30.860A ; Bitten or stung by nonvenomous insect and other nonvenomous arthropods, initial encounter W57.XXXA and BMI 34.0-34.9,adult Z68.34 [facility] [address] [place] [id number] 10/20/2024 Cecelia Crowdy Anemia D64.9 [facility] [address] [facility] [address] [place], [place] [id number] 11/09/2024 R Bartolo Yu UTI (lower urinary tract infection) N39.0 ; Screening for osteoporosis Z13.820 ; Dyslipidemia E78.5 ; Rheumatoid arthritis M06.9 and BMI 34.0-34.9,adult Z68.34 [facility] [address] [facility] [address] [place], [place] [id number] 03/12/2025 Urvashi Ibrahim Shortness of breath R06.02 ; Itching L29.9 ; Fatigue 780.79 ; Anemia D64.9 and Iron deficiency E61.1 [facility] [address] [facility] [address] [place] [id number] 05/07/2024 Jordno Yu [facility] [address] [facility] [address] [place], [place] [id number] 05/25/2024 Urvashi Ibrahim [facility] [address] [facility] [address] [place], [place] [id number] 10/20/2024 Cecelia Crowdy Anemia, unspecified type D64.9 [facility] [address] [facility] [address] [place], [place] [id number] 03/15/2025 Urvashi Ibrahim Assessments Encounter Date Diagnosis (ICD Code) Assessment [...] fluids, rest, supportive measures for fever/symptom relief 10/18/2024 Bronchitis (ICD-10 - J40) 10/18/2024 Anemia, unspecified type (ICD-10 - D64.9) 10/20/2024 Anemia, unspecified type (ICD-10 - D64.9) 10/20/2024 Anemia (ICD-10 - D64.9) 11/09/2024 UTI (lower urinary tract infection) (ICD-10 - N39.0) 11/09/2024 Screening for osteoporosis (ICD-10 - Z13.820) 03/12/2025 Shortness of breath (ICD-10 - R06.02) 03/12/2025 Itching (ICD-10 - L29.9) antihistamin of choice 11/09/2024 Dyslipidemia (ICD-10 - E78.5) 03/12/2025 Fatigue (ICD9-CM - 780.79) feel cause may be her persistent anemia; Iron study pending 05/04/2024 Dyslipidemia (ICD-10 - E78.5) 10/18/2024 Insect bite (nonvenomous) of lower back and pelvis, initial encounter (ICD-10 - S30.860A) 05/27/2024 Anemia, unspecified type (ICD-10 - D64.9) Plan to recheck H/H at f/u visit 05/04/2024 GERD (gastroesophageal reflux disease) (ICD-10 - K21.9) 10/18/2024 Bitten or stung by nonvenomous insect and other nonvenomous arthropods, initial encounter (ICD-10 - W57.XXXA) 03/12/2025 Anemia (ICD-10 - D64.9) 11/09/2024 Rheumatoid arthritis (ICD-10 - M06.9) 11/09/2024 BMI 34.0-34.9,adult (ICD-10 - Z68.34) 03/12/2025 Iron deficiency (ICD-10 - E61.1) 10/18/2024 BMI 34.0-34.9,adult (ICD-10 - Z68.34) 05/04/2024 Iron deficiency (ICD-10 - E61.1) 05/04/2024 Vitamin D deficiency (ICD-10 - E55.9) 05/04/2024 Presence of left artificial knee joint (ICD-10 - Z96.652) 05/04/2024 Rheumatoid arthritis involving multiple sites, unspecified rheumatoid factor presence (ICD-10 - M06.9) 05/04/2024 Presbycusis, bilateral (ICD-10 - H91.13) Plan Of Treatment Pending Test Test Name Order Date Hemoccult- IFOBT (in house) 10/18/2024 Event Recorder 03/16/2025 Next Appt Details Provider Name:Urvashi Rosales stacy, 03/26/2025 10:30:00 AM, [address], [address], [place], [id number], Insurance Providers Payer Name Payer Address Payer Phone Subscriber Number Group Number Insured Name Patient Relationship to Insured Coverage Start Date Coverage End Date MEDICARE PART B [address] [address] [place] [address] [id number] NEENA SUTTON Self - patient is the insured [facility] [address] [place] [address] [id number] NEENA SUTTON Self - patient is the [...] Replacement, Left / Dr. Merritt tt 03/2021 right reverse total shoulder TSA 08/18/19 25 Hospitalization History Reason Date(Month/Year) [facility]-right reverse total shoul [place] [facility]SA 08/18/2024
== END 2025-03-19 23:59 | disposition home or self-care (01) ==
LOC: RT 10:53
PROVIDERS: PCP Nurse Practitioner Family; Visit Provider Nurse Practitioner Family
DX: I49.1 Atrial premature depolarization (principal); I49.3 Ventricular premature depolarization; I47.19 Other supraventricular tachycardia; I47.20 Ventricular tachycardia, unspecified; R94.31 Abnormal electrocardiogram [ECG] [EKG]
CPT/HCPCS: 93270

== ENCOUNTER 2025-03-27 08:31 | Outpatient (CLI) | payer MEDICARE, OTHER, SELFPAY ==
--- OUTSIDE RECORDS SUMMARY | 2024-05-29 10:30 | XMS_ITS ---
Author [facility] Address [address] [facility] [address] [place] [place] [phone] Care Team Providers Care Visual Stylist Name Role Phone Alfonso Claire Primary Care Provider Urvashi Ibrahim Unavailable [phone] Allergies Allergen (clinical drug ingredient) Drug/Non Drug Allergy documented on EMR Reaction Allergy Type Onset Date Status gabapentin Neurontin weakness/trouble breathing Drug Allergy Active Substance with 6-wqcvfgj-1-methylg lutaryl-coenzyme A reductase inhibitor mechanism of action [...] 05/29/2024 Encounters Encounter Location Date Provider Diagnosis [facility] [address] [facility] [address] [place] [phone] 05/29/2024 Urvashi Ibrahim Bronchitis J4 0 Assessments [...] Next Appt Details Follow Up: prn, Reason: Provider Name:Urvashi kumar, 04/02/2025 09:45:00 AM, [address] [facility], [address], [place], [phone], Progress Notes * NEENA SUTTONDOB:1945 (80 yo F)Acc No.[id number]:05/29/2024 Progress Notes Patient: NEENA MANZANO Provider: LARISSA Daigle :1945 A ge:79 Y S ex:Female Date:05/29/2024 Address:[address] [place] [address] D[place] J[place], [id number] Pcp:Alfonso Claire Subjective: * Chief Complaints: * [...] with Cancer. M other: 70 yrs, of [place], diagnosed with Heart Disease. P aternal Grand [...] left crackles posteriorly. Assessment: * Assessment: 1. Yolanda Elizabeth (Primary) Plan: * Treatment: * Labs: * [...] G 2211 Complex e/[place], [address] STREP A ASSAY W/OPTIC, Modifiers: QW , 22936 CAPILLARY BLOOD DRAW, 72554 CBC WITH AUTO DIFF * Follow Up: p rn * Images: Billing Information: * Visit Code: 52618 Office Visit, Est Pt., Level 3. * Procedure Codes: G2211 Complex e/[place]. [address] STREP A ASSAY W/OPTIC. Modifiers: QW 43085 CAPILLARY BLOOD DRAW. 83787 CBC WITH AUTO DIFF. 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
--- OUTSIDE RECORDS SUMMARY | 2024-10-18 06:00 | XMS_ITS ---
Author Organization [facility] Address [address] [place] [id number] Care Team Providers Care Cook Fish And Chips Name Role Phone Alfonso Claire Primary Care Provider Cecelia Suazo Unavailable [phone] Allergies Allergen (clinical drug ingredient) Drug/Non Drug Allergy documented on EMR Reaction Allergy Type Onset Date Status gabapentin Neurontin weakness/trouble breathing Drug Allergy Active Substance with 0-udivswa-9-methylg lutaryl-coenzyme A reductase inhibitor mechanism of action [...] Normal Performing Lab: Notes/Report: Test performed by [employer] [employer] [address] [place] [address] , [address], [place] [address] Gabriel Gregory MD, Director Of Instrumental Music CLIA: [id number] Vitamin B12 682 008-0998 pg/mL P-Lyme Disease (B. burgodorf la), IgG/IgM, SOILA, Serum Reviewed date:10/20/2024 12:06:10 PM Interpretation: Normal Performing Lab: Notes/Report: Test performed by [facility] , [facility], [place] [address] Gabriel Gregory MD, Director Of Instrumental Music CLIA: [id number] B burgdorferi (Lyme Disease) IgG Negative Negative B burgdorferi (Lyme Disease) IgM Negative Negative P-Folate Reviewed date:10/20/2024 12:06:10 PM Interpretation: Normal Performing Lab: Notes/Report: Test performed by [facility] [employer] , [facility], [place] [address] Gabriel Gregory MD, Director Of Instrumental Music CLIA: [id number] Folate 18.40 >4.59 ng/mL P-Ferritin Reviewed date:10/20/2024 12:06:10 PM Interpretation: Normal Performing Lab: Notes/Report: [facility] , [address], [place] [address] Gabriel Gregory MD, Director Of Instrumental Music CLIA: [id number] Ferritin 15.2 13.0-301.0 ng/mL P-Iron Reviewed date:10/20/2024 12:06:10 PM Interpretation:29 Performing Lab: Notes/Report: [facility] , [facility] [place] [address] Gabriel Gregory MD, Director Of Instrumental Music CLIA: [id number] Iron 29 37-145 ug/dL P-Vitamin D 25-Hydroxy Reviewed date:10/20/2024 12:06:10 PM Interpretation: Normal Performing Lab: Notes/Report: [facility], [facility], [place] [address] Gabriel Gregory MD, Director Of Instrumental Music CLIA: [id number] Vitamin D 25-Hydroxy 36.7 30.0-100.0 ng/mL Interpretation [...] 30 day(s) 05/27/2024 Active Vital Signs Weight 193.0 lbs 10/18/2024 Blood pressure systolic 128 mm Hg 10/19/19 25 Blood pressure diastolic 72 mm Hg 025 Heart Rate 81 /min 10/18/2024 Height 63 in 10/18/2024 BMI 34.18 kg/m2 10/18/2024 Encounters Encounter Location Date Provider Diagnosis [facility] [address], [place] [id number] 10/18/2024 Cecelia Crowdy Bronchitis J40 ; Ane [...] phone to repo rt test results, Reason: Provider Name:Urvashi santossavana, 04/02/2025 09:45:00 AM, [address] [facility] 36 [facility], [address], [place], [place], [phone], Progress Notes * LOI NEENADOB:1945 (80 yo F)Acc No.[id number]:10/18/2024 Progress Notes Patient: NEENA MANZANO Provider: AUGIE Felix :1945 A ge:79 Y S ex:Female Date:10/18/2024 Address:[address] [place] [address], [place], [id number] Pcp:Alfonso Claire Subjective: * Chief Complaints: * [...] with Cancer. M other: 70 yrs, of [place], diagnosed with Heart Disease. P aternal Grand [...] mid back. Assessment: * Assessment: 1. B malissatis - J40 (Primary) 2 . A nemia, unspecified type - D64.9 ? 3 . I nsect bite (nonvenomous) of lower back and pelvis, initial encounter - S30.860A? 4. B itten or stung by nonvenomous insect and other nonvenomous arthropods, initial encounter - W57.XXXA 5 . B [place] 34.0-34.9,adult - Z68.34 Plan: * Treatment: Value [...] AM)?Normal* Value Reference Range V itamin B12 568 339-6734 - pg/mL * Cassi De La O [...] G 2211 Complex e/[place], [address] Flu Test- Nasal Swab, Modifiers: QW , 74793 CAPILLARY BLOOD DRAW, 68165 CBC WITH AUTO DIFF, 3074F SYST BP LT 130 MM HG, 3078F DIAST BP < 80 MM HG * Follow Up: v ia phone to report test results * Images: Billing Information: * Visit Code: 27814 Office Visit, Est Pt., Level 4. * Procedure Codes: G2211 Complex e/[place]. [address] Flu Test- Nasal Swab. Modifiers: QW 21873 CAPILLARY BLOOD DRAW. 81823 CBC WITH AUTO DIFF. 3074F SYST BP LT 130 MM HG. 3078F DIAST BP < 80 MM HG. * Electronic signature of AUGIE Douglas on 03/27/2025 at 08:46 AM EDT Sign off status: Pending * Provider: AUGIE Felix Date: 0 10/18/2024 Generated for Florinda ng/Fayfng/eTransmitting on: 1 08:46 AM EDT History and [...]
--- OUTSIDE RECORDS SUMMARY | 2024-10-20 11:05 | XMS_ITS ---
Author Organization [facility] Address [address] [place] [phone] Care Team Providers Care Medical Nurse Name Role Phone Alfonso Claire Primary Care Provider Cecelia Suazo Unavailable [phone] Results Component Value Reference Range Notes Hemoccult- [...] Provider Diagnosis Sal [address] [facility] [address] [place] [id number] 10/20/2024 Cecelia Lakeisha Anemia D64.9 Assessments Encounter Date Diagnosis (ICD Code) Assessment Notes Treatment Notes Treatment Clinical Notes Section Notes 10/20/2024 Anemia (ICD-10 - D64.9) Plan Of Treatment Next Appt Details Provider Name:Urvashi kumar, 04/02/2025 09:45:00 AM, [address] [facility], [address], [place], [phone], Progress Notes * NEENA SUTTONDOB:1945 (80 yo F)Acc No.[id number]:10/20/2024 Patient: NEENA MANZANO Provider: AUGIE Felix :1945 A ge:79 Y S ex:Female Date:10/20/2024 Address:[address] [place] [address], [place], [id number] Pcp:Alfonso Claire Subjective: * Chief Complaints: [...] Information: * Visit Code: * Procedure Codes: 18401 ASSAY TEST FOR BLOOD, FECAL. Modifiers: QW * Electronic signature of AUGIE Douglas on 03/27/2025 at 08:47 AM EDT Sign off status: Pending * Provider: AUGIE Felix Date: 0 10/20/2024 Generated for Florinda phan/Johnie/Paula on: 1 08:47 AM EDT
--- OUTSIDE RECORDS SUMMARY | 2024-11-09 11:45 | XMS_ITS ---
Author Organization [facility] Address [address] [facility] [address] [place] [phone] Care Team Providers Care Airplane Charter Clerk Name Role Phone Alfonso Claire Primary Care Provider [phone] Jordon Yu [phone] Allergies Allergen (clinical drug ingredient) Drug/Non Drug Allergy documented on EMR Reaction Allergy Type Onset Date Status gabapentin Neurontin weakness/trouble breathing Drug Allergy Active Substance with 1-ludyood-1-methylg lutaryl-coenzyme A reductase inhibitor mechanism of action [...] Growth Performing Lab: Notes/Report: Test performed by [facility] [address] [place] [address] , [address], [place] [address] Gabriel Gregory MD, Patient Assistant CLIA: [id number] Specimen Source Urine - Void Culture, Urine [...] Encounter Location Date Provider Diagnosis [facility] [address] [id number] 11/09/2024 Jordon Yu UTI (lower urinary tract [...] repo rt test results, Reason: Provider Name:Urvashi kumar, 04/02/2025 09:45:00 AM, [address], [address], [place], [place], [id number], Progress Notes * NEENA SUTTONDOB:1945 (80 yo F)Acc No.[id number]:11/09/2024 Progress Notes Patient: NEENA MANZANO Provider: Jordon Yu M.D. :1945 A ge:79 Y S ex:Female Date:11/09/2024 Address:[address] [place] [address], [place], [place] Pcp:Alfonos Claire Subjective: * Chief Complaints: * 1 . Referral for bone density. * HPI: R heumatology: She continues to follow with rheumatology for her rheumatoid arthritis. They have requested that she have a bone density test but she did not want to return to [place] for the study and would like to have it arranged at [facility]. U rology: She recently started with urinary [...] heumatoid arthritis - M06.9 5 . B [place] 34.0-34.9,adult - Z68.34 Plan: * Treatment: Value [...] 11/10/2024 08:2 1:07 AM > faxed to [facility] Jordon Tinoco 12/28/2024 05:22:10 PM EDT > please fax this report to her dry heat room attendant, Cassi Calderon 01/19/2025 11:28:32 AM EDT > faxed report to [phone] * Procedure Codes: G 2211 Complex e/[place], [address] Urinalysis, no micro, 3074F SYST BP LT 130 MM HG, 3078F DIAST BP < 80 MM HG * Follow Up: v ia phone to report test results * Images: Billing Information: * Visit Code: 53017 Office Visit, Est Pt., Level 4. * Procedure Codes: G2211 Complex e/[place]. [address] Urinalysis, no micro. 3074F SYST BP LT 130 MM HG. 3078F DIAST BP < 80 MM HG. * Electronic signature of Jordon Yu MD on 03/27/2025 at 08:46 AM EDT Sign off status: Pending * Provider: Jordon Yu M.D. Date: 0 11/09/2024 Generated for Florinda phan/Johnie/eTransmitting on: 1 08:46 AM EDT History and [...] she did not want to return to [place] for the study and would like to have it arranged at [facility]. Examination Category Sub-Category Detail Notes Category Not es General Examination Abdomen: soft , not d istended , soft and nontender , no CVA tenderness General Appearance: NAD
--- OUTSIDE RECORDS SUMMARY | 2025-03-12 09:45 | XMS_ITS ---
Author Organization [facility] Address [address] [place] [phone] Care Team Providers Care Operator Vacuum Name Role Phone Alfonso Claire Primary Care Provider Urvashi Ibrahim Unavailable [phone] Allergies Allergen (clinical drug ingredient) Drug/Non Drug Allergy documented on EMR Reaction Allergy Type Onset Date Status gabapentin Neurontin weakness/trouble breathing Drug Allergy Active Substance with 5-hqnlpis-1-methylg lutaryl-coenzyme A reductase inhibitor mechanism of action [...] Interpretation: Performing Lab: Notes/Report: Test performed by [facility], [facility] [address] [place] [address] , [address], [place] [address] Gabriel Gregory MD, Applications Development Consultant CLIA: [id number] Sodium 141 135-145 mmol/L Potassium 4.9 3.5-5.3 [...] Interpretation:18 Performing Lab: Notes/Report: Test performed by [employer], [facility] [address] [place] [address] , [address], [place] [address] Gabriel Gregory MD, Applications Development Consultant CLIA: [id number] Iron 18 37-145 ug/dL EKG Reviewed date:03/15/2025 [...] Status W/U Status Risk Notes Problem Anemia (544064934) Anemia (D64.9) Active confirmed Vital Signs Weight 183.2 lbs 03/12/2025 Blood pressure systolic 102 mm Hg 03/12/20 25 Blood pressure diastolic 60 mm Hg 025 Heart Rate 81 /min 03/12/2025 Height 63 in 03/12/2025 BMI 32.45 kg/m2 03/12/2025 Encounters Encounter Location Date Provider Diagnosis [facility] [address] [facility] [address] [facility] [address] [place] [phone] 03/12/2025 Urvashi Rosalesond Shortness of breath R06.02 ; Itching L29.9 [...] Treatment Notes Assessment Notes Itching antihistamin of ahsraf ce Other feel cause may be he r persistent anemia; Iron study pending Next Appt Details Follow Up: 1 Week, Reason: Provider Name:Urvashi kumar, 04/02/2025 09:45:00 AM, [address] [facility] [address] [facility], [address], [place], [place], [phone], Progress Notes * NEENA SUTTONDOB:1945 (80 yo F)Acc No.[id number]:03/12/2025 Progress Notes Patient: NEENA MANZANO Provider: LARISSA Daigle :1945 A ge:80 Y S ex:Female Date:03/12/2025 Address:[address] [place] [address], [id number] Pcp:Alfonso Claire Subjective: * Chief Complaints: * [...] OK; nothing tastes right; did go to [employer] last week and walked alot; shortness of [...] Nocturia. * ROS: G ASTROENTEROLOGY: Positive for abelino ast colonoscopy 2022/Dr Santana and was negative; [...] 08/18/2024. * Hospitalization/Major Diagno stic Procedure: B [facility]-right reverse total shoulder TSA 08/18/2024. * Family History: F ather: 54 yrs, diagnosed with Cancer. M other: 69 yrs, of [place], diagnosed with Heart Disease. 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 * Procedure Codes: G2211 Complex e/[place]. [address] CBC WITH AUTO DIFF. 86081 VENIPUNCT, ROUTINE*. 1036F TOBACCO NON-USER. G8783 BP [...] 03/12/2025 Generated for Florinda phan/Johnie/Paula on: 1 08:46 [...]
[2025-03-27] MEDS: IRON SUCROSE COMPLEX 200 MG in 0.9 % SODIUM CHLORIDE 100 ML 220 MG IV (08:45)
--- OUTSIDE RECORDS SUMMARY | 2025-03-27 08:46 | XMS_ITS | Clinical Summary ---
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 (ICD-10-CM ) Active Hoa Levi 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 Medications Medication Instructions Start Date Stop Date Generic Name ND Provider RIFAMPIN 300 MG CAPS 2 by mouth daily 4 months RIFAMPIN [id number] David Jordan MD FLUCONAZOLE 150 MG TABS TAKE ONE TABLET BY MOUTH A ONE TIME DOSE 01/25 FLUCONAZOLE [id number] Douglas Echeverria CELECOXIB 200 MG CAPS TAKE 1 CAPSULE BY MOUTH TWICE DAILY FOR 30 DAYS 12/05 CELECOXIB [id number] Douglas D VITAMIN D (ERGOCALCIFEROL) 1.25 MG (62586 UT) CAPS TAKE 1 CAPSULE BY MOUTH ONCE A WEEK 03/20 ERGOCALCIFEROL 52797515613 Douglas Echeverria VASCEPA 1 GM CAPS TAKE 2 CAPSULES BY MOUTH TWICE DAILY 01/30 ICOSAPENT ETHYL [id number] Douglas Echeverria FLUZONE HIGH-DOSE QUADRIVALENT 0.7 ML INTRAMUSCULAR SUSPENSION PREFILLED SYRINGE PHARMACIST ADMINISTERED IMMUNIZATION ADMINISTERED AT TIME OF DISPENSING 02/22 INFLUENZA VAC HIGH-DOSE QUAD [id number] Douglas D ESOMEPRAZOLE MAGNESIUM 40 MG CPDR TAKE 1 CAPSULE BY MOUTH ONCE DAILY 10/18 ESOMEPRAZOLE MAGNESIUM [id number] Douglas D TRAMADOL HCL 50 MG TABS TAKE 1 TABLET BY MOUTH 4 TIMES DAILY NEEDED 03/07 TRAMADOL HCL 08175047509 Douglas D MELOXICAM 15 MG TABS TAKE 1 TABLET BY MOUTH ONCE DAILY 02/21 MELOXICAM [id number] Douglas D HYDROXYCHLOROQUINE SULFATE 200 MG TABS TAKE 1 TABLET BY MOUTH TWICE DAILY 03/20 HYDROXYCHLOROQUINE SULFATE 15612125514 Douglas D Medications Administered No information available. [...] STAT Labs CPT-Cooral Continue oral antibiotics 11/07/19 CPT-28279 CMP [id number] CBC with Differential 2019 CPT-Cooral Continue oral antibiotics 09/06/16 CPT-sl STAT Labs CPT-91683 CMP [id number] CBC with Differential 2019 CPT-[facility]ooral Continue oral antibiotics 10/05/18 CPT-sl STAT Labs CPT-69038 CMP [id number] CBC with Differential 2019 CPT-95095 C- reactive protein CPT-farzaneh New Oral Antibiotic [...]
--- OUTSIDE RECORDS SUMMARY | 2025-03-27 08:47 | XMS_ITS | Referral Summary ---
Author Organization [employer] ([place], [place]) Address [address] [place] [address] Care Team Providers Care Classroom Assistant Name Role Phone Unavailable Primary Care Provider [...]
--- OUTSIDE RECORDS SUMMARY | 2025-03-27 08:47 | XMS_ITS | Patient Health Record ---
Author Organization [facility] Address [address] [place] [id number] Care Team Providers Care Long Term Care Pharmacist Name Role Phone Alfonso Claire Primary Care Provider Jordon Yu Unavailable [phone] Urvashi Ibrahim Unavailable [phone] Cecelia Suazo Unavailable [phone] Allergies Allergen (clinical drug ingredient) Drug/Non Drug Allergy documented on EMR Reaction Allergy Type Onset Date Status gabapentin Neurontin weakness/trouble breathing Drug Allergy Active Substance with 9-obvtxqf-1-methylg lutaryl-coenzyme A reductase inhibitor mechanism of action [...] Normal Performing Lab: Notes/Report: Test performed by [facility] [address] [place] [address] , [address], [place] [address] Gabriel Gregory MD, Floor Layer Helper CLIA: [id number] Vitamin B12 892 329-3447 pg/mL P-Lyme Disease (B. burodetterf la), IgG/IgM, SOILA, Serum Reviewed date:10/20/2024 12:06:10 PM Interpretation: Normal Performing Lab: Notes/Report: Test performed by [facility] [address] , [address], [place] [address] Gabriel Gregory MD, Floor Layer Helper CLIA: [id number] B burgdorferi (Lyme Disease) IgG Negative Negative B burgdorferi (Lyme Disease) IgM Negative Negative P-Folate Reviewed date:10/20/2024 12:06:10 PM Interpretation: Normal Performing Lab: Notes/Report: Test performed by [facility] [address] [place] [address] , [address], [place] [address] Gabriel Gregory MD, Floor Layer Helper CLIA: [id number] Folate 18.40 >4.59 ng/mL P-Ferritin Reviewed date:10/20/2024 12:06:10 PM Interpretation: Normal Performing Lab: Notes/Report: Test performed by [facility] [address] [place] [address] [address], [address], [place] [address] Gabriel Gregory MD, Floor Layer Helper CLIA: [id number] Ferritin 15.2 13.0-301.0 ng/mL P-Iron Reviewed date:10/20/2024 12:06:10 PM Interpretation:29 Performing Lab: Notes/Report: Test performed by [facility], [address] , [address], [place] [address] Gabriel Gregory MD, Floor Layer Helper CLIA: [id number] Iron 29 37-145 ug/dL P-Vitamin D 25-Hydroxy Reviewed date:10/20/2024 12:06:10 PM Interpretation: Normal Performing Lab: Notes/Report: Test performed by [facility] [address] [place] [address] , [address], [place] [address] Gabriel Gregory MD, Floor Layer Helper CLIA: [id number] Vitamin D 25-Hydroxy 36.7 30.0-100.0 ng/mL Interpretation [...] Growth Performing Lab: Notes/Report: Test performed by [facility] [address] [place] [address] , [address], [place] [id number] Gabriel Gregory MD, Floor Layer Helper CLIA: [id number] Specimen Source Urine - Void Culture, Urine [...] Interpretation: Performing Lab: Notes/Report: Test performed by [facility] [address] [place] [address] , [address], [place] [address] Gabriel Gregory MD, Floor Layer Helper CLIA: [id number] Sodium 141 135-145 mmol/L Potassium 4.9 3.5-5.3 [...] Interpretation:18 Performing Lab: Notes/Report: Test performed by [facility] [address] [place] [address] , [address], [place] [address] Gabriel Gregory MD, Floor Layer Helper CLIA: [id number] Iron 18 37-145 ug/dL EKG Reviewed date:03/15/2025 04:09:45 PM Interpretation:NSR with frequent SV premature beats Performing Lab: Notes/Report: NSR with frequent SV premature beats CXR Reviewed date:03/15/2025 04:09:18 PM Interpretation:no acute CP disese Performing Lab: Notes/Report: no acute CP disese P-Culture, Urine Reviewed date:05/25/2024 01:36:17 PM Interpretation: Performing Lab: Notes/Report: Test performed by [facility] [address] [place] [address] , [address], [place] [address] Gabriel Gregory MD, Floor Layer Helper CLIA: [id number] Specimen Source Urine - Void Culture, Urine [...] 1.020 Ketone neg Bili neg Gluc neg Glycohemoglobin A1c (in hous e) Reviewed date:05/07/2024 07:59:27 PM Interpretation:6.1% Performing Lab: Notes/Report: 6.1% glycohemoglobin 6.1% 5 - 6.5 % P-Comprehensive Metabolic Pa german (CMP) Reviewed date:05/07/2024 07:59:27 PM Interpretation: Performing Lab: Notes/Report: CLIA: [id number] Gabriel Gregory MD, Floor Layer Helper [address] [place] [address] , [address], [place] [address] Test performed by [facility] Sodium 139 135-145 mmol/L Potassium 4.6 3.5-5.3 [...] Interpretation: Performing Lab: Notes/Report: Test performed by [facility] [address] [place] [address] , [address], [place] [address] Gabriel Gregory MD, Floor Layer Helper CLIA: [id number] Cholesterol 211 <200 mg/dL Triglycerides 192 <150 [...] Interpretation: Performing Lab: Notes/Report: Test performed by [facility] [address] [place] [address] , [place] [address] Gabriel Gregory MD, Floor Layer Helper CLIA: [id number] Vitamin D 25-Hydroxy 40.1 30.0-100.0 ng/mL Interpretation of Vitamin D 25 [place]: < 20 ng/mL - Deficiency 20 - 29 ng/mL - Insufficiency 30 - 100 ng/mL - Sufficiency > 100 ng/mL - Super-therapeutic- toxicity may occur above this level. Clinical correlation required. Hemoccult- IFOBT (in house) Reviewed date:10/27/2024 10:24:51 AM Interpretation: Performing Lab: Notes/Report: results Neg Influenza Screen (in house) Reviewed date:05/29/2024 09:03:54 [...] AM Interpretation: Performing Lab: Notes/Report: Result: Neg Medications Medication SIG (Take, Route, Frequency, [...] Vaccine Route Administration Date Status Comme nts nRauurgu-hpuuxojdo-dzwtrve e pts. IM Intramuscular 02/25/2011 Administered cWfrafoy-fnbubofck-dsmmgln e pts. IM Intramuscular 02/10/2012 Administered xFluzone High Dose-private (65yr&older) Unknown 03/01/2017 Administered xFluzone High Dose-private (65yr&older) Unknown 03/11/2019 Administered xFluzone High Dose-private (65yr&older) Unknown 03/19/2025 Administered xFluzone (6mos and older)-trivalent IM Intramuscular [...] Status Risk Notes Problem Gastroesophageal reflux disease (609767046) GERD (gastroesophageal reflux disease) (K21.9) Active confirmed Problem Vitamin D deficiency (04078084) Vitamin D deficiency (E55.9) Active confirmed Problem Anemia (304239264) Anemia (D64.9) Active confir med Problem Cardiac dysrhythmia (928873269) Cardiac dysrhythmia (I49.9) Active confirmed Problem Osteoarthritis (508983478) Osteoarthritis (M19.90) Active confirmed Problem Impaired fasting glucose (537892988) Impaired fasting glucose (R73.01) Active confirmed Problem Primary generalised osteoarthritis (700896862) Primary generalized (osteo)arthritis (M15.0) Active confirmed Problem Dysphagia (89008001) Dysphagia (R13.10) Active confirmed Problem Mixed hyperlipidemia (832510531) Mixed hyperlipidemia (E78.2) Active confirmed Problem Presbycusis (32529594) Presbycusis, bilateral (H91.13) Active confirmed Problem Artificial knee joint present (698295562049) Presence of left artificial knee joint (Z96.652) Active confirmed Problem Gastroesophageal reflux disease (668269047) GERD without esophagitis (K21.9) Active confirmed Problem Obese class II (793447720696894) BMI 35.0-35.9,adult (Z68.35) Active confirmed Problem Obesity (201943480) Non morbid o besity due to excess calories (E66.09) Active confirmed Problem History of polyp of colon (situation) (219560662) Hx of colonic polyps (Z86.010) Active confirmed Problem Gastroesophageal reflux disease (857237324) Gastroesophageal reflux disease, esophagitis presence not specified (K21.9) Active confirmed Problem Lumbar spinal stenosis (52527244) Spinal stenosis, lumbar (M48.06) Active confirmed Problem Arthropathy of lumbar facet joint (947198402) Lumbar facet arthropathy (M46.96) Active confirmed Problem Polyarthritis (948679998) Polyarthritis (M13.0) Active confirmed Problem Anemia (485934816) Anemia, unspecified type (D64.9) Active confirmed Problem Rheumatoid arthritis (32012089) Rheumatoid arthritis (M06.9) Active confirmed Problem Rheumatoid arthritis (53765744) Rheumatoid arthritis involving multiple sites, unspecified rheumatoid factor presence (M06.9) Active confirmed Problem Body mass index 30.00 to 34.99 (612810172814353) BMI 34.0-34.9,adult (Z68.34) Active confirmed Problem Sciatica (24483574) 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) Active confirmed Problem Dyslipidemia (784603143) Dyslipidemia (E78.5) Active confirmed Problem Allergic rhinitis caused by pollen (46169590) Seasonal allergic rhinitis due to pollen (J30.1) [...] Provider Diagnosis [facility] [address] [facility] [address] [place], [place] [id number] 05/04/2024 Jordon Yu Cardiac dysrhythmia I49.9 ; Impaired fasting glucose R73.01 ; Dyslipidemia E78.5 ; GERD (gastroesophageal reflux disease) K21.9 ; Iron deficiency E61.1 ; Vitamin D deficiency E55.9 ; Presence of left artificial knee joint Z96.652 ; Rheumatoid arthritis involving multiple sites, unspecified rheumatoid factor presence M06.9 and Presbycusis, bilateral H91.13 [facility] [address] [facility] [address] [place], [place] [id number] 05/22/2024 Urvashi Ibrahim Right shoulder pain M25.511 and Urinary frequency R35.0 [facility] [address] [facility] [address] [place], [place] [id number] 05/27/2024 Alfonso Fromberg Acute UTI N39.0 ; Fever, unspecified R50.9 and Anemia, unspecified type D64.9 [facility] [address] [facility] [address] [place], [place] [id number] 05/29/2024 Urvashi Ibrahim Bronchitis J40 [facility] [address] [facility] [address] [place], [place] [id number] 10/18/2024 Cecelia Crowdy Bronchitis J40 ; Anemia, unspecified type D64.9 ; Insect bite (nonvenomous) of lower back and pelvis, initial encounter S30.860A ; Bitten or stung by nonvenomous insect and other nonvenomous arthropods, initial encounter W57.XXXA and BMI 34.0-34.9,adult Z68.34 [facility] [address] [facility] [address] [place], [place] [id number] 10/20/2024 Cecelia Crowdy Anemia D64.9 [facility] [address] [facility] [address] [place], [place] [id number] 11/09/2024 R Bartolo Yu UTI (lower urinary tract infection) N39.0 ; Screening for osteoporosis Z13.820 ; Dyslipidemia E78.5 ; Rheumatoid arthritis M06.9 and BMI 34.0-34.9,adult Z68.34 [facility] [address] [facility] [address] [place], [place] [id number] 03/12/2025 Urvashi Ibrahim Shortness of breath R06.02 ; Itching L29.9 ; Fatigue, unspecified type R53.83 ; Anemia D64.9 and Iron deficiency E61.1 [facility] [address] [facility] [address] [place], [place] [id number] 05/07/2024 Jordon Yu [facility] [address] [facility] [address] [place], [place] [id number] 05/25/2024 Urvashi Rosalesond [facility] [address] [facility] [address] [place], [place] [id number] 10/20/2024 Cecelia Crowdy Anemia, unspecified type D64.9 [facility] [address] [place], [place] [id number] 03/15/2025 Urvashi Ibrahim Assessments Encounter Date Diagnosis [...] 03/12/2025 Fatigue, unspecified type (ICD-10 - R53.83) 11/09/2024 Dyslipidemia (ICD-10 - E78.5) 10/18/2024 Insect [...] M06.9) 05/04/2024 Presbycusis, bilateral (ICD-10 - H91.13) 03/12/2025 Other feel cause may be her persistent anemia; Iron study pending Plan Of Treatment Pending Test Test Name Order Date Hemoccult- IFOBT (in house) 10/18/2024 Event Recorder 03/16/2025 Next Appt Details Provider Name:Urvashi kumar, 04/02/2025 09:45:00 AM, [address], [address], [place], [id number], Insurance Providers Payer Name Payer Address Payer Phone Subscriber Number Group Number Insured Name Patient Relationship to Insured Coverage Start Date Coverage End Date MEDICARE PART B [address] [address] [place] [id number] [phone] [id number] NEENA SUTTON Self - patient is the insured [facility] [address] [place] [id number] LOI NEENA Self - patient is the insured Medications [...] TSA 08/18/19 25 Hospitalization History Reason Date(Month/Year) [facility]-right reverse total shoul geneva TSA 08/18/2024
--- OUTSIDE RECORDS SUMMARY | 2025-03-27 08:47 | XMS_ITS | Clinical Summary ---
[facility] Organization [facility] Address [address] [place] [address] Care Team Providers Care Dispatcher Tugboat Name Role Phone Gagan Yu MD Primary [...] tried include: She saw Dr. Jameel Ryan (Bag [place]cher) in 2007, Tylenol, etodolac, indomethacin, Celebrex, ibuprofen, shoulder injection, back surgery, she has done some physical therapy, prednisone, gabapentin, She saw Dr. Randolph (Bag Patcher), she saw Dr. Perera (Bag Patcher), cortisone injections in her knees, meloxicam, Plaquenil, [...] tried include: She saw Dr. Jameel Ryan (Bag Patcher) in 2007, Tylenol, etodolac, indomethacin, Celebrex, ibuprofen, shoulder injection, back surgery, she has done some physical therapy, prednisone, gabapentin, She saw Dr. Randolph (Bag Patcher), she saw Dr. Perera (Bag Patcher), cortisone injections in her knees, meloxicam, Plaquenil, [...] tried include: She saw Dr. Jameel Ryan (Bag Patcher) in 2007, Tylenol, etodolac, indomethacin, Celebrex, ibuprofen, shoulder injection, back surgery, she has done some physical therapy, prednisone, gabapentin, She saw Dr. Randolph (Bag Patcher), she saw Dr. Perera (Bag Patcher), cortisone injections in her knees, meloxicam, Plaquenil, [...] Department Care Team Description 01/22/2025 Results Follow-Up [facility] [address] [place] [phone] Mor Dash DO from Last 3 [...] or training? Not on file Preferred Language Albanian 08/08/2024 Comments No Sex and Gender Information [...] Description 04/19/2025 3:45 PM EDT Office Visit [facility] [address] [place] [phone] Mor Dash, [address] [place] [address] Health Maintenance Due Date Last Done Comments [...] 08/11/2024, 10/2020 Medical Devices Implanted Type Area Digital Publishing Specialist Device Identifier Shelf Expiration Date Model / Serial / Lot Pat Triath Tritanium [id number] - [id number] Implanted:Qt y: 1 on 04/02/2021 by Jonathon Tobin MD at [facility] Implant Left: Knee MARIANELA KAELA 01/18/2026 [id number] / / [id number] Comp Fem Triath Cr Cmtls Sz4 Lt - [id number] Implanted:Qt y: 1 on 04/02/2021 by Jonathon Tobin MD at [facility] Implant Left: Knee MARIANELA KAELA 08/30/2025 [id number] / / [id number] Baseplt Tib Triath Tritanium Sz5 - [id number] Implanted:Qt y: 1 on 04/02/2021 by Jonathon Tobin MD at [facility] Implant Left: Knee MARIANELA KAELA 12/08/2025 [id number] / / [id number] Insrt Tib/Kn Triathlon Condy/Stbl X3 Sz5 9mm - [id number] Implanted:Qt y: 1 on 04/02/2021 by Jonathon Tobin MD at [facility] Implant Left: Knee MARIANELA KAELA 01/06/2026 [id number] / / [id number] Dev Contrl Tiss Stratafix Spiral Pdo Bidir 1 [id number] - [id number] Implanted:Qt y: 1 on 04/02/2021 by Jonathon Tobin MD at [facility] Implant Left: Knee [employer] ENDO SURG[employer] DIV OF J AND J [id number] / / Cap Total Kn Cmtls 4 Pc - [id number] Implanted:Qt y: 1 on 04/02/2021 by Jonathon Tobin MD at [facility] Implant Left: Knee MARIANELA KAELA CAPKNCEMENTLESS4 P IECE / / Baseplt Shldr Aequalis 1/2 Wedge Aug 35d 25mm - [id number] - [id number] Implanted:Qt y: 1 on 08/18/2024 by Marcelo Howard MD at [facility] Implant Right: Shoulder TORNIER [id number] 11/26/2027 [id number] / [id number] / LR Glenosphere Shldr Aequalis Perform Lat Pls3mm 36mm - [id number] - [id number] Implanted:Qt y: 1 on 08/18/2024 by Marcelo Howard MD at [facility] Implant Right: Shoulder TORNIER [id number] 10/17/2028 [id number] / [id number] / Scrw Aequalis Perform Centrl 6.5x30mm - [id number] Implanted:Qt y: 1 on 08/18/2024 by Marcelo Howard MD at [facility] Implant Right: Shoulder TORNIER [id number] / / N/A Scrw Aequalis Perform Periph 5x22mm - [id number] Implanted:Qt y: 2 on 08/18/2024 by Marcelo Howard MD at [facility] Implant Right: Shoulder TORNIER [id number] / / N/A Scrw Aequalis Perform Periph 5x30mm - [id number] Implanted:Qt y: 1 on 08/18/2024 by Marcelo Howard MD at [facility] Implant Right: Shoulder TORNIER [id number] / / N/A Scrw Periph 5x34mm - [id number] Implanted:Qt y: 1 on 08/18/2024 by Marcelo Howard MD at [facility] Implant Right: Shoulder TORNIER [id number] / / N/A Insrt Hum/Shldr Rev Preform Sz1/2 Pls0 10deg 36mm - [id number] - [id number] Implanted:Qt y: 1 on 08/18/2024 by Marcelo Howard MD at [facility] Implant Right: Shoulder TORNIER [id number] 06/08/2028 [id number] / [id number] / Stem Hum/Shldr Preform Lng Pls Sz2 [id number] - [id number] - [id number] Implanted:Qt y: 1 on 08/18/2024 by Marcelo Howard MD at [facility] Implant Right: Shoulder TORNIER [id number] 01/26/2029 [id number] / [id number] / Cp Totl Rev Shldr Perform Stem Rsa Perf Rev Lat/Aug - [id number] Implanted:Qt y: 1 on 08/18/2024 by Marcelo Howard MD at [facility] Implant Right: Shoulder TORNIER CAPTORNIERTOTLSH L DREVPERFSTEMRSAPE RFLATAUG / / Cp Shldr Modifier Lng Stem - [id number] Implanted:Qt y: 1 on 08/18/2024 by Marcelo Howard MD at [facility] Implant Right: Shoulder TORNIER CAPTORNIERSHLDRM O DLONGSTEM / / Hemost Abs Surgicel Orig 4x8in Strl - [id number] Implanted:Qt y: 1 on 08/18/2024 by Marcelo Howard MD at [facility] Implant Right: Shoulder ETHICON DIV OF J AND J [id number] 12/18/2028 [id number] / / [id number] Back Hardware From Spinal Surgery Explanted Type Area Digital Publishing Specialist Device Identifier Shelf Expiration Date Model / Serial / Lot Guidepin Hum Preform [id number] - [id number] Explanted:Qty : 1 on 08/18/2024 by Marcelo Howard MD at [facility] Implant Right: Shoulder TORNIER [id number] 06/09/2029 [id number] / / [id number] Procedures Procedure Name Priority Date/Time Associated Diagnosis [...] Payer (Ef fective 2011-Present) Name:Lona Sutton Member ID:[id number] Relation to Subscriber:Self Name:Lona Sutton Subscriber ID:[id number] Payer ID:[id number] Group ID:Not on file Type:Not on file Address: [address] [place] [id number] [facility] Advance Directives * CPR (Attempt to Resuscitate) (Latest Code Status on File) Date Activated Date Inactivated Comments 04/02/2021 2:08 PM 04/02/2021 8:10 PM Question Answer Comments Code Status (Patient has no pulse and is not breathing): CPR (Attempt to Resuscitate) Medical Interventions (Patie nt has pulse or is breathing): Full Healthcare Agents on File Name Relationship Healthcare Agent [facility] p Communication [facility] Surrogate Care Teams Dispatcher Tugboat Relationship Specialty Start Date End Date Gagan Yu MD [address] [place] [address] [address] [facility] [address] [place] [address] PCP - General Family Medicine 07/10/20
--- OUTSIDE RECORDS SUMMARY | 2025-03-27 08:48 | XMS_ITS | Clinical Summary ---
Author Organization [employer] ([place], [place], [place], [place]) Address [address] [place] [address] Care Team Providers Care Casting Operator Helper Name Role Phone Unavailable Primary Care Provider [...] (2 of 2 - PCV) 04/25/2022 04/25/2021 Falls Risk Screening 06/21/2024 COVID-19 VACCINE (5 - 2024-2 6 season) 2025 05/30/2021, 08/21/2020, 08/08/2020, Additional history exists Influenza Vaccine (#1) 2025 3, 04/25/2021, 02/23/2020 DTAP/TDAP/TD VACCINES (3 - T d or Tdap) 10/20/2032 10/20/2022, 04/22/1999 Shingles Vaccine (Zoster) Completed 01/27/2023, 07/2022
[2025-03-27 08:54] VITALS: BP 138/68; PULSE 82; RESP 20; TEMP 36.9; O2SAT 98
[2025-03-27] MEDS: SODIUM CHLORIDE 0.9% 10ML FLUSH SYRINGE 10 ML IV (08:54)
[2025-03-27 09:20] VITALS: BP 133/73; PULSE 72; RESP 20; O2SAT 98
== END 2025-03-27 23:59 | disposition home or self-care (01) ==
LOC: INF 08:32
PROVIDERS: PCP Family Medicine; Visit Provider Nurse Practitioner Family
DX: D50.9 Iron deficiency anemia, unspecified (principal)
CPT/HCPCS: 96365; J1756

== ENCOUNTER 2025-04-03 08:30 | Outpatient (CLI) | payer MEDICARE, OTHER, SELFPAY ==
--- OUTSIDE RECORDS SUMMARY | 2024-10-18 06:00 | XMS_ITS ---
Author Organization [facility] Address [address] [place] [id number] Care Team Providers Care Watch Inspector Name Role Phone Alfonso Claire Primary Care Provider [phone] Cecelia Suazo Unavailable [phone] Allergies Allergen (clinical drug ingredient) Drug/Non Drug Allergy documented on EMR Reaction Allergy Type Onset Date Status gabapentin Neurontin weakness/trouble breathing Drug Allergy Active Substance with 5-qvlehnj-9-methylg lutaryl-coenzyme A reductase inhibitor mechanism of action [...] Normal Performing Lab: Notes/Report: Test performed by [employer] [place] [address] [place] [address] , [address], [place] [address] Gabriel Gregory MD, Business Development Coordinator CLIA: [id number] Vitamin B12 259 721-1905 pg/mL P-Lyme Disease (B. burgodorf la), IgG/IgM, SOILA, Serum Reviewed date:10/20/2024 12:06:10 PM Interpretation: Normal Performing Lab: Notes/Report: Test performed by [employer] , [facility], [place] [address] Gabriel Gregory MD, Business Development Coordinator CLIA: [id number] B burgdorferi (Lyme Disease) IgG Negative Negative B burgdorferi (Lyme Disease) IgM Negative Negative P-Folate Reviewed date:10/20/2024 12:06:10 PM Interpretation: Normal Performing Lab: Notes/Report: Test performed by [facility] [employer] , [facility], [place] [address] Gabriel Gregory MD, Business Development Coordinator CLIA: [id number] Folate 18.40 >4.59 ng/mL P-Ferritin Reviewed date:10/20/2024 12:06:10 PM Interpretation: Normal Performing Lab: Notes/Report: [facility] , [address], [place] [address] Gabriel Gregory MD, Business Development Coordinator CLIA: [id number] Ferritin 15.2 13.0-301.0 ng/mL P-Iron Reviewed date:10/20/2024 12:06:10 PM Interpretation:29 Performing Lab: Notes/Report: Test [facility] , [facility] [place] [address] Gabriel Gregory MD, Business Development Coordinator CLIA: [id number] Iron 29 37-145 ug/dL P-Vitamin D 25-Hydroxy Reviewed date:10/20/2024 12:06:10 PM Interpretation: Normal Performing Lab: Notes/Report: Test [facility], [facility], [place] [address] Gabriel Gregory MD, Business Development Coordinator CLIA: [id number] Vitamin D 25-Hydroxy 36.7 30.0-100.0 ng/mL Interpretation [...] 10/18/2024 Encounters Encounter Location Date Provider Diagnosis [facility] [address], [place] [phone] 10/18/2024 Cecelia Crowdy Bronchitis J40 ; Ane [...] Notes * NEENA SUTTONDOB:1945 (80 yo F)Acc No.[id number]:10/18/2024 Progress Notes Patient: NEENA MANZANO Provider: AUGIE Felix :1945 A ge:79 Y S ex:Female Date:10/18/2024 Address:[address] [place] [address] [id number] Pcp:Alfonso Claire Subjective: * Chief Complaints: * [...] with Cancer. M other: 70 yrs, of [place], diagnosed with Heart Disease. P aternal Grand [...] initial encounter - W57.XXXA 5 . B [place] 34.0-34.9,adult - Z68.34 Plan: * Treatment: Value [...] AM)?Normal* Value Reference Range V itamin B12 060 606-6080 - pg/mL * Cassi De La O [...] G 2211 Complex e/[place], [address] Flu Test- Nasal Swab, Modifiers: QW , 64344 CAPILLARY BLOOD DRAW, 46136 CBC WITH AUTO DIFF, 3074F SYST BP LT 130 MM HG, 3078F DIAST BP < 80 MM HG * Follow Up: v ia phone to report test results * Images: Billing Information: * Visit Code: 83524 Office Visit, Est Pt., Level 4. * Procedure Codes: G2211 Complex e/[place]. [address] Flu Test- Nasal Swab. Modifiers: QW 74986 CAPILLARY BLOOD DRAW. 81152 CBC WITH AUTO DIFF. 3074F SYST BP LT 130 MM HG. 3078F DIAST BP < 80 MM HG. * Electronic signature of AUGIE Douglas on 04/03/2025 at 08:53 AM EDT Sign off status: Pending * Provider: AUGIE Felix Date: 0 10/18/2024 Generated for Florinda phan/Johnie/eTransmitting on: 1 08:53 AM EDT History and Physical Notes [...]
--- OUTSIDE RECORDS SUMMARY | 2024-10-20 11:05 | XMS_ITS ---
Author Organization [facility] Address [address] [place] [phone] Care Team Providers Care Shell Coremaker Name Role Phone Alfonso Claire Primary Care Provider [phone] Cecelia Suazo Unavailable [phone] Results Component Value Reference Range Notes Hemoccult- [...] Provider Diagnosis Sal [address] [place] [phone] 10/20/2024 Cecelia Suazo Anemia D64.9 Assessments Encounter Date Diagnosis (ICD Code) Assessment Notes Treatment Notes Treatment Clinical Notes Section Notes 10/20/2024 Anemia (ICD-10 - D64.9) Plan Of Treatment No Information Progress Notes * NEENA SUTTONDOB:1945 (80 yo F)Acc No.[id number]:10/20/2024 Patient: NEENA MANZANO Provider: AUGIE Felix :1945 A ge:79 Y S ex:Female Date:10/20/2024 Address:[address] [place] [address], [place], [id number] Pcp:Alfonso Claire Subjective: * Chief Complaints: * [...] Information: * Visit Code: * Procedure Codes: 88720 ASSAY TEST FOR BLOOD, FECAL. Modifiers: QW * Electronic signature of AUGIE Douglas on 04/03/2025 at 08:53 AM EDT Sign off status: Pending * Provider: AUGIE Felix Date: 0 10/20/2024 Generated for Florinda phan/Johnie/Royaitting on: 1 08:53 AM EDT
--- OUTSIDE RECORDS SUMMARY | 2024-11-09 11:45 | XMS_ITS ---
Author Organization [facility] Address [address] [facility] [address] [place] [phone] Care Team Providers Care Legal Support Assistant Name Role Phone Alfonso Claire Primary Care Provider Jordon Yu [phone] Allergies Allergen (clinical drug ingredient) Drug/Non Drug Allergy documented on EMR Reaction Allergy Type Onset Date Status gabapentin Neurontin weakness/trouble breathing Drug Allergy Active Substance with 7-hsmkhkf-4-methylg lutaryl-coenzyme A reductase inhibitor mechanism of action [...] Growth Performing Lab: Notes/Report: Test performed by [facility] [address] [place] [address] , [address], [place] [address] Gabriel Gregory MD, Lawn Sprinkler Installer CLIA: [id number] Specimen Source Urine - Void Culture, Urine [...] ee times a day 10/18/2024 Not-Taking Zithromax Z-Eudar 250 MG 2 pills first day then [...] Encounter Location Date Provider Diagnosis [facility] [address] [id number] 11/09/2024 Jordon Yu UTI (lower urinary tract [...] Notes * NEENA SUTTONDOB:1945 (80 yo F)Acc No.[id number]:11/09/2024 Progress Notes Patient: NEENA MANZANO Provider: Jordon Yu M.D. :1945 A ge:79 Y S ex:Female Date:11/09/2024 Address:[address] [place] [address], [place], [id number] Pcp:Alfonos Claire Subjective: * Chief Complaints: * 1 . Referral for bone density. * HPI: R heumatology: She continues to follow with rheumatology for her rheumatoid arthritis. They have requested that she have a bone density test but she did not want to return to [place] for the study and would like to have it arranged at [facility]. U rology: She recently started with urinary [...] heumatoid arthritis - M06.9 5 . B [place] 34.0-34.9,adult - Z68.34 [...] 11/10/2024 08:2 1:07 AM > faxed to [facility] Jordon Tinoco 12/28/2024 05:22:10 PM EDT > please fax this report to her curb and gutter laborer, Cassi Calderon 01/19/2025 11:28:32 AM EDT > faxed report to [phone] * Procedure Codes: G 2211 Complex e/[place], [address] Urinalysis, no micro, 3074F SYST BP LT 130 MM HG, 3078F DIAST BP < 80 MM HG * Follow Up: v ia phone to report test results * Images: Billing Information: * Visit Code: 33014 Office Visit, Est Pt., Level 4. * Procedure Codes: G2211 Complex e/[place]. [address] Urinalysis, no micro. 3074F SYST BP LT 130 MM HG. 3078F DIAST BP < 80 MM HG. * Electronic signature of Jordon Yu MD on 04/03/2025 at 08:52 AM EDT Sign off status: Pending * Provider: Jordon Yu M.D. Date: 0 11/09/2024 Generated for Florinda phan/Johnie/Paula on: 1 08:52 AM EDT History and Physical Notes * [...] she did not want to return to [place] for the study and would like to have it arranged at [facility]. Examination Category Sub-Category Detail Notes Category Not es General Examination Abdomen: soft , not d istended , soft and nontender , no CVA tenderness General Appearance: NAD
--- OUTSIDE RECORDS SUMMARY | 2025-03-12 09:45 | XMS_ITS ---
Author Organization [facility] Address [address] [place] [id number] Care Team Providers Care Direct Support Professional Name Role Phone Alfonso Claire Primary Care Provider Urvashi Ibrahim Unavailable [phone] Allergies Allergen (clinical drug ingredient) Drug/Non Drug Allergy documented on EMR Reaction Allergy Type Onset Date Status gabapentin Neurontin weakness/trouble breathing Drug Allergy Active Substance with 6-ifotnqa-9-methylg lutaryl-coenzyme A reductase inhibitor mechanism of action [...] Interpretation: Performing Lab: Notes/Report: Test performed by [facility], [facility] [address] [place] [address] , [address], [place] [address] Gabriel Gregory MD, Child Psychology Teacher CLIA: [id number] Sodium 141 135-145 mmol/L Potassium 4.9 3.5-5.3 [...] Interpretation:18 Performing Lab: Notes/Report: Test performed by [facility], [facility] [address] [place] [address] , [address], [place] [address] Gabriel Gregory MD, Child Psychology Teacher CLIA: [id number] Iron 18 37-145 ug/dL EKG Reviewed date:03/15/2025 [...] Status W/U Status Risk Notes Problem Anemia (215401886) Anemia (D64.9) Active confirmed Vital Signs Weight 183.2 lbs 03/12/2025 Blood pressure systolic 102 mm Hg 03/12/20 25 Blood pressure diastolic 60 mm Hg 025 Heart Rate 81 /min 03/12/2025 Height 63 in 03/12/2025 BMI 32.45 kg/m2 03/12/2025 Encounters Encounter Location Date Provider Diagnosis [facility] [address] [place], [place] [id number] 03/12/2025 Urvashi Patrice Shortness of breath R06.02 ; Itching L29.9 [...] Notes * NEENA SUTTONDOB:1945 (80 yo F)Acc No.[id number]:03/12/2025 Progress Notes Patient: NEENA MANZANO Provider: LARISSA Daigle :1945 A ge:80 Y S ex:Female Date:03/12/2025 Address:[address] [place] [address], [place], [id number] Pcp:Alfonso Claire Subjective: * Chief Complaints: * [...] OK; nothing tastes right; did go to [employer] last week and walked alot; shortness of [...] 08/18/2024. * Hospitalization/Major Diagno stic Procedure: B [facility]-right reverse total shoulder TSA 08/18/2024. * Family History: F ather: 54 yrs, diagnosed with Cancer. M other: 69 yrs, of [place], diagnosed with Heart Disease. 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 * Procedure Codes: G2211 Complex e/[place]. [address] CBC WITH AUTO DIFF. 75090 VENIPUNCT, ROUTINE*. 1036F TOBACCO NON-USER. 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 G8752 MOST RECENT SYSTOLIC BP < 140MM HG. G8754 MOST RECENT DIASTOLIC BP < 90MM HG. 3074F SYST BP LT 130 MM HG. 3078F DIAST BP < 80 MM HG. * Electronic signature of Aubrie Ibrahim APRN on 04/03/2025 at 08:52 AM EDT Sign off status: Pending * Provider: LARISSA Daigle Date: 0 03/12/2025 Generated for Florinda phan/Johnie/eTransmcharli on: 1 08:52 AM EDT History and [...]
--- OUTSIDE RECORDS SUMMARY | 2025-04-02 05:45 | XMS_ITS ---
Author Organization Sal Address [address] [facility] [address] [place] [id number] Care Team Providers Care Hardwood Floor Finisher Name Role Phone Alfonso Claire Primary Care Provider Urvashi Ibrahim Unavailable [phone] Allergies Allergen (clinical drug ingredient) Drug/Non Drug Allergy documented on EMR Reaction Allergy Type Onset Date Status gabapentin Neurontin weakness/trouble breathing Drug Allergy Active Substance with 8-lgoelck-4-methylg lutaryl-coenzyme A reductase inhibitor mechanism of action [...] day; Duration: 30 day(s) Active Vital Signs Weight 187.2 lbs 04/02/2025 Blood pressure systolic 106 mm Hg 04/02/20 25 Blood pressure diastolic 72 mm Hg 025 Heart Rate 71 /min 04/02/2025 Height 63 in 04/02/2025 BMI 33.16 kg/m2 04/02/2025 Encounters Encounter Location Date Provider Diagnosis Sal [address] [facility] [address] [place] [phone] 04/02/2025 Urvashi Ibrahim Fatigue, unspecified type R53.83 [...] Notes * NEENA SUTTONDOB:1945 (80 yo F)Acc No.[id number]:04/02/2025 Patient: NEENA MANZANO Provider: LARISSA Daigle :1945 A ge:80 Y S ex:Female Date:04/02/2025 Address:[address] [place] [address] QUEENIE, DIONNA FLORES, [id number] Pcp:Alfonso Claire Subjective: * Chief Complaints: * [...] 08/18/2024. * Hospitalization/Major Diagno stic Procedure: B [facility]-right reverse total shoulder TSA 08/18/2024. * Family [...] turned in the event recorder today * Follow Up: 4 Weeks * Images: Billing Information: * Visit Code: 11847 Office Visit, Est Pt., Level 3. * Procedure Codes: * Electronic signature of Aubrie Ibrahim APRN on 04/03/2025 at 08:52 AM EDT Sign off status: Pending * Provider: LARISSA Daigle Date: Generated for Florinda phan/Johnie/eTransmitting on: 08:52 AM EDT History and Physical Notes [...]
[2025-04-03] MEDS: SODIUM CHLORIDE 0.9% 10ML FLUSH SYRINGE 10 ML IV (08:41)
[2025-04-03 08:43] VITALS: BP 139/61; PULSE 74; RESP 16; TEMP 36.7; O2SAT 98
[2025-04-03] MEDS: IRON SUCROSE COMPLEX 200 MG in 0.9 % SODIUM CHLORIDE 100 ML 220 MG IV (08:43)
--- OUTSIDE RECORDS SUMMARY | 2025-04-03 08:52 | XMS_ITS | Clinical Summary ---
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 (ICD-10-CM ) Active Hoa Levi 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 Medications Medication Instructions Start Date Stop Date Generic Name ND Provider RIFAMPIN 300 MG CAPS 2 by mouth daily 4 months RIFAMPIN [id number] David Jordan MD FLUCONAZOLE 150 MG TABS TAKE ONE TABLET BY MOUTH A ONE TIME DOSE 01/25 FLUCONAZOLE [id number] Douglas Echeverria CELECOXIB 200 MG CAPS TAKE 1 CAPSULE BY MOUTH TWICE DAILY FOR 30 DAYS 12/05 CELECOXIB 02091015423 Douglas D VITAMIN D (ERGOCALCIFEROL) 1.25 MG (50789 UT) CAPS TAKE 1 CAPSULE BY MOUTH ONCE A WEEK 03/20 ERGOCALCIFEROL 06800679766 Douglas Echeverria VASCEPA 1 GM CAPS TAKE 2 CAPSULES BY MOUTH TWICE DAILY 01/30 ICOSAPENT ETHYL 76611365526 Douglas Echeverria FLUZONE HIGH-DOSE QUADRIVALENT 0.7 ML INTRAMUSCULAR SUSPENSION PREFILLED SYRINGE PHARMACIST ADMINISTERED IMMUNIZATION ADMINISTERED AT TIME OF DISPENSING 02/22 INFLUENZA VAC HIGH-DOSE QUAD 43363090187 Douglas D ESOMEPRAZOLE MAGNESIUM 40 MG CPDR TAKE 1 CAPSULE BY MOUTH ONCE DAILY 10/18 ESOMEPRAZOLE MAGNESIUM 11666303300 Douglas D TRAMADOL HCL 50 MG TABS TAKE 1 TABLET BY MOUTH 4 TIMES DAILY NEEDED 03/07 TRAMADOL HCL 05870422640 Douglas D MELOXICAM 15 MG TABS TAKE 1 TABLET BY MOUTH ONCE DAILY 02/21 MELOXICAM 65253723015 Douglas D HYDROXYCHLOROQUINE SULFATE 200 MG TABS TAKE 1 TABLET BY MOUTH TWICE DAILY 03/20 HYDROXYCHLOROQUINE SULFATE 04531826407 Douglas D Medications Administered No information available. [...] STAT Labs CPT-Cooral Continue oral antibiotics 11/07/19 CPT-68316 CMP [id number] CBC with Differential 2019 CPT-Cooral Continue oral antibiotics 09/06/16 CPT-sl STAT Labs CPT-56707 CMP [id number] CBC with Differential 2019 CPT-Cooral Continue oral antibiotics 10/05/18 CPT-sl STAT Labs CPT-71689 CMP [id number] CBC with Differential 2019 CPT-60107 C- reactive protein CPT-farzaneh New Oral Antibiotic [...]
--- OUTSIDE RECORDS SUMMARY | 2025-04-03 08:53 | XMS_ITS | Clinical Summary ---
Author Organization [facility] Address [address] [place] [address] Care Team Providers Care Assistant Professor Of Business Name Role Phone Gagan Yu MD Primary [...] tried include: She saw Dr. Jameel Ryan (Sales Audit Clerk) in 2007, Tylenol, etodolac, indomethacin, Celebrex, ibuprofen, shoulder injection, back surgery, she has done some physical therapy, prednisone, gabapentin, She saw Dr. Randolph (Sales Audit Clerk), she saw Dr. Perera (Sales Audit Clerk), cortisone injections in her knees, meloxicam, Plaquenil, [...] tried include: She saw Dr. Jameel Ryan (Sales Audit Clerk) in 2007, Tylenol, etodolac, indomethacin, Celebrex, ibuprofen, shoulder injection, back surgery, she has done some physical therapy, prednisone, gabapentin, She saw Dr. Randolph (Sales Audit Clerk), she saw Dr. Perera (Sales Audit Clerk), cortisone injections in her knees, meloxicam, Plaquenil, [...] tried include: She saw Dr. Jameel Ryan (Sales Audit Clerk) in 2007, Tylenol, etodolac, indomethacin, Celebrex, ibuprofen, shoulder injection, back surgery, she has done some physical therapy, prednisone, gabapentin, She saw Dr. Randolph (Sales Audit Clerk), she saw Dr. Perera (Sales Audit Clerk), cortisone injections in her knees, meloxicam, Plaquenil, [...] Department Care Team Description 01/22/2025 Results Follow-Up [facility] [address] [place] [phone] Mor Dash DO from Last 3 [...] or training? Not on file Preferred Language Surinamese 08/08/2024 Comments No Sex and Gender Information [...] Description 04/19/2025 3:45 PM EDT Office Visit [facility] [address] [place] [phone] Mor Dash, [address] [place] [address] Health Maintenance Due Date Last Done Comments [...] 08/11/2024, 10/2020 Medical Devices Implanted Type Area Dual Hose Cementer Device Identifier Shelf Expiration Date Model / Serial / Lot Pat Triath Tritanium [id number] - [id number] Implanted:Qt y: 1 on 04/02/2021 by Jonathon Tobin MD at [facility] Implant Left: Knee MARIANELA KAELA 01/18/2026 [id number] / / [id number] Comp Fem Triath Cr Cmtls Sz4 Lt - [id number] Implanted:Qt y: 1 on 04/02/2021 by Jonathon Tobin MD at [facility] Implant Left: Knee MARIANELA KAELA 08/30/2025 [id number] / / [id number] Baseplt Tib Triath Tritanium Sz5 - [id number] Implanted:Qt y: 1 on 04/02/2021 by Jonathon Tobin MD at [facility] Implant Left: Knee MARIANELA KAELA 12/08/2025 [id number] / / [id number] Insrt Tib/Kn Triathlon Condy/Stbl X3 Sz5 9mm - [id number] Implanted:Qt y: 1 on 04/02/2021 by Jonathon Tobin MD at [facility] Implant Left: Knee MARIANELA KAELA 01/06/2026 [id number] / / [id number] Dev Contrl Tiss Stratafix Spiral Pdo Bidir 1 [id number] - [id number] Implanted:Qt y: 1 on 04/02/2021 by Jonathon Tobin MD at [facility] Implant Left: Knee [employer] DIV OF J AND J [id number] / / Cap Total Kn Cmtls 4 Pc - [id number] Implanted:Qt y: 1 on 04/02/2021 by Jonathon Tobin MD at [facility] Implant Left: Knee MARIANELA KAELA CAPKNCEMENTLESS4 P IECE / / Baseplt Shldr Aequalis 1/2 Wedge Aug 35d 25mm - [id number] - [id number] Implanted:Qt y: 1 on 08/18/2024 by Marcelo Howard MD at [facility] Implant Right: Shoulder TORNIER [id number] 11/26/2027 [id number] / [id number] / LR Glenosphere Shldr Aequalis Perform Lat Pls3mm 36mm - [id number] - [id number] Implanted:Qt y: 1 on 08/18/2024 by Marcelo Howard MD at [facility] Implant Right: Shoulder TORNIER [id number] 10/17/2028 [id number] / [id number] / Scrw Aequalis Perform Centrl 6.5x30mm - [id number] Implanted:Qt y: 1 on 08/18/2024 by Marcelo Howard MD at [facility] Implant Right: Shoulder TORNIER [id number] / / N/A Scrw Aequalis Perform Periph 5x22mm - [id number] Implanted:Qt y: 2 on 08/18/2024 by Marcelo Howard MD at [facility] Implant Right: Shoulder TORNIER [id number] / / N/A Scrw Aequalis Perform Periph 5x30mm - [id number] Implanted:Qt y: 1 on 08/18/2024 by Marcelo Howard MD at [facility] Implant Right: Shoulder TORNIER [id number] / / N/A Scrw Periph 5x34mm - [id number] Implanted:Qt y: 1 on 08/18/2024 by Marcelo Howard MD at [facility] Implant Right: Shoulder TORNIER [id number] / / N/A Insrt Hum/Shldr Rev Preform Sz1/2 Pls0 10deg 36mm - [id number] - [id number] Implanted:Qt y: 1 on 08/18/2024 by Marcelo Howard MD at [facility] Implant Right: Shoulder TORNIER [id number] 06/08/2028 [id number] / [id number] / Stem Hum/Shldr Preform Lng Pls Sz2 [id number] - [id number] - [id number] Implanted:Qt y: 1 on 08/18/2024 by Marcelo Howard MD at [facility] Implant Right: Shoulder TORNIER [id number] 01/26/2029 [id number] / [id number] / Cp Totl Rev Shldr Perform Stem Rsa Perf Rev Lat/Aug - [id number] Implanted:Qt y: 1 on 08/18/2024 by Marcelo Howard MD at [facility] Implant Right: Shoulder TORNIER CAPTORNIERTOTLSH L DREVPERFSTEMRSAPE RFLATAUG / / Cp Shldr Modifier Lng Stem - [id number] Implanted:Qt y: 1 on 08/18/2024 by Marcelo Howard MD at [facility] Implant Right: Shoulder TORNIER CAPTORNIERSHLDRM O DLONGSTEM / / Hemost Abs Surgicel Orig 4x8in Strl - [id number] Implanted:Qt y: 1 on 08/18/2024 by Marcelo Howard MD at [facility] Implant Right: Shoulder ETHICON DIV OF J AND J [id number] 12/18/2028 [id number] / / [id number] Back Hardware From Spinal Surgery Explanted Type Area Dual Hose Cementer Device Identifier Shelf Expiration Date Model / Serial / Lot Guidepin Hum Preform [id number] - [id number] Explanted:Qty : 1 on 08/18/2024 by Marcelo Howard MD at [facility] Implant Right: Shoulder TORNIER [id number] 06/09/2029 [id number] / / [id number] Procedures Procedure Name Priority Date/Time Associated Diagnosis [...] Payer (Ef fective 2011-Present) Name:Lona Sutton Member ID:[id number] Relation to Subscriber:Self Name:Lona Sutton Subscriber ID:[id number] Payer ID:[id number] Group ID:Not on file Type:Not on file Address: [address] [place] [id number] [facility] Advance Directives * CPR (Attempt to Resuscitate) (Latest Code Status on File) Date Activated Date Inactivated Comments 04/02/2021 2:08 PM 04/02/2021 8:10 PM Question Answer Comments Code Status (Patient has no pulse and is not breathing): CPR (Attempt to Resuscitate) Medical Interventions (Patie nt has pulse or is breathing): Full Healthcare Agents on File Name Relationship Healthcare Agent [facility] p Communication [facility] Surrogate Care Teams Assistant Professor Of Business Relationship Specialty Start Date End Date Gagan Yu MD [address] [place] [address] [address] [facility] [address] [place] [address] PCP - General Family Medicine 07/10/20
--- OUTSIDE RECORDS SUMMARY | 2025-04-03 08:53 | XMS_ITS | Referral Summary ---
Author Organization [employer] ([place], [place], [place], [place]) Address [address] [place] [address] Care Team Providers Care Boarder Hand Name Role Phone Unavailable Primary Care Provider [...]
--- OUTSIDE RECORDS SUMMARY | 2025-04-03 08:54 | XMS_ITS | Clinical Summary ---
Author Organization [employer] ([place], [place], [place], [place]) Address [address] [place] [address] Care Team Providers Care Translation Director Name Role Phone Unavailable Primary Care Provider [...]
--- OUTSIDE RECORDS SUMMARY | 2025-04-03 08:54 | XMS_ITS | Patient Health Record ---
[facility] Address [address] [facility] [address] [place] [id number] Care Team Providers Care Overlock Elastic Attacher Name Role Phone Sanjiv Claireian Primary Care Provider [phone] Jordon Yu Unavailable [phone] Urvashi Ibrahim Unavailable [phone] Cecelia Suazo Unavailable [phone] Allergies Allergen (clinical drug ingredient) Drug/Non Drug Allergy documented on EMR Reaction Allergy Type Onset Date Status gabapentin Neurontin weakness/trouble breathing Drug Allergy Active Substance with 6-pycbclx-7-methylg lutaryl-coenzyme A reductase inhibitor mechanism of action [...] Normal Performing Lab: Notes/Report: Test performed by [employer] [facility], [facility] [address] [place] [address] , [address], [place] [address] Gabriel Gregory MD, Commercial Credit Reviewer CLIA: [id number] Vitamin B12 401 712-9176 pg/mL P-Lyme Disease (B. burgodorf la), IgG/IgM, SOILA, Serum Reviewed date:10/20/2024 12:06:10 PM Interpretation: Normal Performing Lab: Notes/Report: Test performed by [employer] , [address], [place] [address] Gabriel Gregory MD, Commercial Credit Reviewer CLIA: [id number] B burgdorferi (Lyme Disease) IgG Negative Negative B burgdorferi (Lyme Disease) IgM Negative Negative P-Folate Reviewed date:10/20/2024 12:06:10 PM Interpretation: Normal Performing Lab: Notes/Report: [facility] , [facility] [address], [place] [address] Gabriel Gregory MD, Commercial Credit Reviewer CLIA: [id number] Folate 18.40 >4.59 ng/mL P-Ferritin Reviewed date:10/20/2024 12:06:10 PM Interpretation: Normal Performing Lab: Notes/Report: Test performed by [employer] , [address], [place] [address] Gabriel Gregory MD, Commercial Credit Reviewer CLIA: [id number] Ferritin 15.2 13.0-301.0 ng/mL P-Iron Reviewed date:10/20/2024 12:06:10 PM Interpretation:29 Performing Lab: Notes/Report: Test performed by [employer] , [facility] [address], [place] [address] Gabriel Gregory MD, Commercial Credit Reviewer CLIA: [id number] Iron 29 37-145 ug/dL P-Vitamin D 25-Hydroxy Reviewed date:10/20/2024 12:06:10 PM Interpretation: Normal Performing Lab: Notes/Report: Test performed by [employer] , [address], [place] [address] Gabriel Gregory MD, Commercial Credit Reviewer CLIA: [id number] Vitamin D 25-Hydroxy 36.7 30.0-100.0 ng/mL Interpretation [...] Growth Performing Lab: Notes/Report: Test performed by [facility] [place] , [address], [place] [address] Gabriel Gregory MD, Commercial Credit Reviewer CLIA: [id number] Specimen Source Urine - Void Culture, Urine [...] Interpretation: Performing Lab: Notes/Report: Test performed by [facility] [place] , [address], [place] [address] Gabriel Gregory MD, Commercial Credit Reviewer CLIA: [id number] Sodium 141 135-145 mmol/L Potassium 4.9 3.5-5.3 [...] Interpretation:18 Performing Lab: Notes/Report: Test performed by [employer] [address] [place], [place] [address] [place] , [address] [place] [id number] Gabriel Gregory MD, Commercial Credit Reviewer CLIA: [id number] Iron 18 37-145 ug/dL EKG Reviewed date:03/15/2025 04:09:45 PM Interpretation:NSR with frequent SV premature beats Performing Lab: Notes/Report: NSR with frequent SV premature beats CXR Reviewed date:03/15/2025 04:09:18 PM Interpretation:no acute CP disese Performing Lab: Notes/Report: no acute CP disese Urinalysis - Inhouse Reviewed date:05/22/2024 07:54:58 PM Interpretation: Performing Lab: Notes/Report: Color/Clarity yellow/clear Leuk 1+ Nitrite neg Urobili 3.2 Protein 2+ pH 6.0 Blood trace intact Sp. Gr. 1.020 Ketone neg Bili neg Gluc neg P-Culture, Urine Reviewed date:05/25/2024 01:36:17 PM Interpretation: Performing Lab: Notes/Report: Test performed by [employer] [address] [place], [place] [address] [place] , [address], [place] [address] Gabriel Gregory MD, Commercial Credit Reviewer CLIA: [id number] Specimen Source Urine - Void Culture, Urine [...] Tobramycin S Trimeth/Sulfa S S=SUSCEPTIBLE I=INTERMEDIATE R=RESISTANT Influenza Screen (in house) Reviewed date:05/29/2024 09:03:54 [...] - 38 plat 255 100 - 400 Hemoccult- IFOBT (in house) Reviewed date:10/27/2024 10:24:51 AM Interpretation: Performing Lab: Notes/Report: results Neg Glycohemoglobin A1c (in hous e) Reviewed date:05/07/2024 07:59:27 PM Interpretation:6.1% Performing Lab: Notes/Report: 6.1% glycohemoglobin 6.1% 5 - 6.5 % P-Comprehensive Metabolic Pa german (CMP) Reviewed date:05/07/2024 07:59:27 PM Interpretation: Performing Lab: Notes/Report: Test performed by [facility] [address] [place], [place] [address] [place] , [address], [place] [address] Gabriel Gregory MD, Commercial Credit Reviewer CLIA: [id number] Sodium 139 135-145 mmol/L Potassium 4.6 3.5-5.3 [...] Interpretation: Performing Lab: Notes/Report: Test performed by [facility] [address] [facility] , [address], [place] [address] Gabriel Gregory MD, Commercial Credit Reviewer CLIA: [id number] Cholesterol 211 <200 mg/dL Triglycerides 192 <150 [...] Interpretation: Performing Lab: Notes/Report: Test performed by [employer] [address] [place] [address] , [address], [place] [address] Gabriel Gregory MD, Commercial Credit Reviewer CLIA: [id number] Vitamin D 25-Hydroxy 40.1 30.0-100.0 ng/mL Interpretation [...] 90 days Active Vitamin D3 50 MCG (1999 UT) 1 capsule Or ally Once a day Active traMADol HCl 50 MG 1 tab(s) orally ever y 8 hours prn Active Aspirin 81 81 MG 1 tablet Orally Once a day; Duration: 30 day(s) Active Esomeprazole Magnesium 40 MG Take 1 capsule by mouth once daily; Duration: 90 Active Feosol Bifera 28 MG 1 tablet Orally Once a day; Duration: 30 day(s) Active Immunizations Vaccine Route Administration Date Status Comme nts tFisafrh-hafyhtxfg-qyyvjtw e pts. IM Intramuscular 02/25/2011 Administered eLntwbcy-cxunnnyvn-vrdyeup e pts. IM Intramuscular 02/10/2012 Administered xFluzone [...] Status Risk Notes Problem Gastroesophageal reflux disease (418213351) GERD (gastroesophageal reflux disease) (K21.9) Active confirmed Problem Vitamin D deficiency (07877142) Vitamin D deficiency (E55.9) Active confirmed Problem Anemia (991261681) Anemia (D64.9) Active confir med Problem Cardiac dysrhythmia (059444869) Cardiac dysrhythmia (I49.9) Active confirmed Problem Osteoarthritis (125228646) Osteoarthritis (M19.90) Active confirmed Problem Impaired fasting glucose (370249442) Impaired fasting glucose (R73.01) Active confirmed Problem Primary generalised osteoarthritis (524534934) Primary generalized (osteo)arthritis (M15.0) Active confirmed Problem Dysphagia (16386636) Dysphagia (R13.10) Active confirmed Problem Mixed hyperlipidemia (075727973) Mixed hyperlipidemia (E78.2) Active confirmed Problem Presbycusis (78108571) Presbycusis, bilateral (H91.13) Active confirmed Problem Artificial knee joint present (771731512473) Presence of left artificial knee joint (Z96.652) Active confirmed Problem Gastroesophageal reflux disease (153328793) GERD without esophagitis (K21.9) Active confirmed Problem Obese class II (390610171680706) BMI 35.0-35.9,adult (Z68.35) Active confirmed Problem Obesity (352054820) Non morbid o besity due to excess calories (E66.09) Active confirmed Problem History of polyp of colon (situation) (320705894) Hx of colonic polyps (Z86.010) Active confirmed Problem Gastroesophageal reflux disease (748723387) Gastroesophageal reflux disease, esophagitis presence not specified (K21.9) Active confirmed Problem Lumbar spinal stenosis (43090639) Spinal stenosis, lumbar (M48.06) Active confirmed Problem Arthropathy of lumbar facet joint (630580335) Lumbar facet arthropathy (M46.96) Active confirmed Problem Polyarthritis (053357589) Polyarthritis (M13.0) Active confirmed Problem Anemia (746435920) Anemia, unspecified type (D64.9) Active confirmed Problem Rheumatoid arthritis (90765977) Rheumatoid arthritis (M06.9) Active confirmed Problem Rheumatoid arthritis (14252493) Rheumatoid arthritis involving multiple sites, unspecified rheumatoid factor presence (M06.9) Active confirmed Problem Body mass index 30.00 to 34.99 (791108872717272) BMI 34.0-34.9,adult (Z68.34) Active confirmed Problem Sciatica (59353149) 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) Active confirmed Problem Dyslipidemia (207492675) Dyslipidemia (E78.5) Active confirmed Problem Allergic rhinitis caused by pollen (12419670) Seasonal allergic rhinitis due to pollen (J30.1) Active confirmed Problem Aftercare following joint replacement surgery, unspecified joint (Z47.1) Active confirmed Vital Signs Heart Rate 71 /min 04/02/2025 Blood pressure diastolic 72 mm Hg 04/02/2025 Height 63 in 04/02/2025 Blood pressure systolic 106 mm Hg 04/02/2025 Weight 187.2 lbs 04/02/2025 BMI 33.16 kg/m2 04/02/2025 Encounters Encounter Location Date Provider Diagnosis [facility] [address] [facility] [address] [place], [place] [id number] 05/04/2024 R Bartolo Yu Cardiac dysrhythmia I49.9 ; Impaired fasting glucose R73.01 ; Dyslipidemia E78.5 ; GERD (gastroesophageal reflux disease) K21.9 ; Iron deficiency E61.1 ; Vitamin D deficiency E55.9 ; Presence of left artificial knee joint Z96.652 ; Rheumatoid arthritis involving multiple sites, unspecified rheumatoid factor presence M06.9 and Presbycusis, bilateral H91.13 [facility] [address] [facility] [address] [place], [place] [id number] 05/22/2024 Urvashi Ibrahim Right shoulder pain M25.511 and Urinary frequency R35.0 [facility] [address] [facility] [address] [place], [place] [id number] 05/27/2024 Alfonso [place] Acute UTI N39.0 ; Fever, unspecified R50.9 and Anemia, unspecified type D64.9 [facility] [address] [facility] [address] [place], [place] [id number] 05/29/2024 Urvashi Ibrahim Bronchitis J40 [facility] [address] [facility] [address] [place], [place] [id number] 10/18/2024 Cecelia Crowdy Bronchitis J40 ; Anemia, unspecified type D64.9 ; Insect bite (nonvenomous) of lower back and pelvis, initial encounter S30.860A ; Bitten or stung by nonvenomous insect and other nonvenomous arthropods, initial encounter W57.XXXA and BMI 34.0-34.9,adult Z68.34 [facility] [address] [facility] [address] [place], [place] [id number] 10/20/2024 Cecelia Crowdy Anemia D64.9 [facility] [address] [facility] [address] [place], [place] [id number] 11/09/2024 R Bartolo Yu UTI (lower urinary tract infection) N39.0 ; Screening for osteoporosis Z13.820 ; Dyslipidemia E78.5 ; Rheumatoid arthritis M06.9 and BMI 34.0-34.9,adult Z68.34 [facility] [address] [facility] [address] [place], [place] [id number] 03/12/2025 Urvashi Ibrahim Shortness of breath R06.02 ; Itching L29.9 ; Fatigue, unspecified type R53.83 ; Anemia D64.9 and Iron deficiency E61.1 [facility] [address] [place], [place] [id number] 04/02/2025 Urvashi Patrice Fatigue, unspecified type R53.83 ; Anemia D64.9 ; Abnormal EKG R94.31 and Iron deficiency E61.1 [facility] [address] [place], [place] [id number] 05/07/2024 Jordon Yu [facility] [address] [facility] [address] [place], [place] [id number] 05/25/2024 Urvashi Ibrahim [facility] [address] [place], [place] [id number] 10/20/2024 Cecelia Crowdy Anemia, unspecified type D64.9 [facility] [address] [place], [place] [id number] 03/15/2025 Urvashi Ibrahim Assessments Encounter Date Diagnosis [...] Itching (ICD-10 - L29.9) antihistamin of choice 04/02/2025 Anemia (ICD-10 - D64.9) has 3 more IV Iron TX; plans to start B12 04/02/2025 Fatigue, unspecified type (ICD-10 - R53.83) 04/02/2025 Abnormal EKG (ICD-10 - R94.31) turned in the event recorder today 03/12/2025 Fatigue, unspecified type (ICD-10 - R53.83) [...] D64.9) 11/09/2024 Rheumatoid arthritis (ICD-10 - M06.9) 04/02/2025 Iron deficiency (ICD-10 - E61.1) 03/12/2025 Iron deficiency (ICD-10 - E61.1) 11/09/2024 BMI 34.0-34.9,adult (ICD-10 - Z68.34) 10/18/2024 [...] IFOBT (in house) 10/18/2024 Event Recorder 03/16/2025 Insurance Providers Payer Name Payer Address Payer Phone Subscriber Number Group Number Insured Name Patient Relationship to Insured Coverage Start Date Coverage End Date MEDICARE PART B [address] [address] [place] [id number] [phone] [id number] NEENA SUTTON Self - patient is the insured [facility] [address] [place] [address] [id number] NEENA SUTTON Self - patient is the [...] TSA 08/18/19 25 Hospitalization History Reason Date(Month/Year) [facility]-right reverse total shoul [place] TSA 08/18/2024
[2025-04-03 09:28] VITALS: BP 134/61; PULSE 70; RESP 16; TEMP 36.7; O2SAT 98
== END 2025-04-03 23:59 | disposition home or self-care (01) ==
LOC: INF 08:32
PROVIDERS: PCP Family Medicine; Visit Provider Nurse Practitioner Family
DX: D50.9 Iron deficiency anemia, unspecified (principal)
CPT/HCPCS: 96365; J1756

== ENCOUNTER 2025-04-10 08:30 | Outpatient (CLI) | payer MEDICARE, OTHER, SELFPAY ==
--- OUTSIDE RECORDS SUMMARY | 2023-12-10 08:00 | XMS_ITS ---
Author Organization Sal Address [address] [facility] [address] [place] [id number] Care Team Providers Care Finishing Department Supervisor Name Role Phone Alfonso Claire Primary Care Provider [phone] Results Component Value Reference Range Notes P-Urine Drug Screen with Ref aj to Confirmation Reviewed date:12/15/2023 10:34:30 AM Interpretation:Negative Performing Lab: Notes/Report: Test performed by [email or web address] [address] , [address], [place] [address] Gabriel Gregory MD, Truck Crane Operator Helper CLIA: [id number] Amphetamines NEGATIVE NEGATIVE Barbiturates NEGATIVE NEGATIVE Benzodiazepines NEGATIVE NEGATIVE Cannabinoids NEGATIVE NEGATIVE Cocaine Metabolites NEGATIVE NEGATIVE Oxycodone NEGATIVE NEGATIVE Methadone NEGATIVE NEGATIVE Opiates NEGATIVE NEGATIVE Phencyclidine NEGATIVE NEGATIVE Propoxyphene NEGATIVE NEGATIVE Immunoassay Drug Screen [place] Values See Below Please see the Directory of Services for cut-off concentrations. Urine drug screen results are for medical decision making and are not to be used for medical/legal evaluation. REASON FOR VISIT urine drug sceen only Encounters Encounter Location Date Provider Diagnosis Sal [address] [facility] [address] [place] [id number] 12/10/2023 Alfonso Claire Opioid use F1 1.90 Assessments Encounter Date Diagnosis (ICD Code) Assessment Notes Treatment Notes Treatment Clinical Notes Section Notes 12/10/2023 Opioid use (ICD-10 - F11.90) Plan Of Treatment No Information Progress Notes * NEENA SUTTONDOB:1945 (80 yo F)Acc No.[id number]:12/10/2023 Patient: Jadon DURANT CHARLESERIN Provider: Yolanda Claire M.D. :1945 A ge:78 Y S ex:Female Date:12/10/2023 Address:[address] [place] [address] [place], D[place] FLORES, [id number] Subjective: * Chief Complaints: * 1 . [...] NEGATIVE - * I mmunoassay Drug Screen [place] Values See Below - * M ethadone, Urine NEGATIVE NEGATIVE - * O piates, Urine NEGATIVE NEGATIVE - * O xycodone, Urine Qualitative NEGATIVE NEGATIVE - * P ropoxyphene, Urine NEGATIVE NEGATIVE - * P hencyclidine, Urine NEGATIVE NEGATIVE - * Alexus Fierro 12/15/2023 10:2 5:45 AM > Results faxed to [facility] * Images: Billing Information: * Visit Code: * Procedure Codes: * Electronic signature of Casie Claire MD on 04/10/2025 at 08:36 AM EDT Sign off status: Pending * Provider: Yolanda Claire M.D. Date: 0 12/10/2023 Generated for Maricarmeni ng/Johnie/eTransmitting on: 1 08:36 AM EDT
--- OUTSIDE RECORDS SUMMARY | 2024-05-04 05:30 | XMS_ITS ---
[facility] Address [address] [place] [id number] Care Team Providers Care Power Press Tender Name Role Phone Alfonso Claire Primary Care Provider Jordon Yu [phone] Allergies Allergen (clinical drug ingredient) Drug/Non Drug Allergy documented on EMR Reaction Allergy Type Onset Date Status gabapentin Neurontin weakness/trouble breathing Drug Allergy Active Substance with 7-zqypjbw-4-methylg lutaryl-coenzyme A reductase inhibitor mechanism of action (substance) Statins muscle aches Drug Allergy Active Results Component Value Reference Range Notes Glycohemoglobin A1c (in hous e) Reviewed date:05/07/2024 07:59:27 PM Interpretation:6.1% Performing Lab: Notes/Report: 6.1% glycohemoglobin 6.1% 5 - 6.5 % P-Comprehensive Metabolic Pa german (CMP) Reviewed date:05/07/2024 07:59:27 PM Interpretation: Performing Lab: Notes/Report: Test performed by [facility], [facility] [address] [place] [address] , [address], [place] [address] Gabriel Gregory MD, Lead Fire Protection Engineer CLIA: [id number] Sodium 139 135-145 mmol/L Potassium 4.6 3.5-5.3 [...] Interpretation: Performing Lab: Notes/Report: Test performed by [facility] [address] [place] [address] , [place] [address] Gabriel Gregory MD, Lead Fire Protection Engineer CLIA: [id number] Cholesterol 211 <200 mg/dL Triglycerides 192 <150 [...] Interpretation: Performing Lab: Notes/Report: Test performed by [facility] [address] [place] [address] , [address], [place] [address] Gabriel Gregory MD, Lead Fire Protection Engineer CLIA: [id number] Vitamin D 25-Hydroxy 40.1 30.0-100.0 ng/mL Interpretation [...] Status W/U Status Risk Notes Problem Presbycusis (91343582) Presbycusis, bilateral (H91.13) Active confirmed Vital Signs Weight 189.6 lbs 05/04/2024 Blood pressure systolic 136 mm Hg 05/04/20 24 Blood pressure diastolic 76 mm Hg 024 Heart Rate 84 /min 05/04/2024 Height 63 in 05/04/2024 BMI 33.58 kg/m2 05/04/2024 Encounters Encounter Location Date Provider Diagnosis [facility] [address] [facility] [address] [place] [id number] 05/04/2024 Jordon Yu Cardiac dysrhythmia I49.9 ; [...] Notes * NEENA SUTTONDOB:1945 (80 yo F)Acc No.[id number]:05/04/2024 Progress Notes Patient: NEENA MANZANO Provider: Jordon Yu M.D. :1945 A ge:79 Y S ex:Female Date:05/04/2024 Address:[address] [place] [address] [address], [place], [id number] Pcp:Alfonso Claire Subjective: * Chief Complaints: * [...] with Cancer. M other: 70 yrs, of [place], diagnosed with Heart Disease. P aternal Grand [...] * Procedure Codes: 9 47[address] [place], [address] CAPILLARY BLOOD DRAW, [address] GLYCATED HEMOGLOBIN TEST, Modifiers: QW * Follow Up: 6 Months * Images: Billing Information: * Visit Code: 76304 Office Visit, Est Pt., Level 4. * Procedure Codes: [address] [place]. [address] CAPILLARY BLOOD DRAW. 16417 GLYCATED HEMOGLOBIN TEST. Modifiers: QW * Electronic signature of Jordon Yu MD on 04/10/2025 at 08:37 AM EDT Sign off status: Pending * Provider: Jordon Yu M.D. Date: 07/04/2023 Generated for Florinda phan/Johnie/Royaitting on: 08:37 AM EDT History and Physical Notes * HPI (History of Present Illness) Category Sub-Category Detail Notes Category Not es ENT/respiratory Diminished Hearing Pt sts that h er hearing has decreased and she would like her ears checked to make sure they don't need flushed out [facility] Pt [...]
--- OUTSIDE RECORDS SUMMARY | 2024-05-22 10:45 | XMS_ITS ---
Author Organization [facility] Address [address] [place] [id number] Care Team Providers Care Diamond Wheel Edger Name Role Phone Alfonso Claire Primary Care Provider [phone] Urvashi Ibrahim Unavailable [phone] Allergies Allergen (clinical drug ingredient) Drug/Non Drug Allergy documented on EMR Reaction Allergy Type Onset Date Status gabapentin Neurontin weakness/trouble breathing Drug Allergy Active Substance with 9-gwrmkkv-8-methylg lutaryl-coenzyme A reductase inhibitor mechanism of action [...] Interpretation: Performing Lab: Notes/Report: Test performed by [employer] [address] [place] [address] , [address], [place] [address] Gabriel Gregory MD, Logistics Supply Officer CLIA: [id number] Specimen Source Urine - Void Culture, Urine [...] Last Name Patrice Referring Provider Speciality Family [facility] Referred Provider ORTHODICS, , General Notes Urvashi Ibrahim 2:52:01 PM > right shoulder pain with limited ROM ;17 years duration; would like Aaronnona orthopedicsBebe Brynn 05/22/2024 2:57:27 PM > submitted appointment request via [facility] website Referral Priority Routine REASON FOR VISIT [...] ally Once a day Active Vital Signs Weight 191.8 lbs 05/22/2024 Blood pressure systolic 140 mm Hg 05/22/20 24 Blood pressure diastolic 70 mm Hg 024 Heart Rate 84 /min 05/22/2024 Height 63 in 05/22/2024 BMI 33.97 kg/m2 05/22/2024 Encounters Encounter Location Date Provider Diagnosis [facility] [address] [place] [id number] 05/22/2024 Urvashi Ibrahim Right shoulder pain M25.511 [...] Notes * LOI NEENADOB:1945 (80 yo F)Acc No.[id number]:05/22/2024 Progress Notes Patient: NEENA MANZANO Provider: LARISSA Daigle :1945 A ge:79 Y S ex:Female Date:05/22/2024 Address:[address] [place] [address] [address], [place], [id number] Pcp:Alfonso Claire Subjective: * Chief Complaints: * [...] with Cancer. M other: 70 yrs, of [place], diagnosed with Heart Disease. P aternal Grand [...] OX, G2211 Complex e/[place], [address] Urinalysis, no micro * Follow Up: p rn * Images: Billing Information: * Visit Code: 21642 Office Visit, Est Pt., Level 3. * Procedure Codes: 48548 PULSE OX. G2211 Complex e/[place]. [address] Urinalysis, no micro. * Electronic signature of Aubrie Ibrahim APRN on 04/10/2025 at 08:38 AM EDT Sign off status: Pending * Provider: LARISSA Daigle Date: 1 07/23/2023 Generated for Florinda phan/Johnie/eTransmitting on: 08:38 AM EDT History and Physical Notes * [...]
--- OUTSIDE RECORDS SUMMARY | 2024-05-27 05:15 | XMS_ITS ---
Author Organization [facility] Address [address] [facility] [address] [place] [id number] Care Team Providers Care Fried Cake Maker Name Role Phone Alfonso Claire Primary Care Provider Allergies Allergen (clinical drug ingredient) Drug/Non Drug Allergy documented on EMR Reaction Allergy Type Onset Date Status gabapentin Neurontin weakness/trouble breathing Drug Allergy Active Substance with 8-vlkpnmb-8-methylg lutaryl-coenzyme A reductase inhibitor mechanism of action [...] Status W/U Status Risk Notes Problem Anemia (093339416) Anemia, unspecified type (D64.9) Active confirmed Vital Signs Weight 192.0 lbs 05/27/2024 Blood pressure systolic 120 mm Hg 05/27/20 24 Blood pressure diastolic 80 mm Hg 024 Heart Rate 81 /min 05/27/2024 Height 63 in 05/27/2024 BMI 34.01 kg/m2 05/27/2024 Encounters Encounter Location Date Provider Diagnosis [facility] [address] [facility] [address] [place], [place] [id number] 05/27/2024 Alfonso Donahue Acute UTI N39.0 ; Fever, unspecified R50.9 [...] Follow Up: 10 to 14 days wit [facility], Reason: Progress Notes * YOLY SUTTON:1945 (80 yo F)Acc No.[id number]:05/27/2024 Progress Notes Patient: NEENA MANZANO Provider: Yolanda Claire M.D. :1945 A ge:79 Y S ex:Female Date:05/27/2024 Address:[address] [place] [address] DIONNA JREOME, [id number] Subjective: * Chief Complaints: * 1 . [...] with Cancer. M other: 70 yrs, of [place], diagnosed with Heart Disease. P aternal Grand [...] G 2211 Complex e/[place], [address] Flu Test- Nasal Swab, Modifiers: QW , 44792 COVID TEST IN HOUSE, Modifiers: QW , 22869 CAPILLARY BLOOD DRAW, 20896 CBC WITH AUTO DIFF * Follow Up: 1 0 to 14 days with [facility] * Images: Billing Information: * Visit Code: 87709 Office Visit, Est Pt., Level 4. * Procedure Codes: G2211 Complex e/[place]. [address] Flu Test- Nasal Swab. Modifiers: QW 06518 COVID TEST IN HOUSE. Modifiers: QW 18011 CAPILLARY BLOOD DRAW. 12056 CBC WITH AUTO DIFF. * Electronic signature of Casie Claire MD on 04/10/2025 at 08:36 AM EDT Sign off status: Pending * Provider: Yolanda Claire M.D. Date: 07/28/2023 Generated for Florinda phan/Johnie/eTransmitting on: 08:36 AM EDT History and Physical Notes * [...]
--- OUTSIDE RECORDS SUMMARY | 2024-05-29 10:30 | XMS_ITS ---
Author Organization [facility] Address [address] [facility] [address] [place] [phone] Care Team Providers Care Reinspector Name Role Phone Alfonso Claire Primary Care Provider [phone] Urvashi Ibrahim Unavailable [phone] Allergies Allergen (clinical drug ingredient) Drug/Non Drug Allergy documented on EMR Reaction Allergy Type Onset Date Status gabapentin Neurontin weakness/trouble breathing Drug Allergy Active Substance with 5-lvfriqx-1-methylg lutaryl-coenzyme A reductase inhibitor mechanism of action [...] Duration: 30 day(s) 05/27/2024 Active Vital Signs Weight 187.2 lbs 05/29/2024 Blood pressure systolic 120 mm Hg 05/29/20 24 Blood pressure diastolic 64 mm Hg 024 Heart Rate 90 /min 05/29/2024 Height 63 in 05/29/2024 BMI 33.16 kg/m2 05/29/2024 Encounters Encounter Location Date Provider Diagnosis [facility] [address] [phone] 05/29/2024 Urvashi Ibrahim Bronchitis J4 0 Assessments [...] Notes * NEENA SUTTONDOB:1945 (80 yo F)Acc No.[id number]:05/29/2024 Progress Notes Patient: NEENA MANZANO Provider: LARISSA Daigle :1945 A ge:79 Y S ex:Female Date:05/29/2024 Address:[address] [place] [phone] Pcp:Alfonso Claire Subjective: * Chief Complaints: * [...] with Cancer. M other: 70 yrs, of [place], diagnosed with Heart Disease. P aternal Grand [...] G 2211 Complex e/[place], [address] STREP A ASSAY W/OPTIC, Modifiers: QW , 76882 CAPILLARY BLOOD DRAW, 09046 CBC WITH AUTO DIFF * Follow Up: p rn * Images: Billing Information: * Visit Code: 20067 Office Visit, Est Pt., Level 3. * Procedure Codes: G2211 Complex e/[place]. [address] STREP A ASSAY W/OPTIC. Modifiers: QW 17015 CAPILLARY BLOOD DRAW. 23787 CBC WITH AUTO DIFF. 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
--- OUTSIDE RECORDS SUMMARY | 2024-10-18 06:00 | XMS_ITS ---
Author Organization [facility] Address [address] [place] [id number] Care Team Providers Care Lifter/Driver Name Role Phone Alfonso Claire Primary Care Provider Cecelia Suazo Unavailable [phone] Allergies Allergen (clinical drug ingredient) Drug/Non Drug Allergy documented on EMR Reaction Allergy Type Onset Date Status gabapentin Neurontin weakness/trouble breathing Drug Allergy Active Substance with 4-ujqmklq-5-methylg lutaryl-coenzyme A reductase inhibitor mechanism of action [...] Normal Performing Lab: Notes/Report: Test performed by [employer], [employer] [address] [place] [address] , [address], [place] [address] Gabriel Gregory MD, Adz Worker CLIA: [id number] Vitamin B12 450 591-8633 pg/mL P-Lyme Disease (B. burgodorf la), IgG/IgM, SOILA, Serum Reviewed date:10/20/2024 12:06:10 PM Interpretation: Normal Performing Lab: Notes/Report: Test performed by [facility] , [facility] C, [place] [address] Gabriel Gregory MD, Adz Worker CLIA: [id number] B burgdorferi (Lyme Disease) IgG Negative Negative B burgdorferi (Lyme Disease) IgM Negative Negative P-Folate Reviewed date:10/20/2024 12:06:10 PM Interpretation: Normal Performing Lab: Notes/Report: Test performed by [facility] [employer] , [facility] C, [place] [address] Gabriel Gregory MD, Adz Worker CLIA: [id number] Folate 18.40 >4.59 ng/mL P-Ferritin Reviewed date:10/20/2024 12:06:10 PM Interpretation: Normal Performing Lab: Notes/Report: Test performed by [facility] , [address], [place] [address] Gabriel Gregory MD, Adz Worker CLIA: [id number] Ferritin 15.2 13.0-301.0 ng/mL P-Iron Reviewed date:10/20/2024 12:06:10 PM Interpretation:29 Performing Lab: Notes/Report: Test performed by [facility] , [facility] [place] [address] Gabriel Gregory MD, Adz Worker CLIA: [id number] Iron 29 37-145 ug/dL P-Vitamin D 25-Hydroxy Reviewed date:10/20/2024 12:06:10 PM Interpretation: Normal Performing Lab: Notes/Report: Test performed by [facility], [facility] [address], [place] [address] Gabriel Gregory MD, Adz Worker CLIA: [id number] Vitamin D 25-Hydroxy 36.7 30.0-100.0 ng/mL Interpretation [...] 10/18/2024 Encounters Encounter Location Date Provider Diagnosis [facility] [address], [place] [phone] 10/18/2024 Cecelia Crowdy Bronchitis J40 ; Ane [...] Notes * NEENA SUTTONDOB:1945 (80 yo F)Acc No.[id number]:10/18/2024 Progress Notes Patient: NEENA MANZANO Provider: AUGIE Felix :1945 A ge:79 Y S ex:Female Date:10/18/2024 Address:[address] [place] [address] [id number] Pcp:Alfonso Claire Subjective: * Chief Complaints: * [...] with Cancer. M other: 70 yrs, of [place], diagnosed with Heart Disease. P aternal Grand [...] initial encounter - W57.XXXA 5 . B [place] 34.0-34.9,adult - Z68.34 Plan: * Treatment: Value [...] AM)?Normal* Value Reference Range V itamin B12 639 932-2781 - pg/mL * Cassi De La O [...] G 2211 Complex e/[place], [address] Flu Test- Nasal Swab, Modifiers: QW , 78347 CAPILLARY BLOOD DRAW, 12994 CBC WITH AUTO DIFF, 3074F SYST BP LT 130 MM HG, 3078F DIAST BP < 80 MM HG * Follow Up: v ia phone to report test results * Images: Billing Information: * Visit Code: 39301 Office Visit, Est Pt., Level 4. * Procedure Codes: G2211 Complex e/[place]. [address] Flu Test- Nasal Swab. Modifiers: QW 78512 CAPILLARY BLOOD DRAW. 29191 CBC WITH AUTO DIFF. 3074F SYST BP LT 130 MM HG. 3078F DIAST BP < 80 MM HG. * Electronic signature of AUGIE Douglas on 04/10/2025 at 08:37 AM EDT Sign off status: Pending * Provider: AUGIE Felix Date: 0 10/18/2024 Generated for Florinda phan/Johnie/eTransmitting on: 1 08:37 AM EDT History and Physical Notes [...]
--- OUTSIDE RECORDS SUMMARY | 2024-10-20 11:05 | XMS_ITS ---
Author Organization [facility] Address [address] [place] [phone] Care Team Providers Care Packaging Design Engineer Name Role Phone Alfonso Claire Primary Care Provider [phone] Cecelia Suazo Unavailable [phone] Results Component Value Reference Range Notes Hemoccult- [...] Provider Diagnosis Sal [address] [place] [phone] 10/20/2024 Cecelia Suazo Anemia D64.9 Assessments Encounter Date Diagnosis (ICD Code) Assessment Notes Treatment Notes Treatment Clinical Notes Section Notes 10/20/2024 Anemia (ICD-10 - D64.9) Plan Of Treatment No Information Progress Notes * NEENA SUTTONDOB:1945 (80 yo F)Acc No.[id number]:10/20/2024 Patient: NEENA MANZANO Provider: AUGIE Felix :1945 A ge:79 Y S ex:Female Date:10/20/2024 Address:[address] [place] [address], [place], [id number] Pcp:Alfonso Claire Subjective: * Chief Complaints: * [...] Information: * Visit Code: * Procedure Codes: 72292 ASSAY TEST FOR BLOOD, FECAL. Modifiers: QW * Electronic signature of AUGIE Douglas on 04/10/2025 at 08:38 AM EDT Sign off status: Pending * Provider: AUGIE Felix Date: 0 10/20/2024 Generated for Florinda phan/Johnie/Royaitting on: 1 08:38 AM EDT
--- OUTSIDE RECORDS SUMMARY | 2024-11-09 11:45 | XMS_ITS ---
Author Organization [facility] Address [address] [facility] [address] [place] [id number] Care Team Providers Care Dough Machine Operator Name Role Phone Alfonso Claire Primary Care Provider [phone] Jordon Yu [phone] Allergies Allergen (clinical drug ingredient) Drug/Non Drug Allergy documented on EMR Reaction Allergy Type Onset Date Status gabapentin Neurontin weakness/trouble breathing Drug Allergy Active Substance with 4-gwhebhv-1-methylg lutaryl-coenzyme A reductase inhibitor mechanism of action [...] Growth Performing Lab: Notes/Report: Test performed by [facility] [address] [place] [address] , [address], [place] [address] Gabriel Gregory MD, Pediatric Dentist CLIA: [id number] Specimen Source Urine - Void Culture, Urine [...] TIMES DAILY; Duration: 90 Active Vital Signs Weight 193.2 lbs 11/09/2024 Blood pressure systolic 120 mm Hg 11/10/19 25 Blood pressure diastolic 64 mm Hg 025 Heart Rate 54 /min 11/09/2024 Height 63 in 11/09/2024 BMI 34.22 kg/m2 11/09/2024 Encounters Encounter Location Date Provider Diagnosis [facility] [address] [id number] 11/09/2024 Jordon Yu UTI (lower urinary tract [...] Notes * NEENA SUTTONDOB:1945 (80 yo F)Acc No.[id number]:11/09/2024 Progress Notes Patient: NEENA MANZANO Provider: Jordon Yu M.D. :1945 A ge:79 Y S ex:Female Date:11/09/2024 Address:[address] [place] [address], [place], [id number] Pcp:Alfonso Claire Subjective: * Chief Complaints: * 1 . Referral for bone density. * HPI: R heumatology: She continues to follow with rheumatology for her rheumatoid arthritis. They have requested that she have a bone density test but she did not want to return to [place] for the study and would like to have it arranged at [facility]. U rology: She recently started with urinary [...] with Cancer. M other: 70 yrs, of [place], diagnosed with Heart Disease. P aternal Grand [...] heumatoid arthritis - M06.9 5 . B [place] 34.0-34.9,adult - Z68.34 Plan: * Treatment: Value Reference Range C ulture, Urine See Below - * S pecimen Source Urine - Void - * Portia Henderson 11/14/2024 11:5 2:20 AM >pt started [...] 11/10/2024 08:2 1:07 AM > faxed to [facility] Jordon Tinoco 12/28/2024 05:22:10 PM EDT > please fax this report to her dispatch supervisor, Cassi Calderon 01/19/2025 11:28:32 AM EDT > faxed report to [phone] * Procedure Codes: G 2211 Complex e/[place], [address] Urinalysis, no micro, 3074F SYST BP LT 130 MM HG, 3078F DIAST BP < 80 MM HG * Follow Up: v ia phone to report test results * Images: Billing Information: * Visit Code: 95203 Office Visit, Est Pt., Level 4. * Procedure Codes: G2211 Complex e/[place]. [address] Urinalysis, no micro. 3074F SYST BP LT 130 MM HG. 3078F DIAST BP < 80 MM HG. * Electronic signature of Jordon Yu MD on 04/10/2025 at 08:37 AM EDT Sign off status: Pending * Provider: Jordon Yu M.D. Date: 0 11/09/2024 Generated for Florinda phan/Johnie/Royaitting on: 1 08:37 AM EDT History and [...] she did not want to return to [place] for the study and would like to have it arranged at [facility]. Examination Category Sub-Category Detail Notes Category Not es General Examination Abdomen: soft , not d istended , soft and nontender , no CVA tenderness General Appearance: NAD
--- OUTSIDE RECORDS SUMMARY | 2025-03-12 09:45 | XMS_ITS ---
Author [facility] Address [address] [place] [id number] Care Team Providers Care Retail Service Specialist Name Role Phone Alfonso Claire Primary Care Provider [phone] Urvashi Ibrahim Unavailable [phone] Allergies Allergen (clinical drug ingredient) Drug/Non Drug Allergy documented on EMR Reaction Allergy Type Onset Date Status gabapentin Neurontin weakness/trouble breathing Drug Allergy Active Substance with 1-lcvpgwf-3-methylg lutaryl-coenzyme A reductase inhibitor mechanism of action [...] Interpretation: Performing Lab: Notes/Report: Test performed by [facility], [facility] [address] [place] [address] , [address], [place] [address] Gabriel Gregory MD, Vendor Quality Supervisor CLIA: [id number] Sodium 141 135-145 mmol/L Potassium 4.9 3.5-5.3 [...] Interpretation:18 Performing Lab: Notes/Report: Test performed by [employer], [facility] [address] [place] [address] , [address], [place] [address] Gabriel Gregory MD, Vendor Quality Supervisor CLIA: [id number] Iron 18 37-145 ug/dL EKG Reviewed date:03/15/2025 [...] Status W/U Status Risk Notes Problem Anemia (006610379) Anemia (D64.9) Active confirmed Vital Signs Weight 183.2 lbs 03/12/2025 Blood pressure systolic 102 mm Hg 03/12/20 25 Blood pressure diastolic 60 mm Hg 025 Heart Rate 81 /min 03/12/2025 Height 63 in 03/12/2025 BMI 32.45 kg/m2 03/12/2025 Encounters Encounter Location Date Provider Diagnosis [facility] [address] [place], [place] [phone] 03/12/2025 Urvashi Patrice Shortness of breath R06.02 [...] Notes * NEENA SUTTONDOB:1945 (80 yo F)Acc No.[id number]:03/12/2025 Progress Notes Patient: NEENA MANZANO Provider: LARISSA Daigle :1945 A ge:80 Y S ex:Female Date:03/12/2025 Address:[address] [place] [address], [place], [id number] Pcp:Alfonso Claire Subjective: * Chief Complaints: * [...] OK; nothing tastes right; did go to [employer] last week and walked alot; shortness of [...] 08/18/2024. * Hospitalization/Major Diagno stic Procedure: B [facility]-right reverse total shoulder TSA 08/18/2024. 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 * Procedure Codes: G2211 Complex e/[place]. [address] CBC WITH AUTO DIFF. 80796 VENIPUNCT, ROUTINE*. 1036F TOBACCO NON-USER. 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 G8752 MOST RECENT SYSTOLIC BP < 140MM HG. G8754 MOST RECENT DIASTOLIC BP < 90MM HG. 3074F SYST BP LT 130 MM HG. 3078F DIAST BP < 80 MM HG. * Electronic signature of Aubrie Ibrahim APRN on 04/10/2025 at 08:36 AM EDT Sign off status: Pending * Provider: LARISSA Daigle Date: 0 03/12/2025 Generated for Florinda phan/Johnie/eTransmcharli on: 1 08:36 AM EDT History and Physical Notes [...]
--- OUTSIDE RECORDS SUMMARY | 2025-04-02 05:45 | XMS_ITS ---
Author Organization Sal Address [address] [facility] [address] [place] [id number] Care Team Providers Care Magnetic Tape Winder Name Role Phone Alfonso Claire Primary Care Provider [phone] Urvashi Ibrahim Unavailable [phone] Allergies Allergen (clinical drug ingredient) Drug/Non Drug Allergy documented on EMR Reaction Allergy Type Onset Date Status gabapentin Neurontin weakness/trouble breathing Drug Allergy Active Substance with 7-vuirbga-5-methylg lutaryl-coenzyme A reductase inhibitor mechanism of action [...] Provider Diagnosis Sal [address] [facility] [address] [place] [phone] 04/02/2025 Urvashi Ibrahim Fatigue, unspecified type R53.83 [...] Notes * NEENA SUTTONDOB:1945 (80 yo F)Acc No.[id number]:04/02/2025 Patient: NEENA MANZANO Provider: LARISSA Daigle :1945 A ge:80 Y S ex:Female Date:04/02/2025 Address:[address] [place] [address] QUEENIE, DIONNA FLORES, [id number] Pcp:Alfonso Claire Subjective: * Chief Complaints: * [...] Hospitalization/Major Diagno stic Procedure: B [facility]-right reverse total shoulder TSA 08/18/2024. * Family History: F ather: 54 yrs, diagnosed with Cancer. M other: 69 yrs, of [place], diagnosed with Heart Disease. P aternal Grand [...] * Images: Billing Information: * Visit Code: 71704 Office Visit, Est Pt., Level 3. * Procedure Codes: * Electronic signature of Aubrie Ibrahim APRN on 04/10/2025 at 08:36 AM EDT Sign off status: Pending * Provider: LARISSA Daigle Date: Generated for Florinda phan/Johnie/eTransmitting on: 08:36 AM [...]
--- OUTSIDE RECORDS SUMMARY | 2025-04-10 08:37 | XMS_ITS | Clinical Summary ---
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 (ICD-10-CM ) Active Hoa Levi 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 Medications Medication Instructions Start Date Stop Date Generic Name ND Provider RIFAMPIN 300 MG CAPS 2 by mouth daily 4 months RIFAMPIN [id number] David Jordan MD FLUCONAZOLE 150 MG TABS TAKE ONE TABLET BY MOUTH A ONE TIME DOSE 01/25 FLUCONAZOLE [id number] Douglas Echeverria CELECOXIB 200 MG CAPS TAKE 1 CAPSULE BY MOUTH TWICE DAILY FOR 30 DAYS 12/05 CELECOXIB [id number] Douglas D VITAMIN D (ERGOCALCIFEROL) 1.25 MG (34076 UT) CAPS TAKE 1 CAPSULE BY MOUTH ONCE A WEEK 03/20 ERGOCALCIFEROL [id number] Douglas Echeverria VASCEPA 1 GM CAPS TAKE 2 CAPSULES BY MOUTH TWICE DAILY 01/30 ICOSAPENT ETHYL [id number] Douglas Echeverria FLUZONE HIGH-DOSE QUADRIVALENT 0.7 ML INTRAMUSCULAR SUSPENSION PREFILLED SYRINGE PHARMACIST ADMINISTERED IMMUNIZATION ADMINISTERED AT TIME OF DISPENSING 02/22 INFLUENZA VAC HIGH-DOSE QUAD [id number] Douglas D ESOMEPRAZOLE MAGNESIUM 40 MG CPDR TAKE 1 CAPSULE BY MOUTH ONCE DAILY 10/18 ESOMEPRAZOLE MAGNESIUM 38246259049 Douglas D TRAMADOL HCL 50 MG TABS TAKE 1 TABLET BY MOUTH 4 TIMES DAILY NEEDED 03/07 TRAMADOL HCL [id number] Douglas D MELOXICAM 15 MG TABS TAKE 1 TABLET BY MOUTH ONCE DAILY 02/21 MELOXICAM 91500278338 Douglas D HYDROXYCHLOROQUINE SULFATE 200 MG TABS TAKE 1 TABLET BY MOUTH TWICE DAILY 03/20 HYDROXYCHLOROQUINE SULFATE 88818161937 Douglas D Medications Administered No information available. [...] STAT Labs CPT-[facility] Continue oral antibiotics 11/07/19 CPT-42636 CMP [id number] CBC with Differential 2019 [facility] Continue oral antibiotics 09/06/16 CPT-sl STAT Labs CPT-49176 CMP [id number] CBC with Differential 2019 [facility] Continue oral antibiotics 10/05/18 CPT-sl STAT Labs CPT-20151 CMP [id number] CBC with Differential 2019 CPT-69251 C- reactive protein CPT-farzaneh New Oral Antibiotic [...]
--- OUTSIDE RECORDS SUMMARY | 2025-04-10 08:37 | XMS_ITS | Referral Summary ---
Author Organization [employer] ([place], [place], [place], [place]) Address [address] [place] [address] Care Team Providers Care Cd Technician Name Role Phone Unavailable Primary Care Provider [...]
--- OUTSIDE RECORDS SUMMARY | 2025-04-10 08:37 | XMS_ITS | Clinical Summary ---
[facility] Address [address] [place] [address] Care Team Providers Care Regulatory Coordinator Name Role Phone Gagan Yu MD Primary [...] tried include: She saw Dr. Jameel Ryan (Electric Organ Assembler) in 2007, Tylenol, etodolac, indomethacin, Celebrex, ibuprofen, shoulder injection, back surgery, she has done some physical therapy, prednisone, gabapentin, She saw Dr. Randolph (Electric Organ Assembler), she saw Dr. Perera (Electric Organ Assembler), cortisone injections in her knees, meloxicam, Plaquenil, [...] tried include: She saw Dr. Jameel Ryan (Electric Organ Assembler) in 2007, Tylenol, etodolac, indomethacin, Celebrex, ibuprofen, shoulder injection, back surgery, she has done some physical therapy, prednisone, gabapentin, She saw Dr. Randolph (Electric Organ Assembler), she saw Dr. Perera (Electric Organ Assembler), cortisone injections in her knees, meloxicam, Plaquenil, [...] tried include: She saw Dr. Jameel Ryan (Electric Organ Assembler) in 2007, Tylenol, etodolac, indomethacin, Celebrex, ibuprofen, shoulder injection, back surgery, she has done some physical therapy, prednisone, gabapentin, She saw Dr. Randolph (Electric Organ Assembler), she saw Dr. Perera (Electric Organ Assembler), cortisone injections in her knees, meloxicam, Plaquenil, [...] Team Description 01/22/2025 Results Follow-Up [facility] [address] [place] [phone] Mor Dash DO from Last 3 [...] or training? Not on file Preferred Language Afghan 08/08/2024 Comments No Sex and Gender Information [...] 3:45 PM EDT Office Visit [facility] [address] [place] [phone] oMr Dash, DO Chuy [facility] [address] [place] [address] Health Maintenance Due Date Last Done Comments RSV Vaccine - Adults (1 - 1- dose 75+ series) 2021 ANNUAL WELLNESS VISIT 01/31/2021 HEPATITIS C SCREENING 01/31/2021 INFLUENZA VACCINE 01/19/2025 04/05/2024, , 04/25/2021, Additional history exists COVID-19 Vaccine (7 - Mixed Product risk season) 2025 04/10/2024, 04/06/2023, 05/30/2021, Additional history exists DXA SCAN 12/06/2026 12/06/2024 TDAP/TD VACCINES (3 - Td or Tdap) 10/20/2032 023, 04/22/1999 ZOSTER VACCINE Completed 01/27/2023, 10/20/2022 Pneumococcal Vaccine 50+ Completed 08/11/2024, 10/2020 Medical Devices Implanted Type Area Biscuit Machine Operator Device Identifier Shelf Expiration Date Model / Serial / Lot Pat Triath Tritanium [id number] - [id number] Implanted:Qt y: 1 on 04/02/2021 by Jonathon Tobin MD at [facility] Implant Left: Knee MARIANELA KAELA 01/18/2026 [id number] / / [id number] Comp Fem Triath Cr Cmtls Sz4 Lt - [id number] Implanted:Qt y: 1 on 04/02/2021 by Jonathon Tobin MD at [facility] Implant Left: Knee MARIANELA KAELA 08/30/2025 [id number] / / [id number] Baseplt Tib Triath Tritanium Sz5 - [id number] Implanted:Qt y: 1 on 04/02/2021 by Jonathon Tobin MD at [facility] Implant Left: Knee MARIANELA KAELA 12/08/2025 [id number] / / [id number] Insrt Tib/Kn Triathlon Condy/Stbl X3 Sz5 9mm - [id number] Implanted:Qt y: 1 on 04/02/2021 by Jonathon Tobin MD at [facility] Implant Left: Knee MARIANELA KAELA 01/06/2026 [id number] / / [id number] Dev Contrl Tiss Stratafix Spiral Pdo Bidir 1 34q07pr - [id number] Implanted:Qt y: 1 on 04/02/2021 by Jonathon Tobin MD at [facility] Implant Left: Knee ETHICON ENDO SURGERY DIV OF J AND J [id number] / / Cap Total Kn Cmtls 4 Pc - [id number] Implanted:Qt y: 1 on 04/02/2021 by Jonathon Tobin MD at [facility] Implant Left: Knee MARIANELA KAELA CAPKNCEMENTLESS4 P IECE / / Baseplt Shldr Aequalis 1/2 Wedge Aug 35d 25mm - [id number] - [id number] Implanted:Qt y: 1 on 08/18/2024 by Marcelo Howard MD at [facility] Implant Right: Shoulder TORNIER [id number] 11/26/2027 [id number] / [id number] / LR Glenosphere Shldr Aequalis Perform Lat Pls3mm 36mm - [id number] - [id number] Implanted:Qt y: 1 on 08/18/2024 by Marcelo Howard MD at [facility] Implant Right: Shoulder TORNIER [id number] 10/17/2028 [id number] / [id number] / Scrw Aequalis Perform Centrl 6.5x30mm - [id number] Implanted:Qt y: 1 on 08/18/2024 by Marcelo Howard MD at [facility] Implant Right: Shoulder TORNIER [id number] / / N/A Scrw Aequalis Perform Periph 5x22mm - [id number] Implanted:Qt y: 2 on 08/18/2024 by Marcelo Howard MD at [facility] Implant Right: Shoulder TORNIER [id number] / / N/A Scrw Aequalis Perform Periph 5x30mm - [id number] Implanted:Qt y: 1 on 08/18/2024 by Marcelo Howard MD at [facility] Implant Right: Shoulder TORNIER [id number] / / N/A Scrw Periph 5x34mm - [id number] Implanted:Qt y: 1 on 08/18/2024 by Marcelo Howard MD at [facility] Implant Right: Shoulder TORNIER [id number] / / N/A Insrt Hum/Shldr Rev Preform Sz1/2 Pls0 10deg 36mm - [id number] - [id number] Implanted:Qt y: 1 on 08/18/2024 by Marcelo Howard MD at [facility] Implant Right: Shoulder TORNIER [id number] 06/08/2028 [id number] / [id number] / Stem Hum/Shldr Preform Lng Pls Sz2 [id number] - [id number] - [id number] Implanted:Qt y: 1 on 08/18/2024 by Marcelo Howard MD at [facility] Implant Right: Shoulder TORNIER [id number] 01/26/2029 [id number] / [id number] / Cp Totl Rev Shldr Perform Stem Rsa Perf Rev Lat/Aug - [id number] Implanted:Qt y: 1 on 08/18/2024 by Marcelo Howard MD at [facility] Implant Right: Shoulder TORNIER CAPTORNIERTOTLSH L DREVPERFSTEMRSAPE RFLATAUG / / Cp Shldr Modifier Lng Stem - [id number] Implanted:Qt y: 1 on 08/18/2024 by Marcelo Howard MD at [facility] Implant Right: Shoulder TORNIER CAPTORNIERSHLDRM O DLONGSTEM / / Hemost Abs Surgicel Orig 4x8in Strl - [id number] Implanted:Qt y: 1 on 08/18/2024 by Marcelo Howard MD at [facility] Implant Right: Shoulder ETHICON DIV OF J AND J [id number] 12/18/2028 [id number] / / [id number] Back Hardware From Spinal Surgery Explanted Type Area Biscuit Machine Operator Device Identifier Shelf Expiration Date Model / Serial / Lot Erica Everett Preform [id number] - [id number] Explanted:Qty : 1 on 08/18/2024 by Marcelo Howard MD at [facility] Implant Right: Shoulder TORNIER [id number] 06/09/2029 [id number] / / [id number] Procedures Procedure Name Priority Date/Time Associated Diagnosis [...] Payer (Ef fective 2011-Present) Name:Lona Sutton Member ID:[id number] Relation to Subscriber:Self Name:Lona Sutton Subscriber ID:[id number] Payer ID:[id number] Group ID:Not on file Type:Not on file Address: [facility] [id number] [address] Advance Directives * CPR (Attempt to Resuscitate) (Latest Code Status on File) Date Activated Date Inactivated Comments 04/02/2021 2:08 PM 04/02/2021 8:10 PM Question Answer Comments Code Status (Patient has no pulse and is not breathing): CPR (Attempt to Resuscitate) Medical Interventions (Patie nt has pulse or is breathing): Full Healthcare Agents on File Name Relationship Healthcare Agent [facility] Communication [facility] Surrogate Care Teams Regulatory Coordinator Relationship Specialty Start Date End Date Gagan Yu MD [facility] [address] [facility] [address] [place] [address] PCP - General Family Medicine 07/10/20
--- OUTSIDE RECORDS SUMMARY | 2025-04-10 08:37 | XMS_ITS | Data Portability ---
Author Organization [facility] LOLI Woodson ESTELLINE CLOSED Address [address] [facility] [address] [place] [address] Care Team Providers Care Town Marshal Name Role Phone CHRIS DAVIS Primary Care Provider Assessment Encounter Date Assessment Date Assessment LastModified [...] Imaging XR, knee, 3 view 2019 020 [facility] Radiology [facility], [address] [place], [address], 0 10:18:22 XR, joint, multiple, 1 view 2019 020 [facility] Radiology [facility], [address] [place], [address], 0 10:16:32 Medication Orders Celebrex 200 mg capsule 2019 020 INTERFACE [facility] 591, [address], [address], 0 09:19:01 Patient TargetsNo targets recorded. Patient Instructions Encounter Date Encounter Id Patient Instructions Last Modified By Organization Details Last Modified Time 08/04/2016 [id number] AP/Lat Lumbar XR -s/p L4-S1 fusion -No breakage of rods or screws -No evidence of loosening of screws Not available 08/04/2016 13:05:40 12/06/2019 [id number] osteoarthritis: care instructions [email or web address] Not available 12/06/2019 09:18:45 Reason for Referral None Reported. Results Created Date Observation Date Name Description Value Unit Range Abnormal Flag Note LastModifiedBy Organization Detail LastModifiedTime 08/04/19 17 08/04/2016 XR, lumbo sacra l spine , 2 or [address] [address] Sunny carlton Name: LONA carlton : 01/20/19 [...] Lucretia Townsend MD on 017 1:44 PM [email or web address] [facility] Radiology [facility] [address] [place] [address], [address], 08/05/2016 09:18:24 12/06/19 20 12/06/2019 XR, joint , multi ple, [address] [place] [address] Patinazanin t Name: LONA carlton : [birth year] Patinazanin t 7 Orderana m ng Provid er: [facility] EXAM DATE: 2019 EXAM: XR ETE HANDS, AP VIEW HISTOR Y: Bilate ral [...] Garry Dean MD on 020 10:[address] Rad[address], [place], [address], 12/06/2019 10:40:06 12/06/19 20 12/06/2019 XR, knee, [address] [place] [address] Patinazanin t Name: LONA carlton : [birth year] 47 Patinazanin t 7 Orderana m ng Provid er: [facility] EXAM DATE: 2019 EXAM: XR TEE [...] Dean MD on 020 10:13 AM [email or web address] [facility] Radiology [address], [address], 12/06/2019 10:40:05 Result Notes Documentation Provider Name and Address Organization Details Recorded Time Xr, Lumbosacral Spine, 2 Or 3 View : [place] [address] Patient Name: LONA SUTTON Patient : 1945 [...] By: David Townsend MD [place] COSME MD [address] [place] [address], [address], [facility] 08/05/2016 09:18:24 Xr, Joint, Multiple, 1 View : [address] [address] Patient Name: LONA SUTTON Patient : 1945 [...] Interpreted By: Garry Dean MD CH MD [address] [place] [address], [address], [facility] 12/06/2019 10:40:06 Xr, Knee, 3 View : [address] [address] Patient Name: LONA SUTTON Patient : 1945 [...] Interpreted By: Garry Dean MD CH MD [address] [place] [address], [address], [facility] 12/06/2019 10:40:05 Problems Name Problem SNOMED Code Status Onset Date Resolution Date Notes Provider Name and Address Organization Details Recorded Time Spinal stenosis of lumbar region 12354633 Active 2015 From Automated Load;Provi geneva: Virgil Cosme;St atus: Active Not Available [facility] 6 00:28:20 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 Procedures Surgical History Date Name Laterality Status Provider Name and Address Organization Details Recorded Time 0 Injection - Joint/Bursa, Major, w/o US completed ROLO CH MD [address] [place], [address], [place] [facility] 12/06/2019 09:30:24 Imaging Results None recorded. Procedure Notes None recorded. Medical Equipment None Reported. Allergies Allergen ID Allergen Name Allergen Category Reaction Reaction Severity Criticality Documentation Date Start Date Code Code System Note Provider Name and Address Organization Details Recorded Time 209932 Product containin g 3-hydroxy -3-methyl glutaryl- coenzyme A reductase inhibitor (product) medicatio n dizziness severe Not available 12/06/2019 12969 009 SNOMED Brenda Retana [facility], [facility] 0 08:54:44 Medications Name Sig Start Date [...] Body mass index (BMI) Heart rate Systolic And Diastolic Provider Name and Address Organization Details Last Updated DateTime 08/04/2016 162.56 cm 25404.4 g 36 kg/m2 78 /min 140/78 mm[Hg] Christine Smith [facility] 08/04/2016 13:11:59 Date Recorded Body weight Heart rate Respiratory rate Systolic And Diastolic Provider Name and Address Organization Details Last Updated DateTime 12/06/2019 526686.69 g 80 /min 18 /min 156/92 mm[Hg] Brenda Retana [facility] 12/06/2019 08:54:18 Social History Question Answer Notes LastModified by Localo Details LastModified Time Tobacco Smoking Status Never Smoker Brendaaureliano Retana [facility] 12/06/2019 08:56:24 How Much Tobacco Do You Chew? None Information not available 12/06/2019 What Was The Date Of Your Most Recent Tobacco Screening? 12/06/2019 Information not available 12/06/2019 How Much Tobacco Do You Smoke? No Information not available 12/06/2019 How Many Years Have You Smoked Tobacco? 0 Information not available 12/06/2019 Sex: Unknown Functional Status Question Answer Note LastModified by Localo Details LastModified Time Do you or have [...] Diagnosis SNOMED-CT Code Diagnosis ICD10 Code Diagnosis IMO Codes Diagnosis Note [id number] TATIANNA HAQ PA-C [facility] CL[facility]ED [address] [place] [address] 08/04/2016 12:46:15 08/04/2016 14:07:45 Postoperative visit [id number] ROLO CH MD RHEUMATOL OGY SB [address] [place] [address] 12/06/2019 08:47:21 12/06/2019 10:00:35 Generalized osteoarthritis 052133464 M15.9 74-year-ol d female with generalize d osteoarthr itis. Severe deformitie s of the hands especially the right hand with Jorge Luis and Heberden nodules along with severe first [facility] osteoarthr itis. 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 Severe deformitie s of bilateral knee [...] Cuellar Member ID Guarantor Name 12/03/2019 2 [facility] [id number] Lona Sutton [id number] Lona Sutton 12/06/2019 1 [place] Lona Sutton [id number] Lona Sutton 08/13/2016 2 [facility] Lona Sutton Notes Date Note Type Note Provider Name and Address Organization Details Recorded Time 08/04/2016 text/html ROS as noted in the HPI Ms. Sutton presents for 6 month post-op visit. She is s/p L4-S1 fusion on 02/27/[address] Cosme. She continues to do well. Has occassional right leg pain, but is infrequent and tolerable. She continues to walk for exercise without issue. TATIANNA HAQ PA-C [facility] [place], [address], [facility] 08/04/2016 13:23:46 12/06/2019 text/html ROS as noted in the HPI 74-year-old female seen today as a new patient. She [...] and bilateral knee joints. ROLO CH MD [facility] [place], [address], [facility] 12/06/2019 09:35:05 OBGyn Episode No OBEpisode recorded.
--- OUTSIDE RECORDS SUMMARY | 2025-04-10 08:38 | XMS_ITS | Patient Health Record ---
[facility] Address [address] [facility] [address] [place] [id number] Care Team Providers Care Machines Technician Name Role Phone Alfonso Claire Primary Care Provider Jordon Yu Unavailable [phone] Urvashi Ibrahim Unavailable [phone] Cecelia Suazo Unavailable [phone] Allergies Allergen (clinical drug ingredient) Drug/Non Drug Allergy documented on EMR Reaction Allergy Type Onset Date Status gabapentin Neurontin weakness/trouble breathing Drug Allergy Active Substance with 4-xpgxijm-4-methylg lutaryl-coenzyme A reductase inhibitor mechanism of action (substance) Statins muscle aches Drug Allergy Active Results Component Value Reference Range Notes Glycohemoglobin A1c (in hous e) Reviewed date:05/07/2024 07:59:27 PM Interpretation:6.1% Performing Lab: Notes/Report: 6.1% glycohemoglobin 6.1% 5 - 6.5 % P-Comprehensive Metabolic Pa german (CMP) Reviewed date:05/07/2024 07:59:27 PM Interpretation: Performing Lab: Notes/Report: Test performed by [facility], [facility] [facility] , [address], [place] [address] Gabriel Gregory MD, Chemical Technician CLIA: [id number] Sodium 139 135-145 mmol/L Potassium 4.6 3.5-5.3 [...] Interpretation: Performing Lab: Notes/Report: Test performed by [facility], [address] , [address], [place] [address] Gabriel Gregory MD, Chemical Technician CLIA: [id number] Cholesterol 211 <200 mg/dL Triglycerides 192 <150 [...] Interpretation: Performing Lab: Notes/Report: Test performed by [facility] [address] [place] [address] , [place] [address] Gabriel Gregory MD, Chemical Technician CLIA: [id number] Vitamin D 25-Hydroxy 40.1 30.0-100.0 ng/mL Interpretation [...] Normal Performing Lab: Notes/Report: Test performed by [facility] [address] [place] [address] , [address], [place] [address] Gabriel Gregory MD, Chemical Technician CLIA: [id number] Vitamin B12 686 361-7694 pg/mL P-Lyme Disease (B. burgodorf [place]), IgG/IgM, SOILA, Serum Reviewed date:10/20/2024 12:06:10 PM Interpretation: Normal Performing Lab: Notes/Report: Test performed by [facility] [address] [place], [place] [address] [place] , [address], [place] [address] Gabriel Gregory MD, Chemical Technician CLIA: [id number] B burgdorferi (Lyme Disease) IgG Negative Negative B burgdorferi (Lyme Disease) IgM Negative Negative P-Folate Reviewed date:10/20/2024 12:06:10 PM Interpretation: Normal Performing Lab: Notes/Report: Test performed by [facility] , [facility] C, [place] [address] Gabriel Gregory MD, Chemical Technician CLIA: [id number] Folate 18.40 >4.59 ng/mL P-Ferritin Reviewed date:10/20/2024 12:06:10 PM Interpretation: Normal Performing Lab: Notes/Report: Test performed by [facility] , [facility] C, [place] [address] Gabriel Gregory MD, Chemical Technician CLIA: [id number] Ferritin 15.2 13.0-301.0 ng/mL P-Iron Reviewed date:10/20/2024 12:06:10 PM Interpretation:29 Performing Lab: Notes/Report: Test performed by [facility] [address] , [facility], [place] [address] Gabriel Gregory MD, Chemical Technician CLIA: [id number] Iron 29 37-145 ug/dL P-Vitamin D 25-Hydroxy Reviewed date:10/20/2024 12:06:10 PM Interpretation: Normal Performing Lab: Notes/Report: Test performed by [facility] [address] , [place] [address] Gabriel Gregory MD, Chemical Technician CLIA: [id number] Vitamin D 25-Hydroxy 36.7 30.0-100.0 ng/mL Interpretation [...] Growth Performing Lab: Notes/Report: Test performed by [facility] [address] , [place] [address] Gabriel Gregory MD, Chemical Technician CLIA: [id number] Specimen Source Urine - Void Culture, Urine [...] Interpretation: Performing Lab: Notes/Report: Test performed by [facility] [address] [place] [address] , [address], [place] [address] Gabriel Gregory MD, Chemical Technician CLIA: [id number] Sodium 141 135-145 mmol/L Potassium 4.9 3.5-5.3 [...] Interpretation:18 Performing Lab: Notes/Report: Test performed by [facility] [address] [place] [address] , [address], [place] [address] Gabriel Gregory MD, Chemical Technician CLIA: [id number] Iron 18 37-145 ug/dL EKG Reviewed date:03/15/2025 [...] Interpretation: Performing Lab: Notes/Report: Test performed by [facility] [address] [place] [address] , [address], [place] [id number] Gabriel Gregory MD, Chemical Technician CLIA: [id number] Specimen Source Urine - Void Culture, Urine [...] Vaccine Route Administration Date Status Comme nts uBltfnjs-zeznqhmhe-mthgqtj e pts. IM Intramuscular 02/25/2011 Administered iVlbonvs-mtxhnlwxs-tvovlvo e pts. IM Intramuscular 02/10/2012 Administered xFluzone [...] Status Risk Notes Problem Gastroesophageal reflux disease (744330832) GERD (gastroesophageal reflux disease) (K21.9) Active confirmed Problem Vitamin D deficiency (80539808) Vitamin D deficiency (E55.9) Active confirmed Problem Anemia (170668362) Anemia (D64.9) Active confir med Problem Cardiac dysrhythmia (395203734) Cardiac dysrhythmia (I49.9) Active confirmed Problem Osteoarthritis (517252774) Osteoarthritis (M19.90) Active confirmed Problem Impaired fasting glucose (274554826) Impaired fasting glucose (R73.01) Active confirmed Problem Primary generalised osteoarthritis (613060714) Primary generalized (osteo)arthritis (M15.0) Active confirmed Problem Dysphagia (88262088) Dysphagia (R13.10) Active confirmed Problem Mixed hyperlipidemia (185383859) Mixed hyperlipidemia (E78.2) Active confirmed Problem Presbycusis (30604143) Presbycusis, bilateral (H91.13) Active confirmed Problem Artificial knee joint present (540429393958) Presence of left artificial knee joint (Z96.652) Active confirmed Problem Gastroesophageal reflux disease (270493187) GERD without esophagitis (K21.9) Active confirmed Problem Obese class II (500770770362612) BMI 35.0-35.9,adult (Z68.35) Active confirmed Problem Obesity (879244925) Non morbid o besity due to excess calories (E66.09) Active confirmed Problem History of polyp of colon (situation) (242329359) Hx of colonic polyps (Z86.010) Active confirmed Problem Gastroesophageal reflux disease (724836247) Gastroesophageal reflux disease, esophagitis presence not specified (K21.9) Active confirmed Problem Lumbar spinal stenosis (83567637) Spinal stenosis, lumbar (M48.06) Active confirmed Problem Arthropathy of lumbar facet joint (826393438) Lumbar facet arthropathy (M46.96) Active confirmed Problem Polyarthritis (205875975) Polyarthritis (M13.0) Active confirmed Problem Anemia (735490388) Anemia, unspecified type (D64.9) Active confirmed Problem Rheumatoid arthritis (97722127) Rheumatoid arthritis (M06.9) Active confirmed Problem Rheumatoid arthritis (79795860) Rheumatoid arthritis involving multiple sites, unspecified rheumatoid factor presence (M06.9) Active confirmed Problem Body mass index 30.00 to 34.99 (753728941048491) BMI 34.0-34.9,adult (Z68.34) Active confirmed Problem Sciatica (25281383) 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) Active confirmed Problem Dyslipidemia (784666438) Dyslipidemia (E78.5) Active confirmed Problem Allergic rhinitis caused by pollen (67074948) Seasonal allergic rhinitis due to pollen (J30.1) [...] Provider Diagnosis [facility] [address] [facility] [address] [place], [place] [id number] 05/04/2024 R Bartolo Yu Cardiac dysrhythmia I49.9 ; Impaired fasting glucose R73.01 ; Dyslipidemia E78.5 ; GERD (gastroesophageal reflux disease) K21.9 ; Iron deficiency E61.1 ; Vitamin D deficiency E55.9 ; Presence of left artificial knee joint Z96.652 ; Rheumatoid arthritis involving multiple sites, unspecified rheumatoid factor presence M06.9 and Presbycusis, bilateral H91.13 [facility] [address] [facility] [address] [place], [place] [id number] 05/22/2024 Urvashi Ibrahim Right shoulder pain M25.511 and Urinary frequency R35.0 [facility] [address] [facility] [address] [place], [place] [id number] 05/27/2024 Alfonso Dornsife Acute UTI N39.0 ; Fever, unspecified R50.9 and Anemia, unspecified type D64.9 [facility] [address] [facility] [address] [place], [place] [id number] 05/29/2024 Urvashi Ibrahim Bronchitis J40 [facility] [address] [facility] [address] [place], [place] [id number] 10/18/2024 Cecelia Crowdy Bronchitis J40 ; Anemia, unspecified type D64.9 ; Insect bite (nonvenomous) of lower back and pelvis, initial encounter S30.860A ; Bitten or stung by nonvenomous insect and other nonvenomous arthropods, initial encounter W57.XXXA and BMI 34.0-34.9,adult Z68.34 [facility] [address] [facility] [address] [place], [place] [id number] 10/20/2024 Cecelia Crowdy Anemia D64.9 [facility] [address] [facility] [address] [place], [place] [id number] 11/09/2024 R Bartolo Yu UTI (lower urinary tract infection) N39.0 ; Screening for osteoporosis Z13.820 ; Dyslipidemia E78.5 ; Rheumatoid arthritis M06.9 and BMI 34.0-34.9,adult Z68.34 [facility] [address] [facility] [address] [place], [place] [id number] 03/12/2025 Urvashi Ibrahim Shortness of breath R06.02 ; Itching L29.9 ; Fatigue, unspecified type R53.83 ; Anemia D64.9 and Iron deficiency E61.1 [facility] [address] [place], [place] [id number] 04/02/2025 Urvashi Ibrahim Fatigue, unspecified type R53.83 ; Anemia D64.9 ; Abnormal EKG R94.31 and Iron deficiency E61.1 [facility] [address] [place], [place] [id number] 05/07/2024 Jordon Yu [facility] [address] [facility] [address] [place], [place] [id number] 05/25/2024 Urvashi Ibrahim [facility] [address] [place], [place] [id number] 10/20/2024 Cecelia Crowdy Anemia, unspecified type D64.9 [facility] [address] [place], [place] [id number] 03/15/2025 Urvashi Ibrahim Assessments Encounter Date Diagnosis [...] 04/02/2025 Fatigue, unspecified type (ICD-10 - R53.83) 11/09/2024 UTI (lower urinary tract infection) (ICD-10 - N39.0) 11/09/2024 Screening for osteoporosis (ICD-10 - Z13.820) 10/20/2024 Anemia (ICD-10 - D64.9) 10/20/2024 Anemia, unspecified type (ICD-10 - D64.9) 11/09/2024 Dyslipidemia (ICD-10 - E78.5) 04/02/2025 Abnormal EKG (ICD-10 - R94.31) turned in the event recorder today 03/12/2025 Fatigue, unspecified type (ICD-10 - R53.83) 10/18/2024 Insect bite (nonvenomous) of lower back and pelvis, initial encounter (ICD-10 - S30.860A) 05/27/2024 Anemia, unspecified type (ICD-10 - D64.9) Plan to recheck H/H at f/u visit 05/04/2024 Dyslipidemia (ICD-10 - E78.5) 05/04/2024 GERD (gastroesophageal reflux disease) (ICD-10 - K21.9) 10/18/2024 Bitten or stung by nonvenomous insect and other nonvenomous arthropods, initial encounter (ICD-10 - W57.XXXA) 03/12/2025 Anemia (ICD-10 - D64.9) 04/02/2025 Iron deficiency (ICD-10 - E61.1) 11/09/2024 Rheumatoid arthritis (ICD-10 - M06.9) 11/09/2024 [...] Date MEDICARE PART B [address] [address] [place] [phone] [id number] NEENA SUTTON Self - patient is the insured [facility] [address] [place] [address] [id number] NEENA SUTTON Self - patient is the [...] TSA 08/18/19 25 Hospitalization History Reason Date(Month/Year) [facility]-right reverse total shoul geneva TSA 08/18/2024
--- OUTSIDE RECORDS SUMMARY | 2025-04-10 08:39 | XMS_ITS | Clinical Summary ---
Author Organization [facility] ([place], [place], [place], [place]) Address [address] [place] [address] Care Team Providers Care Light Rail Signal Technician Name Role Phone Unavailable Primary Care [...]
[2025-04-10 08:46] VITALS: BP 144/76; PULSE 73; RESP 16; TEMP 36.3; O2SAT 96
[2025-04-10] MEDS: SODIUM CHLORIDE 0.9% 10ML FLUSH SYRINGE 10 ML IV (08:46)
[2025-04-10] MEDS: IRON SUCROSE COMPLEX 200 MG in 0.9 % SODIUM CHLORIDE 100 ML 220 MG IV (08:46)
[2025-04-10 09:22] VITALS: BP 137/68; PULSE 69; RESP 16; TEMP 36.4; O2SAT 96
== END 2025-04-10 23:59 | disposition home or self-care (01) ==
LOC: INF 08:34
PROVIDERS: PCP Family Medicine; Visit Provider Nurse Practitioner Family
DX: D50.9 Iron deficiency anemia, unspecified (principal)
CPT/HCPCS: 96365; J1756

== ENCOUNTER 2025-04-17 08:48 | Outpatient (CLI) | payer MEDICARE, OTHER, SELFPAY ==
--- OUTSIDE RECORDS SUMMARY | 2023-12-10 08:00 | XMS_ITS ---
Author Organization aSl Address [address] [facility] [address] [place] [id number] Care Team Providers Care Military Science Teacher Name Role Phone Alfonso Claire Primary Care Provider Results Component Value Reference Range Notes P-Urine Drug Screen with Ref aj to Confirmation Reviewed date:12/15/2023 10:34:30 AM Interpretation:Negative Performing Lab: Notes/Report: Test performed by [facility] [address] , [address], [place] [address] Gabriel Gregory MD, Telecommunications Line Installer CLIA: [id number] Amphetamines NEGATIVE NEGATIVE Barbiturates NEGATIVE NEGATIVE Benzodiazepines NEGATIVE NEGATIVE Cannabinoids NEGATIVE NEGATIVE Cocaine Metabolites NEGATIVE NEGATIVE Oxycodone NEGATIVE NEGATIVE Methadone NEGATIVE NEGATIVE Opiates NEGATIVE NEGATIVE Phencyclidine NEGATIVE NEGATIVE Propoxyphene NEGATIVE NEGATIVE Immunoassay Drug Screen [place] Values See Below Please see the Directory of Services for cut-off concentrations. Urine drug screen results are for medical decision making and are not to be used for medical/legal evaluation. REASON FOR VISIT urine drug sceen only Encounters Encounter Location Date Provider Diagnosis Sal [address] [facility] [address] [place] [phone] 12/10/2023 Alfonso Claire Opioid use F1 1.90 Assessments Encounter Date Diagnosis (ICD Code) Assessment Notes Treatment Notes Treatment Clinical Notes Section Notes 12/10/2023 Opioid use (ICD-10 - F11.90) Plan Of Treatment No Information Progress Notes * NEENA SUTTONDOB:1945 (80 yo F)Acc No.[id number]:12/10/2023 Patient: Jadon DURANT CHARLESERIN Provider: Yolanda Claire M.D. :1945 A ge:78 Y S ex:Female Date:12/10/2023 Address:[address] [place] [address] [place], D[place] FLORES, [phone] Subjective: * Chief Complaints: * 1 . [...] NEGATIVE - * I mmunoassay Drug Screen [place] Values See Below - * M ethadone, Urine NEGATIVE NEGATIVE - * O piates, Urine NEGATIVE NEGATIVE - * O xycodone, Urine Qualitative NEGATIVE NEGATIVE - * P ropoxyphene, Urine NEGATIVE NEGATIVE - * P hencyclidine, Urine NEGATIVE NEGATIVE - * Alexus Fierro 12/15/2023 10:2 5:45 AM > Results faxed to [facility] * Images: Billing Information: * Visit Code: * Procedure Codes: * Electronic signature of Casie Claire MD on 04/17/2025 at 08:54 AM EDT Sign off status: Pending * Provider: Yolanda Claire M.D. Date: 0 12/10/2023 Generated for Maricarmeni ng/Johnie/eTransmitting on: 1 08:54 AM EDT
--- OUTSIDE RECORDS SUMMARY | 2024-05-04 05:30 | XMS_ITS ---
Author Organization [facility] Address [address] [place] [id number] Care Team Providers Care Superintendent Pier Name Role Phone Alfonso Claire Primary Care Provider Jordon Yu [phone] Allergies Allergen (clinical drug ingredient) Drug/Non Drug Allergy documented on EMR Reaction Allergy Type Onset Date Status gabapentin Neurontin weakness/trouble breathing Drug Allergy Active Substance with 8-uodzuyq-9-methylg lutaryl-coenzyme A reductase inhibitor mechanism of action (substance) Statins muscle aches Drug Allergy Active Results Component Value Reference Range Notes Glycohemoglobin A1c (in hous e) Reviewed date:05/07/2024 07:59:27 PM Interpretation:6.1% Performing Lab: Notes/Report: 6.1% glycohemoglobin 6.1% 5 - 6.5 % P-Comprehensive Metabolic Pa german (CMP) Reviewed date:05/07/2024 07:59:27 PM Interpretation: Performing Lab: Notes/Report: Test performed by [facility], [employer] [address] [place] [address] , [address], [place] [address] Gabriel Gregory MD, Nursery Teacher CLIA: [id number] Sodium 139 135-145 mmol/L Potassium 4.6 3.5-5.3 [...] Interpretation: Performing Lab: Notes/Report: Test performed by [facility] [address] [place] [address] , [place] [address] Gabriel Gregory MD, Nursery Teacher CLIA: [id number] Cholesterol 211 <200 mg/dL Triglycerides 192 <150 [...] Interpretation: Performing Lab: Notes/Report: Test performed by [facility] [address] [place] [address] , [address], [place] [address] Gabriel Gregory MD, Nursery Teacher CLIA: [id number] Vitamin D 25-Hydroxy 40.1 30.0-100.0 ng/mL Interpretation [...] Status W/U Status Risk Notes Problem Presbycusis (25945789) Presbycusis, bilateral (H91.13) Active confirmed Vital Signs Blood pressure systolic 136 mm Hg 05/04/20 24 Blood pressure diastolic 76 mm Hg 024 Heart Rate 84 /min 05/04/2024 Height 63 in 05/04/2024 Weight 189.6 lbs 05/04/2024 BMI 33.58 kg/m2 05/04/2024 Encounters Encounter Location Date Provider Diagnosis [facility] [address] [facility] [address] [place] [id number] 05/04/2024 Jordon Yu Cardiac dysrhythmia I49.9 ; [...] Notes * NEENA SUTTONDOB:1945 (80 yo F)Acc No.[id number]:05/04/2024 Progress Notes Patient: NEENA MANZANO Provider: Jordon Yu M.D. :1945 A ge:79 Y S ex:Female Date:05/04/2024 Address:[address] [place] [address] [address], [place], [id number] Pcp:Alfonso Claire Subjective: * Chief Complaints: * [...] with Cancer. M other: 70 yrs, of [place], diagnosed with Heart Disease. P aternal Grand [...] * Procedure Codes: 9 4760 [place], [address] CAPILLARY BLOOD DRAW, [address] GLYCATED HEMOGLOBIN TEST, Modifiers: QW * Follow Up: 6 Months * Images: Billing Information: * Visit Code: 49313 Office Visit, Est Pt., Level 4. * Procedure Codes: [address] [place]. [address] CAPILLARY BLOOD DRAW. [address] GLYCATED HEMOGLOBIN TEST. Modifiers: QW * Electronic signature of Jordon Yu MD on 04/17/2025 at 08:55 AM EDT Sign off status: Pending * Provider: Jordon Yu M.D. Date: 07/04/2023 Generated for Florinda phan/Johnie/Royaitting on: 08:55 AM EDT History and Physical Notes * HPI (History of Present Illness) Category Sub-Category Detail Notes Category Not es ENT/respiratory Diminished Hearing Pt sts that h er hearing has decreased and she would like her ears checked to make sure they don't need flushed out [facility]. Pt [...]
--- OUTSIDE RECORDS SUMMARY | 2024-05-22 10:45 | XMS_ITS ---
Author Organization [facility] Address [address] [place] [id number] Care Team Providers Care Manager Local Name Role Phone Alfonso Claire Primary Care Provider Urvashi Ibrahim Unavailable [phone] Allergies Allergen (clinical drug ingredient) Drug/Non Drug Allergy documented on EMR Reaction Allergy Type Onset Date Status gabapentin Neurontin weakness/trouble breathing Drug Allergy Active Substance with 1-glvrnxy-8-methylg lutaryl-coenzyme A reductase inhibitor mechanism of action [...] Interpretation: Performing Lab: Notes/Report: Test performed by [facility] [address] [place] [address] , [address], [place] [address] Gabriel Gregory MD, Point Of Care Specialist CLIA: [id number] Specimen Source Urine - Void Culture, Urine [...] Last Name Patrice Referring Provider Speciality Family [facility] Referred Provider ORTHODICS, , General Notes Urvashi Ibrahim 2:52:01 PM > right shoulder pain with limited ROM ;17 years duration; would like Aaronnona orthopedicsBebe Brynn 05/22/2024 2:57:27 PM > submitted appointment request via [facility] website Referral Priority Routine REASON FOR [...] [address] [place] [id number] 05/22/2024 Urvashi Ibrahim Right shoulder pain M25.511 [...] Notes * LOI NEENADOB:1945 (80 yo F)Acc No.[id number]:05/22/2024 Progress Notes Patient: NEENA MANZANO Provider: LARISSA Daigle :1945 A ge:79 Y S ex:Female Date:05/22/2024 Address:[address] [place] [address] [address], [place], [id number] Pcp:Alfonso Claire Subjective: * Chief Complaints: * [...] with Cancer. M other: 70 yrs, of [place], diagnosed with Heart Disease. P aternal Grand [...] OX, G2211 Complex e/[place], [address] Urinalysis, no micro * Follow Up: p rn * Images: Billing Information: * Visit Code: 93102 Office Visit, Est Pt., Level 3. * Procedure Codes: 10846 PULSE OX. G2211 Complex e/[place]. [address] Urinalysis, no micro. * Electronic signature of Aubrie Ibrahim APRN on 04/17/2025 at 08:56 AM EDT Sign off status: Pending * Provider: LARISSA Daigle Date: 1 07/23/2023 Generated for Florinda phan/Johnie/eTransmitting on: 08:56 AM EDT History and Physical Notes * [...]
--- OUTSIDE RECORDS SUMMARY | 2024-05-27 05:15 | XMS_ITS ---
Author Organization [facility] Address [address] [facility] [address] [place] [phone] Care Team Providers Care Insurance Examining Clerk Name Role Phone Alfonso Claire Primary Care Provider [phone] Allergies Allergen (clinical drug ingredient) Drug/Non Drug Allergy documented on EMR Reaction Allergy Type Onset Date Status gabapentin Neurontin weakness/trouble breathing Drug Allergy Active Substance with 4-crrsvdw-4-methylg lutaryl-coenzyme A reductase inhibitor mechanism of action [...] Status W/U Status Risk Notes Problem Anemia (276793703) Anemia, unspecified type (D64.9) Active confirmed Vital Signs Blood pressure systolic 120 mm Hg 05/27/20 24 Blood pressure diastolic 80 mm Hg 024 Heart Rate 81 /min 05/27/2024 Height 63 in 05/27/2024 Weight 192.0 lbs 05/27/2024 BMI 34.01 kg/m2 05/27/2024 Encounters Encounter Location Date Provider Diagnosis [facility] [address] [facility] [address] [place], [place] [phone] 05/27/2024 Alfonso Clemons Acute UTI N39.0 ; Fever, unspecified R50.9 [...] Follow Up: 10 to 14 days wit [facility], Reason: Progress Notes * YOLY SUTTON:1945 (80 yo F)Acc No.[id number]:05/27/2024 Progress Notes Patient: NEENA MANZANO Provider: Yolanda Claire M.D. :1945 A ge:79 Y S ex:Female Date:05/27/2024 Address:[address] [place] [address] [place], [id number] Subjective: * Chief Complaints: * 1 . [...] with Cancer. M other: 70 yrs, of [place], diagnosed with Heart Disease. P aternal Grand [...] G 2211 Complex e/[place], [address] Flu Test- Nasal Swab, Modifiers: QW , 22786 COVID TEST IN HOUSE, Modifiers: QW , 34131 CAPILLARY BLOOD DRAW, 83464 CBC WITH AUTO DIFF * Follow Up: 1 0 to 14 days with [facility] * Images: Billing Information: * Visit Code: 94383 Office Visit, Est Pt., Level 4. * Procedure Codes: G2211 Complex e/[place]. [address] Flu Test- Nasal Swab. Modifiers: QW 79998 COVID TEST IN HOUSE. Modifiers: QW 97983 CAPILLARY BLOOD DRAW. 57801 CBC WITH AUTO DIFF. * Electronic signature of Casie Claire MD on 04/17/2025 at 08:53 AM EDT Sign off status: Pending * Provider: Yolanda Claire M.D. Date: 07/28/2023 Generated for Florinda phan/Johnie/eTransmitting on: 08:53 AM EDT History and Physical Notes * [...]
--- OUTSIDE RECORDS SUMMARY | 2024-05-29 10:30 | XMS_ITS ---
Author Organization [facility] Address [address] [facility] [address] [place] [phone] Care Team Providers Care Aircraft Part Assembler Name Role Phone Alfonso Claire Primary Care Provider [phone] Urvashi Ibrahim Unavailable [phone] Allergies Allergen (clinical drug ingredient) Drug/Non Drug Allergy documented on EMR Reaction Allergy Type Onset Date Status gabapentin Neurontin weakness/trouble breathing Drug Allergy Active Substance with 6-zdrkyyy-4-methylg lutaryl-coenzyme A reductase inhibitor mechanism of action [...] 05/29/2024 Encounters Encounter Location Date Provider Diagnosis [facility] [address] [phone] 05/29/2024 Urvashi Ibrahim Bronchitis J4 0 Assessments [...] Notes * NEENA SUTTONDOB:1945 (80 yo F)Acc No.[id number]:05/29/2024 Progress Notes Patient: NEENA MANZANO Provider: LARISSA Daigle :1945 A ge:79 Y S ex:Female Date:05/29/2024 Address:[address] [place] [phone] Pcp:Alfonso Claire Subjective: * Chief Complaints: * [...] with Cancer. M other: 70 yrs, of [place], diagnosed with Heart Disease. P aternal Grand [...] G 2211 Complex e/[place], [address] STREP A ASSAY W/OPTIC, Modifiers: QW , 45819 CAPILLARY BLOOD DRAW, 41311 CBC WITH AUTO DIFF * Follow Up: p rn * Images: Billing Information: * Visit Code: 34516 Office Visit, Est Pt., Level 3. * Procedure Codes: G2211 Complex e/[place]. [address] STREP A ASSAY W/OPTIC. Modifiers: QW 37546 CAPILLARY BLOOD DRAW. 42304 CBC WITH AUTO DIFF. 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
--- OUTSIDE RECORDS SUMMARY | 2024-10-18 06:00 | XMS_ITS ---
Author Organization [facility] Address [address] [place] [id number] Care Team Providers Care Ukrainian Folk Arts Instructor Name Role Phone Alfonso Claire Primary Care Provider [phone] Cecelia Suazo Unavailable [phone] Allergies Allergen (clinical drug ingredient) Drug/Non Drug Allergy documented on EMR Reaction Allergy Type Onset Date Status gabapentin Neurontin weakness/trouble breathing Drug Allergy Active Substance with 1-oqebbte-2-methylg lutaryl-coenzyme A reductase inhibitor mechanism of action [...] Normal Performing Lab: Notes/Report: Test performed by [employer], [employer] [address] [place] [address] , [address], [place] [address] Gabriel Gregory MD, Aircraft Servicer CLIA: [id number] Vitamin B12 397 006-5164 pg/mL P-Lyme Disease (B. burgodorf la), IgG/IgM, SOILA, Serum Reviewed date:10/20/2024 12:06:10 PM Interpretation: Normal Performing Lab: Notes/Report: Test performed by [employer] , [facility] C, [place] [address] Gabriel Gregory MD, Aircraft Servicer CLIA: [id number] B burgdorferi (Lyme Disease) IgG Negative Negative B burgdorferi (Lyme Disease) IgM Negative Negative P-Folate Reviewed date:10/20/2024 12:06:10 PM Interpretation: Normal Performing Lab: Notes/Report: Test performed by [facility] [address] , [facility] C, [place] [address] Gabriel Gregory MD, Aircraft Servicer CLIA: [id number] Folate 18.40 >4.59 ng/mL P-Ferritin Reviewed date:10/20/2024 12:06:10 PM Interpretation: Normal Performing Lab: Notes/Report: Test performed by [facility] , [address], [place] [address] Gabriel Gregory MD, Aircraft Servicer CLIA: [id number] Ferritin 15.2 13.0-301.0 ng/mL P-Iron Reviewed date:10/20/2024 12:06:10 PM Interpretation:29 Performing Lab: Notes/Report: Test performed by [facility] , [facility] [place] [address] Gabriel Gregory MD, Aircraft Servicer CLIA: [id number] Iron 29 37-145 ug/dL P-Vitamin D 25-Hydroxy Reviewed date:10/20/2024 12:06:10 PM Interpretation: Normal Performing Lab: Notes/Report: Test performed by [facility], [facility] [address], [place] [address] Gabriel Gregory MD, Aircraft Servicer CLIA: [id number] Vitamin D 25-Hydroxy 36.7 30.0-100.0 ng/mL Interpretation [...] 10/18/2024 Encounters Encounter Location Date Provider Diagnosis [facility] [address], [place] [phone] 10/18/2024 Cecelia Crowdy Bronchitis J40 ; Ane [...] Notes * NEENA SUTTONDOB:1945 (80 yo F)Acc No.[id number]:10/18/2024 Progress Notes Patient: NEENA MANZANO Provider: AUGIE Felix :1945 A ge:79 Y S ex:Female Date:10/18/2024 Address:[address] [place] [address] [id number] Pcp:Alfonso Claire Subjective: * Chief Complaints: * [...] with Cancer. M other: 70 yrs, of [place], diagnosed with Heart Disease. P aternal Grand [...] initial encounter - W57.XXXA 5 . B [place] 34.0-34.9,adult - Z68.34 Plan: * Treatment: Value [...] AM)?Normal* Value Reference Range V itamin B12 667 022-0508 - pg/mL * Cassi De La O [...] G 2211 Complex e/[place], [address] Flu Test- Nasal Swab, Modifiers: QW , 40160 CAPILLARY BLOOD DRAW, 90682 CBC WITH AUTO DIFF, 3074F SYST BP LT 130 MM HG, 3078F DIAST BP < 80 MM HG * Follow Up: v ia phone to report test results * Images: Billing Information: * Visit Code: 94062 Office Visit, Est Pt., Level 4. * Procedure Codes: G2211 Complex e/[place]. [address] Flu Test- Nasal Swab. Modifiers: QW 92835 CAPILLARY BLOOD DRAW. 20782 CBC WITH AUTO DIFF. 3074F SYST BP LT 130 MM HG. 3078F DIAST BP < 80 MM HG. * Electronic signature of AUGIE Douglas on 04/17/2025 at 08:55 AM EDT Sign off status: Pending * Provider: AUGIE Felix Date: 0 10/18/2024 Generated for Florinda phan/Johnie/eTransmitting on: 1 08:55 AM EDT History and Physical Notes [...]
--- OUTSIDE RECORDS SUMMARY | 2024-10-20 11:05 | XMS_ITS ---
Author Organization [facility] Address [address] [place] [phone] Care Team Providers Care Partition Notcher Name Role Phone Alfonso Claire Primary Care Provider Cecelia Suazo Unavailable [phone] Results Component Value Reference Range Notes Hemoccult- [...] Provider Diagnosis Sal [address] [place] [id number] 10/20/2024 Cecelia Suazo Anemia D64.9 Assessments Encounter Date Diagnosis (ICD Code) Assessment Notes Treatment Notes Treatment Clinical Notes Section Notes 10/20/2024 Anemia (ICD-10 - D64.9) Plan Of Treatment No Information Progress Notes * NEENA SUTTONDOB:1945 (80 yo F)Acc No.[id number]:10/20/2024 Patient: NEENA MANZANO Provider: AUGIE Felix :1945 A ge:79 Y S ex:Female Date:10/20/2024 Address:[address] [place] [address], [place], [id number] Pcp:Alfonso Claire Subjective: * Chief Complaints: * [...] Information: * Visit Code: * Procedure Codes: 68993 ASSAY TEST FOR BLOOD, FECAL. Modifiers: QW * Electronic signature of AUGIE Douglas on 04/17/2025 at 08:56 AM EDT Sign off status: Pending * Provider: AUGIE Felix Date: 0 10/20/2024 Generated for Florinda phan/Johnie/Royaitting on: 1 08:56 AM EDT
--- OUTSIDE RECORDS SUMMARY | 2024-11-09 11:45 | XMS_ITS ---
Author Organization [facility] Address [address] [facility] [address] [place] [phone] Care Team Providers Care Processing Associate Name Role Phone Alfonso Claire Primary Care Provider [phone] Jordon Yu [phone] Allergies Allergen (clinical drug ingredient) Drug/Non Drug Allergy documented on EMR Reaction Allergy Type Onset Date Status gabapentin Neurontin weakness/trouble breathing Drug Allergy Active Substance with 0-bonfsey-0-methylg lutaryl-coenzyme A reductase inhibitor mechanism of action [...] Growth Performing Lab: Notes/Report: Test performed by [facility] [address] [place] [address] , [address], [place] [address] Gabriel Gregory MD, Food Production Worker CLIA: [id number] Specimen Source Urine - Void Culture, Urine [...] Encounter Location Date Provider Diagnosis [facility] [address] [id number] 11/09/2024 Jordon Yu UTI (lower urinary tract [...] Notes * NEENA SUTTONDOB:1945 (80 yo F)Acc No.[id number]:11/09/2024 Progress Notes Patient: NEENA MANZANO Provider: Jordon Yu M.D. :1945 A ge:79 Y S ex:Female Date:11/09/2024 Address:[address] [place] [address], [place], [id number] Pcp:Alfonso Claire Subjective: * Chief Complaints: * 1 . Referral for bone density. * HPI: R heumatology: She continues to follow with rheumatology for her rheumatoid arthritis. They have requested that she have a bone density test but she did not want to return to [place] for the study and would like to have it arranged at [facility]. U rology: She recently started [...] with Cancer. M other: 70 yrs, of [place], diagnosed with Heart Disease. P aternal Grand [...] heumatoid arthritis - M06.9 5 . B [place] 34.0-34.9,adult - Z68.34 Plan: * Treatment: Value [...] 11/10/2024 08:2 1:07 AM > faxed to [facility] Jordon Tinoco 12/28/2024 05:22:10 PM EDT > please fax this report to her toe laster, Cassi Calderon 01/19/2025 11:28:32 AM EDT > faxed report to [phone] * Procedure Codes: G 2211 Complex e/[place], [address] Urinalysis, no micro, 3074F SYST BP LT 130 MM HG, 3078F DIAST BP < 80 MM HG * Follow Up: v ia phone to report test results * Images: Billing Information: * Visit Code: 48565 Office Visit, Est Pt., Level 4. * Procedure Codes: G2211 Complex e/[place]. [address] Urinalysis, no micro. 3074F SYST BP LT 130 MM HG. 3078F DIAST BP < 80 MM HG. * Electronic signature of Jordon Yu MD on 04/17/2025 at 08:55 AM EDT Sign off status: Pending * Provider: Jordon Yu M.D. Date: 0 11/09/2024 Generated for Florinda phan/Johnie/Royaitting on: 1 08:55 AM EDT History and [...] she did not want to return to [place] for the study and would like to have it arranged at [facility]. Examination Category Sub-Category Detail Notes Category Not es General Examination Abdomen: soft , not d istended , soft and nontender , no CVA tenderness General Appearance: NAD
--- OUTSIDE RECORDS SUMMARY | 2025-03-12 09:45 | XMS_ITS ---
[facility] Address [address] [place] [id number] Care Team Providers Care It Quality Analyst Name Role Phone Alfonso Claire Primary Care Provider Urvashi Ibrahim Unavailable [phone] Allergies Allergen (clinical drug ingredient) Drug/Non Drug Allergy documented on EMR Reaction Allergy Type Onset Date Status gabapentin Neurontin weakness/trouble breathing Drug Allergy Active Substance with 2-cfwhhhd-1-methylg lutaryl-coenzyme A reductase inhibitor mechanism of action [...] Interpretation: Performing Lab: Notes/Report: Test performed by [facility], [facility] [address] [place] [address] , [address], [place] [address] Gabriel Gregory MD, Gas Cutter CLIA: [id number] Sodium 141 135-145 mmol/L Potassium 4.9 3.5-5.3 [...] Interpretation:18 Performing Lab: Notes/Report: Test performed by [employer], [facility] [address] [place] [address] , [address], [place] [address] Gabriel Gregory MD, Gas Cutter CLIA: [id number] Iron 18 37-145 ug/dL EKG Reviewed date:03/15/2025 [...] Status W/U Status Risk Notes Problem Anemia (112234900) Anemia (D64.9) Active confirmed Vital Signs Blood pressure systolic 102 mm Hg 03/12/20 25 Blood pressure diastolic 60 mm Hg 025 Heart Rate 81 /min 03/12/2025 Height 63 in 03/12/2025 Weight 183.2 lbs 03/12/2025 BMI 32.45 kg/m2 03/12/2025 Encounters Encounter Location Date Provider Diagnosis [facility] [address] [place], [place] [phone] 03/12/2025 Urvashi Ibrahim Shortness of breath R06.02 [...] Notes * NEENA SUTTONDOB:1945 (80 yo F)Acc No.[id number]:03/12/2025 Progress Notes Patient: NEENA MANZANO Provider: LARISSA Daigle :1945 A ge:80 Y S ex:Female Date:03/12/2025 Address:[address] [place] [address], [place], [id number] Pcp:Alfonso Claire Subjective: * Chief Complaints: * [...] OK; nothing tastes right; did go to [employer] last week and walked alot; shortness of [...] 08/18/2024. * Hospitalization/Major Diagno stic Procedure: B [facility]-right reverse total shoulder TSA 08/18/2024. 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 * Procedure Codes: G2211 Complex e/[place]. [address] CBC WITH AUTO DIFF. 30752 VENIPUNCT, ROUTINE*. 1036F TOBACCO NON-USER. 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 G8752 MOST RECENT SYSTOLIC BP < 140MM HG. G8754 MOST RECENT DIASTOLIC BP < 90MM HG. 3074F SYST BP LT 130 MM HG. 3078F DIAST BP < 80 MM HG. * Electronic signature of Aubrie Ibrahim APRN on 04/17/2025 at 08:54 AM EDT Sign off status: Pending * Provider: LARISSA Daigle Date: 0 03/12/2025 Generated for Florinda phan/Johnie/eTransmcharli on: 1 08:54 AM EDT History and Physical Notes [...]
--- OUTSIDE RECORDS SUMMARY | 2025-04-02 05:45 | XMS_ITS ---
Author Organization Sal Address [address] [facility] [address] [place] [id number] Care Team Providers Care Storage Engineer Name Role Phone Alfonso Claire Primary Care Provider [phone] Urvashi Ibrahim Unavailable [phone] Allergies Allergen (clinical drug ingredient) Drug/Non Drug Allergy documented on EMR Reaction Allergy Type Onset Date Status gabapentin Neurontin weakness/trouble breathing Drug Allergy Active Substance with 0-jvlhlmu-5-methylg lutaryl-coenzyme A reductase inhibitor mechanism of action [...] Provider Diagnosis Sal [address] [facility] [address] [place] [id number] 04/02/2025 Urvashi Ibrahim Fatigue, unspecified type R53.83 [...] Notes * NEENA SUTTONDOB:1945 (80 yo F)Acc No.[id number]:04/02/2025 Patient: NEENA MANZANO Provider: LARISSA Daigle :1945 A ge:80 Y S ex:Female Date:04/02/2025 Address:[address] [place] [address] QUEENIE, DIONNA FLORES, [id number] Pcp:Alfonso Claire Subjective: * Chief Complaints: * [...] 08/18/2024. * Hospitalization/Major Diagno stic Procedure: B [facility]-right reverse total shoulder TSA 08/18/2024. * Family [...] * Images: Billing Information: * Visit Code: 90566 Office Visit, Est Pt., Level 3. * Procedure Codes: G2211 Complex e/m visit add on. 1036F TOBACCO NON-USER. 3074F SYST BP LT 130 MM HG. 3078F DIAST BP < 80 MM HG. * Electronic signature of Aubrie Ibrahim APRN on 04/17/2025 at 08:54 AM EDT Sign off status: Pending * Provider: LARISSA Daigle Date: Generated for Florinda phan/Johnie/Paula on: 08:54 AM EDT History and Physical [...]
--- OUTSIDE RECORDS SUMMARY | 2025-04-17 08:54 | XMS_ITS | Clinical Summary ---
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 (ICD-10-CM ) Active Hoa Levi 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 Medications Medication Instructions Start Date Stop Date Generic Name ND Provider RIFAMPIN 300 MG CAPS 2 by mouth daily 4 months RIFAMPIN [id number] David Jordan MD FLUCONAZOLE 150 MG TABS TAKE ONE TABLET BY MOUTH A ONE TIME DOSE 01/25 FLUCONAZOLE [id number] Douglas Echeverria CELECOXIB 200 MG CAPS TAKE 1 CAPSULE BY MOUTH TWICE DAILY FOR 30 DAYS 12/05 CELECOXIB [id number] Douglas D VITAMIN D (ERGOCALCIFEROL) 1.25 MG (57317 UT) CAPS TAKE 1 CAPSULE BY MOUTH ONCE A WEEK 03/20 ERGOCALCIFEROL 08336204498 Douglas Echeverria VASCEPA 1 GM CAPS TAKE 2 CAPSULES BY MOUTH TWICE DAILY 01/30 ICOSAPENT ETHYL 52824000440 Douglas Echeverria FLUZONE HIGH-DOSE QUADRIVALENT 0.7 ML INTRAMUSCULAR SUSPENSION PREFILLED SYRINGE PHARMACIST ADMINISTERED IMMUNIZATION ADMINISTERED AT TIME OF DISPENSING 02/22 INFLUENZA VAC HIGH-DOSE QUAD [id number] Douglas D ESOMEPRAZOLE MAGNESIUM 40 MG CPDR TAKE 1 CAPSULE BY MOUTH ONCE DAILY 10/18 ESOMEPRAZOLE MAGNESIUM 82524783216 Douglas D TRAMADOL HCL 50 MG TABS TAKE 1 TABLET BY MOUTH 4 TIMES DAILY NEEDED 03/07 TRAMADOL HCL 60562518891 Douglas D MELOXICAM 15 MG TABS TAKE 1 TABLET BY MOUTH ONCE DAILY 02/21 MELOXICAM 62349273696 Douglas D HYDROXYCHLOROQUINE SULFATE 200 MG TABS TAKE 1 TABLET BY MOUTH TWICE DAILY 03/20 HYDROXYCHLOROQUINE SULFATE 21987759998 Douglas D Medications Administered No information available. [...] STAT Labs CPT-[facility] Continue oral antibiotics 11/07/19 CPT-19746 CMP [id number] CBC with Differential 2019 CPT-[facility] Continue oral antibiotics 09/06/16 CPT-sl STAT Labs CPT-10041 CMP [id number] CBC with Differential 2019 CPT-[facility] Continue oral antibiotics 10/05/18 CPT-sl STAT Labs CPT-06916 CMP [id number] CBC with Differential 2019 CPT-95391 C- reactive protein CPT-farzaneh New Oral Antibiotic [...]
--- OUTSIDE RECORDS SUMMARY | 2025-04-17 08:55 | XMS_ITS | Clinical Summary ---
Author Organization [facility] Address [address] [place] [address] Care Team Providers Care Telegraph Repeater Installer Name Role Phone Gagan Yu MD Primary [...] tried include: She saw Dr. Jameel Ryan ([facility]rit [facility]) in 2007, Tylenol, etodolac, indomethacin, Celebrex, ibuprofen, shoulder injection, back surgery, she has done some physical therapy, prednisone, gabapentin, She saw Dr. Randolph (Frit Maker), she saw Dr. Perera (Frit Maker), cortisone injections in her knees, meloxicam, Plaquenil, [...] tried include: She saw Dr. Jameel Ryan (Frit Maker) in 2007, Tylenol, etodolac, indomethacin, Celebrex, ibuprofen, shoulder injection, back surgery, she has done some physical therapy, prednisone, gabapentin, She saw Dr. Randolph (Frit Maker), she saw Dr. Perera (Frit Maker), cortisone injections in her knees, meloxicam, Plaquenil, [...] tried include: She saw Dr. Jameel Ryan (Frit Maker) in 2007, Tylenol, etodolac, indomethacin, Celebrex, ibuprofen, shoulder injection, back surgery, she has done some physical therapy, prednisone, gabapentin, She saw Dr. Randolph (Frit Maker), she saw Dr. Perera (Frit Maker), cortisone injections in her knees, meloxicam, Plaquenil, [...] Department Care Team Description 01/22/2025 Results Follow-Up [facility] [address] [place] [phone] Mor Dash DO from Last 3 [...] or training? Not on file Preferred Language Tunisian 08/08/2024 Comments No Sex and Gender Information [...] Description 04/19/2025 3:45 PM EDT Office Visit [facility] [address] [place] [phone] Mor Dash, DO Chuy ARITA [facility] [address] [place] [address] Health Maintenance Due Date Last Done Comments [...] 08/11/2024, 10/2020 Medical Devices Implanted Type Area Dialysis Tech Device Identifier Shelf Expiration Date Model / Serial / Lot Pat Triath Tritanium [id number] - [id number] Implanted:Qt y: 1 on 04/02/2021 by Jonathon Tobin MD at [facility] Implant Left: Knee MARIANELA KAELA 01/18/2026 [id number] / / [id number] Comp Fem Triath Cr Cmtls Sz4 Lt - [id number] Implanted:Qt y: 1 on 04/02/2021 by Jonathon Tobin MD at [facility] Implant Left: Knee MARIANELA KAELA 08/30/2025 [id number] / / [id number] Baseplt Tib Triath Tritanium Sz5 - [id number] Implanted:Qt y: 1 on 04/02/2021 by Jonathon Tobin MD at [facility] Implant Left: Knee MARIANELA KAELA 12/08/2025 [id number] / / [id number] Insrt Tib/Kn Triathlon Condy/Stbl X3 Sz5 9mm - [id number] Implanted:Qt y: 1 on 04/02/2021 by Jonathon Tobin MD at [facility] Implant Left: Knee MARIANELA KAELA 01/06/2026 [id number] / / [id number] Dev Contrl Tiss Stratafix Spiral Pdo Bidir 1 [id number] - [id number] Implanted:Qt y: 1 on 04/02/2021 by Jonathon Tobin MD at [facility] Implant Left: Knee [employer] DIV OF J AND J [id number] / / Cap Total Kn Cmtls 4 Pc - [id number] Implanted:Qt y: 1 on 04/02/2021 by Jonathon Tobin MD at [facility] Implant Left: Knee MARIANELA KAELA CAPKNCEMENTLESS4 P IECE / / Baseplt Shldr Aequalis 1/2 Wedge Aug 35d 25mm - [id number] - [id number] Implanted:Qt y: 1 on 08/18/2024 by Marcelo Howard MD at [facility] Implant Right: Shoulder TORNIER [id number] 11/26/2027 [id number] / [id number] / LR Glenosphere Shldr Aequalis Perform Lat Pls3mm 36mm - [id number] - [id number] Implanted:Qt y: 1 on 08/18/2024 by Marcelo Howard MD at [facility] Implant Right: Shoulder TORNIER [id number] 10/17/2028 [id number] / [id number] / Scrw Aequalis Perform Centrl 6.5x30mm - [id number] Implanted:Qt y: 1 on 08/18/2024 by Marcelo Howard MD at [facility] Implant Right: Shoulder TORNIER TNM000 / / N/A Scrw Aequalis Perform Periph 5x22mm - [id number] Implanted:Qt y: 2 on 08/18/2024 by Marcelo Howard MD at [facility] Implant Right: Shoulder TORNIER [id number] / / N/A Scrw Aequalis Perform Periph 5x30mm - [id number] Implanted:Qt y: 1 on 08/18/2024 by Marcelo Howard MD at [facility] Implant Right: Shoulder TORNIER HSD900 / / N/A Scrw Periph 5x34mm - [id number] Implanted:Qt y: 1 on 08/18/2024 by Marcelo Howard MD at [facility] Implant Right: Shoulder TORNIER [id number] / / N/A Insrt Hum/Shldr Rev Preform Sz1/2 Pls0 10deg 36mm - [id number] - [id number] Implanted:Qt y: 1 on 08/18/2024 by Marcelo Howard MD at [facility] Implant Right: Shoulder TORNIER [id number] 06/08/2028 [id number] / [id number] / Stem Hum/Shldr Preform Lng Pls Sz2 [id number] - [id number] - [id number] Implanted:Qt y: 1 on 08/18/2024 by Marcelo Howard MD at [facility] Implant Right: Shoulder TORNIER [id number] 01/26/2029 [id number] / [id number] / Cp Totl Rev Shldr Perform Stem Rsa Perf Rev Lat/Aug - [id number] Implanted:Qt y: 1 on 08/18/2024 by Marcelo Howard MD at [facility] Implant Right: Shoulder TORNIER CAPTORNIERTOTLSH L DREVPERFSTEMRSAPE RFLATAUG / / Cp Shldr Modifier Lng Stem - [id number] Implanted:Qt y: 1 on 08/18/2024 by Marcelo Howard MD at [facility] Implant Right: Shoulder TORNIER CAPTORNIERSHLDRM O DLONGSTEM / / Hemost Abs Surgicel Orig 4x8in Strl - [id number] Implanted:Qt y: 1 on 08/18/2024 by Marcelo Howard MD at [facility] Implant Right: Shoulder ETHICON DIV OF J AND J [id number] 12/18/2028 [id number] / / [id number] Back Hardware From Spinal Surgery Explanted Type Area Dialysis Tech Device Identifier Shelf Expiration Date Model / Serial / Lot Erica Everett Preform [id number] - [id number] Explanted:Qty : 1 on 08/18/2024 by Marcelo Howard MD at [facility] Implant Right: Shoulder TORNIER [id number] 06/09/2029 [id number] / / [id number] Procedures Procedure Name Priority Date/Time Associated Diagnosis [...] Payer (Ef fective 2011-Present) Name:Lona Sutton Member ID:[id number] Relation to Subscriber:Self Name:Lona Sutton Subscriber ID:[id number] Payer ID:[id number] Group ID:Not on file Type:Not on file Address: [facility] [address] [address] Advance Directives * CPR (Attempt to Resuscitate) (Latest Code Status on File) Date Activated Date Inactivated Comments 04/02/2021 2:08 PM 04/02/2021 8:10 PM Question Answer Comments Code Status (Patient has no pulse and is not breathing): CPR (Attempt to Resuscitate) Medical Interventions (Patie nt has pulse or is breathing): Full Healthcare Agents on File Name Relationship Healthcare Agent [facility], [facility]–1983hi p Communication [facility] Surrogate Care Teams Telegraph Repeater Installer Relationship Specialty Start Date End Date Gagan Yu MD [facility] [address] [facility] 2 [place] [address] PCP - General Family Medicine 07/10/20
--- OUTSIDE RECORDS SUMMARY | 2025-04-17 08:56 | XMS_ITS | Patient Health Record ---
Author Organization [facility] Address [address] [facility] [address] [place] [id number] Care Team Providers Care Lithograph Printer Name Role Phone Alfonso Claire Primary Care Provider [phone] Jordon Yu Unavailable [phone] Urvashi Ibrahim Unavailable [phone] Cecelia Suazo Unavailable [phone] Allergies Allergen (clinical drug ingredient) Drug/Non Drug Allergy documented on EMR Reaction Allergy Type Onset Date Status gabapentin Neurontin weakness/trouble breathing Drug Allergy Active Substance with 7-uuxnwkq-1-methylg lutaryl-coenzyme A reductase inhibitor mechanism of action (substance) Statins muscle aches Drug Allergy Active Results Component Value Reference Range Notes Glycohemoglobin A1c (in hous e) Reviewed date:05/07/2024 07:59:27 PM Interpretation:6.1% Performing Lab: Notes/Report: 6.1% glycohemoglobin 6.1% 5 - 6.5 % P-Comprehensive Metabolic Pa german (CMP) Reviewed date:05/07/2024 07:59:27 PM Interpretation: Performing Lab: Notes/Report: Test performed by [email or web address], [email or web address] , [address], [place] [address] Gabriel Gregory MD, Human Resources Benefits Specialist CLIA: [id number] Sodium 139 135-145 mmol/L Potassium 4.6 3.5-5.3 [...] Interpretation: Performing Lab: Notes/Report: Test performed by [email or web address], [address] , [address], [place] [address] Gabriel Gregory MD, Human Resources Benefits Specialist CLIA: [id number] Cholesterol 211 <200 mg/dL Triglycerides 192 <150 [...] Interpretation: Performing Lab: Notes/Report: Test performed by [email or web address] [address] [place] [address] , [place] [address] Gabriel Gregory MD, Human Resources Benefits Specialist CLIA: [id number] Vitamin D 25-Hydroxy 40.1 30.0-100.0 ng/mL Interpretation [...] Normal Performing Lab: Notes/Report: Test performed by [email or web address] [address] [place] [address] , [address], [place] [address] Gabriel Gregory MD, Human Resources Benefits Specialist CLIA: [id number] Vitamin B12 247 415-4374 pg/mL P-Lyme Disease (B. burgodorf la), IgG/IgM, SOILA, Serum Reviewed date:10/20/2024 12:06:10 PM Interpretation: Normal Performing Lab: Notes/Report: Test performed by [email or web address] [address] [place], [place] [address] [place] , [address], [place] [id number] Gabriel Gregory MD, Human Resources Benefits Specialist CLIA: [id number] B burgdorferi (Lyme Disease) IgG Negative Negative B burgdorferi (Lyme Disease) IgM Negative Negative P-Folate Reviewed date:10/20/2024 12:06:10 PM Interpretation: Normal Performing Lab: Notes/Report: Test performed by [email or web address] , [facility] C, [place] [address] Gabriel Gregory MD, Human Resources Benefits Specialist CLIA: [id number] Folate 18.40 >4.59 ng/mL P-Ferritin Reviewed date:10/20/2024 12:06:10 PM Interpretation: Normal Performing Lab: Notes/Report: Test performed by [email or web address] , [address], [place] [address] Gabriel Gregory MD, Human Resources Benefits Specialist CLIA: [id number] Ferritin 15.2 13.0-301.0 ng/mL P-Iron Reviewed date:10/20/2024 12:06:10 PM Interpretation:29 Performing Lab: Notes/Report: Test performed by [facility] [address] , [place] [address] Gabriel Gregory MD, Human Resources Benefits Specialist CLIA: [id number] Iron 29 37-145 ug/dL P-Vitamin D 25-Hydroxy Reviewed date:10/20/2024 12:06:10 PM Interpretation: Normal Performing Lab: Notes/Report: Test performed by [facility] [address] , [place] [address] Gabriel Gregory MD, Human Resources Benefits Specialist CLIA: [id number] Vitamin D 25-Hydroxy 36.7 30.0-100.0 ng/mL Interpretation of Vitamin D 25 OH: < 20 ng/mL - Deficiency 20 - 29 ng/mL - Insufficiency 30 - 100 ng/mL - Sufficiency > 100 ng/mL - Super-therapeutic- toxicity may occur above this level. Clinical correlation required. Hemoccult- IFOBT (in house) Reviewed date:10/27/2024 10:24:51 AM Interpretation: Performing Lab: Notes/Report: results Neg Urinalysis - Inhouse Reviewed date:11/10/2024 09:46:25 AM Interpretation: Performing Lab: Notes/Report: Color/Clarity yellow/clear Leuk 1+ Nitrite neg Urobili 3.2 Protein neg pH 6.5 Blood neg Sp. Gr. 1.010 Ketone neg Bili neg Gluc neg P-Culture, Urine Reviewed date:11/16/2024 10:04:55 PM Interpretation:No Significant Growth Performing Lab: Notes/Report: Test performed by [email or web address] [address] [place] [address] , [address], [place] [address] Gabriel Gregory MD, Human Resources Benefits Specialist CLIA: [id number] Specimen Source Urine - Void Culture, Urine [...] Interpretation: Performing Lab: Notes/Report: Test performed by [email or web address] [address] [place] [address] , [address], [place] [address] Gabriel Gregory MD, Human Resources Benefits Specialist CLIA: [id number] Sodium 141 135-145 mmol/L Potassium 4.9 3.5-5.3 [...] Interpretation:18 Performing Lab: Notes/Report: Test performed by [email or web address] [address] [place] [address] , [place] [address] Gabriel Gregory MD, Human Resources Benefits Specialist CLIA: [id number] Iron 18 37-145 ug/dL EKG Reviewed date:03/15/2025 04:09:45 PM Interpretation:NSR with frequent SV premature beats Performing Lab: Notes/Report: NSR with frequent SV premature beats CXR Reviewed date:03/15/2025 04:09:18 PM Interpretation:no acute CP disese Performing Lab: Notes/Report: no acute CP disese P-Culture, Urine Reviewed date:05/25/2024 01:36:17 PM Interpretation: Performing Lab: Notes/Report: Test performed by [email or web address] [address] [place] [address] , [place], [place] [address] Gabriel Gregory MD, Human Resources Benefits Specialist CLIA: [id number] Specimen Source Urine - Void Culture, Urine [...] 1.020 Ketone neg Bili neg Gluc neg Event Recorder Reviewed date:04/16/2025 03:26:01 PM Interpretation:SVT and VT runs Performing Lab: Notes/Report: SVT and VT runs Medications Medication SIG (Take, Route, Frequency, Duration) [...] xFluzone High Dose-private (65yr&older) Unknown 03/19/2025 Administered gWivetcj-iqvkxyxzi-dgofyzd e pts. IM Intramuscular 02/25/2011 Administered xQthkuwn-evkbzkdox-jcjncya e pts. IM Intramuscular 02/10/2012 Administered Problems Problem Type SNOMED Code ICD Code Onset Dates Problem Status W/U Status Risk Notes Problem Gastroesophageal reflux disease (501824534) GERD (gastroesophageal reflux disease) (K21.9) Active confirmed Problem Vitamin D deficiency (23673559) Vitamin D deficiency (E55.9) Active confirmed Problem Anemia (355148759) Anemia (D64.9) Active confir med Problem Cardiac dysrhythmia (619212655) Cardiac dysrhythmia (I49.9) Active confirmed Problem Osteoarthritis (985614064) Osteoarthritis (M19.90) Active confirmed Problem Impaired fasting glucose (911394158) Impaired fasting glucose (R73.01) Active confirmed Problem Primary generalised osteoarthritis (924863527) Primary generalized (osteo)arthritis (M15.0) Active confirmed Problem Dysphagia (07583583) Dysphagia (R13.10) Active confirmed Problem Mixed hyperlipidemia (126894323) Mixed hyperlipidemia (E78.2) Active confirmed Problem Presbycusis (77088820) Presbycusis, bilateral (H91.13) Active confirmed Problem Artificial knee joint present (615522574666) Presence of left artificial knee joint (Z96.652) Active confirmed Problem Gastroesophageal reflux disease (552314135) GERD without esophagitis (K21.9) Active confirmed Problem Obese class II (069583787160954) BMI 35.0-35.9,adult (Z68.35) Active confirmed Problem Obesity (902526413) Non morbid o besity due to excess calories (E66.09) Active confirmed Problem History of polyp of colon (situation) (527125998) Hx of colonic polyps (Z86.010) Active confirmed Problem Gastroesophageal reflux disease (385047918) Gastroesophageal reflux disease, esophagitis presence not specified (K21.9) Active confirmed Problem Lumbar spinal stenosis (32483644) Spinal stenosis, lumbar (M48.06) Active confirmed Problem Arthropathy of lumbar facet joint (636926461) Lumbar facet arthropathy (M46.96) Active confirmed Problem Polyarthritis (488039226) Polyarthritis (M13.0) Active confirmed Problem Anemia (535448516) Anemia, unspecified type (D64.9) Active confirmed Problem Rheumatoid arthritis (38056062) Rheumatoid arthritis (M06.9) Active confirmed Problem Rheumatoid arthritis (87037403) Rheumatoid arthritis involving multiple sites, unspecified rheumatoid factor presence (M06.9) Active confirmed Problem Body mass index 30.00 to 34.99 (456595302477651) BMI 34.0-34.9,adult (Z68.34) Active confirmed Problem Sciatica (82081183) 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) Active confirmed Problem Dyslipidemia (596624896) Dyslipidemia (E78.5) Active confirmed Problem Allergic rhinitis caused by pollen (88111434) Seasonal allergic rhinitis due to pollen (J30.1) Active confirmed Problem Aftercare following joint replacement surgery, unspecified joint (Z47.1) Active confirmed Vital Signs Heart Rate 71 /min 04/02/2025 Blood pressure diastolic 72 mm Hg 04/02/2025 Height 63 in 04/02/2025 Blood pressure systolic 106 mm Hg 04/02/2025 Weight 187.2 lbs 04/02/2025 BMI 33.16 kg/m2 04/02/2025 Encounters Encounter Location Date Provider Diagnosis [facility] [address] [place] [id number] 05/04/2024 R Bartolo Yu Cardiac dysrhythmia I49.9 ; Impaired fasting glucose R73.01 ; Dyslipidemia E78.5 ; GERD (gastroesophageal reflux disease) K21.9 ; Iron deficiency E61.1 ; Vitamin D deficiency E55.9 ; Presence of left artificial knee joint Z96.652 ; Rheumatoid arthritis involving multiple sites, unspecified rheumatoid factor presence M06.9 and Presbycusis, bilateral H91.13 [facility] [address] [facility] [address] [place], [place] [id number] 05/22/2024 Urvashi Ibrahim Right shoulder pain M25.511 and Urinary frequency R35.0 [facility] [address] [place], [place] [id number] 05/27/2024 Alfonso De Kalb Acute UTI N39.0 ; Fever, unspecified R50.9 and Anemia, unspecified type D64.9 [facility] [address] [place], [place] [id number] 05/29/2024 Urvashi Ibrahim Bronchitis J40 [facility] [address] [place], [place] [id number] 10/18/2024 Cecelia Crowdy Bronchitis J40 ; Anemia, unspecified type D64.9 ; Insect bite (nonvenomous) of lower back and pelvis, initial encounter S30.860A ; Bitten or stung by nonvenomous insect and other nonvenomous arthropods, initial encounter W57.XXXA and BMI 34.0-34.9,adult Z68.34 [facility] [address] [facility] [address] [place], [place] [id number] 10/20/2024 Cecelia Crowdy Anemia D64.9 [facility] [address] [facility] [address] [place], [place] [id number] 11/09/2024 R Bartolo Yu UTI (lower urinary tract infection) N39.0 ; Screening for osteoporosis Z13.820 ; Dyslipidemia E78.5 ; Rheumatoid arthritis M06.9 and BMI 34.0-34.9,adult Z68.34 [facility] [address] [place], [place] [id number] 03/12/2025 Urvashi Ibrahim Shortness of breath R06.02 ; Itching L29.9 ; Fatigue, unspecified type R53.83 ; Anemia D64.9 and Iron deficiency E61.1 [facility] [address] [facility] [address] [place], [place] [id number] 04/02/2025 Urvashi Ibrahim Fatigue, unspecified type R53.83 ; Anemia D64.9 ; Abnormal EKG R94.31 and Iron deficiency E61.1 [facility] [address] [facility] [address] [place], [place] [id number] 05/07/2024 Jordon Jineet [facility] [address] [facility] [address] [place], [place] [id number] 05/25/2024 Urvashi Ibrahim [facility] [address] [facility] [address] [place], [place] [id number] 10/20/2024 Cecelia Crowdy Anemia, unspecified type D64.9 [facility] [address] [facility] [address] [place], [place] [id number] 03/15/2025 Urvashi Ibrahim Assessments Encounter Date Diagnosis [...] Order Date Hemoccult- IFOBT (in house) 10/18/2024 Insurance Providers Payer Name Payer Address Payer Phone Subscriber Number Group Number Insured Name Patient Relationship to Insured Coverage Start Date Coverage End Date MEDICARE PART B [address] [address] [place] [id number] NEENA SUTTON Self - patient is the insured [facility] [address] [place] [id number] NEENA SUTTON Self - patient is the [...] 02/2016 Total Knee Replacement, Left / Dr. Shaina jacob 03/2021 right reverse total shoulder [facility]SA 08/18/19 25 Hospitalization History Reason Date(Month/Year) [facility]oul [place] [facility] 08/18/2024
[2025-04-17 09:01] VITALS: BP 116/71; PULSE 72; RESP 18; TEMP 36.6; O2SAT 96
[2025-04-17] MEDS: IRON SUCROSE COMPLEX 200 MG in 0.9 % SODIUM CHLORIDE 100 ML 220 MG IV (09:01)
[2025-04-17 09:35] VITALS: BP 126/72; PULSE 70
[2025-04-17] MEDS: SODIUM CHLORIDE 0.9% 10ML FLUSH SYRINGE 10 ML IV (10:10)
== END 2025-04-17 23:59 | disposition home or self-care (01) ==
LOC: INF 08:50
PROVIDERS: PCP Family Medicine; Visit Provider Nurse Practitioner Family
DX: D50.9 Iron deficiency anemia, unspecified (principal)
CPT/HCPCS: 96365; J1756

== ENCOUNTER 2025-04-24 08:28 | Outpatient (CLI) | payer MEDICARE, OTHER, SELFPAY ==
--- OUTSIDE RECORDS SUMMARY | 2023-12-10 07:00 | XMS_ITS ---
Author Organization Sal Address [address] [facility] [address] [place] [id number] Care Team Providers Care Railroad Dispatcher Name Role Phone Alfonso Claire Primary Care Provider [phone] Results Component Value Reference Range Notes P-Urine Drug Screen with Ref aj to Confirmation Reviewed date:12/15/2023 10:34:30 AM Interpretation:Negative Performing Lab: Notes/Report: Test performed by [facility] [address] , [address], [place] [address] Gabriel Gregory MD, Time Study Engineer CLIA: [id number] Amphetamines NEGATIVE NEGATIVE Barbiturates NEGATIVE NEGATIVE Benzodiazepines NEGATIVE NEGATIVE Cannabinoids NEGATIVE NEGATIVE Cocaine Metabolites NEGATIVE NEGATIVE Oxycodone NEGATIVE NEGATIVE Methadone NEGATIVE NEGATIVE Opiates NEGATIVE NEGATIVE Phencyclidine NEGATIVE NEGATIVE Propoxyphene NEGATIVE NEGATIVE Immunoassay Drug Screen [place] Values See Below Please see the Directory of Services for cut-off concentrations. Urine drug screen results are for medical decision making and are not to be used for medical/legal evaluation. REASON FOR VISIT urine drug sceen only Encounters Encounter Location Date Provider Diagnosis Sal [address] [facility] [address] [place] [phone] 12/10/2023 Alfonso Claire Opioid use F1 1.90 Assessments Encounter Date Diagnosis (ICD Code) Assessment Notes Treatment Notes Treatment Clinical Notes Section Notes 12/10/2023 Opioid use (ICD-10 - F11.90) Plan Of Treatment No Information Progress Notes * NEENA SUTTONDOB:1945 (80 yo F)Acc No.[id number]:12/10/2023 Patient: Jadon DURANT CHARLESERIN Provider: Yolanda Claire M.D. :1945 A ge:78 Y S ex:Female Date:12/10/2023 Address:[address] [place] [address] D[place]OME, [id number] Subjective: * Chief Complaints: * 1 . Urine drug sceen only. * Medical History: Objective: * Vitals: Assessment: * Assessment: 1. O pioid use - F11.90 Plan: * Treatment: Value Reference Range A mphetamines, Urine NEGATIVE NEGATIVE - * B enzodiazepines, Urine NEGATIVE NEGATIVE - * B arbiturates, Urine NEGATIVE NEGATIVE - * C ocaine Metabolites, Urine NEGATIVE NEGATIVE - * C annabinoids, Urine NEGATIVE NEGATIVE - * I mmunoassay Drug Screen [place] Values See Below - * M ethadone, Urine NEGATIVE NEGATIVE - * O piates, Urine NEGATIVE NEGATIVE - * O xycodone, Urine Qualitative NEGATIVE NEGATIVE - * P ropoxyphene, Urine NEGATIVE NEGATIVE - * P hencyclidine, Urine NEGATIVE NEGATIVE - * Alexus Fierro 12/15/2023 10:2 5:45 AM > Results faxed to [facility] * Images: Billing Information: * Visit Code: * Procedure Codes: * Electronic signature of Csaie Claire MD on 04/24/2025 at 08:31 AM EST Sign off status: Pending * Provider: Yolanda Claire M.D. Date: 0 12/10/2023 Generated for Maricarmeni ng/Johnie/eTransmitting on: 1 06/24/2024 08:31 AM EST
--- OUTSIDE RECORDS SUMMARY | 2024-05-04 04:30 | XMS_ITS ---
Author Organization [facility] Address [address] [place] [id number] Care Team Providers Care Tunnel Kiln Operator Name Role Phone Alfonso Claire Primary Care Provider [phone] Jordon Yu [phone] Allergies Allergen (clinical drug ingredient) Drug/Non Drug Allergy documented on EMR Reaction Allergy Type Onset Date Status gabapentin Neurontin weakness/trouble breathing Drug Allergy Active Substance with 1-caaqikf-2-methylg lutaryl-coenzyme A reductase inhibitor mechanism of action (substance) Statins muscle aches Drug Allergy Active Results Component Value Reference Range Notes Glycohemoglobin A1c (in hous e) Reviewed date:05/07/2024 07:59:27 PM Interpretation:6.1% Performing Lab: Notes/Report: 6.1% glycohemoglobin 6.1% 5 - 6.5 % P-Comprehensive Metabolic Pa german (CMP) Reviewed date:05/07/2024 07:59:27 PM Interpretation: Performing Lab: Notes/Report: Test performed by [facility], [facility] [address] [place] [address] , [address], [place] [address] Gabriel Gregory MD, Terrazzo Grinder CLIA: [id number] Sodium 139 135-145 mmol/L Potassium 4.6 3.5-5.3 mmol/L Chloride 104 97-108 mmol/L CO2 21 22-32 mmol/L Glucose 89 65-99 mg/dL BUN 19 8-23 mg/dL Creatinine 0.95 0.50-1.00 mg/dL Calcium 9.4 8.6-10.4 mg/dL eGFR by Creatinine 61 >59 mL/min/1.73m2 Protein 6.9 6.0-8.3 g/dL Albumin 3.9 3.5-5.3 g/dL Alkaline Phosphatase 123 35-121 IU/L ALT (SGPT) 12 <5-47 IU/L AST (SGOT) 21 <5-40 IU/L Bilirubin, Total <0.2 <0.2-1.2 mg/dL A/G Ratio 1.3 1.1-2.5 P-Lipid Panel Reviewed date:05/07/2024 07:59:27 PM Interpretation: Performing Lab: Notes/Report: Test performed by [facility] [address] [place] [address] , [place] [address] Gabriel Gregory MD, Terrazzo Grinder CLIA: [id number] Cholesterol 211 <200 mg/dL Triglycerides 192 <150 mg/dL HDL Cholesterol 35 >39 mg/dL Cholesterol / HDL Ratio 6.03 0.00-4.44 Ratio Non-HDL Cholesterol 176 <130 mg/dL LDL Cholesterol (Calculation) 138 <130 mg/dL LDL Cholesterol Levels* Less than 100 mg/dL Optimal 100 to 129 mg/dL Near Optimal/ Above Optimal 130 to 159 mg/dL Borderline High 160 to 189 mg/dL High 190 mg/dL and above Very High * Categories as recommended by the 2004 ATPIII guidelines LDL/HDL Ratio 3.9 <3.3 Ratio LDL Cholesterol Patient History Test Date: 09/14/2023 LDL Results: 150 Units: mg/dL % Change: - Test Date: 05/04/2024 LDL Results: 138 Units: mg/dL % Change: -8% P-Vitamin D 25-Hydroxy Reviewed date:05/07/2024 07:59:27 PM Interpretation: Performing Lab: Notes/Report: Test performed by [facility] [address] [place] [address] , [address], [place] [address] Gabriel Gregory MD, Terrazzo Grinder CLIA: [id number] Vitamin D 25-Hydroxy 40.1 30.0-100.0 ng/mL Interpretation of Vitamin D 25 OH: < 20 ng/mL - Deficiency 20 - 29 ng/mL - Insufficiency 30 - 100 ng/mL - Sufficiency > 100 ng/mL - Super-therapeutic- toxicity may occur above this level. Clinical correlation required. REASON FOR VISIT check up with blood work, Needs flu vaccine Medications Medication SIG (Take, Route, Frequency, Duration) Notes Start Date End Date Status Vascepa 1 GM Take 2 capsules by mouth twice daily; Duration: 30 Not-Taking ProFe 391.3 (180 Fe) MG Take 1 capsule b y mouth once daily; Duration: 30 Not-Taking Zetia 10 MG 1 tab(s) orally once a day; Duration: 30 day(s) 06/04/2021 Not-Taking Ibuprofen 600 MG 1 tab(s) Three times a day Active Macrobid 100 MG 1 capsule with food Orally every 12 hrs; Duration: 7 day(s) 04/06/2023 Not-Taking traMADol HCl 50 MG 1 tab(s) orally ever y 8 hours prn Active Ezetimibe 10 MG 1 tablet Orally Once a day 09/19/2023 Active Aspirin 81 81 MG 1 tablet Orally Once a day; Duration: 30 day(s) Active Vitamin D3 50 MCG (2000 UT) 1 capsule Orally Once a day Active Esomeprazole Magnesium 40 MG Take 1 capsule by mouth once daily Active Problems Problem Type SNOMED Code ICD Code Onset Dates Problem Status W/U Status Risk Notes Problem Presbycusis (94404259) Presbycusis, bilateral (H91.13) Active confirmed Vital Signs Blood pressure systolic 136 mm Hg 05/04/20 24 Blood pressure diastolic 76 mm Hg 024 Heart Rate 84 /min 05/04/2024 Height 63 in 05/04/2024 Weight 189.6 lbs 05/04/2024 BMI 33.58 kg/m2 05/04/2024 Encounters Encounter Location Date Provider Diagnosis [facility] [address] [facility] [address] [place] [id number] 05/04/2024 Jordon Yu Cardiac dysrhythmia I49.9 ; Impaired fasting glucose R73.01 ; Dyslipidemia E78.5 ; GERD (gastroesophageal reflux disease) K21.9 ; Iron deficiency E61.1 ; Vitamin D deficiency E55.9 ; Presence of left artificial knee joint Z96.652 ; Rheumatoid arthritis involving multiple sites, unspecified rheumatoid factor presence M06.9 and Presbycusis, bilateral H91.13 Assessments Encounter Date Diagnosis (ICD Code) Assessment Notes Treatment Notes Treatment Clinical Notes Section Notes 05/04/2024 Cardiac dysrhythmia (ICD-10 - I49.9) 05/04/2024 Impaired fasting glucose (ICD-10 - R73.01) 05/04/2024 Dyslipidemia (ICD-10 - E78.5) 05/04/2024 GERD (gastroesophageal reflux disease) (ICD-10 - K21.9) 05/04/2024 Iron deficiency (ICD-10 - E61.1) 05/04/2024 Vitamin D deficiency (ICD-10 - E55.9) 05/04/2024 Presence of left artificial knee joint (ICD-10 - Z96.652) 05/04/2024 Rheumatoid arthritis involving multiple sites, unspecified rheumatoid factor presence (ICD-10 - M06.9) 05/04/2024 Presbycusis, bilateral (ICD-10 - H91.13) Plan Of Treatment Medication Medication Name Sig Start Date Stop Date Notes Ezetimibe 10 MG 1 tablet Orally Once a day 09/19/2023 Vitamin D3 50 MCG (1999 UT) 1 capsule Orally Once a day Esomeprazole Magnesium 40 MG Take 1 caps ule by mouth once daily Next Appt Details Follow Up: 6 Months, Reason: Progress Notes * NEENA SUTTONDOB:1945 (80 yo F)Acc No.[id number]:05/04/2024 Progress Notes Patient: NEENA MANZANO Provider: Jordon Yu M.D. :1945 A ge:79 Y S ex:Female Date:05/04/2024 Address:[address] [place] [address] [address], [place], [id number] Pcp:Alfonso Claire Subjective: * Chief Complaints: * 1 . Check up with blood work. 2. Needs flu vaccine. * HPI: E ndocrinology: Maintenance P t presents today for a check up and labs. Pt is fasting today. Pt is due to have her Vitamin D level checked. E NT/respiratory: c/o Diminished Hearing P t sts that her hearing has decreased and she would like her ears checked to make sure they don't need flushed out. * ROS: D ERMATOLOGY: no R logan. n o H caridad. G ASTROENTEROLOGY: no N ausea. n o V omiting. U ROLOGY: no D ifficulty urinating. n o B lood in urine. 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 * Surgical History: L 4-5,L5-S1 posterior lumbar fusion/ Dr. Love Feb 2016, Total Knee Replacement, Left / Dr. Tobin 03/2021. * Family History: F ather: 54 yrs, diagnosed with Cancer. M other: 69 yrs, of [place], diagnosed with Heart Disease. P aternal Grand Father: . P aternal Grand Mother: . M aternal Grand Father: . M aternal Grand Mother: . S iblings: 1 brother 1 sister . 4 brother(s) , 4 sister(s) . 2 son(s) . . Siblings with heart disease. * Social History: C URRENT TOBACCO USE S moking Status: Patient does NOT smoke. C affeine: yes, frequency:daily. Exercise: yes. Home smoke detector use: yes. Marital Status: Single. New since last visit: none. Occupation: yes. Past smoking status: no, Smoking status: Does not smoke, Second hand smoke exposure: No. Occup. exposure: none. Recreational drug use: no. Alcohol: no. Sexually active: no.. Travel ouside [place]: no. * Medications: T aking Vitamin D3 50 MCG (2000 UT) Capsule 1 capsule Orally Once a day , Taking Aspirin 81 81 MG Tablet Delayed Release 1 tablet Orally Once a day , Taking traMADol HCl 50 MG Tablet 1 tab(s) orally every 8 hours prn , Taking Ezetimibe 10 MG Tablet 1 tablet Orally Once a day , Taking Esomeprazole Magnesium 40 MG Capsule Delayed Release Take 1 capsule by mouth once daily , Taking Ibuprofen 600 MG Tablet 1 tab(s) Three times a day , Not-Taking Macrobid 100 MG Capsule 1 capsule with food Orally every 12 hrs , Not-Taking ProFe 391.3 (180 Fe) MG Capsule Take 1 capsule by mouth once daily , Not-Taking Zetia 10 MG Tablet 1 tab(s) orally once a day , Not- Taking Vascepa 1 GM Capsule Take 2 capsules by mouth twice daily , Medication List reviewed and reconciled with the patient * Allergies: S tatins: muscle aches - Side Effects, Neurontin: weakness/trouble breathing - Side Effects. Objective: * Vitals: W t:189.6, Temp:98.1, BP:136/76, HR:84, O2 Sat:95% on RA, Nurse:OLIVIER, Ht: 63, BMI:33.58. * Examination: G eneral Examination: General Appearance: S he is alert, oriented and in no acute distress. H EENT: s clera and conjunctiva clear, PERRLA, external canals clear and TMs appear normal. O ral cavity: mucosa moist and WNL, no erythema. N lucia: s upple, no lymphadenopathy, no carotid bruits, thyroid normal. H eart: RRR. L ungs: c lear to auscultation. A bdomen: bowel sounds present, soft and nontender, no organomegaly or masses, no guarding or rigidity. N eurologic Exam: n o focal deficits. E xtremities: no leg edema. Assessment: * Assessment: 1. C ardiac dysrhythmia - I49.9 (Primary) 2 . I mpaired fasting glucose - R73.01 3 . D yslipidemia - E78.5 4 . G ERD (gastroesophageal reflux disease) - K21.9 5 . I chilango deficiency - E61.1 6 . V itamin D deficiency - E55.9 7 . P resence of left artificial knee joint - Z96.652? 8. R heumatoid arthritis involving multiple sites, unspecified rheumatoid factor presence - M06.9 9 . P resbycusis, bilateral - H91.13 Plan: * Treatment: Value Reference Range A /G Ratio 1.3 1.1-2.5 - * A lbumin 3.9 3.5-5.3 - g/dL * A lkaline Phosphatase 123 H 35-121 - IU/L * A LT (SGPT) 12 <5-47 - IU/L * A ST (SGOT) 21 <5-40 - IU/L * B ilirubin, Total <0.2 <0.2-1.2 - mg/dL * B UN 19 8-23 - mg/dL * C alcium 9.4 8.6-10.4 - mg/dL * C hloride 104 97-108 - mmol/L * C O2 21 L 22-32 - mmol/L * C reatinine 0.95 0.50-1.00 - mg/dL * G lucose 89 65-99 - mg/dL * P otassium 4.6 3.5-5.3 - mmol/L * S odium 139 135-145 - mmol/L * P rotein 6.9 6.0-8.3 - g/dL * e GFR by Creatinine 61 >59 - mL/min/1.73m2 * Jordon Yu 05/07/2024 7:59:15 PM >See phone encounter 2.?Impaired fasting glucose?LAB: Glycohemoglobin A1c (in house) (Collection Date & Time - 05/04/2024)? 6.1%* Value Reference Range g lycohemoglobin 6.1% 5 - 6.5 % * Carey Cardenas 05/04/2024 11:08: 35 AM > Jordon Yu 05/07/2024 7:59:15 PM >See phone encounter 3.?Dyslipidemia? Continue Ezetimibe Tablet, 10 MG, 1 tablet, Orally, Once a day.?LAB: P-Lipid Panel (Collection Date & Time - 05/04/2024 12:25 PM)* Value Reference Range C holesterol / HDL Ratio 6.03 H 0.00-4.44 - Ratio * C holesterol 211 H <200 - mg/dL * H DL Cholesterol 35 L >39 - mg/dL * L DL Cholesterol (Calculation) 138 H <130 - mg/d L * L DL/HDL Ratio 3.9 H <3.3 - Ratio * N on-HDL Cholesterol 176 H <130 - mg/dL * T riglycerides 192 H <150 - mg/dL * Jordon Yu 05/07/2024 7:59:15 PM >See phone encounter 4.?GERD (gastroesophageal reflux disease)? Continue Esomeprazole Magnesium Capsule Delayed Release, 40 MG, Take 1 capsule by mouth once daily. ?5.?Vitamin D deficiency? Continue Vitamin D3 Capsule, 50 MCG (2000 UT), 1 capsule, Orally, Once a day.?LAB: P-Vitamin D 25-Hydroxy (Collection Date & Time - 05/04/2024 12:25 PM) * Value Reference Range V itamin D 25-Hydroxy 40.1 30.0-100.0 - ng/mL * Jordon Yu 05/07/2024 7:59:15 PM >See phone encounter * Procedure Codes: 9 [address] [place], [address] CAPILLARY BLOOD DRAW, [address] GLYCATED HEMOGLOBIN TEST, Modifiers: QW * Follow Up: 6 Months * Images: Billing Information: * Visit Code: 29540 Office Visit, Est Pt., Level 4. * Procedure Codes: [address] [place]. [address] CAPILLARY BLOOD DRAW. 56870 GLYCATED HEMOGLOBIN TEST. Modifiers: QW * Electronic signature of Jordon Yu MD on 04/24/2025 at 08:32 AM EST Sign off status: Pending * Provider: Jordon Yu M.D. Date: 07/04/2023 Generated for Florinda phan/Johnie/Royaitting on: 06/24/2024 08:32 AM EST History and Physical Notes * HPI (History of Present Illness) Category Sub-Category Detail Notes Category Not es ENT/respiratory Diminished Hearing Pt sts that h er hearing has decreased and she would like her ears checked to make sure they don't need flushed out [facility]ology [facility]. Pt is fasting today. Pt is due to have her Vitamin D level checked Examination Category Sub-Category Detail Notes Category Not es General Examination HEENT: sclera and c onjunctiva clear, PERRLA, external canals clear and TMs appear normal Heart: RRR Lungs: clear to auscultatio n Abdomen: bowel sounds present , soft and nontender, no organomegaly or masses, no guarding or rigidity Extremities: no leg edema General Appearance: She is alert, orient ed and in no acute distress Neurologic Exam: no focal deficits Neck: supple, no lymphaden opathy, no carotid bruits, thyroid normal Oral cavity: mucosa moist and WNL , no erythema
--- OUTSIDE RECORDS SUMMARY | 2024-05-22 09:45 | XMS_ITS ---
Author Organization [facility] Address [address] [place] [id number] Care Team Providers Care It Integration Architect Name Role Phone Alfonso Claire Primary Care Provider Urvashi Ibrahim Unavailable [phone] Allergies Allergen (clinical drug ingredient) Drug/Non Drug Allergy documented on EMR Reaction Allergy Type Onset Date Status gabapentin Neurontin weakness/trouble breathing Drug Allergy Active Substance with 5-hjcpetv-8-methylg lutaryl-coenzyme A reductase inhibitor mechanism of action (substance) Statins muscle aches Drug Allergy Active Results Component Value Reference Range Notes Urinalysis - Inhouse Reviewed date:05/22/2024 07:54:58 PM Interpretation: Performing Lab: Notes/Report: Color/Clarity yellow/clear Leuk 1+ Nitrite neg Urobili 3.2 Protein 2+ pH 6.0 Blood trace intact Sp. Gr. 1.020 Ketone neg Bili neg Gluc neg P-Culture, Urine Reviewed date:05/25/2024 01:36:17 PM Interpretation: Performing Lab: Notes/Report: Test performed by [facility] [address] [place] [address] , [address], [place] [address] Gabriel Gregory MD, Surgical Territory Manager CLIA: [id number] Specimen Source Urine - Void Culture, Urine See Below See Microbiol ogy Report Escherichia coli 25,000-50,000 CFU/ml Escherichia coli Sensitivity Panel See Below ____ Organism E. coli Antibiotic INTERP ____ Amikacin S Ampicillin R Aztreonam S Cefepime S Cefoxitin S Ceftazidime S Ceftriaxone S Cefuroxime S Ciprofloxacin S Ertapenem S Gentamicin S Imipenem S Levofloxacin S Meropenem S Nitrofurantoin S Piperacillin/Tazo S Tetracycline S Tobramycin S Trimeth/Sulfa S ___ S=SUSCEPTIBLE I=INTERMEDIATE R=RESISTANT Reason For Referral Diagnosis 1 Right shoulder pain (M25.511) Referral Organization [facility] Referring Provider First Name Urvashi Referring Provider Last Name Patrice Referring Provider Speciality Family [facility] Referred Provider ORTHODICS, , General Notes Urvashi Ibrahim 2:52:01 PM > right shoulder pain with limited ROM ;17 years duration; would like Aaronnona orthopedicsBebe Brynn 05/22/2024 2:57:27 PM > submitted appointment request via [facility] website Referral Priority Routine REASON FOR VISIT painful urination, shoulder pain Medications Medication SIG (Take, Route, Frequency, Duration) Notes Start Date End Date Status Ezetimibe 10 MG 1 tablet Orally Once a day 09/19/2023 Active Esomeprazole Magnesium 40 MG Take 1 capsule by mouth once daily Active Ibuprofen 600 MG 1 tab(s) Three times a day Active Aspirin 81 81 MG 1 tablet Orally Once a day; Duration: 30 day(s) Active traMADol HCl 50 MG 1 tab(s) orally ever y 8 hours prn Active Vitamin D3 50 MCG (1999 UT) 1 capsule Or ally Once a day Active Vital Signs Blood pressure systolic 140 mm Hg 05/22/20 24 Blood pressure diastolic 70 mm Hg 024 Heart Rate 84 /min 05/22/2024 Height 63 in 05/22/2024 Weight 191.8 lbs 05/22/2024 BMI 33.97 kg/m2 05/22/2024 Encounters Encounter Location Date Provider Diagnosis [facility] [address] [place] [id number] 05/22/2024 Urvashi Ibrahim Right shoulder pain M25.511 and Urinary frequency R35.0 Assessments Encounter Date Diagnosis (ICD Code) Assessment Notes Treatment Notes Treatment Clinical Notes Section Notes 05/22/2024 Right shoulder pain (ICD-10 - M25.511) orthoped referral 05/22/2024 Urinary frequency (ICD-10 - R35.0) good water intake; pending culture Plan Of Treatment Medication Medication Name Sig Start Date Stop Date Notes Ibuprofen 600 MG 1 tab(s) Three times a day traMADol HCl 50 MG 1 tab(s) orally every 8 hours prn Treatment Notes Assessment Notes Right shoulder pain orthoped referral Urinary frequency good water intake; p ending culture Referrals Referral Date Details 05/22/2024 05/22/2024, , ORTHOD ICS Next Appt Details Follow Up: prn, Reason: Progress Notes * LOI NEENADOB:1945 (80 yo F)Acc No.[id number]:05/22/2024 Progress Notes Patient: NEENA MANZANO Provider: LARISSA Daigle :1945 A ge:79 Y S ex:Female Date:05/22/2024 Address:[address] [place] [address] [address], [place], [id number] Pcp:Alfonso Claire Subjective: * Chief Complaints: * 1 . Painful urination, shoulder pain. * HPI: S houlder/Upper arm: 79 year old female presents with c/o shoulder pain P t sts her Rotator cuff has been trying to lock up, and s he would like to discuss seeing a specialist about it. c/o pain in upper arm. c/o tingling/ numbness. Denies : radiation of pain. D enies : physical therapy in the past. 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 U rology: c/o frequent urination P t sts she has been going to the bathroom every 30-45 minutes. c/o burning sensation P t sts it does not really burn, but sts it is painful when she goes. c/o urgency. c/o suprapubic pain. c/o Pressure. Denies : fever. * ROS: D ERMATOLOGY: no R logan. [...] with Cancer. M other: 70 yrs, of [place], diagnosed with Heart Disease. P aternal Grand [...] ouside US: no. * Medications: T aking Aspirin 81 81 MG Tablet Delayed Release 1 tablet Orally Once a day , Taking traMADol HCl 50 MG Tablet 1 tab(s) orally every 8 hours prn , Taking Ibuprofen 600 MG Tablet 1 tab(s) Three times a day , Taking Vitamin D3 50 MCG (1999 UT) Capsule 1 capsule Orally Once a day , Taking Ezetimibe 10 MG Tablet 1 tablet Orally Once a day , Taking Esomeprazole Magnesium 40 MG Capsule Delayed Release Take 1 capsule by mouth once daily , Medication List reviewed and reconciled with the patient * Allergies: S tatins: muscle aches - Side Effects, Neurontin: weakness/trouble breathing - Side Effects. Objective: * Vitals: W t:191.8, Temp:97.4, BP:140/70, HR:84, O2 Sat:99% on RA, Nurse:MIKE, Ht: 63, BMI:33.97. * Examination: G eneral Examination: General Appearance: NAD, appears healthy, alert, pleasant. H eart: RRR. L ungs: CTAB A&P. A bdomen: bowel sounds present, soft and nontender, no CVA tenderness. N eurologic Exam: alert and oriented. ? S houlder / Upper arm: Shoulder: right. I nspection: no swelling or redness, no deformities. P alpation: tenderness on subdeltoid bursa, no crepitations. R flores of motion: restricted rotations and abduction. Assessment: * Assessment: 1. R ight shoulder pain - M25.511 (Primary) 2 . U rinary frequency - R35.0? Plan: * Treatment: 2. U rinary frequency L AB: Urinalysis - Inhouse (Collection Date & Time - 05/22/2024) Value Reference Range C olor/Clarity yellow/clear * L euk 1+ * N itrite neg * U robili 3.2 * P rotein 2+ * p H 6.0 * B lood trace intact * S p. Gr. 1.020 * K etone neg * B ysabel neg * G leni neg * Na Barrow 05/22/2024 3:04: 24 PM > Provider reviewed results while patient in office.Urvashi Ibrahim 05/22/2024 7:54:56 PM > Notes: good water intake; pending culture?? * Labs: * L ab: P-Culture, Urine (Collection Date & Time - 05/22/2024 02:08 PM) Value Reference Range C ulture, Urine See Below - * S pecimen Source Urine - Void - * S ensitivity Panel See Below - * E scherichia coli 25,000-50,000 CFU/ml Escherichia coli - * Urvashi Ibrahim 05/25/2024 1:34:41 PM > , See encounter note * Procedure Codes: 9 4760 PULSE OX, G2211 Complex e/[place], [address] Urinalysis, no micro * Follow Up: p rn * Images: Billing Information: * Visit Code: 51221 Office Visit, Est Pt., Level 3. * Procedure Codes: 66368 PULSE OX. G2211 Complex e/[place]. [address] Urinalysis, no micro. 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 tingling/ numbness shoulder pain Pt sts her Rotator c uff has been trying to lock up, and she would like to discuss seeing a specialist about it physical therapy in the past pain in upper arm Urology frequent urination Pt sts she garcia s been going to the bathroom every 30-45 minutes burning sensation Pt sts it does not r eally burn, but sts it is painful when she goes suprapubic pain fever urgency Pressure Examination Category Sub-Category Detail Notes Category Not es General Examination Heart: RRR Lungs: CTAB A&P Abdomen: bowel sounds present , soft and nontender, no CVA tenderness General Appearance: NAD, appears healthy , alert, pleasant Neurologic Exam: alert and oriented Shoulder / Upper arm Range of motion: restricted rotat ions and abduction Shoulder: right Inspection: no swelling or redne ss, no deformities Palpation: tenderness on subdel toid bursa, no crepitations Consultation Request Notes Referral Date Referring Provider Referred Provider Not es 05/22/2024 Urvashi Ibrahim ORTHODICS, ,
--- OUTSIDE RECORDS SUMMARY | 2024-05-27 04:15 | XMS_ITS ---
Author Organization [facility] Address [address] [facility] [address] [place] [phone] Care Team Providers Care Structural Drafter Name Role Phone Alfonso Claire Primary Care Provider Allergies Allergen (clinical drug ingredient) Drug/Non Drug Allergy documented on EMR Reaction Allergy Type Onset Date Status gabapentin Neurontin weakness/trouble breathing Drug Allergy Active Substance with 0-noxifvw-9-methylg lutaryl-coenzyme A reductase inhibitor mechanism of action (substance) Statins muscle aches Drug Allergy Active Results Component Value Reference Range Notes Influenza Screen (in house) Reviewed date:05/29/2024 09:03:54 AM Interpretation: Performing Lab: Notes/Report: results Neg CBC Fingerstick (in house) Reviewed date:05/29/2024 09:04:02 AM Interpretation: Performing Lab: Notes/Report: wbc 8.6 3.5 - 10 lym 14.7% 15 - 50 mid 3.6% 2 - 15 gran 81.7% 35 - 80 rbc 3.97 3.5 - 5.5 hgb 9.2 11.5 - 16.5 hct 27.7 35 - 55 mcv 69.8 75 - 100 mch 23.3 25 - 35 mchc 33.3 31 - 38 plat 238 100 - 400 Covid test (in house) Reviewed date:05/29/2024 09:04:09 AM Interpretation: Performing Lab: Notes/Report: Result: Neg REASON FOR VISIT possible flu Medications Medication SIG (Take, Route, Frequency, Duration) Notes Start Date End Date Status Aspirin 81 81 MG 1 tablet Orally Once a day; Duration: 30 day(s) Active Feosol Bifera 28 MG 1 tablet Orally Once a day; Duration: 30 day(s) 05/27/2024 Active Macrobid 100 MG 1 capsule with food Orally every 12 hrs; Duration: 5 day(s) 05/26/2024 Active Ibuprofen 600 MG 1 tab(s) Three times a day Active traMADol HCl 50 MG 1 tab(s) orally ever y 8 hours prn Active Esomeprazole Magnesium 40 MG Take 1 capsule by mouth once daily Active Ezetimibe 10 MG 1 tablet Orally Once a day 09/19/2023 Active Vitamin D3 50 MCG (1999 UT) 1 capsule Or ally Once a day Active Problems Problem Type SNOMED Code ICD Code Onset Dates Problem Status W/U Status Risk Notes Problem Anemia (663586568) Anemia, unspecified type (D64.9) Active confirmed Vital Signs Blood pressure systolic 120 mm Hg 05/27/20 24 Blood pressure diastolic 80 mm Hg 024 Heart Rate 81 /min 05/27/2024 Height 63 in 05/27/2024 Weight 192.0 lbs 05/27/2024 BMI 34.01 kg/m2 05/27/2024 Encounters Encounter Location Date Provider Diagnosis [facility] [address] [facility] [address] [place], [place] [phone] 05/27/2024 Alfonso Jet Acute UTI N39.0 ; Fever, unspecified R50.9 and Anemia, unspecified type D64.9 Assessments Encounter Date Diagnosis (ICD Code) Assessment Notes Treatment Notes Treatment Clinical Notes Section Notes 05/27/2024 Acute UTI (ICD-10 - N39.0) Patient needs to start Macrobid today 05/27/2024 Fever, unspecified (ICD-10 - R50.9) 05/27/2024 Anemia, unspecified type (ICD-10 - D64.9) Plan to recheck H/H at f/u visit Plan Of Treatment Medication Medication Name Sig Start Date Stop Date Notes Feosol Bifera 28 MG 1 tablet Orally Once a day; Duration: 30 day(s) 05/27/2024 Treatment Notes Assessment Notes Acute UTI Patient needs to sta rt Macrobid today Anemia, unspecified type Plan to recheck H/H at f/u visit Next Appt Details Follow Up: 10 to 14 days wit [facility], Reason: Progress Notes * YOLY SUTTON:1945 (80 yo F)Acc No.[id number]:05/27/2024 Progress Notes Patient: NEENA MANZANO Provider: Yolanda Claire M.D. :1945 A ge:79 Y S ex:Female Date:05/27/2024 Address:[address] [place] [address] [place], [id number] Subjective: * Chief Complaints: * 1 . Possible flu. * HPI: U rology: 79 year old female presents with c/o suprapubic pain. c/o fever T he patient is here today with c/o fever, body aches and head ache. Pt states this started on Wednesday and has gotten worse. Pt states she saw Cecilia on Wednesday and urine culture reveal a UTI and pt states she has not yet started the Macrobid. * ROS: D ERMATOLOGY: no R logan. [...] L 4-5,L5-S1 posterior lumbar fusion/ Dr. Love 02/2016, Total Knee Replacement, Left / Dr. Tobin 03/2021. * Hospitalization/Major Diagno stic Procedure: D enies Past Hospitalization. * Family History: F ather: 54 yrs, [...] tablet Orally Once a day , Taking Vitamin D3 50 MCG (2000 UT) Capsule 1 capsule Orally Once a day , Taking Ezetimibe 10 MG Tablet 1 tablet Orally Once a day , Taking Esomeprazole Magnesium 40 MG Capsule Delayed Release Take 1 capsule by mouth once daily , Taking traMADol HCl 50 MG Tablet 1 tab(s) orally every 8 hours prn , Taking Ibuprofen 600 MG Tablet 1 tab(s) Three times a day , Taking Macrobid 100 MG Capsule 1 capsule with food Orally every 12 hrs , Medication List reviewed and reconciled with the patient * Allergies: S tatins: muscle aches - Side Effects, Neurontin: weakness/trouble breathing - Side Effects. Objective: * Vitals: W t:192.0, Temp:98.3, BP:120/80, HR:81, Nurse:ARI, Ht: 63, BMI:34.01. * Examination: G eneral Examination: General Appearance: N AD. N lucia: supple, no lymphadenopathy. H eart: R SR. L ungs: c lear to auscultation. B ack: no CVA tenderness. Assessment: * Assessment: 1. A cute UTI - N39.0 (Primary) 2 . F ever, unspecified - R50.9 ?3. A nemia, unspecified type - D64.9 Plan: * Treatment: 2. F ever, unspecified L AB: Influenza Screen (in house) (Collection Date & Time - 05/27/2024) Value Reference Range r esults Neg * Marcus Cardenasira 05/27/2024 9:09:43 AM > , Provider reviewed results while patient in office. ?LAB: CBC Fingerstick (in house) (Collection Date & Time - 05/27/2024)* Value Reference Range w bc 8.6 3.5 - 10 * l ym 14.7% 15 - 50 * m id 3.6% 2 - 15 * g ran 81.7% 35 - 80 * r bc 3.97 3.5 - 5.5 * h gb 9.2 11.5 - 16.5 * h ct 27.7 35 - 55 * m cv 69.8 75 - 100 * m ch 23.3 25 - 35 * m chc 33.3 31 - 38 * p lat 238 100 - 400 * Carey Cardenas 05/27/2024 9:35:10 AM > , Provider reviewed results while patient in office. ?LAB: Covid test (in house) (Collection Date & Time - 05/27/2024)* Value Reference Range R esult: Neg * Carey Cardenas 05/27/2024 9:10:14 AM > , Provider reviewed results while patient in office. 3.?Anemia, unspecified type? Start Feosol Bifera Tablet, 28 MG, 1 tablet, Orally, Once a day, 30 day(s), 30 Tablet, Refills 2. ? Notes: Plan to recheck H/H at f/u visit?? * Procedure Codes: G 2211 Complex e/[place], [address] Flu Test- Nasal Swab, Modifiers: QW , 92356 COVID TEST IN HOUSE, Modifiers: QW , 82124 CAPILLARY BLOOD DRAW, 05476 CBC WITH AUTO DIFF * Follow Up: 1 0 to 14 days with [facility] * Images: Billing Information: * Visit Code: 54226 Office Visit, Est Pt., Level 4. * Procedure Codes: G2211 Complex e/[place]. [address] Flu Test- Nasal Swab. Modifiers: QW 29017 COVID TEST IN HOUSE. Modifiers: QW 79268 CAPILLARY BLOOD DRAW. 57960 CBC WITH AUTO DIFF. * Electronic signature of Casie Claire MD on 04/24/2025 at 08:30 AM EST Sign off status: Pending * Provider: Yolanda Claire M.D. Date: 07/28/2023 Generated for Florinda phan/Johnie/Royaitting on: 06/24/2024 08:30 AM EST History and Physical Notes * HPI (History of Present Illness) Category Sub-Category Detail Notes Category Not es Urology suprapubic pain fever The patient is here today with c/o fever, body aches and head ache. Pt states this started on Wednesday and has gotten worse. Pt states she saw Cecilia on Wednesday and urine culture reveal a UTI and pt states she has not yet started the Macrobid Examination Category Sub-Category Detail Notes Category Not es General Examination Heart: RSR Lungs: clear to auscultatio n General Appearance: NAD Neck: supple, no lymphaden opathy Back: no CVA tenderness
--- OUTSIDE RECORDS SUMMARY | 2024-05-29 09:30 | XMS_ITS ---
Author Organization [facility] Address [address] [facility] [address] [place] [id number] Care Team Providers Care Diesel Bus Mechanic Name Role Phone Alfonso Claire Primary Care Provider Urvashi Ibrahim Unavailable [phone] Allergies Allergen (clinical drug ingredient) Drug/Non Drug Allergy documented on EMR Reaction Allergy Type Onset Date Status gabapentin Neurontin weakness/trouble breathing Drug Allergy Active Substance with 7-zomlzei-8-methylg lutaryl-coenzyme A reductase inhibitor mechanism of action (substance) Statins muscle aches Drug Allergy Active Results Component Value Reference Range Notes Rapid Strep- Inhouse Reviewed date:05/29/2024 03:28:49 PM Interpretation:neg Performing Lab: Notes/Report: neg strep test neg CBC Fingerstick (in house) Reviewed date:05/29/2024 03:28:59 PM Interpretation: Performing Lab: Notes/Report: wbc 9.0 3.5 - 10 lym 17.3 15 - 50 mid 4.0 2 - 15 gran 78.7 35 - 80 rbc 4.38 3.5 - 5.5 hgb 10.2 11.5 - 16.5 hct 31.1 35 - 55 mcv 71.0 75 - 100 mch 23.2 25 - 35 mchc 32.7 31 - 38 plat 255 100 - 400 REASON FOR VISIT sore throat Medications Medication SIG (Take, Route, Frequency, Duration) Notes Start Date End Date Status traMADol HCl 50 MG 1 tab(s) orally ever y 8 hours prn Active Esomeprazole Magnesium 40 MG Take 1 capsule by mouth once daily Active Ezetimibe 10 MG 1 tablet Orally Once a day 09/19/2023 Active Macrobid 100 MG 1 capsule with food Orally every 12 hrs; Duration: 5 day(s) 05/26/2024 Active Ibuprofen 600 MG 1 tab(s) Three times a day Active Vitamin D3 50 MCG (1999) 1 capsule Or ally Once a day Active Cefuroxime Axetil 500 MG 1 tablet Orally every 12 hrs; Duration: 7 day(s) 05/29/2024 Active Aspirin 81 81 MG 1 tablet Orally Once a day; Duration: 30 day(s) Active Feosol Bifera 28 MG 1 tablet Orally Once a day; Duration: 30 day(s) 05/27/2024 Active Vital Signs Blood pressure systolic 120 mm Hg 05/29/20 24 Blood pressure diastolic 64 mm Hg 024 Heart Rate 90 /min 05/29/2024 Height 63 in 05/29/2024 Weight 187.2 lbs 05/29/2024 BMI 33.16 kg/m2 05/29/2024 Encounters Encounter Location Date Provider Diagnosis [facility] [address] [phone] 05/29/2024 Urvashi Ibrahim Bronchitis J4 0 Assessments Encounter Date Diagnosis (ICD Code) Assessment Notes Treatment Notes Treatment Clinical Notes Section Notes 05/29/2024 Bronchitis (ICD-10 - J40) fluids, rest, supportive measures for fever/symptom relief Plan Of Treatment Medication Medication Name Sig Start Date Stop Date Notes Cefuroxime Axetil 500 MG 1 tablet Orally every 12 hrs; Duration: 7 day(s) 05/29/2024 Treatment Notes Assessment Notes Bronchitis fluids, rest, suppor tive measures for fever/symptom relief Next Appt Details Follow Up: prn, Reason: Progress Notes * NEENA SUTTONDOB:1945 (80 yo F)Acc No.[id number]:05/29/2024 Progress Notes Patient: NEENA MANZANO Provider: LARISSA Daigle :1945 A ge:79 Y S ex:Female Date:05/29/2024 Address:[address] [place] [id number] Pcp:Alfonso Claire Subjective: * Chief Complaints: * 1 . Sore throat. * HPI: E NT/respiratory: 79 year old female presents with c/o sore throat P t sts she could not swallow all weekend and is still very painful, and sts that this morning she could barely swallow her medication. c/o nasal congestion P t sts she now has yellow drainage and sts her nose is very sore as well. Pt sts she has been in bed all weekend and has also been very sweaty. c/o Fever s weating; subjective. c/o ear pain P t sts it feels like an air bubble in the left ear. c/o post nasal drainage. c/o Short of Breath. c/o headache.? Denies : cough. D enies : Chest Pain. D enies : smoking. D enies : body aches. eating/drinking poorly. * ROS: D ERMATOLOGY: no R logan. [...] with Cancer. M other: 70 yrs, of [place], diagnosed with Heart Disease. P aternal Grand [...] with food Orally every 12 hrs , Taking Feosol Bifera 28 MG Tablet 1 tablet Orally Once a day , Medication List reviewed and reconciled with the patient * Allergies: S tatins: muscle aches - Side Effects, Neurontin: weakness/trouble breathing - Side Effects. Objective: * Vitals: W t:187.2, Temp:98.3, BP:120/64, HR:90, Nurse:MIKE, Ht: 63, BMI:33.16. * Examination: E NT/Respiratory: General Appearance: well nourished and hydrated, NAD, alert; appears not to feel well. E yes: sclera and conjunctiva clear. E ars: auditory canals normal bilaterally, tympanic membranes normal bilaterally. N ose : nares patent. Oral cavity : no erythema or exudate seen on pharynx. N lucia : supple, no cervical lymphadenopathy. H eart : RRR. L ungs: left crackles posteriorly. Assessment: * Assessment: 1. B adolfo - Casey40 (Primary) Plan: * Treatment: * Labs: * L ab: Rapid Strep- Inhouse (Collection Date & Time - 05/29/2024) n eg Value Reference Range s trep test neg * Na Barrow 05/29/2024 2:54: 52 PM > Provider reviewed results while patient in office.Urvashi Ibrahim 05/29/2024 3:28:48 PM > ?Lab: CBC Fingerstick (in house) (Collection Date & Time - 05/29/2024)* Value Reference Range w bc 9.0 3.5 - 10 * l ym 17.3 15 - 50 * m id 4.0 2 - 15 * g ran 78.7 35 - 80 * r bc 4.38 3.5 - 5.5 * h gb 10.2 11.5 - 16.5 * h ct 31.1 35 - 55 * m cv 71.0 75 - 100 * m ch 23.2 25 - 35 * m chc 32.7 31 - 38 * p lat 255 100 - 400 * Na Barrow 05/29/2024 3:00: 31 PM > Provider reviewed results while patient in office.Urvashi Ibrahim 05/29/2024 3:28:58 PM > * Procedure Codes: G 2211 Complex e/[place], [address] STREP A ASSAY W/OPTIC, Modifiers: QW , 37771 CAPILLARY BLOOD DRAW, 73343 CBC WITH AUTO DIFF * Follow Up: p rn * Images: Billing Information: * Visit Code: 92801 Office Visit, Est Pt., Level 3. * Procedure Codes: G2211 Complex e/[place]. [address] STREP A ASSAY W/OPTIC. Modifiers: QW 68480 CAPILLARY BLOOD DRAW. 27309 CBC WITH AUTO DIFF. * Electronic signature of Aubrie cardozaavril Ibrahim , JOESPH on 04/24/2025 at 08:30 AM EST Sign off status: Pending * Provider: LARISSA Daigle Date: 07/30/2023 Generated for Florinda phan/Johnie/eTyaniraitting on: 06/24/2024 08:30 AM EST History and Physical Notes * HPI (History of Present Illness) Category Sub-Category Detail Notes Category Not es ENT/respiratory sore throat Pt sts she could not swallow all weekend and is still very painful, and sts that this morning she could barely swallow her medication eating/drinking poorly ear pain Pt sts it feels like an air bubble in the left ear Short of Breath Chest Pain cough Fever sweating; subjective post nasal drainage headache nasal congestion Pt sts she now has y ellow drainage and sts her nose is very sore as well. 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
--- OUTSIDE RECORDS SUMMARY | 2024-10-18 05:00 | XMS_ITS ---
Author Organization [facility] Address [address] [place] [id number] Care Team Providers Care Bander And Cellophaner Machine Helper Name Role Phone Alfonso Claire Primary Care Provider [phone] Cecelia Suazo Unavailable [phone] Allergies Allergen (clinical drug ingredient) Drug/Non Drug Allergy documented on EMR Reaction Allergy Type Onset Date Status gabapentin Neurontin weakness/trouble breathing Drug Allergy Active Substance with 1-binfbdi-7-methylg lutaryl-coenzyme A reductase inhibitor mechanism of action (substance) Statins muscle aches Drug Allergy Active Results Component Value Reference Range Notes Influenza Screen (in house) Reviewed date:10/19/2024 08:23:46 AM Interpretation: Performing Lab: Notes/Report: results Neg CBC Fingerstick (in house) Reviewed date:10/19/2024 08:23:59 AM Interpretation: Performing Lab: Notes/Report: wbc 8.6 3.5 - 10 lym 20.6% 15 - 50 mid 5.4% 2 - 15 gran 74.0% 35 - 80 rbc 4.06 3.5 - 5.5 hgb 9.2 11.5 - 16.5 hct 29.3 35 - 55 mcv 72.3 75 - 100 mch 22.8 25 - 35 mchc 31.5 31 - 38 plat 326 100 - 400 P-Vitamin B12 Reviewed date:10/20/2024 12:06:10 PM Interpretation: Normal Performing Lab: Notes/Report: Test performed by [facility] [employer] [address] [place] [address] , [address], [place] [address] Gabriel Gregory MD, Professional Athlete CLIA: [id number] Vitamin B12 760 122-5941 pg/mL P-Lyme Disease (B. burgodorf la), IgG/IgM, SOILA, Serum Reviewed date:10/20/2024 12:06:10 PM Interpretation: Normal Performing Lab: Notes/Report: Test performed by [facility] , [facility], [place] [address] Gabriel Gregory MD, Professional Athlete CLIA: [id number] B burgdorferi (Lyme Disease) IgG Negative Negative B burgdorferi (Lyme Disease) IgM Negative Negative P-Folate Reviewed date:10/20/2024 12:06:10 PM Interpretation: Normal Performing Lab: Notes/Report: Test performed by [facility] , [facility], [place] [address] Gabriel Gregory MD, Professional Athlete CLIA: [id number] Folate 18.40 >4.59 ng/mL P-Ferritin Reviewed date:10/20/2024 12:06:10 PM Interpretation: Normal Performing Lab: Notes/Report: Test performed by [facility] , [address], [place] [address] Gabriel Gregory MD, Professional Athlete CLIA: [id number] Ferritin 15.2 13.0-301.0 ng/mL P-Iron Reviewed date:10/20/2024 12:06:10 PM Interpretation:29 Performing Lab: Notes/Report: Test performed by [facility] , [facility] [place] [address] Gabriel Gregory MD, Professional Athlete CLIA: [id number] Iron 29 37-145 ug/dL P-Vitamin D 25-Hydroxy Reviewed date:10/20/2024 12:06:10 PM Interpretation: Normal Performing Lab: Notes/Report: Test performed by [facility], [facility], [place] [address] Gabriel Gregory MD, Professional Athlete CLIA: [id number] Vitamin D 25-Hydroxy 36.7 30.0-100.0 ng/mL Interpretation of Vitamin D 25 OH: < 20 ng/mL - Deficiency 20 - 29 ng/mL - Insufficiency 30 - 100 ng/mL - Sufficiency > 100 ng/mL - Super-therapeutic- toxicity may occur above this level. Clinical correlation required. REASON FOR VISIT Possible Flu Medications Medication SIG (Take, Route, Frequency, Duration) Notes Start Date End Date Status Albuterol Sulfate HFA 108 (90 Base) MCG/ACT 1 puff as needed Inhalation every 4 hrs, prn 10/18/2024 Active Vitamin D3 50 MCG (2000 UT) 1 capsule Or ally Once a day Active Aspirin 81 81 MG 1 tablet Orally Once a day; Duration: 30 day(s) Active traMADol HCl 50 MG 1 tab(s) orally ever y 8 hours prn Active Ezetimibe 10 MG 1 tablet Orally Once a day 09/19/2023 Active Zithromax Z-Eduar 250 MG 2 pills first day then one daily for 4 days orally as directed; Duration: 5 days 10/18/2024 Active Benzonatate 200 MG 1 capsule Orally Thr ee times a day 10/18/2024 Active Ibuprofen 600 MG TAKE 1 TABLET BY JULIANO TH THREE TIMES DAILY; Duration: 90 Active Esomeprazole Magnesium 40 MG Take 1 capsule by mouth once daily; Duration: 90 Active Feosol Bifera 28 MG 1 tablet Orally Once a day; Duration: 30 day(s) 05/27/2024 Active Vital Signs Blood pressure systolic 128 mm Hg 10/19/19 25 Blood pressure diastolic 72 mm Hg 025 Heart Rate 81 /min 10/18/2024 Height 63 in 10/18/2024 Weight 193.0 lbs 10/18/2024 BMI 34.18 kg/m2 10/18/2024 Encounters Encounter Location Date Provider Diagnosis [facility] [address], [place] [id number] 10/18/2024 Cecelia Crowdy Bronchitis J40 ; Ane priti, unspecified type D64.9 ; Insect bite (nonvenomous) of lower back and pelvis, initial encounter S30.860A ; Bitten or stung by nonvenomous insect and other nonvenomous arthropods, initial encounter W57.XXXA and BMI 34.0-34.9,adult Z68.34 Assessments Encounter Date Diagnosis (ICD Code) Assessment Notes Treatment Notes Treatment Clinical Notes Section Notes 10/18/2024 Bronchitis (ICD-10 - J40) 10/18/2024 Anemia, unspecified type (ICD-10 - D64.9) 10/18/2024 Insect bite (nonvenomous) of lower back and pelvis, initial encounter (ICD-10 - S30.860A) 10/18/2024 Bitten or stung by nonvenomous insect and other nonvenomous arthropods, initial encounter (ICD-10 - W57.XXXA) 10/18/2024 BMI 34.0-34.9,adult (ICD-10 - Z68.34) Plan Of Treatment Medication Medication Name Sig Start Date Stop Date Notes Albuterol Sulfate HFA 108 (9 0 Base) MCG/ACT 1 puff as needed Inhalation every 4 hrs, prn 10/18/2024 Zithromax Z-Eduar 250 MG 2 pills first day then one daily for 4 days orally as directed; Duration: 5 days 10/18/2024 Benzonatate 200 MG 1 capsule Orally Thr ee times a day 10/18/2024 Pending Test Test Name Order Date Hemoccult- IFOBT (in house) 10/18/2024 Next Appt Details Follow Up: via phone to repo rt test results, Reason: Progress Notes * NEENA SUTTONDOB:1945 (80 yo F)Acc No.[id number]:10/18/2024 Progress Notes Patient: NEENA MANZANO Provider: AUGIE Felix :1945 A ge:79 Y S ex:Female Date:10/18/2024 Address:[address] [place] [address] [id number] Pcp:Alfonso Claire Subjective: * Chief Complaints: * 1 . Possible Flu. * HPI: E NT/respiratory: The pt states she found a tick on her back on Wednesday and her sone came down on Wednesday and removed it. Pt states she started feeling bad with low grade fever and she is now coughing up some yellow sputum. 79 year old female presents with c/o cough y ellow sputum production. c/o Fever. c/o chest congestion. Denies : Chest Pain. D enies : Short of Breath. * ROS: D ERMATOLOGY: no R logan. n o H caridad. G ASTROENTEROLOGY: no N ausea. n o V omiting. n o D iarrhea.? U ROLOGY: no D ifficulty urinating. n [...] with Cancer. M other: 70 yrs, of [place], diagnosed with Heart Disease. P aternal Grand [...] orally every 8 hours prn , Taking Feosol Bifera 28 MG Tablet 1 tablet Orally Once a day , Taking Esomeprazole Magnesium 40 MG Capsule Delayed Release Take 1 capsule by mouth once daily , Taking Ibuprofen 600 MG Tablet TAKE 1 TABLET BY MOUTH THREE TIMES DAILY , Discontinued Macrobid 100 MG Capsule 1 capsule with food Orally every 12 hrs , Discontinued Cefuroxime Axetil 500 MG Tablet 1 tablet Orally every 12 hrs , Medication List reviewed and reconciled with the patient * Allergies: S tatins: muscle aches - Side Effects, Neurontin: weakness/trouble breathing - Side Effects. Objective: * Vitals: W t: 193.0, Temp: 98.2, BP: 128/72, HR: 81, Nurse: ARI, Ht: 63, BMI:34.18. * Examination: E NT/Respiratory: General Appearance: N AD. E yes: P ERRLA, sclera clear. E ars: a uditory canals normal bilaterally, TM's WNL. N ose : turbinates red, congested. S inuses : tender maxillary sinuses bilaterally. O ral cavity : erythema without exudate on pharynx. N lucia : n o cervical lymphadenopathy. H eart : R RR, normal S1 S2, no murmurs. L ungs: expiratory wheezes, no rales. A bdomen : BS present, soft, nontender. E xtremities : no edema. S kin : bite naomy in the mid back. Assessment: * Assessment: 1. B ronchitis - J40 (Primary) 2 . A nemia, unspecified type - D64.9 ? 3 . I nsect bite (nonvenomous) of lower back and pelvis, initial encounter - S30.860A? 4. B itten or stung by nonvenomous insect and other nonvenomous arthropods, initial encounter - W57.XXXA 5 . B [place] 34.0-34.9,adult - Z68.34 Plan: * Treatment: Value Reference Range r esults Neg * Maeve Meraz 10/18/2024 10 :07:19 AM > Provider reviewed results while patient in office.Cecelia Suazo 10/19/2024 08:23:44 AM > ?LAB: CBC Fingerstick (in house) (Collection Date & Time - 10/18/2024)* Value Reference Range w bc 8.6 3.5 - 10 * l ym 20.6% 15 - 50 * m id 5.4% 2 - 15 * g ran 74.0% 35 - 80 * r bc 4.06 3.5 - 5.5 * h gb 9.2 11.5 - 16.5 * h ct 29.3 35 - 55 * m cv 72.3 75 - 100 * m ch 22.8 25 - 35 * m chc 31.5 31 - 38 * p lat 326 100 - 400 * Maeve Meraz 10/18/2024 10 :04:53 AM > Provider reviewed results while patient in office.Cecelia Suazo 10/19/2024 08:23:56 AM > 2.?Anemia, unspecified type?LAB: Hemoccult- IFOBT (in house) ?LAB: P-Vitamin B12 (Collection Date & Time - 10/18/2024 09:26 AM)?Normal* Value Reference Range V itamin B12 442 759-3808 - pg/mL * Cassi De La O 10/20/2024 12:0 6:02 PM > See phone encounter ?LAB: P-Folate (Collection Date & Time - 10/18/2024 09:26 AM)?Normal* Value Reference Range F olate 18.40 >4.59 - ng/mL * Cassi De La O 10/20/2024 12:0 6:02 PM > See phone encounter ?LAB: P-Ferritin (Collection Date & Time - 10/18/2024 09:26 AM)?Normal* Value Reference Range F erritin 15.2 13.0-301.0 - ng/mL * Cassi De La O 10/20/2024 12:0 6:02 PM > See phone encounter ?LAB: P-Iron (Collection Date & Time - 10/18/2024 09:26 AM)?29* Value Reference Range I chilango 29 L 37-145 - ug/dL * Cassi De La O 10/20/2024 12:0 6:02 PM > See phone encounter ?LAB: P-Vitamin D 25-Hydroxy (Collection Date & Time - 10/18/2024 09:26 AM)? Normal* Value Reference Range V itamin D 25-Hydroxy 36.7 30.0-100.0 - ng/mL * Cassi De La O 10/20/2024 12:0 6:02 PM > See phone encounter 3.?Insect bite (nonvenomous) of lower back and pelvis, initial encounter?LAB: P-Lyme Disease (B. burgodorferi), IgG/IgM, SOILA, Serum (Collection Date & Time - 10/18/2024 09:26 AM)?Normal* Value Reference Range B burgdorferi (Lyme Disease) IgG Negative Negative - * B burgdorferi (Lyme Disease) IgM Negative Negative - * Cassi De La O 10/20/2024 12:0 6:02 PM > See phone encounter * Procedure Codes: G 2211 Complex e/[place], [address] Flu Test- Nasal Swab, Modifiers: QW , 00707 CAPILLARY BLOOD DRAW, 45058 CBC WITH AUTO DIFF, 3074F SYST BP LT 130 MM HG, 3078F DIAST BP < 80 MM HG * Follow Up: v ia phone to report test results * Images: Billing Information: * Visit Code: 27262 Office Visit, Est Pt., Level 4. * Procedure Codes: G2211 Complex e/[place]. [address] Flu Test- Nasal Swab. Modifiers: QW 11330 CAPILLARY BLOOD DRAW. 35491 CBC WITH AUTO DIFF. 3074F SYST BP LT 130 MM HG. 3078F DIAST BP < 80 MM HG. * Electronic signature of AUGIE Douglas on 04/24/2025 at 08:32 AM EST Sign off status: Pending * Provider: AUGIE Felix Date: 0 10/18/2024 Generated for Florinda phan/Johnie/eTransmitting on: 1 06/24/2024 08:32 AM EST History and Physical Notes * HPI (History of Present Illness) Category Sub-Category Detail Notes Category Not es ENT/respiratory Short of Breath Chest Pain cough yellow sputum produc tion Fever chest congestion Examination Category Sub-Category Detail Notes Category Not es ENT/Respiratory Oral cavity : erythema without exudate on pharynx Sinuses : tender maxillary sin uses bilaterally Ears: auditory canals norm al bilaterally, TM's WNL Neck : no cervical lymphade nopathy Heart : RRR, normal S1 S2, n o murmurs Lungs: expiratory wheezes, no rales Abdomen : BS present, soft, no ntender Extremities : no edema General Appearance: NAD Nose : turbinates red, manny ested Skin : bite naomy in the mid back Eyes: PERRLA, sclera clear
--- OUTSIDE RECORDS SUMMARY | 2024-10-20 10:05 | XMS_ITS ---
Author Organization [facility] Address [address] [place] [id number] Care Team Providers Care Blood Bank Laboratory Professional Name Role Phone Alfonso Claire Primary Care Provider Cecelia Suazo Unavailable [phone] Results Component Value Reference Range Notes Hemoccult- IFOBT (in house) Reviewed date:10/27/2024 10:24:51 AM Interpretation: Performing Lab: Notes/Report: results Neg REASON FOR VISIT STOOL SAMPLE Medications Medication SIG (Take, Route, Frequency, Duration) Notes Start Date End Date Status Zithromax Z-Eduar 250 MG 2 pills first day then one daily for 4 days orally as directed; Duration: 5 days 10/18/2024 Active Benzonatate 200 MG 1 capsule Orally Thr ee times a day 10/18/2024 Active Esomeprazole Magnesium 40 MG Take 1 capsule by mouth once daily; Duration: 90 Active Ibuprofen 600 MG TAKE 1 TABLET BY THREE TIMES DAILY; Duration: 90 Active Albuterol Sulfate HFA 108 (90 Base) MCG/ACT 1 puff as needed Inhalation every 4 hrs, prn 10/18/2024 Active traMADol HCl 50 MG 1 tab(s) orally ever y 8 hours prn Active Feosol Bifera 28 MG 1 tablet Orally Once a day; Duration: 30 day(s) 05/27/2024 Active Ezetimibe 10 MG 1 tablet Orally Once a day 09/19/2023 Active Aspirin 81 81 MG 1 tablet Orally Once a day; Duration: 30 day(s) Active Vitamin D3 50 MCG (2000 UT) 1 capsule Or ally Once a day Active Encounters Encounter Location Date Provider Diagnosis Sal [address] [place] [id number] 10/20/2024 Cecelia Suazo Anemia D64.9 Assessments Encounter Date Diagnosis (ICD Code) Assessment Notes Treatment Notes Treatment Clinical Notes Section Notes 10/20/2024 Anemia (ICD-10 - D64.9) Plan Of Treatment No Information Progress Notes * NEENA SUTTONDOB:1945 (80 yo F)Acc No.[id number]:10/20/2024 Patient: NEENA MANZANO Provider: AUGIE Felix :1945 A ge:79 Y S ex:Female Date:10/20/2024 Address:[address] [place] [address], [place], [id number] Pcp:Alfonso Claire Subjective: * Chief Complaints: * 1 . STOOL SAMPLE. * Medical History: * Medications: T aking Aspirin 81 81 [...] TABLET BY MOUTH THREE TIMES DAILY , Taking Zithromax Z-Eduar 250 MG Tablet 2 pills first day then one daily for 4 days orally as directed , Taking Benzonatate 200 MG Capsule 1 capsule Orally Three times a day , Taking Albuterol Sulfate HFA 108 (90 Base) MCG/ACT Aerosol Solution 1 puff as needed Inhalation every 4 hrs, prn , Medication List reviewed and reconciled with the patient Objective: * Vitals: Assessment: * Assessment: 1. A nemia - D64.9 (Primary) Plan: * Treatment: Value Reference Range r esults Neg * Carey Cardenas 10/20/2024 03:25:5 2 PM >Cecelia Suazo 10/27/2024 09:06:13 AM >Please let patient know this was negGobleCassi 10/27/2024 10:24:37 AM > pt informed of results * Procedure Codes: 8 2274 ASSAY TEST FOR BLOOD, FECAL, Modifiers: QW * Images: Billing Information: * Visit Code: * Procedure Codes: 91180 ASSAY TEST FOR BLOOD, FECAL. Modifiers: QW * Electronic signature of AUGIE Douglas on 04/24/2025 at 08:32 AM EST Sign off status: Pending * Provider: AUGIE Felix Date: 0 10/20/2024 Generated for Florinda phan/Johnie/Royaitting on: 1 06/24/2024 08:32 AM EST
--- OUTSIDE RECORDS SUMMARY | 2024-11-09 10:45 | XMS_ITS ---
Author Organization [facility] Address [address] [facility] [address] [place] [phone] Care Team Providers Care Tower Cleaner Name Role Phone Alfonso Claire Primary Care Provider [phone] Jordon Yu [phone] Allergies Allergen (clinical drug ingredient) Drug/Non Drug Allergy documented on EMR Reaction Allergy Type Onset Date Status gabapentin Neurontin weakness/trouble breathing Drug Allergy Active Substance with 0-iaoydzs-5-methylg lutaryl-coenzyme A reductase inhibitor mechanism of action (substance) Statins muscle aches Drug Allergy Active Results Component Value Reference Range Notes Urinalysis - Inhouse Reviewed date:11/10/2024 09:46:25 AM Interpretation: Performing Lab: Notes/Report: Color/Clarity yellow/clear Leuk 1+ Nitrite neg Urobili 3.2 Protein neg pH 6.5 Blood neg Sp. Gr. 1.010 Ketone neg Bili neg Gluc neg P-Culture, Urine Reviewed date:11/16/2024 10:04:55 PM Interpretation:No Significant Growth Performing Lab: Notes/Report: Test performed by [facility] [address] [place] [address] , [address], [place] [address] Gabriel Gregory MD, Tattoo Designer CLIA: [id number] Specimen Source Urine - Void Culture, Urine See Below Final Report : No Significant Growth Bone density Reviewed date:01/19/2025 11:28:45 AM Interpretation:osteoporosis Performing Lab: Notes/Report: osteoporosis REASON FOR VISIT referral for bone density Medications Medication SIG (Take, Route, Frequency, Duration) Notes Start Date End Date Status Vitamin D3 50 MCG (1999) 1 capsule Orally Once a day Active traMADol HCl 50 MG 1 tab(s) orally ever y 8 hours prn Active Ezetimibe 10 MG 1 tablet Orally Once a day 09/19/2023 Active Esomeprazole Magnesium 40 MG Take 1 capsule by mouth once daily; Duration: 90 Active Feosol Bifera 28 MG 1 tablet Orally Once a day; Duration: 30 day(s) 05/27/2024 Active Benzonatate 200 MG 1 capsule Orally Thr ee times a day 10/18/2024 Not-Taking Zithromax Z-Eduar 250 MG 2 pills first day then one daily for 4 days orally as directed; Duration: 5 days 10/18/2024 Not-Taking Albuterol Sulfate HFA 108 (90 Base) MCG/ACT 1 puff as needed Inhalation every 4 hrs, prn 10/18/2024 Active Aspirin 81 81 MG 1 tablet Orally Once a day; Duration: 30 day(s) Active Ciprofloxacin HCl 500 MG 1 tablet Orally every 12 hrs 11/09/2024 Active Ibuprofen 600 MG TAKE 1 TABLET BY JULIANO TH THREE TIMES DAILY; Duration: 90 Active Vital Signs Blood pressure systolic 120 mm Hg 11/10/19 25 Blood pressure diastolic 64 mm Hg 025 Heart Rate 54 /min 11/09/2024 Height 63 in 11/09/2024 Weight 193.2 lbs 11/09/2024 BMI 34.22 kg/m2 11/09/2024 Encounters Encounter Location Date Provider Diagnosis [facility] [address] [phone] 11/09/2024 Jordon Yu UTI (lower urinary tract infection) N39.0 ; Screening for osteoporosis Z13.820 ; Dyslipidemia E78.5 ; Rheumatoid arthritis M06.9 and BMI 34.0-34.9,adult Z68.34 Assessments Encounter Date Diagnosis (ICD Code) Assessment Notes Treatment Notes Treatment Clinical Notes Section Notes 11/09/2024 UTI (lower urinary tract infection) (ICD-10 - N39.0) 11/09/2024 Screening for osteoporosis (ICD-10 - Z13.820) 11/09/2024 Dyslipidemia (ICD-10 - E78.5) 11/09/2024 Rheumatoid arthritis (ICD-10 - M06.9) 11/09/2024 BMI 34.0-34.9,adult (ICD-10 - Z68.34) Plan Of Treatment Medication Medication Name Sig Start Date Stop Date Notes Ciprofloxacin HCl 500 MG 1 tablet Orally every 12 hrs 10/20 Next Appt Details Follow Up: via phone to repo rt test results, Reason: Progress Notes * NEENA SUTTONDOB:1945 (80 yo F)Acc No.[id number]:11/09/2024 Progress Notes Patient: NEENA MANZANO Provider: Jordon Yu M.D. :1945 A ge:79 Y S ex:Female Date:11/09/2024 Address:[address] [place] [address], [place], [id number] Pcp:Alfonso Claire Subjective: * Chief Complaints: * 1 . Referral for bone density. * HPI: R heumatology: She continues to follow with rheumatology for her rheumatoid arthritis. They have requested that she have a bone density test but she did not want to return to [place] for the study and would like to have it arranged at [facility]. U rology: She recently started with urinary symptoms of dysuria and low back aching. No fever or hematuria. * ROS: D ERMATOLOGY: no R logan. [...] . M aternal Grand Father: . M ateralph Grand Mother: . S iblings: 1 brother [...] BY MOUTH THREE TIMES DAILY , Taking Albuterol Sulfate HFA 108 (90 Base) MCG/ACT Aerosol Solution 1 puff as needed Inhalation every 4 hrs, prn , Not-Taking Zithromax Z-Eduar 250 MG Tablet 2 pills first day then one daily for 4 days orally as directed , Not-Taking Benzonatate 200 MG Capsule 1 capsule Orally Three times a day , Medication List reviewed and reconciled with the patient * Allergies: S tatins: muscle aches - Side Effects, Neurontin: weakness/trouble breathing - Side Effects. Objective: * Vitals: W t: 193.2, Temp: p97.9, BP: 120/64, HR: 54, Nurse: lester, Ht: 63, BMI:34.22. * Examination: G eneral Examination: General Appearance: N AD. A bdomen: s oft , not distended , soft and nontender , no CVA tenderness. Assessment: * Assessment: 1. U TI (lower urinary tract infection) - N39.0 (Primary) 2 . S creening for osteoporosis - Z13.820 3 . D yslipidemia - E78.5 4 . R heumatoid arthritis - M06.9 5 . B MO 34.0-34.9,adult - Z68.34 Plan: * Treatment: Value Reference Range C ulture, Urine See Below - * S pecimen Source Urine - Void - * Portai Henderson 11/14/2024 11:5 2:20 AM >pt started on Cipro ?LAB: Urinalysis - Inhouse (Collection Date & Time - 11/09/2024)* Value Reference Range C olor/Clarity yellow/clear * L euk 1+ * N itrite neg * U robili 3.2 * P rotein neg * p H 6.5 * B lood neg * S p. Gr. 1.010 * K etone neg * B ysabel neg * G leni neg * Na Barrow 11/09/2024 03:3 9:09 PM > Provider reviewed results while patient in office. 2.?Screening for osteoporosis?Imaging: Bone density (Performed Date - 12/06/2024)?osteoporosis* Brandy Spence 11/10/2024 08:2 1:07 AM > faxed to [facility] Jordon Tinoco 12/28/2024 05:22:10 PM EDT > please fax this report to her musical instruments assembler, Cassi Calderon 01/19/2025 11:28:32 AM EDT > faxed report to [phone] * Procedure Codes: G 2211 Complex e/[place] [address] Urinalysis, no micro, 3074F SYST BP LT 130 MM HG, 3078F DIAST BP < 80 MM HG * Follow Up: v ia phone to report test results * Images: Billing Information: * Visit Code: 52367 Office Visit, Est Pt., Level 4. * Procedure Codes: G2211 Complex e/[place] [address] Urinalysis, no micro. 3074F SYST BP LT 130 MM HG. 3078F DIAST BP < 80 MM HG. * Electronic signature of Jordon Yu MD on 04/24/2025 at 08:31 AM EST Sign off status: Pending * Provider: Jordon Yu M.D. Date: 0 11/09/2024 Generated for Florinda phan/Johnie/Royaitting on: 1 06/24/2024 08:31 AM EST History and Physical Notes * HPI (History of Present Illness) Category Sub-Category Detail Notes Category Not es Urology She recently st arted with urinary symptoms of dysuria and low back aching. No fever or hematuria. Rheumatology She continues t o follow with rheumatology for her rheumatoid arthritis. They have requested that she have a bone density test but she did not want to return to [place] for the study and would like to have it arranged at [facility]. Examination Category Sub-Category Detail Notes Category Not es General Examination Abdomen: soft , not d istended , soft and nontender , no CVA tenderness General Appearance: NAD
--- OUTSIDE RECORDS SUMMARY | 2025-03-12 08:45 | XMS_ITS ---
[facility] Address [address] [place] [id number] Care Team Providers Care Spot Washer Name Role Phone Alfonso Claire Primary Care Provider Urvashi Ibrahim Unavailable [phone] Allergies Allergen (clinical drug ingredient) Drug/Non Drug Allergy documented on EMR Reaction Allergy Type Onset Date Status gabapentin Neurontin weakness/trouble breathing Drug Allergy Active Substance with 3-fqrtkhr-0-methylg lutaryl-coenzyme A reductase inhibitor mechanism of action (substance) Statins muscle aches Drug Allergy Active Results Component Value Reference Range Notes CBC Venipuncture (in house) Reviewed date:03/15/2025 04:10:20 PM Interpretation: Performing Lab: Notes/Report: wbc 6.0 3.5 - 10 lymph 31.4% 15 - 50 mid 6.8% 2 - 15 gran 61.8% 35 - 80 rbc 4.31 3.5 - 5.5 hgb 9.4 11.5 - 16.5 hct 29.3 35 - 55 mcv 68.1 75 - 100 mch 21.8 25 - 35 mchc 32.0 31 - 38 platlet 303 100 - 400 P-Comprehensive Metabolic Pa german (CMP) Reviewed date:03/15/2025 04:10:53 PM Interpretation: Performing Lab: Notes/Report: Test performed by [facility], [facility] [address] [place] [address] , [address], [place] [address] Gabriel Gregory MD, [employer] CLIA: [id number] Sodium 141 135-145 mmol/L Potassium 4.9 3.5-5.3 mmol/L Chloride 109 97-108 mmol/L CO2 21 20-32 mmol/L Glucose 94 65-99 mg/dL BUN 18 8-23 mg/dL Creatinine 0.89 0.50-1.00 mg/dL Calcium 9.3 8.6-10.4 mg/dL eGFR by Creatinine 66 >59 mL/min/1.73m2 Protein 7.1 6.0-8.3 g/dL Albumin 3.7 3.5-5.3 g/dL Alkaline Phosphatase 125 35-121 IU/L ALT (SGPT) 11 <5-47 IU/L AST (SGOT) 18 <5-40 IU/L Bilirubin, Total <0.2 <0.2-1.2 mg/dL A/G Ratio 1.1 1.1-2.5 P-Iron Reviewed date:03/15/2025 04:10:07 PM Interpretation:18 Performing Lab: Notes/Report: Test performed by [facility], [facility] [address] [place] [address] , [address], [place] [address] Gabriel Gregory MD, [employer] CLIA: [id number] Iron 18 37-145 ug/dL EKG Reviewed date:03/15/2025 04:09:45 PM Interpretation:NSR with frequent SV premature beats Performing Lab: Notes/Report: NSR with frequent SV premature beats CXR Reviewed date:03/15/2025 04:09:18 PM Interpretation:no acute CP disese Performing Lab: Notes/Report: no acute CP disese REASON FOR VISIT ear throbbing, dry mouth, itching all over Medications Medication SIG (Take, Route, Frequency, Duration) Notes Start Date End Date Status Feosol Bifera 28 MG 1 tablet Orally Once a day; Duration: 30 day(s) 05/27/2024 Active traMADol HCl 50 MG 1 tab(s) orally ever y 8 hours prn Active Vitamin D3 50 MCG (1999) 1 capsule Or ally Once a day Active Esomeprazole Magnesium 40 MG Take 1 capsule by mouth once daily; Duration: 90 Active Ibuprofen 600 MG 1 tablet with food o r milk as needed Orally Three times a day; Duration: 90 days Active Aspirin 81 81 MG 1 tablet Orally Once a day; Duration: 30 day(s) Active Problems Problem Type SNOMED Code ICD Code Onset Dates Problem Status W/U Status Risk Notes Problem Anemia (517898285) Anemia (D64.9) Active confirmed Vital Signs Blood pressure systolic 102 mm Hg 03/12/20 25 Blood pressure diastolic 60 mm Hg 025 Heart Rate 81 /min 03/12/2025 Height 63 in 03/12/2025 Weight 183.2 lbs 03/12/2025 BMI 32.45 kg/m2 03/12/2025 Encounters Encounter Location Date Provider Diagnosis [facility] [address] [place], [place] [id number] 03/12/2025 Urvashi Ibrahim Shortness of breath R06.02 ; Itching L29.9 ; Fatigue, unspecified type R53.83 ; Anemia D64.9 and Iron deficiency E61.1 Assessments Encounter Date Diagnosis (ICD Code) Assessment Notes Treatment Notes Treatment Clinical Notes Section Notes 03/12/2025 Shortness of breath (ICD-10 - R06.02) 03/12/2025 Itching (ICD-10 - L29.9) antihistamin of choice 03/12/2025 Fatigue, unspecified type (ICD-10 - R53.83) 03/12/2025 Anemia (ICD-10 - D64.9) 03/12/2025 Iron deficiency (ICD-10 - E61.1) 03/12/2025 Other feel cause may be her persistent anemia; Iron study pending Plan Of Treatment Treatment Notes Assessment Notes Itching antihistamin of ashraf ce Other feel cause may be he r persistent anemia; Iron study pending Next Appt Details Follow Up: 1 Week, Reason: Progress Notes * NEENA SUTTONDOB:1945 (80 yo F)Acc No.[id number]:03/12/2025 Progress Notes Patient: NEENA MANZANO Provider: LARISSA Daigle :1945 A ge:80 Y S ex:Female Date:03/12/2025 Address:[address] [place] [address], [place], [id number] Pcp:Alfonso Claire Subjective: * Chief Complaints: * 1 . Ear throbbing, dry mouth, itching all over. * HPI: N eurology: 80 year old female presents with c/o weakness P t states she has been weak for 2 weeks and getting worse . O pthalmology: itching P t states she has been having both itchy eyes and burning since Wednesday. E NT/respiratory: dry mouth; eating and drinking OK; nothing tastes right; did go to [place] last week and walked alot; shortness of breath resolved with rest. c/o ear pain r ight side. c/o body aches a s usual. Denies : sore throat. D enies : cough. D enies : nasal congestion. D enies : Fever. D enies : rhinorrhea. D enies : post nasal drainage. D enies : headache. D enies : smoking. C ardiology: c/o Palpitations. c/o Leg Edema. c/o Nocturia. * ROS: G ASTROENTEROLOGY: Positive for l ast colonoscopy 2022/Dr Santana and was negative; has had polyps in the past. n o N ausea. n o V omiting. n o D iarrhea.? M USCULOSKELETAL: no J oint pain, o n/off; mainly hands and knees. ? 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 * Surgical History: L 4-5,L5-S1 posterior lumbar fusion/ Dr. Love 02/2016, Total Knee Replacement, Left / Dr. 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 * Family History: F ather: 54 yrs, diagnosed with Cancer. M other: 69 yrs, of [place], diagnosed with Heart Disease. P aternal Grand Father: . P aternal Grand Mother: . M aternal Grand Father: . M aternal Grand Mother: . S iblings: 1 brother 1 sister . 4 brother(s) , 4 sister(s) . 2 son(s) . . Siblings with heart disease; OA, Heart disease, brain aneurysm, osteoporesis, gout, scleroderma. * Social History: C URRENT TOBACCO USE [...] capsule Orally Once a day , Taking traMADol HCl 50 MG Tablet 1 tab(s) orally every 8 hours prn , Taking Ibuprofen 600 MG Tablet 1 tablet with food or milk as needed Orally Three times a day , Taking Esomeprazole Magnesium 40 MG Capsule Delayed Release Take 1 capsule by mouth once daily , Taking Feosol Bifera 28 MG Tablet 1 tablet Orally Once a day , Discontinued Ezetimibe 10 MG Tablet 1 tablet Orally Once a day , Discontinued Albuterol Sulfate HFA 108 (90 Base) MCG/ACT Aerosol Solution 1 puff as needed Inhalation every 4 hrs, prn , Discontinued Ciprofloxacin HCl 500 MG Tablet 1 tablet Orally every 12 hrs , Discontinued Zithromax Z-Eduar 250 MG Tablet 2 pills first day then one daily for 4 days orally as directed , Discontinued Benzonatate 200 MG Capsule 1 capsule Orally Three times a day , Medication List reviewed and reconciled with the patient * Allergies: S tatins: muscle aches - Side Effects, Neurontin: weakness/trouble breathing - Side Effects. Objective: * Vitals: W t: 183.2, Temp: 97.8, BP: 102/60, HR: 81, Nurse: pe, Ht: 63, BMI:32.45. * Examination: G eneral Examination: General Appearance: N AD, alert, pleasant. H EENT: s clera and conjunctiva clear, PERRLA, TM's normal, translucent. O ral cavity: m ucosa moist and WNL, no erythema. N lucia: s upple, no lymphadenopathy, no carotid bruits, no thyromegaly. H eart: R RR. L ungs: C TAB A&P. N eurologic Exam: a lert and oriented. E xtremities: n o leg edema. Assessment: * Assessment: 1. S hortness of breath - R06.02 (Primary) 2 . I tching - L29.9 ?Specify :chest,arms,back and all over 3 . F atigue, unspecified type - R53.83 4 . A nemia - D64.9 5 . I chilango deficiency - E61.1 Plan: * Treatment: Value Reference Range A /G Ratio 1.1 L 1.1-2.5 - * A lbumin 3.7 3.5-5.3 - g/dL * A lkaline Phosphatase 125 H 35-121 - IU/L * A LT (SGPT) 11 <5-47 - IU/L * A ST (SGOT) 18 <5-40 - IU/L * B ilirubin, Total <0.2 <0.2-1.2 - mg/dL * B UN 18 8-23 - mg/dL * C alcium 9.3 8.6-10.4 - mg/dL * C hloride 109 H 97-108 - mmol/L * C O2 21 20-32 - mmol/L * C reatinine 0.89 0.50-1.00 - mg/dL * G lucose 94 65-99 - mg/dL * P otassium 4.9 3.5-5.3 - mmol/L * S odium 141 135-145 - mmol/L * P rotein 7.1 6.0-8.3 - g/dL * e GFR by Creatinine 66 >59 - mL/min/1.73m2 * Urvashi Ibrahim 03/15/2025 04:03:38 PM EDT > See phone encounter ?LAB: CBC Venipuncture (in house) (Collection Date & Time - 03/12/2025)* Value Reference Range w bc 6.0 3.5 - 10 * l ymph 31.4% 15 - 50 * m id 6.8% 2 - 15 * g ran 61.8% 35 - 80 * r bc 4.31 3.5 - 5.5 * h gb 9.4 11.5 - 16.5 * h ct 29.3 35 - 55 * m cv 68.1 75 - 100 * m ch 21.8 25 - 35 * m chc 32.0 31 - 38 * p latlet 303 100 - 400 * Sofie Kelley 03/12/2025 0 3:14:21 PM EDT > Provider reviewed results while patient in office. ?Imaging: EKG (Performed Date - 03/12/2025)?NSR with frequent SV premature beats* Urvashi Ibrahim 03/14/2025 01:20:17 PM EDT >Urvashi Ibrahim 03/14/2025 01:20:18 PM EDT >no answer when Urvashi Casillas 03/15/2025 09:54:25 AM EDT >left message for return FazalUrvashi delgado 03/15/2025 03:49:11 PM EDT >no answer when Urvashi Casillas 03/15/2025 04:09:28 PM EDT > See phone encounter ?Imaging: CXR (Performed Date - 03/12/2025)?no acute CP disese* Urvashi Ibrahim 03/15/2025 04:09:03 PM EDT > See phone encounter 2.?Itching?LAB: P-Comprehensive Metabolic Panel (CMP) (Collection Date & Time - 03/12/2025 01:52 PM)* Value Reference Range A /G Ratio 1.1 L 1.1-2.5 - * A lbumin 3.7 3.5-5.3 - g/dL * A lkaline Phosphatase 125 H 35-121 - IU/L * A LT (SGPT) 11 <5-47 - IU/L * A ST (SGOT) 18 <5-40 - IU/L * B ilirubin, Total <0.2 <0.2-1.2 - mg/dL * B UN 18 8-23 - mg/dL * C alcium 9.3 8.6-10.4 - mg/dL * C hloride 109 H 97-108 - mmol/L * C O2 21 20-32 - mmol/L * C reatinine 0.89 0.50-1.00 - mg/dL * G lucose 94 65-99 - mg/dL * P otassium 4.9 3.5-5.3 - mmol/L * S odium 141 135-145 - mmol/L * P rotein 7.1 6.0-8.3 - g/dL * e GFR by Creatinine 66 >59 - mL/min/1.73m2 * Urvashi Ibrahim 03/15/2025 04:03:38 PM EDT > See phone encounter Notes: antihistamin of choice??3.?Iron deficiency?LAB: P-Iron (Collection Date & Time - 03/12/2025 01:52 PM)?18* Value Reference Range I chilango 18 L 37-145 - ug/dL * Urvashi Ibrahim 03/15/2025 04:09:56 PM EDT > See phone encounter 4.?Others? Notes: feel cause may be her persistent anemia; Iron study pending?? * Procedure Codes: G 2211 Complex [place], [address] CBC WITH AUTO DIFF, 20358 VENIPUNCT, ROUTINE*, 1036F TOBACCO NON-USER, G8783 BP SCR PRFRM RCMDD DEFIND SCR INTVL, G8752 MOST RECENT SYSTOLIC BP < 140MM HG, G8754 MOST RECENT DIASTOLIC BP < 90MM HG, 3074F SYST BP LT 130 MM HG, 3078F DIAST BP < 80 MM HG * Follow Up: 1 Week * Images: Billing Information: * Visit Code: 54849 Office Visit, Est Pt., Level 4. * Procedure Codes: G2211 Complex e/[place]. [address] CBC WITH AUTO DIFF. 24134 VENIPUNCT, ROUTINE*. 1036F TOBACCO NON-USER. 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 G8752 MOST RECENT SYSTOLIC BP < 140MM HG. G8754 MOST RECENT DIASTOLIC BP < 90MM HG. 3074F SYST BP LT 130 MM HG. 3078F DIAST BP < 80 MM HG. * Electronic signature of Aubrie Ibrahim APRN on 04/24/2025 at 08:31 AM EST Sign off status: Pending * Provider: LARISSA Daigle Date: 0 03/12/2025 Generated for Florinda phan/Johnie/Paula on: 1 06/24/2024 08:31 AM EST History and Physical Notes * HPI (History of Present Illness) Category Sub-Category Detail Notes Category Not es ENT/respiratory sore throat ear pain right side cough Fever post nasal drainage headache rhinorrhea nasal congestion smoking body aches as usual Neurology weakness Pt states she has been weak for 2 weeks and getting worse Cardiology Palpitations Leg Edema Nocturia Opthalmology itching Pt states she garcia s been having both itchy eyes and burning since Wednesday Examination Category Sub-Category Detail Notes Category Not es General Examination HEENT: sclera and c onjunctiva clear, PERRLA, TM's normal, translucent Heart: RRR Lungs: CTAB A&P Extremities: no leg edema General Appearance: NAD, alert, pleasant Neurologic Exam: alert and oriented Neck: supple, no lymphaden opathy, no carotid bruits, no thyromegaly Oral cavity: mucosa moist and WNL , no erythema
--- OUTSIDE RECORDS SUMMARY | 2025-04-02 04:45 | XMS_ITS ---
Author Organization Sal Address [address] [facility] [address] [place] [id number] Care Team Providers Care Performance Reporter Name Role Phone Alfonso Claire Primary Care Provider Urvashi Ibrahim Unavailable [phone] Allergies Allergen (clinical drug ingredient) Drug/Non Drug Allergy documented on EMR Reaction Allergy Type Onset Date Status gabapentin Neurontin weakness/trouble breathing Drug Allergy Active Substance with 8-hzfaqcu-8-methylg lutaryl-coenzyme A reductase inhibitor mechanism of action (substance) Statins muscle aches Drug Allergy Active REASON FOR VISIT 1 week F/U Medications Medication SIG (Take, Route, Frequency, Duration) Notes Start Date End Date Status Ibuprofen 600 MG 1 tablet with food o r milk as needed Orally Three times a day; Duration: 90 days Active Vitamin D3 50 MCG (1999) 1 capsule Or ally Once a day Active traMADol HCl 50 MG 1 tab(s) orally ever y 8 hours prn Active Esomeprazole Magnesium 40 MG Take 1 capsule by mouth once daily; Duration: 90 Active Feosol Bifera 28 MG 1 tablet Orally Once a day; Duration: 30 day(s) Active Aspirin 81 81 MG 1 tablet Orally Once a day; Duration: 30 day(s) Active Vital Signs Blood pressure systolic 106 mm Hg 04/02/20 25 Blood pressure diastolic 72 mm Hg 025 Heart Rate 71 /min 04/02/2025 Height 63 in 04/02/2025 Weight 187.2 lbs 04/02/2025 BMI 33.16 kg/m2 04/02/2025 Encounters Encounter Location Date Provider Diagnosis Sal [address] [facility] [address] [place] [id number] 04/02/2025 Urvashi Ibrahim Fatigue, unspecified type R53.83 ; Anemia D64.9 ; Abnormal EKG R94.31 and Iron deficiency E61.1 Assessments Encounter Date Diagnosis (ICD Code) Assessment Notes Treatment Notes Treatment Clinical Notes Section Notes 04/02/2025 Fatigue, unspecified type (ICD-10 - R53.83) 04/02/2025 Anemia (ICD-10 - D64.9) has 3 more IV Iron TX; plans to start B12 04/02/2025 Abnormal EKG (ICD-10 - R94.31) turned in the event recorder today 04/02/2025 Iron deficiency (ICD-10 - E61.1) Plan Of Treatment Treatment Notes Assessment Notes Anemia has 3 more IV Iron T X; plans to start B12 Abnormal EKG turned in the event recorder today Next Appt Details Follow Up: 4 Weeks, Reason: Progress Notes * NEENA SUTTONDOB:1945 (80 yo F)Acc No.[id number]:04/02/2025 Patient: NEENA MANZANO Provider: LARISSA Daigle :1945 A ge:80 Y S ex:Female Date:04/02/2025 Address:[address] [place] [address] QUEENIE, DIONNA FLORES, [id number] Pcp:Alfonso Claire Subjective: * Chief Complaints: * 1 . 1 week F/U. * HPI: H PI: Patient is here today for 1 week f/u. Pt is not fasting. Pt states she went for her first around of Iron and she goes tomorrow for her second around; she is sometimes dizzzy with first standing; no near syncope; ears ARE NOT Ringing. * ROS: R ESPIRATORY: Shortness of breath y es, o ccasional. n o C hest congestion. n o C ough. C ARDIOLOGY: no C hest pain. n o P alpitations. n o L eg edema. S hortness of breath y es, o ccasional. D ERMATOLOGY: no R logan. n o H craidad. G ASTROENTEROLOGY: no N ausea. n o [...] 08/18/2024. * Hospitalization/Major Diagno stic Procedure: B [facility]-right reverse total shoulder TSA 08/18/2024. * Family History: F ather: 54 yrs, diagnosed with Cancer. M other: 69 yrs, of [place], diagnosed with Heart Disease. P aternal Grand [...] Side Effects. Objective: * Vitals: W t: 187.2, Temp: 98.2, BP: 106/72, HR: 71, Nurse: shahana, Ht: 63, BMI:33.16. * Examination: G eneral Examination: General Appearance: N AD, alert, pleasant; cheeks have a little pink in them today. H eart: R RR 70's; rare ectopy. L ungs: s ome bilateral crackles. N eurologic Exam: a lert and oriented. E xtremities: n o leg edema. ? Assessment: * Assessment: 1. A nemia - D64.9 (Primary) 2 . F atigue, unspecified type - R53.83 ? 3 . A bnormal EKG - R94.31 4 . I chilango deficiency - E61.1 Plan: * Treatment: 2. A bnormal EKG Notes: turned in the event recorder today * Procedure Codes: G 2211 Complex e/m visit add on, 1036F TOBACCO NON-USER, 3074F SYST BP LT 130 MM HG, 3078F DIAST BP < 80 MM HG * Follow Up: 4 Weeks * Images: Billing Information: * Visit Code: 90584 Office Visit, Est Pt., Level 3. * Procedure Codes: G2211 Complex e/m visit add on. 1036F TOBACCO NON-USER. 3074F SYST BP LT 130 MM HG. 3078F DIAST BP < 80 MM HG. * Electronic signature of Aubrie Ibrahim APRN on 04/24/2025 at 08:31 AM EST Sign off status: Pending * Provider: LARISSA Daigle Date: Generated for Florinda phan/Johnie/Paula on: 06/24/2024 08:31 AM EST History and Physical Notes * HPI (History of Present Illness) Category Sub-Category Detail Notes Category Not es HPI Patient is here today for 1 week f/u. Pt is not fasting. Pt states she went for her first around of Iron and she goes tomorrow for her second around; she is sometimes dizzzy with first standing; no near syncope; ears ARE NOT Ringing Examination Category Sub-Category Detail Notes Category Not es General Examination Heart: RRR 70's; rare ectopy Lungs: some bilateral crack les Extremities: no leg edema General Appearance: NAD, alert, pleasant ; cheeks have a little pink in them today Neurologic Exam: alert and oriented
--- OUTSIDE RECORDS SUMMARY | 2025-04-19 14:45 | XMS_ITS | Encounter Summary ---
[facility] Organization [facility] Address [address] [place] [address] Care Team Providers Care Turf And Grounds Supervisor Name Role Phone Gagan Yu MD Primary Care Provider Reason for Visit * Reason Comments Osteoarthritis Follow up Rheumatoid Arthritis Follow up Encounter Details Date Type Department Care Team (Latest Contact Info) Description 04/19/2025 3:45 PM EDT Office Visit [facility] [address] [phone] Mor Dash DO [address] [place] [phone] Seropositive rheumatoid arthritis (Primary Dx); Primary osteoarthritis involving multiple joints; Encounter for therapeutic drug monitoring; Positive QuantiFERON-TB Gold test Social History Tobacco Use Types Packs/Day Years [...] or training? Not on file Preferred Language Indonesian 08/08/2024 Comments No Sex and Gender Information Value Date Recorded Sex Assigned at Not on file Legal Sex Female 12:49 PM EST Gender Identity Not on file Sexual Orientation Not on file documented as of this encounter Last Filed Vital Signs Vital Sign Reading Time Taken Comments Blood Pressure 140/74 04/19/2025 3:16 PM EDT Pulse 80 04/19/2025 3:16 PM EDT Temperature 36.3 C (97.3 F) 04/19/2025 3:16 PM EDT Respiratory Rate 16 04/19/2025 3:16 PM EDT Oxygen Saturation - - Inhaled Oxygen Concentration - - Weight 84.8 kg (186 lb 14.4 oz) 04/19/2025 3:16 PM EDT Height 162.6 cm (5' 4.02 ) 04/19/2025 3:16 PM ED T Body Mass Index 32.07 04/19/2025 3:16 PM EDT documented in this encounter Patient Instructions * Attachments The following attachments cannot be sent through Care Everywhere. * Arthritis: What to Know (Indonesian) documented in this encounter Progress Notes * Mor Dash, - 04/19/2025 3:45 PM EDTAssociated Problem(s): Seropositive rheumatoid arthritis * Medications/treatments/interventions tried include: She saw Dr. Jameel Ryan (Conditioning Coach) in 2007, Tylenol, etodolac, indomethacin, Celebrex, ibuprofen, shoulder injection, back surgery, she has done some physical therapy, prednisone, gabapentin, She saw Dr. Randolph (Conditioning Coach), she saw Dr. Perera (Conditioning Coach), cortisone injections in her knees, meloxicam, Plaquenil, [...] 7. We gave her a handout on arthritis to take home and review * Mor Dash DO - 04/19/2025 3:45 PM EDTAssociated Problem(s): Osteoarthritis 1. Tylenol PRN is ok as directed. 2. She has taken NSAIDS like ibuprofen PRN 3. She had a cortisone injection in her shoulder. 4. She has had cortisone injections in her knees. 5. Weight loss would be helpful. 6. She has done some physical therapy. 7. She has had back surgery. 8. Continue/refill Tramadol PRN every 6 hours * Mor Dash DO - 04/19/2025 3:45 PM EDTAssociated Problem(s): Encounter for therapeutic drug monitoring * Tramadol 50 mg every 6 hours PRN for pain * Controlled substance agreement updated 12/08/23 Check RICK and Drug screen as required. Drug screen ordered today * Mor Dash, - 04/19/2025 3:45 PM EDTAssociated Problem(s): Positive QuantiFERON-TB Gold test * 03/07/20 TB test positive Her TB test was positive 02/2020. 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 CXR was clear * Mor Dash, - 04/19/2025 3:45 PM EDT Office Follow Up Date: 04/19/2025 Patient Name: Lona Sutton Date of : 1945 Chief Complaint Patient presents with Osteoarthritis Follow up Rheumatoid Arthritis Follow up History of Present Illness: Lona Sutton is a 80 y.o. female who is here today for follow up. She established care with us as of 03/07/20. She is rheumatoid factor positive. She did not tolerate Plaquenil. This caused rash and itching. She stopped taking Arava mid-2020. She thought it was causing side effects. She does not want to go back on DMARD or biologic agents at this time. We have prescribed her Tramadol to take PRN. Historically her TB test was positive. She saw an infectious disease specialist and was treated forlatent TB. No recent injuries. No fevers. Today she rates her pain as 5.5/10 in severity. She has a 15 minutes/day of morning stiffness. No red or hot joints. No swelling. She has back pain. No muscle pain or weakness. Her skin is dry. No rash. No hair loss. No abnormal bruising/bleeding. No lymphadenopathy No headaches. No chest pain. No GI or issues. She is short of breath. No sicca symptoms. She is fatigued. Subjective Review of Systems Constitutional: Positive for fatigue. HENT: Positive for sinus pressure. Eyes: Negative. Respiratory: Positive for shortness of breath. Cardiovascular: Negative. Gastrointestinal: Negative. Endocrine: Negative. Genitourinary: Negative. Musculoskeletal: Positive for arthralgias and back pain. Skin: Positive for dry skin. Allergic/Immunologic: Negative. Neurological: Negative. Hematological: Negative. Psychiatric/Behavioral: Negative. All other systems reviewed and are negative. Current Outpatient Medications: alendronate (FOSAMAX) 70 MG tablet, Take 1 tablet by mouth Every 7 (Seven) Days., Disp: 4 tablet, Rfl: 11 aspirin 81 MG EC tablet, Take 1 tablet by mouth Every 12 (Twelve) Hours. For 1 month, Disp: 60 tablet, Rfl: 0 esomeprazole (nexIUM) 40 MG capsule, Take 1 capsule by mouth Daily., Disp: , Rfl: Ferrous Sulfate (IRON PO), Take 1 tablet by mouth Daily., Disp: , Rfl: ibuprofen (ADVIL,MOTRIN) 600 MG tablet, Take 200 mg by mouth Every 8 (Eight) Hours As Needed for Mild Pain., Disp: , Rfl: Polysacch Fe Cmp-Fe Heme Poly (Feosol Bifera) 28 MG tablet, Take 1 tablet by mouth Daily., Disp: , Rfl: traMADol (ULTRAM) 50 MG tablet, Take 1 tablet by mouth Every 6 (Six) Hours As Needed for Moderate Pain., Disp: 120 tablet, Rfl: 5 Allergies Allergen Reactions Statins Unknown - Low Severity Gabapentin Myalgia Hydroxychloroquine Sulfate Itching and Rash DRY MOUTH ALSO Oxycodone Itching Itching on face and nose I have reviewed and updated the patient's chief complaint, history of present illness, review of systems, past medical history, surgical history, family history, social history, medications and allergy list as appropriate. Objective Vitals: 04/19/25 1516 BP: 140/74 BP Location: Right arm Patient Position: Sitting Cuff Size: Large Adult Pulse: 80 Resp: 16 Temp: 97.3 ??F (36.3 ??C) TempSrc: Infrared Weight: 84.8 kg (186 lb 14.4 oz) Height: 162.6 cm (64.02 ) PainSc: 6 PainLoc: Back Body mass index is 32.07 kg/m??. Physical Exam General: Well appearing 80 year old female. Not in distress. She is ambulating unassisted. SKIN: No rashes. No alopecia. No subcutaneous nodules. No digital pits or ulcers. No sclerodactyly. HEENT: NCAT. Conjunctiva clear, no photophobia. No oral or nasal ulcers. Hearing intact. Pulmonary: Clear to auscultation bilaterally. No wheezing, rales, or rhonchi. CV: Regular rate and rhythm. No murmurs, rubs, or gallops. Psych: Normal mood and affect. Alert and oriented x 3. Extremities: No cyanosis or edema. Musculoskeletal: No joint swelling or tenderness to palpation. No warmth or erythema. Normal range of motion of the wrists, ankles, elbows, and knees. She has Heberden's and Jorge Luis's nodes bilaterally. She has some contractures in her right 5th PIP. Lymph: No palpable cervical adenopathy Procedures Assessment / Plan Assessment & Plan Seropositive rheumatoid arthritis * Medications/treatments/interventions tried include: She saw Dr. Jameel Ryan (Conditioning Coach) in 2007, Tylenol, etodolac, indomethacin, Celebrex, ibuprofen, shoulder injection, back surgery, she has done some physical therapy, prednisone, gabapentin, She saw Dr. Randolph (Conditioning Coach), she saw Dr. Perera (Conditioning Coach), cortisone injections in her knees, meloxicam, Plaquenil, [...] 7. We gave her a handout on arthritis to take home and review Primary osteoarthritis involving multiple joints 1. Tylenol PRN is ok as directed. 2. She has taken NSAIDS like ibuprofen PRN 3. She had a cortisone injection in her shoulder. 4. She has had cortisone injections in her knees. 5. Weight loss would be helpful. 6. She has done some physical therapy. 7. She has had back surgery. 8. Continue/refill Tramadol PRN every 6 hours Encounter for therapeutic drug monitoring * Tramadol 50 mg every 6 hours PRN for pain * Controlled substance agreement updated 12/08/23 Check RICK and Drug screen as required. Drug screen ordered today Positive QuantiFERON-TB Gold test * 03/07/20 TB test positive Her TB test was positive 02/2020. 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 CXR was clear New Medications Ordered This Visit Medications traMADol (ULTRAM) 50 MG tablet Sig: Take 1 tablet by mouth Every 6 (Six) Hours As Needed for Moderate Pain. Dispense: 120 tablet Refill: 5 Follow Up: Return in about 6 months (around 10/18/2025). Mor Dash DO [facility] [place] [facility] [place] documented in this encounter Plan of Treatment Upcoming Encounters Date Type Department Care Team (Late st Contact Info) Description 10/22/2025 3:45 PM EDT Office Visit [facility] [address] [phone] Mor aDsh DO [address] [phone] documented as of this encounter Procedures Procedure Name Priority Date/Time Associated Diagnosis Comments URINE DRUG SCREEN Routine 04/19/2025 3:5 1 PM EDT Seropositive rheumatoid arthritis Primary osteoarthritis involving multiple joints Encounter for therapeutic drug monitoring Positive QuantiFERON-TB Gold test documented in this encounter Results * Urine Drug Screen - Urine, Clean Catch (04/19/2025 3:51 PM EDT) Amphetamine, Urine Qual Negative Cutoff=10 00 ng/mL [facility] Barbiturates Screen, Urine Negative Cutoff=20 0 ng/mL [facility] Benzodiazepine Screen, Urine Negative Cutoff=20 0 ng/mL [facility] THC Screen, Urine Negative Cutoff=20 ng/mL [facility] Cocaine Screen, Urine Negative Cutoff=30 0 ng/mL [facility] Opiate Screen, Urine Negative Cutoff=30 0 ng/mL [facility] Comment:Opiate test includes Codeine, Morphine, Hydromorphone, Hydrocodone. Oxycodone/Oxymorph one, Urine Negative Cutoff=10 0 ng/mL [facility] Comment:Test includes Oxycod one and Oxymorphone Phencyclidine (PCP), Urine Negative Cutoff=25 ng/mL [facility] Methadone Screen, Urine Negative Cutoff=30 0 ng/mL [facility] Propoxyphene Screen Negative Cutoff=30 0 ng/mL [facility] Creatinine, Urine 26.1 20.0 - 300.0 mg/dL [facility] pH, UA 5.6 4.5 - 8.9 [facility] Please note Comment [facility] Comment: This assay provides a preliminary unconfirmed analytical test result that may be suitable for clinical management of patients in certain situations. Drug-test results should be interpreted in the context of clinical information. Patient metabolic variables, specific drug chemistry, and specimen characteristics can affect test outcome. Technical consultation is available if a test result is inconsistent with an expected outcome. Email: [email or web address] Urine Urine specimen obtained by clean catch procedure / Unknown 04/19/2025 3:51 PM EDT 04/19/2025 Narrative [facility] ([facility]BULATORY) - 04/21/2025 5:07 PM EDT Performed at: 01 - [address] [id number] Curriculum Designer: Marlene Gupta PhD, Phone: [phone] Patient Fasting: N Mor Dash DO URINE ORDERABLES Final Result [facility] ([facility]) [address] [place] [address], [place] [phone] [facility] [address] [place] [address], [place] [phone] documented in this encounter Visit Diagnoses Diagnosis Seropositive rheumatoid arthritis- Primary Primary osteoarthritis involving multiple joints Encounter for therapeutic drug monitoring Positive QuantiFERON-TB Gold test documented in this encounter Care Teams Turf And Grounds Supervisor Relationship Specialty Start Date End Date Gagan Yu MD [address] [facility] [address] [place] [address] PCP - General Family Medicine 07/10/20 documented as of this encounter
--- OUTSIDE RECORDS SUMMARY | 2025-04-24 08:31 | XMS_ITS | Encounter Summary ---
[facility] Address [address] [place] [address] Care Team Providers Care Varnisher Plasticoater Name Role Phone Gagan Yu MD Primary Care Provider Encounter Details Date Type Department Care Team (Latest Contact Info) Description 04/19/2025 Travel Social History Tobacco Use Types Packs/Day Years [...] or training? Not on file Preferred Language Burmese 08/08/2024 Comments No Sex and Gender Information Value Date Recorded Sex Assigned at Not on file Legal Sex Female 12:49 PM EST Gender Identity Not on file Sexual Orientation Not on file documented as of this encounter Plan of Treatment Upcoming Encounters Date Type Department Care Team (Late st Contact Info) Description 10/22/2025 3:45 PM EDT Office Visit [facility] [address] [phone] Mor Dash DO 330 [facility] [address] [place] [address] documented as of this encounter Visit Diagnoses Not on filedocumented in this encounter Care Teams Varnisher Plasticoater Relationship Specialty Start Date End Date Gagan Yu MD [address] [facility] [address] [facility] [address] [place] [address] PCP - General Family Medicine 07/10/20 documented as of this encounter
--- OUTSIDE RECORDS SUMMARY | 2025-04-24 08:31 | XMS_ITS | Clinical Summary ---
Author Organization [facility] Address [address] [place] [address] Phone Care Team Providers Care Craps Dealer Name Role Phone Julian VAUGHAN, David Suárez Unavailable [ ] Conditions or Problems Problem Name Problem Code Onset Date Status Entry Date Provider Comment Standard Description Annotate Obesity, moderate 734009982 (SNOMED CT) Active David Jordan MD Obesity Osteoarthrities (OA), hand 30099227 (SNOMED CT) Active David Jordan MD Osteoarthritis of joint of hand + QuantiFERON GOLD-TB skin test w/o active TB R76.12 (ICD-10-CM ) Active Hoa Levi 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 Medications Medication Instructions Start Date Stop Date Generic Name ND Provider RIFAMPIN 300 MG CAPS 2 by mouth daily 4 months RIFAMPIN [id number] David Jordan MD FLUCONAZOLE 150 MG TABS TAKE ONE TABLET BY MOUTH A ONE TIME DOSE 01/25 FLUCONAZOLE [id number] Douglas Echeverria CELECOXIB 200 MG CAPS TAKE 1 CAPSULE BY MOUTH TWICE DAILY FOR 30 DAYS 12/05 CELECOXIB [id number] Douglas D VITAMIN D (ERGOCALCIFEROL) 1.25 MG (44043 UT) CAPS TAKE 1 CAPSULE BY MOUTH ONCE A WEEK 03/20 ERGOCALCIFEROL [id number] Douglas Echeverria VASCEPA 1 GM CAPS TAKE 2 CAPSULES BY MOUTH TWICE DAILY 01/30 ICOSAPENT ETHYL [id number] Douglas Echeverria FLUZONE HIGH-DOSE QUADRIVALENT 0.7 ML INTRAMUSCULAR SUSPENSION PREFILLED SYRINGE PHARMACIST ADMINISTERED IMMUNIZATION ADMINISTERED AT TIME OF DISPENSING 02/22 INFLUENZA VAC HIGH-DOSE QUAD [id number] Douglas D ESOMEPRAZOLE MAGNESIUM 40 MG CPDR TAKE 1 CAPSULE BY MOUTH ONCE DAILY 10/18 ESOMEPRAZOLE MAGNESIUM [id number] Douglas D TRAMADOL HCL 50 MG TABS TAKE 1 TABLET BY MOUTH 4 TIMES DAILY NEEDED 03/07 TRAMADOL HCL [id number] Douglas D MELOXICAM 15 MG TABS TAKE 1 TABLET BY MOUTH ONCE DAILY 02/21 MELOXICAM [id number] Douglas D HYDROXYCHLOROQUINE SULFATE 200 MG TABS TAKE 1 TABLET BY MOUTH TWICE DAILY 03/20 HYDROXYCHLOROQUINE SULFATE [id number] Douglas D Medications Administered No information available. [...] STAT Labs CPT-[facility]oor[facility] Continue oral antibiotics 11/07/19 CPT-27614 CMP [id number] CBC with Differential 2019 CPT-[facility] Continue oral antibiotics 09/06/16 CPT-sl STAT Labs CPT-09927 CMP [id number] CBC with Differential 2019 CPT-Coor[facility] Continue oral antibiotics 10/05/18 CPT-sl [facility] CPT-14040 CMP [id number] CBC with Differential 2019 CPT-05113 C- reactive protein CPT-farzaneh New Oral Antibiotic [...]
--- OUTSIDE RECORDS SUMMARY | 2025-04-24 08:32 | XMS_ITS | Referral Summary ---
Author Organization [facility] ([place], [place], [place], [place], [place]) Address [address] [place] [address] Care Team Providers Care Marine Drafter Name Role Phone Unavailable Primary Care Provider [...]
--- OUTSIDE RECORDS SUMMARY | 2025-04-24 08:32 | XMS_ITS | Clinical Summary ---
Author Organization [facility] Address [address] [place] [address] Care Team Providers Care Fabric Worker Leader Name Role Phone Gagan Yu MD Primary [...] 1 capsule by mouth Daily. 4 Active alendronate (FOSAMAX) 70 MG tablet Take 1 tablet by mouth Every 7 (Seven) Days. 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 120 tablet 5 5 Active Polysacch Fe Cmp-Fe Heme Poly (Feosol Bifera) 28 MG tablet Take 1 tablet by mouth Daily. 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 Jameel Ryan ([employer]) in 2007, Tylenol, etodolac, indomethacin, Celebrex, ibuprofen, shoulder injection, back surgery, she has done some physical therapy, prednisone, gabapentin, She saw Dr. Randolph ([employer] School [employer]), she saw Dr. Perera ([employer] School [employer]), cortisone injections in her knees, meloxicam, Plaquenil, [...] on arthritis to take home and review Assessment & Plan (10/18/2024 3:48 PM EDT): * Medications/treatments/interventions tried include: She saw Dr. Jameel Ryan ([employer] School [employer]) in 2007, Tylenol, etodolac, indomethacin, Celebrex, ibuprofen, shoulder injection, back surgery, she has done some physical therapy, prednisone, gabapentin, She saw Dr. Randolph ([employer]lementary School [employer] Director), she saw Dr. Perera ([employer]lementary School [employer] Director), cortisone injections in her knees, meloxicam, Plaquenil, [...] tried include: She saw Dr. Jameel Ryan ([employer]lementary School [employer] Director) in 2007, Tylenol, etodolac, indomethacin, Celebrex, ibuprofen, shoulder injection, back surgery, she has done some physical therapy, prednisone, gabapentin, She saw Dr. Randolph ([employer]lementary School [employer] Director), she saw Dr. Perera ([employer]lementary School [employer] Director), cortisone injections in her knees, meloxicam, Plaquenil, [...] tried include: She saw Dr. Jameel Ryan ([employer]lementary School [employer] Director) in 2007, Tylenol, etodolac, indomethacin, Celebrex, ibuprofen, shoulder injection, back surgery, she has done some physical therapy, prednisone, gabapentin, She saw Dr. Randolph ([employer]lementary School [employer] Director), she saw Dr. Perera (Elementary School [employer] Director), cortisone injections in her knees, meloxicam, Plaquenil, [...] therapeutic drug monitoring 2023 Assessment & Plan (04/19/2025 3:10 PM EDT): * Tramadol 50 mg every 6 hours PRN for pain * Controlled substance agreement updated 12/08/23 Check RICK and Drug screen as required. 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 CXR was clear Assessment & Plan (10/18/2024 3:48 PM EDT): [...] was clear Osteoarthritis 12/06/2023 Assessment & Plan (04/19/2025 3:10 PM EDT): 1. Tylenol PRN is ok [...] PRN every 6 hours Assessment & Plan (10/18/2024 3:48 PM EDT): [...] replacement 04/02/20 21 GERD (gastroesophageal reflux disease) Elevated hemoglobin A1c 04/02/2021 Primary osteoarthritis of both knees 01/31/2021 Resolved Problems Problem Noted Date Diagnosed Date Resolved Date KYUNG positive 12/06/2023 10/18/2024 Encounters Date Type Department Care Team Description 04/19/2025 3:45 PM EDT Office Visit 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 [address] [phone] Mor Dash DO from Last 3 Months Immunizations Immunization Administration Dates Next Due Arexvy (RSV, Adults 60+ yrs) 03/23/2023 COVID-19 (UNSPECIFIED) 08/08/2020 Fluzone (or Fluarix & Flulav al for VFC) >6mos 02/29/2016 Fluzone High-Dose 65+YRS 03/19/2025,03/21,03/11/2019,03/01 Fluzone High-Dose 65+yrs 03/23/2023,04/25/2021,0 02/23/2020 Influenza, Unspecified 04/08/2020 Pneumococcal Conjugate 20-Va lent (PCV20) 08/11/2024 Pneumococcal Polysaccharide (PPSV23) 04/25/2021 Shingrix 01/27/2023,10/20/2022 Td (TDVAX) 04/22/1999 Tdap 10/20/2022 Family History Medical History Relation Name Comments [...] or training? Not on file Preferred Language Czech 08/08/2024 Comments No Sex and Gender Information [...] 16 04/19/2025 3:16 PM EDT Oxygen Saturation 95% 08/19/2024 6:54 AM EST Inhaled Oxygen Concentration - - Weight 84.8 kg (186 lb 14.4 oz) 04/19/2025 3:16 PM EDT Height 162.6 cm (5' 4.02 ) 04/19/2025 3:16 PM ED T Body Mass Index 32.07 04/19/2025 3:16 PM EDT Plan of Treatment Upcoming Encounters Date Type Department Care Team (Late st Contact Info) Description 10/22/2025 3:45 PM EDT Office Visit [facility] [address] [phone] Mor Dash DO [address] [address] Health Maintenance Due Date Last Done Comments ANNUAL WELLNESS VISIT 01/31/2021 HEPATITIS C SCREENING 01/31/2021 COVID-19 Vaccine (8 - 2024-2 6 season) 2025 03/19/2025, 04/10/2024, 04/06/2023, Additional history exists DXA SCAN 12/06/2026 12/06/2024 TDAP/TD VACCINES (3 - Td or Tdap) 10/20/2032 023, 04/22/1999 ZOSTER VACCINE Completed 01/27/2023, 10/20/2022 RSV Vaccine - Adults Completed 03/23/2023 Pneumococcal Vaccine 50+ Completed 08/11/2024, 11/10/2020 COLORECTAL CANCER SCREENING Discontinued FECAL OCCULT BLOOD TEST Discontinued 10/20/2024 INFLUENZA VACCINE Completed 03/19/2025, , 03/23/2023, Additional history exists COLOGUARD Discontinued COLON CANCER SCREENING 5 YEA R SIGMOIDOSCOPY Discontinued COLONOSCOPY Discontinued CT COLONOGRAPHY Discontinued FIT Testing (1 year) Discontinued Medical Devices Implanted Type Area Community Reinvestment Act Officer Device Identifier Shelf Expiration Date Model / Serial / Lot Pat Triath Tritanium 57q07w21tu - [id number] Implanted:Qt y: 1 on 04/02/2021 by Jonathon Tobin MD at [facility] Implant Left: Knee MARIANELA KAELA 01/18/2026 [id number] / / [id number] Comp Fem Triath Cr Cmtls Sz4 Lt - [id number] Implanted:Qt y: 1 on 04/02/2021 by Jonathon Tobin MD at [facility] Implant Left: Knee MARIANELA KAELA 08/30/2025 [id number] / / [id number] Baseplt Tib Triath Tritanium Sz5 - [id number] Implanted:Qt y: 1 on 04/02/2021 by Jonathon Tobin MD at [facility] Implant Left: Knee MARIANELA KAELA 12/08/2025 [id number] / / [id number] Insrt Tib/Kn Triathlon Condy/Stbl X3 Sz5 9mm - [id number] Implanted:Qt y: 1 on 04/02/2021 by Jonathon Tobin MD at [facility] Implant Left: Knee MARIANELA KAELA 01/06/2026 [id number] / / [id number] Dev Contrl Tiss Stratafix Spiral Pdo Bidir 1 02t86ov - [id number] Implanted:Qt y: 1 on 04/02/2021 by Jonathon Tobin MD at [facility] Implant Left: Knee [employer] DIV OF J AND J [id number] / / Cap Total Kn Cmtls 4 Pc - [id number] Implanted:Qt y: 1 on 04/02/2021 by Jonathon Tobin MD at [facility] Implant Left: Knee MARIANELA KAELA CAPKNCEMENTLESS4 P IECE / / Baseplt Shldr Aequalis 1/ Wedge Jan 35d 25mm - [id number] - [id number] Implanted:Qt y: 1 on 08/18/2024 by Marcelo Howard MD at [facility] Implant Right: Shoulder TORNIER [id number] 11/26/2027 [id number] / [id number] / LR Glenosphere Shldr Aequalis Perform Lat Pls3mm 36mm - [id number] - [id number] Implanted:Qt y: 1 on 08/18/2024 by Marcelo Howard MD at [facility] Implant Right: Shoulder TORNIER [id number] 10/17/2028 [id number] / [id number] / Scrw Aequalis Perform Centrl 6.5x30mm - [id number] Implanted:Qt y: 1 on 08/18/2024 by Marcelo Howard MD at [facility] Implant Right: Shoulder TORNIER [id number] / / N/A Scrw Aequalis Perform Periph 5x22mm - [id number] Implanted:Qt y: 2 on 08/18/2024 by Marcelo Howard MD at [facility] Implant Right: Shoulder TORNIER [id number] / / N/A Scrw Aequalis Perform Periph 5x30mm - [id number] Implanted:Qt y: 1 on 08/18/2024 by Marcelo Howard MD at [facility] Implant Right: Shoulder TORNIER [id number] / / N/A Scrw Periph 5x34mm - [id number] Implanted:Qt y: 1 on 08/18/2024 by Marcelo Howard MD at [facility] Implant Right: Shoulder TORNIER [id number] / / N/A Insrt Hum/Shldr Rev Preform Sz1/2 Pls0 10deg 36mm - [id number] - [id number] Implanted:Qt y: 1 on 08/18/2024 by Marcelo Howard MD at [facility] Implant Right: Shoulder TORNIER [id number] 06/08/2028 [id number] / [id number] / Stem Hum/Shldr Preform Lng Pls Sz2 07s92i2tz - [id number] - [id number] Implanted:Qt y: 1 on 08/18/2024 by Marcelo Howard MD at [facility] Implant Right: Shoulder TORNIER [id number] 01/26/2029 [id number] / [id number] / Cp Totl Rev Shldr Perform Stem Rsa Perf Rev Lat/Aug - [id number] Implanted:Qt y: 1 on 08/18/2024 by Marcelo Howard MD at [facility] Implant Right: Shoulder TORNIER CAPTORNIERTOTLSH L DREVPERFSTEMRSAPE RFLATAUG / / Cp Shldr Modifier Lng Stem - [id number] Implanted:Qt y: 1 on 08/18/2024 by Marcelo Howard MD at [facility] Implant Right: Shoulder TORNIER CAPTORNIERSHLDRM O DLONGSTEM / / Hemost Abs Surgicel Orig 4x8in Strl - [id number] Implanted:Qt y: 1 on 08/18/2024 by Marcelo Howard MD at [facility] Implant Right: Shoulder ETHICON DIV OF J AND J [id number] 12/18/2028 [id number] / / [id number] Back Hardware From Spinal Surgery Explanted Type Area Community Reinvestment Act Officer Device Identifier Shelf Expiration Date Model / Serial / Lot Guidepin Hum Preform 9s919en - [id number] Explanted:Qty : 1 on 08/18/2024 by Marcelo Howard MD at [facility] Implant Right: Shoulder TORNIER [id number] 06/09/2029 [id number] / / [id number] Procedures Procedure Name Priority Date/Time Associated Diagnosis Comments URINE DRUG SCREEN Routine 04/19/2025 3:5 1 PM EDT Seropositive rheumatoid arthritis Primary osteoarthritis involving multiple joints Encounter for therapeutic drug monitoring Positive QuantiFERON-TB Gold test SCANNED - DEXA 12/06/2024 from Last 3 Months or Most Recently Relevant to Health Maintenance Results * Urine Drug Screen - Urine, Clean Catch (04/19/2025 3:51 PM EDT) Pathologist [facility] Amphetamine, Urine Qual Negative Cutoff=10 00 ng/mL [...] is inconsistent with an expected outcome. Email: [email or web address] Urine Urine specimen obtained by clean catch procedure / Unknown 04/19/2025 3:51 PM EDT 04/19/2025 Narrative [facility] (AMBULATORY) - 04/21/2025 5:07 PM EDT Performed at: 01 - [facility] [address] [place], [place] [id number] Electrical And Instrument Technician: Marlene Gupta PhD, Phone: [phone] Patient Fasting: N Mor Dash DO URINE ORDERABLES Final Result [facility] (AMBULATORY) [address] [place] [address], [place] [phone] [facility] [address] [place] [address], [place] [phone] * DEXA Scan (12/06/2024) Anatomical Region Laterality Modality Other Mor Dash DO CHART REVIEW TABS F inal Result from Last 3 Months or Most Recently Relevant to Health Maintenance Insurance MEDICARE A & B Member Subscriber Plan / Payer (Ef fective 2011-Present) Name:Lona Sutton Member ID:[id number] Relation to Subscriber:Self Name:Lona Sutton Subscriber ID:[id number] Payer ID:[id number] Group ID:Not on file Type:Not on file Address: [facility] [id number] [address] Advance Directives * CPR (Attempt to Resuscitate) (Latest Code Status on File) Date Activated Date Inactivated Comments 04/02/2021 2:08 PM 04/02/2021 8:10 PM Question Answer Comments Code Status (Patient has no pulse and is not breathing): CPR (Attempt to Resuscitate) Medical Interventions (Patie nt has pulse or is breathing): Full Healthcare Agents on File Name Relationship Healthcare Agent Relationsky p Communication Homero Sutton [facility] Care Surrogate Care Teams Fabric Worker Leader Relationship Specialty Start Date End Date Gagan Yu MD [facility] [place] [facility] [address] [facility] [address] [place] [address] PCP - General Family Medicine 07/10/20
--- OUTSIDE RECORDS SUMMARY | 2025-04-24 08:33 | XMS_ITS | Clinical Summary ---
Author Organization [facility] ([place], [place], [place], [place], [place]) Address [address] [place] [address] Care Team Providers Care Roving Tester Laboratory Name Role Phone Unavailable Primary Care Provider [...]
--- OUTSIDE RECORDS SUMMARY | 2025-04-24 08:33 | XMS_ITS | Patient Health Record ---
Author Organization [facility] Address [address] [facility] [address] [place] [id number] Care Team Providers Care Crop Grain Or Livestock Farm Manager Name Role Phone Alfonso Claire Primary Care Provider Jordon Yu Unavailable [phone] Urvashi Ibrahim Unavailable [phone] Cecelia Suazo Unavailable [phone] Allergies Allergen (clinical drug ingredient) Drug/Non Drug Allergy documented on EMR Reaction Allergy Type Onset Date Status gabapentin Neurontin weakness/trouble breathing Drug Allergy Active Substance with 8-ggyoqfs-1-methylg lutaryl-coenzyme A reductase inhibitor mechanism of action (substance) Statins muscle aches Drug Allergy Active Results Component Value Reference Range Notes Glycohemoglobin A1c (in hous e) Reviewed date:05/07/2024 07:59:27 PM Interpretation:6.1% Performing Lab: Notes/Report: 6.1% glycohemoglobin 6.1% 5 - 6.5 % P-Comprehensive Metabolic Pa german (CMP) Reviewed date:05/07/2024 07:59:27 PM Interpretation: Performing Lab: Notes/Report: Test performed by [facility], [facility] , [address], [place] [address] Gabriel Gregory MD, Torch Shearer CLIA: [id number] Sodium 139 135-145 mmol/L Potassium 4.6 3.5-5.3 [...] Interpretation: Performing Lab: Notes/Report: Test performed by [facility], [address] , [address], [place] [address] Gabriel Gregory MD, Torch Shearer CLIA: [id number] Cholesterol 211 <200 mg/dL Triglycerides 192 <150 [...] Interpretation: Performing Lab: Notes/Report: Test performed by [facility] [address] [place] [address] , [place] [address] Gabriel Gregory MD, Torch Shearer CLIA: [id number] Vitamin D 25-Hydroxy 40.1 30.0-100.0 ng/mL Interpretation [...] Normal Performing Lab: Notes/Report: Test performed by [facility] [address] [place] [address] , [address], [place] [address] Gabriel Gregory MD, Torch Shearer CLIA: [id number] Vitamin B12 296 648-9252 pg/mL P-Lyme Disease (B. burgodorf la), IgG/IgM, SOILA, Serum Reviewed date:10/20/2024 12:06:10 PM Interpretation: Normal Performing Lab: Notes/Report: Test performed by [facility] [address] [place], [place] [address] [place] , [address], [place] [id number] Gabriel Gregory MD, Torch Shearer CLIA: [id number] B burgdorferi (Lyme Disease) IgG Negative Negative B burgdorferi (Lyme Disease) IgM Negative Negative P-Folate Reviewed date:10/20/2024 12:06:10 PM Interpretation: Normal Performing Lab: Notes/Report: Test performed by [facility] , [facility], [place] [address] Gabriel Gregory MD, Torch Shearer CLIA: [id number] Folate 18.40 >4.59 ng/mL P-Ferritin Reviewed date:10/20/2024 12:06:10 PM Interpretation: Normal Performing Lab: Notes/Report: Test performed by [facility] , [facility] [address], [place] [address] Gabriel Gregory MD, Torch Shearer CLIA: [id number] Ferritin 15.2 13.0-301.0 ng/mL P-Iron Reviewed date:10/20/2024 12:06:10 PM Interpretation:29 Performing Lab: Notes/Report: Test performed by [facility] [address] , [facility], [place] [address] Gabriel Gregory MD, Torch Shearer CLIA: [id number] Iron 29 37-145 ug/dL P-Vitamin D 25-Hydroxy Reviewed date:10/20/2024 12:06:10 PM Interpretation: Normal Performing Lab: Notes/Report: Test performed by [facility] [address] , [place] [address] Gabriel Gregory MD, Torch Shearer CLIA: [id number] Vitamin D 25-Hydroxy 36.7 30.0-100.0 ng/mL Interpretation [...] Growth Performing Lab: Notes/Report: Test performed by [facility] [address] , [place] [address] Gabriel Gregory MD, Torch Shearer CLIA: [id number] Specimen Source Urine - Void Culture, Urine [...] Interpretation: Performing Lab: Notes/Report: Test performed by [facility] [address] [place] [address] , [address], [place] [address] Gabriel Gregory MD, Torch Shearer CLIA: [id number] Sodium 141 135-145 mmol/L Potassium 4.9 3.5-5.3 [...] Interpretation:18 Performing Lab: Notes/Report: Test performed by [facility] [address] [place] [address] , [place] [address] Gabriel Gregory MD, Torch Shearer CLIA: [id number] Iron 18 37-145 ug/dL EKG Reviewed date:03/15/2025 04:09:45 PM Interpretation:NSR with frequent SV premature beats Performing Lab: Notes/Report: NSR with frequent SV premature beats CXR Reviewed date:03/15/2025 04:09:18 PM Interpretation:no acute CP disese Performing Lab: Notes/Report: no acute CP disese Event Recorder Reviewed date:04/16/2025 03:26:01 PM Interpretation:SVT and VT runs Performing Lab: Notes/Report: SVT and VT runs Urinalysis - Inhouse Reviewed date:05/22/2024 07:54:58 PM Interpretation: Performing Lab: Notes/Report: Color/Clarity yellow/clear Leuk 1+ Nitrite neg Urobili 3.2 Protein 2+ pH 6.0 Blood trace intact Sp. Gr. 1.020 Ketone neg Bili neg Gluc neg P-Culture, Urine Reviewed date:05/25/2024 01:36:17 PM Interpretation: Performing Lab: Notes/Report: Test performed by [facility] [address] [place] [address] , [place] [address] Gabriel Gregory MD, Torch Shearer CLIA: [id number] Specimen Source Urine - Void Culture, Urine [...] 90 days Active Vitamin D3 50 MCG (2000 UT) [...] Vaccine Route Administration Date Status Comme nts rRwnlnnr-aemuvcfxv-pmhwqxs e pts. IM Intramuscular 02/25/2011 Administered vCjhiyyb-xyeemsiqe-aunqxob e pts. IM Intramuscular 02/10/2012 Administered xFluzone [...] Status Risk Notes Problem Gastroesophageal reflux disease (072227424) GERD (gastroesophageal reflux disease) (K21.9) Active confirmed Problem Vitamin D deficiency (72887807) Vitamin D deficiency (E55.9) Active confirmed Problem Anemia (945923839) Anemia (D64.9) Active confir med Problem Cardiac dysrhythmia (613039204) Cardiac dysrhythmia (I49.9) Active confirmed Problem Osteoarthritis (812998469) Osteoarthritis (M19.90) Active confirmed Problem Impaired fasting glucose (884311193) Impaired fasting glucose (R73.01) Active confirmed Problem Primary generalised osteoarthritis (965317423) Primary generalized (osteo)arthritis (M15.0) Active confirmed Problem Dysphagia (01630925) Dysphagia (R13.10) Active confirmed Problem Mixed hyperlipidemia (652890757) Mixed hyperlipidemia (E78.2) Active confirmed Problem Presbycusis (83447911) Presbycusis, bilateral (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) Active confirmed Problem Artificial knee joint present (139890327500) Presence of left artificial knee joint (Z96.652) Active confirmed Problem Gastroesophageal reflux disease (630578058) GERD without esophagitis (K21.9) Active confirmed Problem Obese class II (788332372699165) BMI 35.0-35.9,adult (Z68.35) Active confirmed Problem Obesity (779665834) Non morbid o besity due to excess calories (E66.09) Active confirmed Problem History of polyp of colon (situation) (406056505) Hx of colonic polyps (Z86.010) Active confirmed Problem Gastroesophageal reflux disease (394490366) Gastroesophageal reflux disease, esophagitis presence not specified (K21.9) Active confirmed Problem Lumbar spinal stenosis (28194331) Spinal stenosis, lumbar (M48.06) Active confirmed Problem Arthropathy of lumbar facet joint (135250642) Lumbar facet arthropathy (M46.96) Active confirmed Problem Polyarthritis (142845786) Polyarthritis (M13.0) Active confirmed Problem Anemia (687246224) Anemia, unspecified type (D64.9) Active confirmed Problem Rheumatoid arthritis (30583542) Rheumatoid arthritis (M06.9) Active confirmed Problem Rheumatoid arthritis (36536939) Rheumatoid arthritis involving multiple sites, unspecified rheumatoid factor presence (M06.9) Active confirmed Problem Body mass index 30.00 to 34.99 (272348546636580) BMI 34.0-34.9,adult (Z68.34) Active confirmed Problem Sciatica (03512838) 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) Active confirmed Problem Dyslipidemia (181921189) Dyslipidemia (E78.5) Active confirmed Problem Allergic rhinitis caused by pollen (69504053) Seasonal allergic rhinitis due to pollen (J30.1) [...] [address] [place] [id number] 05/04/2024 R Bartolo Yu Cardiac dysrhythmia I49.9 ; Impaired fasting glucose R73.01 ; Dyslipidemia E78.5 ; GERD (gastroesophageal reflux disease) K21.9 ; Iron deficiency E61.1 ; Vitamin D deficiency E55.9 ; Presence of left artificial knee joint Z96.652 ; Rheumatoid arthritis involving multiple sites, unspecified rheumatoid factor presence M06.9 and Presbycusis, bilateral H91.13 [facility] [address] [facility] [address] [place], [place] [id number] 05/22/2024 Urvashi Ibrahim Right shoulder pain M25.511 and Urinary frequency R35.0 [facility] [address] [place], [place] [id number] 05/27/2024 Alfonso [place] Acute UTI N39.0 ; Fever, unspecified R50.9 and Anemia, unspecified type D64.9 [facility] [address] [place], [place] [id number] 05/29/2024 Urvashi Ibrahim Bronchitis J40 [facility] [address] [place], [place] [id number] 10/18/2024 Cecelia Crowdy Bronchitis J40 ; Anemia, unspecified type D64.9 ; Insect bite (nonvenomous) of lower back and pelvis, initial encounter S30.860A ; Bitten or stung by nonvenomous insect and other nonvenomous arthropods, initial encounter W57.XXXA and BMI 34.0-34.9,adult Z68.34 [facility] [address] [facility] [address] [place], [place] [id number] 10/20/2024 Cecelia Crowdy Anemia D64.9 [facility] [address] [facility] [address] [place], [place] [id number] 11/09/2024 R Bartolo Yu UTI (lower urinary tract infection) N39.0 ; Screening for osteoporosis Z13.820 ; Dyslipidemia E78.5 ; Rheumatoid arthritis M06.9 and BMI 34.0-34.9,adult Z68.34 [facility] [address] [place], [place] [id number] 03/12/2025 Urvashi Ibrahim Shortness of breath R06.02 ; Itching L29.9 ; Fatigue, unspecified type R53.83 ; Anemia D64.9 and Iron deficiency E61.1 [facility] [address] [facility] [address] [place], [place] [id number] 04/02/2025 Urvashi Ibrahim Fatigue, unspecified type R53.83 ; Anemia D64.9 ; Abnormal EKG R94.31 and Iron deficiency E61.1 [facility] [address] [facility] [address] [place], [place] [id number] 05/07/2024 Jordon Jineet [facility] [address] [facility] [address] [place], [place] [id number] 05/25/2024 Urvashi Ibrahim [facility] [address] [facility] [address] [place], [place] [id number] 10/20/2024 Cecelia Crowdy Anemia, unspecified type D64.9 [facility] [address] [facility] [address] [place], [place] [id number] 03/15/2025 Urvashi Ibrahim Assessments Encounter Date Diagnosis [...] Date MEDICARE PART B [address] [address] [place] [address] [id number] NEENA SUTTON Self - patient is the insured [facility] [address] [place] [phone] [id number] NEENA SUTTON Self - patient is the [...] [facility]SA 08/18/19 25 Hospitalization History Reason Date(Month/Year) [facility]-right reverse total shoul [place] [facility] 08/18/2024
[2025-04-24 08:37] VITALS: BP 121/69; PULSE 72; RESP 18; TEMP 36.6; O2SAT 98
[2025-04-24] MEDS: IRON SUCROSE COMPLEX 200 MG in 0.9 % SODIUM CHLORIDE 100 ML 220 MG IV (08:37)
[2025-04-24] MEDS: SODIUM CHLORIDE 0.9% 10ML FLUSH SYRINGE 10 ML IV (08:38)
[2025-04-24 09:15] VITALS: BP 119/59; PULSE 78; RESP 18; O2SAT 98
== END 2025-04-24 23:59 | disposition home or self-care (01) ==
LOC: INF 08:29
PROVIDERS: PCP Family Medicine; Visit Provider Nurse Practitioner Family
DX: D50.9 Iron deficiency anemia, unspecified (principal)
CPT/HCPCS: 96365; J1756